=== PATIENT | male | born 1935 | race Caucasian/White ===

== ENCOUNTER 2020-03-02 18:49 | Outpatient (CLI) | payer MEDICARE, OTHER | END 2020-03-02 18:50 | disposition critical access hospital (66) | LOC: EMS 18:49 | PROVIDERS: ATTEND Surgery | DX: R11.2 Nausea with vomiting, unspecified (principal); R42 Dizziness and giddiness | CPT/HCPCS: A0425; A0427 ==

== ENCOUNTER 2020-03-02 19:08 | Emergency (ER) | payer MEDICARE, OTHER ==
[2020-03-02] MEDS ORDERED: ONDANSETRON 4 MG/2 ML VIAL IVP STA (19:36)
--- NOTE | 2020-03-02 19:39 | ED Physician Documentation ---
PD HPI FOCAL NEURO - Stated complaint Stated Complaint: DIZZY/N/V - Chief complaint Chief Complaint: Abd Pain - History obtained from History obtained from: Patient, Family (), EMS - History of Present Illness Timing - onset: Today (Acute onset vertigo, N/V, starting at 6pm. Vomited once. Slightly confused. Complains of headache but declines pain medication for it. I do not think he is on a blood thinner but he is not sure.) Review of Systems Ten Systems: 10 systems reviewed and negative Constitutional: denies: Fever, Chills Nose: denies: Rhinorrhea / runny nose, Congestion Cardiac: denies: Chest pain / pressure, Palpitations Respiratory: denies: Dyspnea, Cough PD PAST MEDICAL HISTORY - Allergies Allergies/Adverse Reactions: Allergies Allergy/AdvReac Type Severity Reaction Status Date / Time No Known Drug Allergies Allergy Verified 03/02/20 19:23 PD ED PE NORMAL - Vitals Vital signs reviewed: Yes (He appears uncomfortable and laying in bed and with his eyes closed. He is) - General General: Alert and oriented X 3, Other (He appears uncomfortable and laying in bed and with his eyes closed. He is covered in vomit.) - HEENT HEENT: PERRL, Other (He seems to have nystagmus in all directions) - Neck Neck: Supple, no meningeal sign, No bony TTP - Cardiac Cardiac: RRR, No murmur - Respiratory Respiratory: No respiratory distress, Clear bilaterally - Abdomen Abdomen: Normal bowel sounds, Soft, Non tender - Back Back: No CVA TTP, No spinal TTP - Derm Derm: Normal color - Extremities Extremities: No deformity, No tenderness to palpate, Normal ROM s pain, No edema, No calf tenderness / cord - Neuro Neuro: Alert and oriented X 3, No motor deficit, No sensory deficit, Other (He has ataxia on right upper extremity [id number] testing) Results - Vitals Vitals: Vital Signs - 24 hr 03/02/20 03/02/20 19:16 21:16 Temperature 36.8 C 36.6 C Heart Rate 82 88 Respiratory 14 16 Rate Blood Pressure 125/80 116/69 O2 Saturation 92 94 Oxygen O2 Source Room air - EKG (time done) 1922 Rate: Rate (enter#) (83) Rhythm: NSR [place]: Normal Intervals: Prolonged [place], RBBB QRS: Normal Compare to prior EKG: Old EKG unavailable Computer interpretation: Agree with computer - Labs Labs: Laboratory Tests 03/02/20 03/02/20 03/02/20 20:01 20:01 20:01 WBC 7.2 RBC 4.33 L Hgb 15.0 Hct 45.9 MCV 106.0 H MCH 34.6 H MCHC 32.7 RDW 13.7 Plt Count 136 MPV 10.9 Neut # (Auto) 5.1 Lymph # (Auto) 1.3 L [place] # (Auto) 0.7 Eos # (Auto) 0.1 Baso # (Auto) 0.0 Absolute Nucleated RBC 0.00 Nucleated RBC % 0.0 PT 11.2 INR 1.0 Sodium 142 Potassium 3.6 Chloride 106 Carbon Dioxide 25 Anion Gap 11.0 BUN 12 Creatinine 0.9 Estimated GFR (MDRD) 81 L Glucose 163 H Calcium 8.9 Total Bilirubin 0.6 AST 24 ALT 31 Alkaline Phosphatase 67 Total Protein 6.4 L Albumin 3.7 Globulin 2.7 Albumin/Globulin Ratio 1.4 Lipase 29 - Rads (name of study) CT Head Radiology: EMP read contemporaneously (normal) PD MEDICAL DECISION MAKING - ED course ED course: Further information was gathered after I saw the patient. Per the nurse, paramedics state that both he and his are quite intoxicated. This would explain his physical findings. Allowed to sober up in ED. After a while no sx, and ambulatory with stable gait. Departure - Departure Disposition: 01 Home, Self Care Clinical Impression: Vertigo Alcohol intoxication Qualifiers: Complication of substance-induced condition: uncomplicated Qualified Code(s): F10.920 - Alcohol use, unspecified with intoxication, uncomplicated Condition: Good Record reviewed to determine appropriate education?: Yes Instructions: ED Alcohol Intoxication, ED Vertigo Unspecified Comments: Try not to drink so heavily. Return for new or worsening symptoms. Follow-up with your doctor regardless, next available appointment. Discharge Date/Time: 03/02/20 21:16
[2020-03-02] MEDS ORDERED: MECLIZINE 12.5 MG TABLET PO STA (19:50)
[2020-03-02 20:11] LABS: BASOPHILS % (AUTO) 0.3 %; EOSINOPHILS # (AUTO) 0.1 10^3/uL (0.0-0.7); EOSINOPHILS % (AUTO) 1.5 %; LYMPHOCYTES # (AUTO) 1.3 10^3/uL (1.5-3.5); LYMPHOCYTES % (AUTO) 17.7 %; MEAN CORPUSCULAR HEMOGLOBIN 34.6 pg (27.0-31.0); MEAN CORPUSCULAR HGB CONC 32.7 g/dL (32.0-36.0); MEAN PLATELET VOLUME 10.9 fL (7.4-11.4); MONOCYTES # (AUTO) 0.7 10^3/uL (0.0-1.0); MONOCYTES % (AUTO) 9.1 %; NEUTROPHILS # (AUTO) 5.1 10^3/uL (1.5-6.6); NEUTROPHILS % (AUTO) 71.1 %; PLT - PLATELET COUNT 136 10^3/uL (130-450); RED BLOOD COUNT 4.33 10^6/uL (4.70-6.10); RED CELL DISTRIBUTION WIDTH 13.7 % (12.0-15.0); WHITE BLOOD COUNT 7.2 x10^3/uL (4.8-10.8)
[2020-03-02 20:18] LABS: PT - PROTHROMBIN TIME 11.2 secs (9.9-12.6)
[2020-03-02 20:23] LABS: ALBUMIN 3.7 g/dL (3.2-5.5); ALBUMIN/GLOBULIN RATIO 1.4 (1.0-2.2); BILIRUBIN,TOTAL 0.6 mg/dL (0.2-1.0); CALCIUM 8.9 mg/dL (8.5-10.3); CREATININE 0.9 mg/dL (0.6-1.2); TOTAL PROTEIN 6.4 g/dL (6.7-8.2)
--- NOTE | 2020-03-02 20:23 | CT Report ---
Reason: headache, vertigo Procedure Date: 03/02/2020 Accession Number: [id number] / [id number] Procedure: CT - HEAD WO CPT Code: Final Report FULL RESULT: EXAM: CT HEAD EXAM DATE: 03/02/2020 07:52 PM. CLINICAL HISTORY: Headache, vertigo. COMPARISON: None. TECHNIQUE: Multiaxial CT images were obtained from the foramen magnum to the vertex. Reformats: Sagittal and coronal. IV contrast: None. In accordance with CT protocol optimization, one or more of the following dose reduction techniques were utilized for this exam: automated exposure control, adjustment of mA and/or KV based on patient size, or use of iterative reconstructive technique. FINDINGS: Parenchyma: No intraparenchymal hemorrhage. No evidence of mass, midline shift, or CT findings of infarction. Zapien-white differentiation is distinct. Extraaxial Spaces: Normal for age. No subdural or epidural collections identified. Ventricles: Normal in size and position. Sinuses and Orbits: There is bilateral sphenoid sinus opacification. Mastoid sinuses appear clear. Bones: No fracture or focal bony destruction. Other: None. IMPRESSION: Negative for an acute or focal intracranial abnormality. RADIA
[2020-03-02 21:17] VITALS: BP 116/69
== END 2020-03-02 21:16 | disposition home or self-care (01) ==
LOC: EDUNIT# → ED 19:08
DX: R42 Dizziness and giddiness (principal); F10.920 Alcohol use, unspecified with intoxication, uncomplicated; R11.2 Nausea with vomiting, unspecified; R51 Headache; I45.10 Unspecified right bundle-branch block; I44.0 Atrioventricular block, first degree
CPT/HCPCS: 36415; 70450; 80053; 83690; 85025; 85610; 93005; 96374; 99283; 99284; A9270

== ENCOUNTER 2021-05-12 21:37 | Outpatient (CLI) | payer MEDICARE, OTHER | END 2021-05-12 21:38 | disposition critical access hospital (66) | LOC: EMS 21:37 | DX: R10.9 Unspecified abdominal pain (principal); R11.10 Vomiting, unspecified; R19.7 Diarrhea, unspecified | CPT/HCPCS: A0425; A0427 ==

== ENCOUNTER 2021-05-12 21:56 | Observation (INO) | payer MEDICARE, OTHER ==
[2021-05-12 23:16] LABS: ALBUMIN 3.8 g/dL (3.2-5.5); ALBUMIN/GLOBULIN RATIO 1.7 (1.0-2.2); BILIRUBIN,TOTAL 1.7 mg/dL (0.2-1.0); CALCIUM 8.8 mg/dL (8.5-10.3); CREATININE 1.1 mg/dL (0.6-1.2); POTASSIUM 3.4 mmol/L (3.5-5.0); TOTAL PROTEIN 6.1 g/dL (6.7-8.2)
[2021-05-12 23:17] LABS: BASOPHILS % (AUTO) 0.2 %; EOSINOPHILS # (AUTO) 0.2 10^3/uL (0.0-0.7); HCT - HEMATOCRIT 46.5 % (42.0-52.0); HGB - HEMOGLOBIN 15.2 g/dL (14.0-18.0); LYMPHOCYTES # (AUTO) 1.1 10^3/uL (1.5-3.5); LYMPHOCYTES % (AUTO) 7.1 %; MEAN CORPUSCULAR HEMOGLOBIN 33.3 pg (27.0-31.0); MEAN CORPUSCULAR HGB CONC 32.7 g/dL (32.0-36.0); MEAN PLATELET VOLUME 10.9 fL (7.4-11.4); MONOCYTES # (AUTO) 1.4 10^3/uL (0.0-1.0); MONOCYTES % (AUTO) 8.5 %; NEUTROPHILS # (AUTO) 13.2 10^3/uL (1.5-6.6); PLT - PLATELET COUNT 138 10^3/uL (130-450); RED BLOOD COUNT 4.56 10^6/uL (4.70-6.10); RED CELL DISTRIBUTION WIDTH 13.4 % (12.0-15.0); WHITE BLOOD COUNT 15.9 x10^3/uL (4.8-10.8)
[2021-05-13] MEDS ORDERED: KETAMINE 500 MG/10 ML VIAL IVP STA (00:20)
[2021-05-13] MEDS ORDERED: SODIUM CHLORIDE 0.9% 1,000 ML IV STA ×2 (00:21→01:40)
[2021-05-13] MEDS ORDERED: IOPAMIDOL-300 100 ML VIAL ONE (00:22)
--- NOTE | 2021-05-13 00:38 | ED Physician Documentation ---
History of Present Illness - Stated complaint Stated Complaint: N/V, ABD PAIN, DIZZY - Chief complaint Chief Complaint: Abd Pain - History obtained from History obtained from: Patient, Family () - Additonal information Additional information: 85yM with pmh "heart problems" on propranolol, atorvastatin, albuterol inhaler, lasix 20mg daily, difficult historian however He states that he had new onset nausea and vomiting and abdominal pain with diarrhea today and was not able to get off the toilet therefore he told his to call 911. denies fevers. chronic constipation, now with diarrhea. unsure if he has history of aflutter or afib. Review of Systems Cardiac: reports: Chest pain / pressure, Palpitations GI: reports: Abdominal Pain, Nausea Musculoskeletal: denies: Back pain Neurologic: reports: Headache PD PAST MEDICAL HISTORY - Past Medical History Past Medical History: Yes Cardiovascular: High cholesterol, Atrial fibrillation Respiratory: COPD - Allergies Allergies/Adverse Reactions: Allergies Allergy/AdvReac Type Severity Reaction Status Date / Time No Known Drug Allergies Allergy Verified 05/12/21 22:10 - Social History Does the pt smoke?: No Smoking Status: Never smoker Does the pt drink ETOH?: No Does the pt have substance abuse?: No - Immunizations Immunizations are current?: No - POLST Patient has POLST: No PD ED PE NORMAL - Vitals Vital signs reviewed: Yes - General General: Alert and oriented X 3 - HEENT HEENT: Atraumatic, PERRL, EOMI - Neck Neck: Supple, no meningeal sign - Cardiac Cardiac: Other (tachycardic rate, regular rhythm) - Respiratory Respiratory: No respiratory distress, Clear bilaterally - Abdomen Abdomen: Non tender, Non distended, Other (discomfort diffusely to palpation) - Back Back: No CVA TTP - Derm Derm: Normal color - Extremities Extremities: No deformity - Neuro Neuro: Alert and oriented X 3 - Psych Psych: Normal mood, Normal affect Results - Vitals Vitals: Vital Signs - 24 hr 05/12/21 05/12/21 05/12/21 22:05 22:10 23:30 Temperature 36.7 C Heart Rate 97 64 119 H Respiratory 14 14 16 Rate Blood Pressure 102/68 92/63 81/46 L O2 Saturation 96 96 93 05/13/21 05/13/21 05/13/21 00:00 00:10 00:33 Temperature Heart Rate 139 H 140 H 143 H Respiratory 16 18 Rate Blood Pressure 82/68 L 84/56 L 94/57 L O2 Saturation 93 94 93 05/13/21 05/13/21 05/13/21 01:07 01:21 02:15 Temperature Heart Rate 137 H 137 H 133 H Respiratory Rate Blood Pressure 74/63 L 107/89 H 109/91 H O2 Saturation 95 05/13/21 05/13/21 05/13/21 02:36 02:54 03:10 Temperature Heart Rate 134 H 132 H 84 Respiratory Rate Blood Pressure 68/55 L 85/61 L 99/64 O2 Saturation 93 92 98 05/13/21 05/13/21 05/13/21 04:55 05:02 05:54 Temperature Heart Rate 75 75 75 Respiratory Rate Blood Pressure 99/61 104/63 97/62 O2 Saturation 93 95 Oxygen O2 Source Room air - Labs Labs: Laboratory Tests 05/12/21 05/12/21 05/12/21 23:00 23:00 23:00 WBC 15.9 H RBC 4.56 L Hgb 15.2 Hct 46.5 MCV 102.0 H MCH 33.3 H MCHC 32.7 RDW 13.4 Plt Count 138 MPV 10.9 Neut # (Auto) 13.2 H Lymph # (Auto) 1.1 L [place] # (Auto) 1.4 H Eos # (Auto) 0.2 Baso # (Auto) 0.0 Absolute Nucleated RBC 0.00 Nucleated RBC % 0.0 Anti-Xa Level Sodium 138 Potassium 3.4 L Chloride 106 Carbon Dioxide 23 Anion Gap 9.0 BUN 27 H Creatinine 1.1 Estimated GFR (MDRD) 64 L Glucose 129 H Lactic Acid Calcium 8.8 Magnesium 2.0 Total Bilirubin 1.7 H AST 40 ALT 31 Alkaline Phosphatase 53 Troponin I High Sens Total Protein 6.1 L Albumin 3.8 Globulin 2.3 Albumin/Globulin Ratio 1.7 Lipase 24 Nasal Adenovirus (PCR) Nasal B. parapertussis DNA (PCR) Nasal Coronavir 229E PCR Nasal Coronavir HKU1 PCR Nasal Coronavir NL63 PCR Nasal Coronavir OC43 PCR Nasal Enterovir/Rhinovir PCR Nasal Influenza B PCR Nasal Influenza A PCR Nasal Parainfluen 1 PCR Nasal Parainfluen 2 PCR Nasal Parainfluen 3 PCR Nasal Parainfluen 4 PCR Nasal RSV (PCR) Nasal B.pertussis DNA PCR Nasal C.pneumoniae (PCR) Talha Human Metapneumo PCR Nasal M.pneumoniae (PCR) Nasal SARS-CoV-2 (PCR) 05/13/21 05/13/21 05/13/21 00:25 01:07 01:45 WBC RBC Hgb Hct MCV MCH MCHC RDW Plt Count MPV Neut # (Auto) Lymph # (Auto) [place] # (Auto) Eos # (Auto) Baso # (Auto) Absolute Nucleated RBC Nucleated RBC % Anti-Xa Level Sodium Potassium Chloride Carbon Dioxide Anion Gap BUN Creatinine Estimated GFR (MDRD) Glucose Lactic Acid 2.0 Calcium Magnesium Total Bilirubin AST ALT Alkaline Phosphatase Troponin I High Sens 31.1 H* Total Protein Albumin Globulin Albumin/Globulin Ratio Lipase Nasal Adenovirus (PCR) NOT DETECTED Nasal B. parapertussis DNA (PCR) NOT DETECTED Nasal Coronavir 229E PCR NOT DETECTED Nasal Coronavir HKU1 PCR NOT DETECTED Nasal Coronavir NL63 PCR NOT DETECTED Nasal Coronavir OC43 PCR NOT DETECTED Nasal Enterovir/Rhinovir PCR NOT DETECTED Nasal Influenza B PCR NOT DETECTED Nasal Influenza A PCR NOT DETECTED Nasal Parainfluen 1 PCR NOT DETECTED Nasal Parainfluen 2 PCR NOT DETECTED Nasal Parainfluen 3 PCR NOT DETECTED Nasal Parainfluen 4 PCR NOT DETECTED Nasal RSV (PCR) NOT DETECTED Nasal B.pertussis DNA PCR NOT DETECTED Nasal C.pneumoniae (PCR) NOT DETECTED Talha Human Metapneumo PCR NOT DETECTED Nasal M.pneumoniae (PCR) NOT DETECTED Nasal SARS-CoV-2 (PCR) NOT DETECTED 05/13/21 05/13/21 04:10 04:10 WBC 10.8 RBC 4.26 L Hgb 14.3 Hct 44.4 MCV 104.2 H MCH 33.6 H MCHC 32.2 RDW 13.6 Plt Count 123 L MPV 10.9 Neut # (Auto) Lymph # (Auto) [place] # (Auto) Eos # (Auto) Baso # (Auto) Absolute Nucleated RBC Nucleated RBC % Anti-Xa Level 0.0 Sodium Potassium Chloride Carbon Dioxide Anion Gap BUN Creatinine Estimated GFR (MDRD) Glucose Lactic Acid Calcium Magnesium Total Bilirubin AST ALT Alkaline Phosphatase Troponin I High Sens Total Protein Albumin Globulin Albumin/Globulin Ratio Lipase Nasal Adenovirus (PCR) Nasal B. parapertussis DNA (PCR) Nasal Coronavir 229E PCR Nasal Coronavir HKU1 PCR Nasal Coronavir NL63 PCR Nasal Coronavir OC43 PCR Nasal Enterovir/Rhinovir PCR Nasal Influenza B PCR Nasal Influenza A PCR Nasal Parainfluen 1 PCR Nasal Parainfluen 2 PCR Nasal Parainfluen 3 PCR Nasal Parainfluen 4 PCR Nasal RSV (PCR) Nasal B.pertussis DNA PCR Nasal C.pneumoniae (PCR) [place]ha Human Metapneumo PCR Nasal M.pneumoniae (PCR) Nasal SARS-CoV-2 (PCR) PD MEDICAL DECISION MAKING - ED course ED course: Blood pressure keeps dropping when he converts to aflutter, then he goes back into NSR. Patient reporting to me a feeling that his head is going to explode and that he is dying during these episodes, then symptoms shakila when his heart rate goes back down. d/w Dr. Henson, our hospitalist who strongly recommended against electrical cardioversion or procainamide given that he is not anticoagulated. recommending ivf for volume resuscitation. Patient with jejunal enteritis and possible midsmall bowel obstruction on CT. exam inconsistent with SBO and patient is passing gas and was having diarrhea earlier. d/w Dr. Coreas who states the patient is too complicated to manage here and must be transferred. Will give antibiotics. 2:15am - no beds available anywhere. our [facility] called all the hospitals in [place] and surrounding area. d/w transfer center Ally at need for emergent transfer and need to speak with a housetrailer servicer and she will have one call me. 3am - d/w Мария with [facility] who says there are no beds anywhere in [place] or surrounding area right now. 3:23 ekg NSR at rate 83. he appears to have converted from flutter to nsr. d/w housetrailer servicer Dr. Lloyd Novak - recommending start amio now the patient is in sinus as well as heparin. he reiterated no beds available. d/w Dr.Alex Montes, [facility]. patient endorsed to Dr. Power, daytime MD. Departure - Departure Clinical Impression: Atrial flutter, Enteritis
[2021-05-13] MEDS ORDERED: IOPAMIDOL-300 100 ML VIAL IVP ONE (00:56)
[2021-05-13] MEDS ORDERED: PIPERACILLIN/TAZOBACTAM 3.375 GM in SODIUM CHLORIDE 0.9% MINIBAG 100 ML IV STA (01:36)
[2021-05-13 03:20] LABS: B. PARAPERTUSSIS- RESP PCR PAN NOT DETECTED; B. PERTUSSIS- RESP PCR PANEL NOT DETECTED; C. PNEUMONIAE- RESP PCR PANEL NOT DETECTED; CORONAVIRUS 229E-RESP PCR NOT DETECTED; CORONAVIRUS HKU1-RESP PCR NOT DETECTED; CORONAVIRUS NL63-RESP PCR NOT DETECTED; CORONAVIRUS OC43-RESP PCR NOT DETECTED; HUMAN METAPNEUMOVIRUS NOT DETECTED; INFLUENZA A- RESP PCR PANEL NOT DETECTED; INFLUENZA B - RESP PCR PANEL NOT DETECTED; M. PNEUMONIAE- RESP PCR PANEL NOT DETECTED; PARAINFLUENZA VIRUS 1 NOT DETECTED; PARAINFLUENZA VIRUS 2 NOT DETECTED; PARAINFLUENZA VIRUS 3 NOT DETECTED; PARAINFLUENZA VIRUS 4 NOT DETECTED; RHINOVIRUS/ENTEROVIRUS NOT DETECTED; RSV- RESP PCR PANEL NOT DETECTED; SARS-CoV-2 -RESP PCR PANEL NOT DETECTED
[2021-05-13] MEDS ORDERED: LIDOCAINE JELLY 2% 6 ML JEL.PF.APP ONE (03:40)
[2021-05-13] MEDS ORDERED: AMIODARONE 150 MG/100 ML 100 ML IV ONE (04:01)
[2021-05-13 04:18] LABS: HCT - HEMATOCRIT 44.4 % (42.0-52.0); HGB - HEMOGLOBIN 14.3 g/dL (14.0-18.0); MEAN CORPUSCULAR HEMOGLOBIN 33.6 pg (27.0-31.0); MEAN CORPUSCULAR HGB CONC 32.2 g/dL (32.0-36.0); MEAN CORPUSCULAR VOLUME 104.2 fL (80.0-94.0); MEAN PLATELET VOLUME 10.9 fL (7.4-11.4); RED BLOOD COUNT 4.26 10^6/uL (4.70-6.10); RED CELL DISTRIBUTION WIDTH 13.6 % (12.0-15.0); WHITE BLOOD COUNT 10.8 x10^3/uL (4.8-10.8)
[2021-05-13] MEDS: HEPARIN 25000UNITS/500ML (D5W) 25,000 UNIT/500 ML BAG IV SCH (04:41)
[2021-05-13] MEDS ORDERED: AMIODARONE 360 MG/200 ML 200 ML IV ONE (05:18)
[2021-05-13] MEDS ORDERED: AMIODARONE 360 MG/200 ML 200 ML IV SCH (06:00)
--- NOTE | 2021-05-13 07:46 | CT Report ---
PROCEDURE: Abdomen/Pelvis W INDICATIONS: abd pain, n/v/d CONTRAST: IV CONTRAST: Isovue 300 ml: 100 PO CONTRAST: *NO PO CONTRAST TECHNIQUE: After the administration of intravenous contrast, 5 mm thick sections acquired from the diaphragms to the symphysis. 5 mm thick coronal and sagittal reformats were acquired. For radiation dose reducti on, the following was used: automated exposure control, adjustment of mA and/or kV according to bever[place] ent size. COMPARISON: None. FINDINGS: Image quality: Excellent. ABDOMEN: Lung bases: Lung bases are clear. Heart size is normal. Solid organs: Liver and spleen are normal in size and enhancement. Gallbladder is surgically absent Biliary system is non dilated. Pancreas enhances normally. No adrenal nodules. Kidneys demonstra te normal size and enhancement, without hydronephrosis. Peritoneum and bowel: The proximal jejunum is mildly dilated, measuring 3.4 cm in diameter. More dist ally, the jejunum has a normal caliber. Question mild proximal small bowel obstruction. No free fluid or air. Nodes and vessels: No retroperitoneal or mesenteric adenopathy by size criteria. Aorta and inferior vena cava are normal in size. Miscellaneous: Small umbilical hernia containing fat. PELVIS: Genitourinary: Bladder wall thickness is normal. Miscellaneous: No inguinal hernias or adenopathy. Bones: No suspicious bony lesions. Old compressions of T9, T10, T11, T12, L1, L2, L4, and L5. The T1 2 compression has been treated with cement. No acute compression fractures. Multilevel lumbar canal s tenosis. IMPRESSION: 1. Question mild proximal small bowel obstruction. 2. Severe osteoporosis with numerous old compressions. 3. Multilevel lumbar canal stenosis. A preliminary report with the above findings was provided at the time of the study by [facility] [employer]. Reviewed by: Geraldo Gautam MD on 05/13/2021 7:45 AM PDT Approved by: Geraldo Gautam MD on 05/13/2021 7:45 AM PDT Station ID: [id number]
--- NOTE | 2021-05-13 08:07 | XRAY Report ---
PROCEDURE: Chest 1 View X-Ray INDICATIONS: aflutter TECHNIQUE: One view of the chest was acquired. COMPARISON: None FINDINGS: Surgical changes and devices: None. Lungs and pleura: No pleural effusions or pneumothorax. Patchy bibasilar atelectasis. Mediastinum: Mediastinal contours appear normal. Heart size is normal. Bones and chest wall: No suspicious bony lesions. Overlying soft tissues appear unremarkable. IMPRESSION: Patchy bibasilar atelectasis. A preliminary report with the above findings was provided at the time of the study by [facility]. Reviewed by: Geraldo Gautam MD on 05/13/2021 8:05 AM PDT Approved by: Grealdo Gautam MD on 05/13/2021 8:05 AM PDT Station ID: [id number]
[2021-05-13 09:12] LABS: HGB - HEMOGLOBIN 13.7 g/dL (14.0-18.0); MEAN CORPUSCULAR HEMOGLOBIN 33.3 pg (27.0-31.0); RED CELL DISTRIBUTION WIDTH 13.7 % (12.0-15.0)
[2021-05-13 09:22] LABS: WHITE BLOOD COUNT 9.7 x10^3/uL (4.8-10.8)
[2021-05-13 09:23] LABS: HCT - HEMATOCRIT 42.7 % (42.0-52.0); MEAN CORPUSCULAR HGB CONC 32.1 g/dL (32.0-36.0); MEAN PLATELET VOLUME 10.8 fL (7.4-11.4); RED BLOOD COUNT 4.09 10^6/uL (4.70-6.10)
[2021-05-13 09:24] LABS: MEAN CORPUSCULAR VOLUME 104.4 fL (80.0-94.0)
[2021-05-13] MEDS: AMIODARONE 360 MG/200 ML 200 ML IV SCH ×2 (11:52→22:15)
[2021-05-13 12:27] LABS: BILIRUBIN,URINE NEGATIVE (NEGATIVE); GLUCOSE, URINE (UA) NEGATIVE (NEGATIVE); KETONES,URINE (UA) NEGATIVE (NEGATIVE); LEUKOCYTE ESTERASE, URINE NEGATIVE (NEGATIVE); NITRITE,URINE NEGATIVE (NEGATIVE); OCCULT BLOOD,URINE NEGATIVE (NEGATIVE); PROTEIN,URINE TRACE mg/dL (NEGATIVE); UROBILINOGEN,URINE 0.2 (NORMAL) E.U./dL (NORMAL)
[2021-05-13 12:28] LABS: CLARITY,URINE CLEAR (CLEAR)
[2021-05-13] MEDS ORDERED: ASPIRIN 325 MG TABLET PO STA (20:13)
[2021-05-14] MEDS: HEPARIN 25000UNITS/500ML (D5W) 25,000 UNIT/500 ML BAG IV SCH (02:17)
--- NOTE | 2021-05-14 04:50 | ED Physician Documentation ---
ED Addendum - Addendum Addendum: 05/14/21 04:46 Patient in no acute distress, troponin downtrending. Still waiting on a bed from . His blood cultures are not growing any bacteria and he is asymptomatic here in the emergency department without fevers, therefore we are holding antibiotics for now. No further episodes of a flutter.
[2021-05-14 07:47] LABS: ALBUMIN 3.8 g/dL (3.2-5.5); ALBUMIN/GLOBULIN RATIO 1.5 (1.0-2.2); BILIRUBIN,TOTAL 1.4 mg/dL (0.2-1.0); CALCIUM 8.8 mg/dL (8.5-10.3); POTASSIUM 3.7 mmol/L (3.5-5.0); TOTAL PROTEIN 6.3 g/dL (6.7-8.2)
[2021-05-14 07:58] LABS: BASOPHILS % (AUTO) 0.3 %; EOSINOPHILS # (AUTO) 0.2 10^3/uL (0.0-0.7); EOSINOPHILS % (AUTO) 2.4 %; HGB - HEMOGLOBIN 14.2 g/dL (14.0-18.0); LYMPHOCYTES # (AUTO) 0.9 10^3/uL (1.5-3.5); LYMPHOCYTES % (AUTO) 12.1 %; MEAN CORPUSCULAR HEMOGLOBIN 33.2 pg (27.0-31.0); MEAN CORPUSCULAR HGB CONC 32.3 g/dL (32.0-36.0); MEAN CORPUSCULAR VOLUME 102.8 fL (80.0-94.0); MEAN PLATELET VOLUME 11.1 fL (7.4-11.4); MONOCYTES # (AUTO) 0.8 10^3/uL (0.0-1.0); MONOCYTES % (AUTO) 9.8 %; NEUTROPHILS # (AUTO) 5.9 10^3/uL (1.5-6.6); NEUTROPHILS % (AUTO) 75.1 %; PLT - PLATELET COUNT 109 10^3/uL (130-450); RED BLOOD COUNT 4.28 10^6/uL (4.70-6.10); RED CELL DISTRIBUTION WIDTH 13.7 % (12.0-15.0); WHITE BLOOD COUNT 7.8 x10^3/uL (4.8-10.8)
--- NOTE | 2021-05-14 07:58 | ED Physician Documentation ---
History of Present Illness - Stated complaint Stated Complaint: N/V, ABD PAIN, DIZZY - Chief complaint Chief Complaint: Abd Pain - History obtained from History obtained from: Patient - History of Present Illness Timing: Today Pain level max: 0 Pain level now: 0 PD PAST MEDICAL HISTORY - Past Medical History Past Medical History: Yes Cardiovascular: High cholesterol, Atrial fibrillation Respiratory: COPD - Allergies Allergies/Adverse Reactions: Allergies Allergy/AdvReac Type Severity Reaction Status Date / Time No Known Drug Allergies Allergy Verified 05/12/21 22:10 - Social History Does the pt smoke?: No Smoking Status: Never smoker Does the pt drink ETOH?: No Does the pt have substance abuse?: No - Immunizations Immunizations are current?: No - POLST Patient has POLST: No Results - Vitals Vitals: Vital Signs - 24 hr 05/13/21 05/13/21 05/13/21 11:00 13:00 15:00 Temperature 36.7 C 36.5 C 36.5 C Heart Rate 56 L 55 L 56 L Respiratory 16 15 16 Rate Blood Pressure 101/58 L 109/62 116/69 O2 Saturation 94 95 96 05/13/21 05/13/21 05/13/21 17:00 19:00 21:00 Temperature 36.6 C 36.7 C 36.6 C Heart Rate 57 L 59 L 60 Respiratory 18 16 16 Rate Blood Pressure 125/68 105/67 127/83 H O2 Saturation 98 96 98 05/14/21 05/14/21 05/14/21 00:21 01:09 02:30 Temperature Heart Rate 67 66 79 Respiratory 14 16 16 Rate Blood Pressure 115/56 L 116/53 L 129/99 H O2 Saturation 94 95 95 05/14/21 05/14/21 05/14/21 04:00 06:00 07:34 Temperature 36.5 C 36.8 C Heart Rate 65 67 70 Respiratory 16 16 16 Rate Blood Pressure 125/75 106/74 127/73 O2 Saturation 95 94 96 Oxygen O2 Source Room air - Labs Labs: Microbiology 05/13/21 01:45 Blood Culture - Preliminary Blood NO GROWTH AFTER 1 DAY 05/13/21 01:40 Blood Culture - Preliminary Blood NO GROWTH AFTER 1 DAY Laboratory Tests 05/12/21 05/12/21 05/12/21 23:00 23:00 23:00 WBC 15.9 H RBC 4.56 L Hgb 15.2 Hct 46.5 MCV 102.0 H MCH 33.3 H MCHC 32.7 RDW 13.4 Plt Count 138 MPV 10.9 Neut # (Auto) 13.2 H Lymph # (Auto) 1.1 L Weakley # (Auto) 1.4 H Eos # (Auto) 0.2 Baso # (Auto) 0.0 Absolute Nucleated RBC 0.00 Nucleated RBC % 0.0 Anti-Xa Level Sodium 138 Potassium 3.4 L Chloride 106 Carbon Dioxide 23 Anion Gap 9.0 BUN 27 H Creatinine 1.1 Estimated GFR (MDRD) 64 L Glucose 129 H Lactic Acid Calcium 8.8 Magnesium 2.0 Total Bilirubin 1.7 H AST 40 ALT 31 Alkaline Phosphatase 53 Troponin I High Sens Total Protein 6.1 L Albumin 3.8 Globulin 2.3 Albumin/Globulin Ratio 1.7 Lipase 24 Urine Color Urine Clarity Urine pH Ur Specific Bentley Urine Protein Urine Glucose (UA) Urine Ketones Urine Occult Blood Urine Nitrite Urine Bilirubin Urine Urobilinogen Ur Leukocyte Esterase Ur Microscopic Review Urine Culture Comments Nasal Adenovirus (PCR) Nasal B. parapertussis DNA (PCR) Nasal Coronavir 229E PCR Nasal Coronavir HKU1 PCR Nasal Coronavir NL63 PCR Nasal Coronavir OC43 PCR Nasal Enterovir/Rhinovir PCR Nasal Influenza B PCR Nasal Influenza A PCR Nasal Parainfluen 1 PCR Nasal Parainfluen 2 PCR Nasal Parainfluen 3 PCR Nasal Parainfluen 4 PCR Nasal RSV (PCR) Nasal B.pertussis DNA PCR Nasal C.pneumoniae (PCR) Talha Human Metapneumo PCR Nasal M.pneumoniae (PCR) Nasal SARS-CoV-2 (PCR) 05/13/21 05/13/21 05/13/21 00:25 01:07 01:45 WBC RBC Hgb Hct MCV MCH MCHC RDW Plt Count MPV Neut # (Auto) Lymph # (Auto) Weakley # (Auto) Eos # (Auto) Baso # (Auto) Absolute Nucleated RBC Nucleated RBC % Anti-Xa Level Sodium Potassium Chloride Carbon Dioxide Anion Gap BUN Creatinine Estimated GFR (MDRD) Glucose Lactic Acid 2.0 Calcium Magnesium Total Bilirubin AST ALT Alkaline Phosphatase Troponin I High Sens 31.1 H* Total Protein Albumin Globulin Albumin/Globulin Ratio Lipase Urine Color Urine Clarity Urine pH Ur Specific Bentley Urine Protein Urine Glucose (UA) Urine Ketones Urine Occult Blood Urine Nitrite Urine Bilirubin Urine Urobilinogen Ur Leukocyte Esterase Ur Microscopic Review Urine Culture Comments Nasal Adenovirus (PCR) NOT DETECTED Nasal B. parapertussis DNA (PCR) NOT DETECTED Nasal Coronavir 229E PCR NOT DETECTED Nasal Coronavir HKU1 PCR NOT DETECTED Nasal Coronavir NL63 PCR NOT DETECTED Nasal Coronavir OC43 PCR NOT DETECTED Nasal Enterovir/Rhinovir PCR NOT DETECTED Nasal Influenza B PCR NOT DETECTED Nasal Influenza A PCR NOT DETECTED Nasal Parainfluen 1 PCR NOT DETECTED Nasal Parainfluen 2 PCR NOT DETECTED Nasal Parainfluen 3 PCR NOT DETECTED Nasal Parainfluen 4 PCR NOT DETECTED Nasal RSV (PCR) NOT DETECTED Nasal B.pertussis DNA PCR NOT DETECTED Nasal C.pneumoniae (PCR) NOT DETECTED Talha Human Metapneumo PCR NOT DETECTED Nasal M.pneumoniae (PCR) NOT DETECTED Nasal SARS-CoV-2 (PCR) NOT DETECTED 05/13/21 05/13/21 05/13/21 04:10 04:10 07:40 WBC 10.8 RBC 4.26 L Hgb 14.3 Hct 44.4 MCV 104.2 H MCH 33.6 H MCHC 32.2 RDW 13.6 Plt Count 123 L MPV 10.9 Neut # (Auto) Lymph # (Auto) Weakley # (Auto) Eos # (Auto) Baso # (Auto) Absolute Nucleated RBC Nucleated RBC % Anti-Xa Level 0.0 Sodium Potassium Chloride Carbon Dioxide Anion Gap BUN Creatinine Estimated GFR (MDRD) Glucose Lactic Acid Calcium Magnesium Total Bilirubin AST ALT Alkaline Phosphatase Troponin I High Sens 277.1 H* Total Protein Albumin Globulin Albumin/Globulin Ratio Lipase Urine Color Urine Clarity Urine pH Ur Specific Bentley Urine Protein Urine Glucose (UA) Urine Ketones Urine Occult Blood Urine Nitrite Urine Bilirubin Urine Urobilinogen Ur Leukocyte Esterase Ur Microscopic Review Urine Culture Comments Nasal Adenovirus (PCR) Nasal B. parapertussis DNA (PCR) Nasal Coronavir 229E PCR Nasal Coronavir HKU1 PCR Nasal Coronavir NL63 PCR Nasal Coronavir OC43 PCR Nasal Enterovir/Rhinovir PCR Nasal Influenza B PCR Nasal Influenza A PCR Nasal Parainfluen 1 PCR Nasal Parainfluen 2 PCR Nasal Parainfluen 3 PCR Nasal Parainfluen 4 PCR Nasal RSV (PCR) Nasal B.pertussis DNA PCR Nasal C.pneumoniae (PCR) Talha Human Metapneumo PCR Nasal M.pneumoniae (PCR) Nasal SARS-CoV-2 (PCR) 05/13/21 05/13/21 05/13/21 09:03 12:11 12:14 WBC 9.7 RBC 4.09 L Hgb 13.7 L Hct 42.7 MCV 104.4 H MCH 33.3 H MCHC 32.1 RDW 13.7 Plt Count 123 L MPV 10.8 Neut # (Auto) Lymph # (Auto) Weakley # (Auto) Eos # (Auto) Baso # (Auto) Absolute Nucleated RBC Nucleated RBC % Anti-Xa Level 0.4 Sodium Potassium Chloride Carbon Dioxide Anion Gap BUN Creatinine Estimated GFR (MDRD) Glucose Lactic Acid Calcium Magnesium Total Bilirubin AST ALT Alkaline Phosphatase Troponin I High Sens Total Protein Albumin Globulin Albumin/Globulin Ratio Lipase Urine Color DARK YELLOW Urine Clarity CLEAR Urine pH 5.0 Ur Specific Bentley 1.020 Urine Protein TRACE Urine Glucose (UA) NEGATIVE Urine Ketones NEGATIVE Urine Occult Blood NEGATIVE Urine Nitrite NEGATIVE Urine Bilirubin NEGATIVE Urine Urobilinogen 0.2 (NORMAL) Ur Leukocyte Esterase NEGATIVE Ur Microscopic Review NOT INDICATED Urine Culture Comments NOT INDICATED Nasal Adenovirus (PCR) Nasal B. parapertussis DNA (PCR) Nasal Coronavir 229E PCR Nasal Coronavir HKU1 PCR Nasal Coronavir NL63 PCR Nasal Coronavir OC43 PCR Nasal Enterovir/Rhinovir PCR Nasal Influenza B PCR Nasal Influenza A PCR Nasal Parainfluen 1 PCR Nasal Parainfluen 2 PCR Nasal Parainfluen 3 PCR Nasal Parainfluen 4 PCR Nasal RSV (PCR) Nasal B.pertussis DNA PCR Nasal C.pneumoniae (PCR) Talha Human Metapneumo PCR Nasal M.pneumoniae (PCR) Nasal SARS-CoV-2 (PCR) 05/13/21 05/13/21 05/14/21 18:22 20:19 07:28 WBC 7.8 RBC 4.28 L Hgb 14.2 Hct 44.0 MCV 102.8 H MCH 33.2 H MCHC 32.3 RDW 13.7 Plt Count 109 L MPV 11.1 Neut # (Auto) 5.9 Lymph # (Auto) 0.9 L Weakley # (Auto) 0.8 Eos # (Auto) 0.2 Baso # (Auto) 0.0 Absolute Nucleated RBC 0.00 Nucleated RBC % 0.0 Anti-Xa Level 0.4 Sodium Potassium Chloride Carbon Dioxide Anion Gap BUN Creatinine Estimated GFR (MDRD) Glucose Lactic Acid Calcium Magnesium Total Bilirubin AST ALT Alkaline Phosphatase Troponin I High Sens 226.3 H* Total Protein Albumin Globulin Albumin/Globulin Ratio Lipase Urine Color Urine Clarity Urine pH Ur Specific Bentley Urine Protein Urine Glucose (UA) Urine Ketones Urine Occult Blood Urine Nitrite Urine Bilirubin Urine Urobilinogen Ur Leukocyte Esterase Ur Microscopic Review Urine Culture Comments Nasal Adenovirus (PCR) Nasal B. parapertussis DNA (PCR) Nasal Coronavir 229E PCR Nasal Coronavir HKU1 PCR Nasal Coronavir NL63 PCR Nasal Coronavir OC43 PCR Nasal Enterovir/Rhinovir PCR Nasal Influenza B PCR Nasal Influenza A PCR Nasal Parainfluen 1 PCR Nasal Parainfluen 2 PCR Nasal Parainfluen 3 PCR Nasal Parainfluen 4 PCR Nasal RSV (PCR) Nasal B.pertussis DNA PCR Nasal C.pneumoniae (PCR) Talha Human Metapneumo PCR Nasal M.pneumoniae (PCR) Nasal SARS-CoV-2 (PCR) 05/14/21 07:28 WBC RBC Hgb Hct MCV MCH MCHC RDW Plt Count MPV Neut # (Auto) Lymph # (Auto) Weakley # (Auto) Eos # (Auto) Baso # (Auto) Absolute Nucleated RBC Nucleated RBC % Anti-Xa Level Sodium 140 Potassium 3.7 Chloride 107 Carbon Dioxide 24 Anion Gap 9.0 BUN 19 Creatinine 1.0 Estimated GFR (MDRD) 71 L Glucose 128 H Lactic Acid Calcium 8.8 Magnesium Total Bilirubin 1.4 H AST 28 ALT 28 Alkaline Phosphatase 57 Troponin I High Sens Total Protein 6.3 L Albumin 3.8 Globulin 2.5 Albumin/Globulin Ratio 1.5 Lipase 23 Urine Color Urine Clarity Urine pH Ur Specific Bentley Urine Protein Urine Glucose (UA) Urine Ketones Urine Occult Blood Urine Nitrite Urine Bilirubin Urine Urobilinogen Ur Leukocyte Esterase Ur Microscopic Review Urine Culture Comments Nasal Adenovirus (PCR) Nasal B. parapertussis DNA (PCR) Nasal Coronavir 229E PCR Nasal Coronavir HKU1 PCR Nasal Coronavir NL63 PCR Nasal Coronavir OC43 PCR Nasal Enterovir/Rhinovir PCR Nasal Influenza B PCR Nasal Influenza A PCR Nasal Parainfluen 1 PCR Nasal Parainfluen 2 PCR Nasal Parainfluen 3 PCR Nasal Parainfluen 4 PCR Nasal RSV (PCR) Nasal B.pertussis DNA PCR Nasal C.pneumoniae (PCR) Talha Human Metapneumo PCR Nasal M.pneumoniae (PCR) Nasal SARS-CoV-2 (PCR) PD MEDICAL DECISION MAKING - ED course Complexity details: considered differential, d/w patient ED course: reevaluated the patient this morning. He has been in sinus rhythm. His troponin has peaked and is now declining. He is asymptomatic currently. No abdominal pain, diarrhea, vomiting. Likely self-limited enteritis. Does not have any symptoms consistent with a bowel obstruction. Discussed the case with Dr. Colon, cardiology at the [facility]. He states that we can stop the amiodarone and that the patient can discuss staying on an antiarrhythmic with his outpatient hansard reporter. We will place the patient in observation here for a cardiac stress test. Likely that this was demand ischemia secondary to his acute illness. Patient is very well-appearing, nontoxic. Afebrile. Discussed the case with Dr. Lopes, hospitalist who accepts This document was made in part using voice recognition software. While efforts are made to proofread this document, sound alike and grammatical errors may occur. Departure - Departure Disposition: ED Place in Observation Clinical Impression: Enteritis, Dehydration, Troponin level elevated Atrial flutter Qualifiers: Atrial flutter type: unspecified Qualified Code(s): I48.92 - Unspecified atrial flutter Condition: Stable
[2021-05-14] MEDS ORDERED: PIPERACILLIN/TAZOBACTAM 3.375 GM in SODIUM CHLORIDE 0.9% MINIBAG 100 ML IV SCH (08:00)
[2021-05-14] MEDS ORDERED: SODIUM CHLORIDE FLUSH 0.9% 10 ML SYRINGE IVP PRN (08:09)
--- NOTE | 2021-05-14 08:15 | HISTORY & PHYSICAL EXAMINATION ---
Chief Complaint - Chief Complaint Chief Complaint: elevated troponin, atrial fibrillation History of Present Illness - Admitted From Admitted From:: [facility] ED - History Obtained From Records Reviewed: yes History obtained from: patient - History of Present Illness HPI Comment/Other: Patient is an 85-year-old male who presented to the ED initially on 05/12/21 with complaint of nausea, vomiting and abdominal pain. On the day of presentation to the ED he has had several episodes of diarrhea and was too weak to get off the toilet. His called 911 and EMS brought him to the ED.He was diagnosed with enteritis and started on Zosyn. He reported substernal chest pressure at the time with radiating up to his neck. He reported feeling hot and was diaphoretic. He denies a previous occurrence and denied a history of heart disease. His heart rate fluctuated between 120s to 130s and his blood pressure tended to drop significantly when he was in atrial fibrillation. He was adequately resuscitated in the ED. His case was discussed with a seismograph operator helper at [facility] by name Dr. Lloyd Novak Ended initiating amiodarone drip and heparin. The patient was eventually accepted to the MICU at [facility] pending bed availability. As a result the patient was in the emergency room from the night of 05/12 to the morning of 05/14. He converted to sinus rhythm this morning. However his troponin trend jose from 31.1 to a peak of 277.1. Cardiology at [facility] was contacted again and it was recommended that the patient undergo a stress test. As a result he was pres ented for admission. At bedside he is resting comfortably. He denies chest pain, dyspnea, abdominal pain, nausea, vomiting, fever or chills. He states that he is on a medication to control his heart rate. He states he has had an irregular heart rate for about 5 years. The patient is on propranolo l. It is unclear why he has not previously been on an anticoagulant except for a baby aspirin History - Past Medical History Cardiovascular: reports: High cholesterol, Atrial fibrillation Respiratory: reports: COPD - Past Surgical History General: reports: Cholecystectomy, Appendectomy - Family & Social History Family History Comment/Other: His father in 1951 from Hodgkin's lymphoma. His mother in 1984 from complications related to tuberculosis Living arrangement: At home Social History Notes: He lives at home in a condominium with his . He is independent of activities of daily living. He is supposed to use a cane and or a walker to get around however he mostly furniture serves or uses the goldstein as walking aids. 2 packs of cigarettes daily for 36 years. He quit 35 years ago. He drinks alcohol occasionally and does not use any recreational substances. - POLST Patient has POLST: No POLST Status: Full Code Meds/Allgy - Home Medications Home Medications: Ambulatory Orders Medication Instructions Recorded Confirmed Apixaban [Eliquis] 5 mg PO BID 30 Days #60 tablet 05/14/21 Atorvastatin [Lipitor] 10 mg PO QPM 05/14/21 05/14/21 Furosemide [Lasix] 20 mg PO DAILY 05/14/21 05/14/21 Mometasone/Formoterol [Dulera 200 2 puffs INH BID 05/14/21 05/14/21 Mcg-5 Mcg Inhaler] Propranolol ER [Inderal LA] 80 mg PO DAILY 05/14/21 05/14/21 - Allergies Allergies/Adverse Reactions: Allergies Allergy/AdvReac Type Severity Reaction Status Date / Time No Known Drug Allergies Allergy Verified 05/12/21 22:10 Review of Systems - Constitutional Constitutional: denies: Fatigue, Fever, Chills - Eyes Eyes: denies: Pain - Ears, Nose & Throat Ears, Nose & Throat: reports: Hearing aids. denies: Ear pain - Cardiovascular Cariovascular: reports: Irregular heart rate, Chest pain. denies: Edema, Lightheadedness, Syncope - Respiratory Respiratory: denies: Cough, Sputum production, Wheezing, SOB at rest - Gastrointestinal Gastrointestinal: denies: Abdominal pain, Abdominal distention, Constipation, Diarrhea, Nausea, Vomiting - Genitourinary Genitourinary: denies: Dysuria, Frequency, Urgency, Hematuria - Musculoskeletal Musculoskeletal: denies: Muscle pain, Back pain - Integumentary Integumentary: denies: Rash, Pruritis - Neurological Neurological: denies: General weakness, Headache, Dizziness - Psychiatric Psychiatric: denies: Depression, Anxiety - Endocrine Endocrine: denies: Polyuria, Polydypsia - Hematologic/Lymphatic Hematologic/Lymphatic: denies: Anemia, Bruising, Petechiae Prior Level of Functionality: Independent of activities of daily living Exam - Vital Signs Vital Signs: Vital Signs x48h Temp Pulse Resp BP Pulse Ox 05/14/21 07:34 70 16 127/73 96 05/14/21 06:00 36.8 C 67 16 106/74 94 05/14/21 04:00 36.5 C 65 16 125/75 95 05/14/21 02:30 79 16 129/99 H 95 05/14/21 01:09 66 16 116/53 L 95 05/14/21 00:21 67 14 115/56 L 94 - Physical Exam General Appearance: positive: No acute distress, Alert Eyes Bilateral: positive: PERRL, EOMI ENT: positive: No signs of dehydration Neck: positive: No JVD, Trachea midline Respiratory: positive: Chest non-tender, No respiratory distress, Breath sounds nml. negative: Wheezes, Rales, Rhonchi Cardiovascular: positive: No murmur, Irregularly irregular Abdomen: positive: Non-tender, Nml bowel sounds, No distention. negative: Guarding, Rebound Back: positive: Nml inspection Skin: positive: Color nml, No rash, Warm, Dry Extremities: positive: Non-tender, Full ROM, Nml appearance, No pedal edema Neurologic/Psychiatric: positive: Oriented x3, Mood/affect nml Conclusion/Plan - Problem List (1) Atrial flutter Conclusion/Plan: Patient was on an amiodarone drip which was discontinued when he converted to sinus rhythm. He is on propranolol 10 mg daily. Heparin drip was discontinued and patient was started on Eliquis 5 mg p.o. twice daily. We will continue. 2D echocardiogram pending. Qualifiers: Atrial flutter type: unspecified Qualified Code(s): I48.92 - Unspecified atrial flutter (2) Troponin level elevated Conclusion/Plan: Troponin trend was 31.1 > 277.1 > 226.3 Patient was on heparin drip. This was discontinued when Eliquis 5 mg p.o. twice daily was initiated. He takes a baby aspirin daily. Stress test ordered per cardiology's request. (3) Enteritis Conclusion/Plan: Blood cultures are no growth to date. Patient's white blood cell count upon presentation was 15.9. It is currently down to normal at 7.8. We will continue Zosyn 3.375 g IV every 6 hours. (4) Dehydration Conclusion/Plan: Gentle IV hydration with normal saline at 83 mL/h. - Lab Results Fish Bones: 05/14/21 07:28 05/14/21 07:28 Core Measures - Anticipated LOS I expect patient to be DC'd or transferred within 96 hours.: Yes - DVT/VTE - Prophylaxis VTE/DVT Device ordered at admit?: Yes VTE/DVT Prophylaxis med ordered at admit?: Yes
[2021-05-14] MEDS: APIXABAN 5 MG TABLET PO SCH ×2 (10:26→21:25)
[2021-05-14] MEDS: SODIUM CHLORIDE 0.9% 1,000 ML IV SCH ×2 (10:26→23:49)
[2021-05-14] MEDS: SODIUM CHLORIDE FLUSH 0.9% 10 ML SYRINGE IVP SCH ×3 (11:32→23:47)
[2021-05-14] MEDS ORDERED: REGADENOSON 0.4 MG/5 ML SYRINGE IVP ONE ×2 (14:20→17:55)
--- NOTE | 2021-05-14 15:14 | CARDIAC PROCEDURE NOTE ---
Stress Test Report Service Date: 05/14/21 Ordering Provider: Dr Lopes, Dr George (PCP) Indication for Test: Afib-flutter, abnormal EKG, elevated troponins Cardiac Risk Factors: Male gender, HTN Type of Stress Test: ETT with Myocardial Perfusion Imaging Pharmacologic Agent: Lexiscan Procedure: After signing informed consent, the patient underwent a Lexiscan pharmaceutical stress test with Nuclear myocardial perfusion imaging Resting HR: 74 Peak HR: 96 Resting BP: 124/78 Peak BP: 133/63 Lexiscan was infused per protocol. The patient developed flushing, SOB and ches t "tightness" that he rated 6/10 which worsened to 8/10. He stated he has never felt this "tightness" before. Aminophylline 25 mg iv x2 was given for reversal. The patient developed nausea and another dose of Aminophylline 25 mg iv was given. All symptoms resolved after 7 min. Resting EKG: NSR, left atrial enlargement, LAFB, Right IVCD, poor R wave progression, flat T waves in leads I and AVL. EKG at peak: no new ST segment or T wave changes developed, but increased PVCs, ventr. couplets and triplets developed. During couplets and triplets the patient c/o brief dizziness (but BP did not drop). Summary: 1) Abnormal resting EKG 2) Chest tightness developed with Lexiscan pharmacologis stress 3) No ischemic ST segment or T waves changes develop, but ventricular ectopy seen. 4) Nuclear images reported separately and showed: Apical thinning, but no perfusion defect to suggest myocardial ischemia or infarct. CONCLUSION: 1) Normal stress test. 2) This patient's cardiac risk: Low-Moderate
--- NOTE | 2021-05-14 17:52 | Nuclear Medicine Report ---
PROCEDURE: Rest and pharmacological stress myocardial perfusion SPECT with gated imaging and ejection fraction INDICATIONS: elevated troponin RADIOPHARMACEUTICAL: 15.1 mCi Tc-99m Myoview IV at rest and 45.8 mCi Tc-99m Myoview IV at peak exerc ise. [id number] was performed. TECHNIQUE: Radiopharmaceutical was injected at peak stress test, and also at rest. SPECT images wer e obtained. SPECT myocardial perfusion images were displayed in short axis, horizontal long axis, an d vertical long axis views. Gated images were reviewed using Auto[employer] software. COMPARISON: None available. FINDINGS: Raw data: There is good myocardial labeling by radiotracer. No significant motion artifacts. Lung- to-heart ratio is 0.32 (normal is less than 0.46 for tetrafosmin tracer). Left ventricle function: Gated images demonstrate normal left ventricle wall thickening. No segment al wall motion abnormality. No transient ischemic dilation; TID is 1.08 (normal less than 1.30). Th e left ventricle resting end-diastolic volume is normal. Left ventricle stress ejection fraction is 74%.; normal values are above 45%. Myocardial perfusion: There is normal distribution of activity in the left and right ventricular tj cardium. No fixed or reversible perfusion defects. Small, mild, fixed decreased activity in the left ventricular apex is consistent with apical thinning. IMPRESSION: 1. Normal myocardial perfusion images. No perfusion defect to suggest myocardial ischemia or infarct. 2. Normal left ventricular volume and systolic function. 3. Please correlate with stress EKG result. PQRS ATTESTATIONS: Measure 322 - Is this imaging test primarily performed on a low-risk surgery patient for preoperative evaluation within 30 days preceding their low-risk non-cardiac surgery? Low-risk surgery is defined as cardiac or myocardial infarction less than 1%, including (but not limited to) endoscopic pr ocedures, superficial procedures, cataract surgery, and excisional breast surgery: Answer: No Measure 323 - Is this imaging test performed primarily for the monitoring of an asymptomatic patient who had percutaneous coronary intervention on the visit date or within 2 years of the visit date? An swer: No Measure 324 - Is this imaging test performed primarily for the initial detection and risk assessment on an asymptomatic, low coronary heart disease patient? Low CHD risk definition = clinicians should consider the maximum number of available patient factors used to estimate risk based on [place] (A TP III criteria), typically age, gender, diabetes, smoking status, and use of blood pressure medicati on, and integrate age appropriate estimates for missing elements, such as LDL or standard blood press ure. Answer: No Reviewed by: Rose Mary Angel MD on 05/14/2021 4:51 PM AKDT Approved by: Rose Mary Angel MD on 05/14/2021 4:51 PM AKDT Station ID: [id number]
--- NOTE | 2021-05-14 18:10 | PHARMACY PROGRESS NOTE ---
- Best Possible Medication History Admit Date and Time: 05/14/21 0809 Processed by: Pharmacy Medication History completed: Yes Patient Interview: Completed Secondary Source(s): Physician records, Pharmacy records, Insurance records As the person ultimately responsible for medication therapy, providers are able to order a medication from an existing home medication list in [facility] via the "Reconcile Routine" prior to Confirmation of that medication by end user support specialist. Such practice is discouraged except when the physician, in their clinical judgment, deems that a medical need exists for a medication without regard to previous use.
[2021-05-14] MEDS ORDERED: AMINOPHYLLINE 500 MG/20 ML VIAL ONE (18:11)
[2021-05-15 04:57] LABS: BASOPHILS % (AUTO) 0.3 %; EOSINOPHILS # (AUTO) 0.2 10^3/uL (0.0-0.7); EOSINOPHILS % (AUTO) 2.4 %; HCT - HEMATOCRIT 39.1 % (42.0-52.0); LYMPHOCYTES # (AUTO) 1.1 10^3/uL (1.5-3.5); MEAN CORPUSCULAR HEMOGLOBIN 33.4 pg (27.0-31.0); MEAN CORPUSCULAR HGB CONC 33.2 g/dL (32.0-36.0); MEAN CORPUSCULAR VOLUME 100.5 fL (80.0-94.0); MEAN PLATELET VOLUME 11.4 fL (7.4-11.4); MONOCYTES # (AUTO) 1.1 10^3/uL (0.0-1.0); NEUTROPHILS # (AUTO) 3.9 10^3/uL (1.5-6.6); NEUTROPHILS % (AUTO) 62.1 %; PLT - PLATELET COUNT 107 10^3/uL (130-450); RED BLOOD COUNT 3.89 10^6/uL (4.70-6.10); RED CELL DISTRIBUTION WIDTH 13.4 % (12.0-15.0); WHITE BLOOD COUNT 6.2 x10^3/uL (4.8-10.8)
[2021-05-15 05:04] LABS: CALCIUM 8.5 mg/dL (8.5-10.3); CREATININE 0.8 mg/dL (0.6-1.2); POTASSIUM 3.4 mmol/L (3.5-5.0)
--- NOTE | 2021-05-15 07:03 | Discharge Plan ---
Discharge Plan Problem Reviewed?: Yes Disposition: Home, Self Care Condition: Stable Prescriptions: Apixaban [Eliquis] 5 mg PO BID 30 Days #60 tablet Metoprolol Succinate [Toprol Xl] 25 mg PO DAILY 30 Days #30 tablet Diet: Cardiac Activity Restrictions: Activity as Tolerated Assistance Devices: [facility] Concerns: You had presented to the ED with nausea, vomiting, abdominal pain for which work-up showed that you had enteritis. You were noted to be in atrial fibrillation with a rapid heart rhythm. This was likely because you were dehydrated from diarrhea. You were treated with antibiotics in the emergency department and given IV hydration. Further work-up included troponin which were heart enzymes. This came back high and after consulting with a shingle shearing machine operator at [facility] who recommended a stress test. The stress test was normal Because of the atrial fibrillation you were started on Eliquis 5 mg p.o. twice daily. This is a blood thinner. You will switch from propranolol to metoprolol succinate 25 mg p.o. daily. We would contact a shingle shearing machine operator office to schedule a follow-up visit. You may follow-up with your primary care physician within 7-10 business days. This was explained to you and your who was at bedside. You expressed understanding and are agreeable with the plan. No Smoking: If you smoke, Please STOP! Call for help. Follow-up with: Luis A Hsu MD [Primary Care Provider] -
--- NOTE | 2021-05-15 07:03 | DISCHARGE SUMMARY ---
Discharge Summary Admit Date: 05/14/21 Discharge Date: 05/15/21 Discharging Provider: Jadyn Lopes Primary Care Provider: Luis A Hsu Code Status: Attempt Resuscitation Condition at Discharge: Stable Discharge Disposition: 01 Home, Self Care - DIAGNOSES Admission Diagnoses: Atrial flutter Troponin level elevated Enteritis Dehydration Discharge Diagnoses with Status of Each Condition: Atrial flutter: Patient started on Eliquis and metoprolol succinate. Troponin level elevated: Nuclear stress test was negative for reversible ischemic disease Enteritis: Resolved Dehydration: Resolved - HPI History of Present Illness: Patient is an 85-year-old male who presented to the ED initially on 05/12/21 with complaint of nausea, vomiting and abdominal pain. On the day of presentation to the ED he has had several episodes of diarrhea and was too weak to get off the toilet. His called 911 and EMS brought him to the ED.He was diagnosed with enteritis and started on Zosyn. He reported substernal chest pressure at the time with radiating up to his neck. He reported feeling hot and was diaphoretic. He denies a previous occurrence and denied a history of heart disease. His heart rate fluctuated between 120s to 130s and his blood pressure tended to drop significantly when he was in atrial fibrillation. He was adequately resuscitated in the ED. His case was discussed with a production planner at [facility] by name Dr. Lloyd Novak Ended initiating amiodarone drip and heparin. The patient was eventually accepted to the MICU at [facility] pending bed availability. As a result the patient was in the emergency room from the night of 05/12 to the morning of 05/14. He converted to sinus rhythm this morning. However his troponin trend jose from 31.1 to a peak of 277.1. Cardiology at [facility] was contacted again and it was recommended that the patient undergo a stress test. As a result he was presented for admission. At bedside he is resting comfortably. He denies chest pain, dyspnea, abdominal pain, nausea, vomiting, fever or chills. He states that he is on a medication to control his heart rate. He states he has had an irregular heart rate for about 5 years. The patient is on propranolol. It is unclear why he has not previously been on an anticoagulant except for a baby aspirin - HOSPITAL COURSE Hospital Course: Patient's stay was unremarkable. While in the emergency room he was on heparin and amiodarone drip per cardiology's recommendation. This were discontinued upon admission. He converted to sinus rhythm He was immediately started on Eliquis 5 mg p.o. twice daily. His Propanolol was discontinued and metoprolol Succinate 25 mg p.o. daily was initiated. He underwent a nuclear stress test which was negative for any reversible ischemic disease. He was discharged home in stable condition. - ALLERGIES Allergies/Adverse Reactions: Allergies Allergy/AdvReac Type Severity Reaction Status Date / Time No Known Drug Allergies Allergy Verified 05/12/21 22:10 - MEDICATIONS Home Medications: Ambulatory Orders Medication Instructions Recorded Confirmed Apixaban [Eliquis] 5 mg PO BID 30 Days #60 tablet 05/14/21 Atorvastatin [Lipitor] 10 mg PO QPM 05/14/21 05/14/21 Furosemide [Lasix] 20 mg PO DAILY 05/14/21 05/14/21 Mometasone/Formoterol [Dulera 200 2 puffs INH BID 05/14/21 05/14/21 Mcg-5 Mcg Inhaler] Metoprolol Succinate [Toprol Xl] 25 mg PO DAILY 30 Days #30 tablet 05/15/21 - PHYSICAL EXAM AT DISCHARGE General Appearance: positive: No acute distress, Alert Eyes Bilateral: positive: PERRL, EOMI Neck: positive: No JVD, Trachea midline Respiratory: positive: Chest non-tender, No respiratory distress, Breath sounds nml. negative: Wheezes, Rales, Rhonchi Cardiovascular: positive: Regular rate & rhythm, No murmur Abdomen: positive: Non-tender, No organomegaly, Nml bowel sounds, No distention. negative: Guarding, Rebound Back: positive: Nml inspection Skin: positive: Color nml, No rash, Warm, Dry Extremities: positive: Non-tender, Full ROM, No pedal edema Neurologic/Psychiatric: positive: Oriented x3, Mood/affect nml - LABS Result Diagrams: 05/15/21 04:43 05/15/21 04:43 - TIME SPENT Time Spent in Discharge (Minutes): 25
[2021-05-15 08:14] VITALS: BP 128/78
[2021-05-15] MEDS: SODIUM CHLORIDE FLUSH 0.9% 10 ML SYRINGE IVP SCH (08:19)
[2021-05-15] MEDS: APIXABAN 5 MG TABLET PO SCH (08:19)
[2021-05-15] MEDS ORDERED: METOPROLOL SUCCINATE 25 MG TABLET PO SCH (09:00)
== END 2021-05-15 09:37 | disposition home or self-care (01) ==
LOC: EDBD → EDUNIT# → ED 21:56 → SUPCPDRO 21:56 → MS3 05-14 08:09
PROVIDERS: ADMIT Internal Medicine; ATTEND Internal Medicine
DX: I48.92 Unspecified atrial flutter (principal); R77.8 Other specified abnormalities of plasma proteins; K52.9 Noninfective gastroenteritis and colitis, unspecified; E86.0 Dehydration; E78.00 Pure hypercholesterolemia, unspecified; J44.9 Chronic obstructive pulmonary disease, unspecified; Z20.822 Contact with and (suspected) exposure to COVID-19; Z87.891 Personal history of nicotine dependence; Z79.899 Other long term (current) drug therapy
CPT/HCPCS: 36415; 71045; 74177; 78452; 80048; 80053; 81003; 83605; 83690; 83735; 84484; 85025; 85027; 85520; 87040; 87631; 93005; 93017; 93306; 96365; 96366; 96367; 96368; 96376; 99284; 99285; A9270; A9500; G0378; J0282; J2785; Q9967; 0202U; 81001; 87086

== ENCOUNTER 2022-03-02 02:07 | Outpatient (CLI) | payer MEDICARE, OTHER | END 2022-03-02 02:08 | disposition critical access hospital (66) | LOC: EMS 02:07 | DX: M54.50 Low back pain, unspecified (principal) | CPT/HCPCS: A0425; A0429 ==

== ENCOUNTER 2022-03-02 02:26 | Emergency (ER) | payer MEDICARE, OTHER ==
[2022-03-02] MEDS ORDERED: ACETAMINOPHEN 325 MG TABLET PO STA (03:05)
[2022-03-02] MEDS ORDERED: LIDOCAINE PATCH 5% TOP STA (03:05)
--- NOTE | 2022-03-02 03:45 | ED Physician Documentation ---
PD HPI BACK PAIN - Stated complaint Stated Complaint: HBD - Chief complaint Chief Complaint: Trauma Ch/Bk - History obtained from History obtained from: Patient, EMS - Additional information Additional information: Patient is an 86-year-old male with a history of atrial fibrillation and dementia presenting for evaluation after falling out of bed this evening. Patient admits to drinking 1 bradley tonight. He remembers going to sleep and the next thing he remembers is waking up on the floor rolling out of bed. He was not able to get up off the floor and his called EMS. Patient reports a long history of back pains and sciatica Stating that he has pains every day. The pain is primarily to the right side of his back. Does not radiate elsewhere. It is sharp and worse with movements. The pain is better at rest. He denies recent illness of fever, cough or congestion. No chest pain, trouble breathing abdominal pain, dysuria, vomiting. He is unsure if he hit his head. He is unsure if he takes a blood thinner.Per EMS, the house was clean, laundry presser and food was in the home. They did also transport his to the emergency department as she also has dementia and they were concerned about leaving her alone.Patient and have a son who lives in [place]. Review of Systems Constitutional: denies: Fever Nose: denies: Congestion Cardiac: denies: Chest pain / pressure Respiratory: denies: Dyspnea GI: denies: Abdominal Pain, Vomiting : denies: Dysuria Skin: denies: Laceration (s) Musculoskeletal: reports: Back pain Neurologic: denies: Headache PD PAST MEDICAL HISTORY - Past Medical History Past Medical History: Yes Cardiovascular: High cholesterol, Atrial fibrillation, Valve disorder Respiratory: COPD Neuro: None Endocrine/Autoimmune: None GI: GERD : None Psych: None Musculoskeletal: Osteoarthritis Derm: None - Past Surgical History Past Surgical History: Yes General: Cholecystectomy, Appendectomy - Present Medications Home Medications: Ambulatory Orders Medication Instructions Recorded Confirmed Apixaban [Eliquis] 5 mg PO BID 30 Days #60 tablet 05/14/21 Atorvastatin [Lipitor] 10 mg PO QPM 05/14/21 05/14/21 Furosemide [Lasix] 20 mg PO DAILY 05/14/21 05/14/21 Mometasone/Formoterol [Dulera 200 2 puffs INH BID 05/14/21 05/14/21 Mcg-5 Mcg Inhaler] Metoprolol Succinate [Toprol Xl] 25 mg PO DAILY 30 Days #30 tablet 05/15/21 - Allergies Allergies/Adverse Reactions: Allergies Allergy/AdvReac Type Severity Reaction Status Date / Time No Known Drug Allergies Allergy Verified 03/02/22 02:44 - Social History Does the pt smoke?: No Smoking Status: Never smoker Does the pt drink ETOH?: No Does the pt have substance abuse?: No - Immunizations Immunizations are current?: No - POLST Patient has POLST: No POLST Status: Full Code PD ED PE NORMAL - General General: No acute distress, Well developed/nourished, Other (Alert and oriented to person, place, situation, Believes the is July) - HEENT HEENT: Atraumatic, Moist mucous membranes, Pharynx benign - Neck Neck: Supple, no meningeal sign, No bony TTP - Cardiac Cardiac: RRR, No murmur, Strong equal pulses - Respiratory Respiratory: No respiratory distress, Clear bilaterally - Abdomen Abdomen: Normal bowel sounds, Soft, Non tender - Back Back: No: No spinal TTP (Mild low lumbar spinal tenderness to palpation with no step-offs, no deformities, no overlying erythema, no flank tenderness,) - Extremities Extremities: No deformity, No tenderness to palpate, Other (No pelvis instability, distal pulses intact, patient is able to raise bilateral legs Off the bed) - Neuro Neuro: No motor deficit, No sensory deficit, Normal speech. No: Alert and oriented X 3 (Believes the is July but Otherwise oriented) Results - Vitals Vitals: Vital Signs - 24 hr 03/02/22 03/02/22 03/02/22 08:17 10:11 13:32 Temperature 36.4 C L Heart Rate 64 64 55 L Respiratory 18 23 16 Rate Blood Pressure 110/58 L 139/102 H O2 Saturation 95 99 99 03/02/22 03/02/22 03/02/22 15:00 17:03 19:07 Temperature 36.4 C L Heart Rate 53 L 67 60 Respiratory 8 L 18 14 Rate Blood Pressure 105/55 L 136/80 H O2 Saturation 98 95 100 03/02/22 03/02/22 03/03/22 21:00 23:00 01:00 Temperature 36.5 C Heart Rate 88 83 89 Respiratory 17 18 18 Rate Blood Pressure 136/76 H 133/72 H 131/70 H O2 Saturation 99 95 94 03/03/22 03/03/22 03:00 05:00 Temperature 36.4 C L Heart Rate 81 88 Respiratory 19 15 Rate Blood Pressure 140/78 H 143/72 H O2 Saturation 95 93 Oxygen O2 Source Room air - Labs Labs: Laboratory Tests 03/02/22 03/02/22 07:28 07:28 WBC 8.7 RBC 4.34 L Hgb 14.7 Hct 44.6 MCV 102.8 H MCH 33.9 H MCHC 33.0 RDW 13.6 Plt Count 113 L MPV 11.2 Neut # (Auto) 6.5 Lymph # (Auto) 1.0 L [place] # (Auto) 1.1 H Eos # (Auto) 0.1 Baso # (Auto) 0.0 Absolute Nucleated RBC 0.00 Nucleated RBC % 0.0 Sodium 140 Potassium 3.7 Chloride 104 Carbon Dioxide 27 Anion Gap 9.0 BUN 17 Creatinine 1.0 Estimated GFR (MDRD) 71 L Glucose 113 H Calcium 9.1 Total Bilirubin 1.6 H AST 26 ALT 22 Alkaline Phosphatase 51 Total Protein 6.6 L Albumin 4.0 Globulin 2.6 Albumin/Globulin Ratio 1.5 Ethyl Alcohol < 5.0 PD MEDICAL DECISION MAKING - ED course Complexity details: reviewed results, re-evaluated patient ED course: Pt BIBA after fall from bed. Unclear if on eliquis. C/O back pain - acute on chronic. H/O reported dementia but able to provide clear history. No focal deficits. VSS. CTs obtained and negative for acute injury. Slept through the mis manager and now reported feeling weak. Labs ordered, will be signed out to oncoming provider. Will likely need SW involvement if no abnormalities requiring admission to determine if pt and his (also brought to ED) are safe to return home. 0645 - Pt has been sleeping. Still waiting for CT L Spine report - long delays with rad reads despite calling [facility]. 0715 - CT scan is negative for fracture. Patient's pain has improved but on attempts at road test, patient states he feels unwell And too weak to walk. Will obtain screening labs. Pt signed out to oncoming provider.
[2022-03-02 07:37] LABS: BASOPHILS % (AUTO) 0.3 %; EOSINOPHILS # (AUTO) 0.1 10^3/uL (0.0-0.7); EOSINOPHILS % (AUTO) 0.8 %; HCT - HEMATOCRIT 44.6 % (42.0-52.0); HGB - HEMOGLOBIN 14.7 g/dL (14.0-18.0); MEAN CORPUSCULAR HEMOGLOBIN 33.9 pg (27.0-31.0); MEAN CORPUSCULAR VOLUME 102.8 fL (80.0-94.0); MEAN PLATELET VOLUME 11.2 fL (7.4-11.4); MONOCYTES # (AUTO) 1.1 10^3/uL (0.0-1.0); MONOCYTES % (AUTO) 12.4 %; NEUTROPHILS # (AUTO) 6.5 10^3/uL (1.5-6.6); NEUTROPHILS % (AUTO) 74.3 %; PLT - PLATELET COUNT 113 10^3/uL (130-450); RED BLOOD COUNT 4.34 10^6/uL (4.70-6.10); RED CELL DISTRIBUTION WIDTH 13.6 % (12.0-15.0); WHITE BLOOD COUNT 8.7 x10^3/uL (4.8-10.8)
[2022-03-02 07:47] LABS: ALBUMIN/GLOBULIN RATIO 1.5 (1.0-2.2); ALKALINE PHOSPHATASE 51 IU/L (42-121); ALT ALANINE AMINOTRANSFERASE 22 IU/L (10-60); AST ASPARTATE AMINOTRANSFERASE 26 IU/L (10-42); BILIRUBIN,TOTAL 1.6 mg/dL (0.2-1.0); BUN - BLOOD UREA NITROGEN 17 mg/dL (6-20); CALCIUM 9.1 mg/dL (8.5-10.3); CARBON DIOXIDE - CO2 27 mmol/L (21-32); CHLORIDE 104 mmol/L (101-111); ETOH - ETHANOL < 5.0 mg/dL; GFR - MDRD 71 (>89); GLUCOSE 113 mg/dL (70-100); POTASSIUM 3.7 mmol/L (3.5-5.0); SODIUM 140 mmol/L (135-145); TOTAL PROTEIN 6.6 g/dL (6.7-8.2)
--- NOTE | 2022-03-02 10:36 | CT Report ---
PROCEDURE: LUMBAR SPINE WO INDICATIONS: pain after falling TECHNIQUE: Noncontrast 3 mm thick sections acquired from the T12 level to the sacrum. Sagittal and coronal refo rmats were constructed. For radiation dose reduction, the following was used: automated exposure co ntrol, adjustment of mA and/or kV according to patient size. COMPARISON: None. FINDINGS: Image quality: Excellent. Bones: There is stable compression deformities at L2 and L4. No new fractures. Kyphoplasty changes are noted at T12. Multilevel degenerative changes. Soft tissues: No retroperitoneal masses or hematomas. Visualized aorta is normal in caliber. Simpl e right renal cyst. Left renal peripelvic cysts. IMPRESSION: Stable compression deformities. No new fractures. Reviewed by: Sara Crawley MD on 03/02/2022 10:34 AM PDT Approved by: Sara Crawley MD on 03/02/2022 10:34 AM PDT Station ID: [id number]
--- NOTE | 2022-03-02 10:45 | CT Report ---
PROCEDURE: HEAD WO INDICATIONS: head injury TECHNIQUE: Noncontrast 4.5 mm thick angled axial sections acquired from the foramen magnum to the vertex. For r adiation dose reduction, the following was used: automated exposure control, adjustment of mA and/or kV according to patient size. COMPARISON: CT Brain 03/02/20 FINDINGS: Image quality: Excellent. CSF spaces: Basal cisterns are patent. No extra-axial fluid collections. Ventricles are normal in size and shape. Brain: No midline shift. No intracranial masses or hemorrhage. Zapien-white matter interface is norm al. Skull and face: Calvarium and visualized facial bones are intact, without suspicious lesions. Sinuses: Visualized sinuses demonstrate sphenoid and ethmoid mucosal thickening. IMPRESSION: No acute intracranial process. The above findings are concordant with preliminary report. Reviewed by: Sara Crawley MD on 03/02/2022 10:43 AM PDT Approved by: Sara Crawley MD on 03/02/2022 10:43 AM PDT Station ID: [id number]
--- NOTE | 2022-03-02 16:45 | ED Physician Documentation ---
ED Addendum - Addendum Addendum: 03/02/22 16:43 The patient did sleep the morning. He is well hard of hearing so he does take a bit of tactile stimulation to get his attention as just talking to him does not necessarily. He does rouse easily and interacts well. He states he was not hungry so did not have his breakfast provided. He denies any headache chest pain or belly pain. Social work had talked with he and his as well as their children who live out of state. There had been concern for their wellbeing with regard to meals provided and self-care at home. EMS had reported the pay place looked clean and there was food in the fridge and the patient and his were well groomed and the house was tidy. However social work was concerned about the safety of disposition. It does sound like there been issues developing and social work wanted to ensure there was some follow-up better in place. Apparently one of the children from [place] is on their way up but obviously will not be till tomorrow. She is looking towards friends in the area as well to check in on them for wellbeing. At this point disposition is still pending social work issues. No apparent acute medical process at this time.
--- NOTE | 2022-03-03 13:07 | ED Physician Documentation ---
ED Addendum - Addendum Addendum: 03/03/22 13:05 The patient is much more briskly alert conversant and ambulatory today. He has been somnolent and more difficult to maintain awake yesterday. Unclear whether he may have had a mild concussive episode in retrospect. However he does seem quite alert, conversational and capable today. He would like to be discharged from the department with his . They will take a taxi home. I do not see a reason for him to not be able to go today as he seems to be safe for himself and his . transfer and line up worker talked with his son who is coming here from [place]. Apparently will be arriving later tonight and likely be able to interact with the patient and his arriving at their house tomorrow morning. The patient and his seem well-groomed and fed and report from the medics had been a tidy house so I think they will be safe at this point. Disposition: The patient is discharged home in stable condition. Diagnosis: 1. Altered mental status with somnolence 2. Fall 3. Possible mild concussion
[2022-03-03 13:21] VITALS: BP 124/54
== END 2022-03-03 14:25 | disposition home or self-care (01) ==
LOC: EDUNIT# → SUPCPDRO 02:26 → ED 02:26
DX: Z04.3 Encounter for examination and observation following other accident (principal); R41.82 Altered mental status, unspecified
CPT/HCPCS: 36415; 70450; 72131; 80053; 85025; 93005; 99284; A9270; G0480; 80320

== ENCOUNTER 2022-04-06 14:48 | Emergency (ER) | payer MEDICARE, OTHER ==
--- NOTE | 2022-04-06 15:08 | ED Physician Documentation ---
PD HPI Fall - Stated complaint Stated Complaint: GLF - History obtained from History obtained from: Patient, EMS - History of Present Illness Mechanism of injury: Tripped (he was at store and tripped on box on the floor, falling forward against shelving. Eyebrow lac, skin avulsions both forearms, and right chest/knee pains. No LOC. Brought by EMS. Conversant enroute.) Fall distance: Standing position Where injury occurred: Other ([employer] Timing - onset: How many minutes ago (30), Today Injury(ies) location: Face (right eyebrow), Chest (right lateral), Right Upper Extremity (skin avulsion), Left Uppper Extremity (skin avulsion), Right Lower Extremity (anterior knee). No: Neck, Abdomen Quality of pain: Aching Associated symptoms: No: LOC, AMS, Neck pain, Weakness, Paresthesias Worsens with: Palpation (injured areas are tender to touch, but has good ROM of knee and arms.). No: Movement Contributing factors: Anticoagulated Similar symptoms before: Has not had sx before Review of Systems Cardiac: denies: Palpitations Respiratory: denies: Dyspnea GI: denies: Abdominal Pain, Nausea, Vomiting Musculoskeletal: denies: Neck pain, Back pain Neurologic: reports: Head injury. denies: Focal weakness, Numbness, Confused, Altered mental status, Headache, LOC PD PAST MEDICAL HISTORY - Past Medical History Cardiovascular: High cholesterol, Atrial fibrillation, Valve disorder Respiratory: COPD Neuro: None Endocrine/Autoimmune: None GI: GERD : None Psych: None Musculoskeletal: Osteoarthritis Derm: None - Past Surgical History Past Surgical History: Yes General: Cholecystectomy, Appendectomy - Present Medications Home Medications: Ambulatory Orders Medication Instructions Recorded Confirmed Apixaban [Eliquis] 5 mg PO BID 30 Days #60 tablet 05/14/21 Atorvastatin [Lipitor] 10 mg PO QPM 05/14/21 05/14/21 Furosemide [Lasix] 20 mg PO DAILY 05/14/21 05/14/21 Mometasone/Formoterol [Dulera 200 2 puffs INH BID 05/14/21 05/14/21 Mcg-5 Mcg Inhaler] Metoprolol Succinate [Toprol Xl] 25 mg PO DAILY 30 Days #30 tablet 05/15/21 - Allergies Allergies/Adverse Reactions: Allergies Allergy/AdvReac Type Severity Reaction Status Date / Time No Known Drug Allergies Allergy Verified 04/06/22 15:13 - Social History Does the pt smoke?: No Smoking Status: Never smoker Does the pt drink ETOH?: No Does the pt have substance abuse?: No - Immunizations Immunizations are current?: No - POLST Patient has POLST: No POLST Status: Full Code PD ED PE NORMAL - Vitals Vital signs reviewed: Yes - General General: Alert and oriented X 3, No acute distress, Well developed/nourished - HEENT HEENT: PERRL, EOMI (no diplopia), Other (scalp not tender. Right lateral eyebrow with small 1 cm stellate lac and mild bleeding, no FB, and local bruising/swelling. ) - Neck Neck: Supple, no meningeal sign, No bony TTP, No adenopathy - Cardiac Cardiac: RRR - Respiratory Respiratory: Clear bilaterally, Other (right midaxillary line chest tenderness around rib level 9-10 with some local bruising. No deformity. Abd not tender. ) - Abdomen Abdomen: Soft, Non tender - Back Back: No CVA TTP, No spinal TTP - Derm Derm: Normal color, Warm and dry - Extremities Extremities: Other (both forearms with dorsal thin layer skin avulsions, just rice-paper thin, about 3-4 cm on both sides. No bony deformity. right wrist with some tenderness. right knee with tenderness anteriorly at kneecap, with full ROM without pain. No effusion. ) - Neuro Neuro: Alert and oriented X 3, driver education instructor 2-12 intact, No motor deficit, No sensory deficit, Normal speech Eye Opening: Spontaneous Motor: Obeys Commands Verbal: Oriented GCS Score: 15 - Psych Psych: Normal mood Results - Vitals Vitals: Vital Signs - 24 hr 04/06/22 04/06/22 04/06/22 15:02 15:07 16:37 Temperature 36.8 C Heart Rate 63 60 95 Respiratory 18 14 16 Rate Blood Pressure 129/77 142/65 H 125/86 H O2 Saturation 98 97 96 04/06/22 17:20 Temperature Heart Rate 96 Respiratory 20 Rate Blood Pressure 117/80 O2 Saturation 96 Oxygen O2 Source Room air - Labs Labs: Laboratory Tests 04/06/22 04/06/22 04/06/22 15:08 15:08 15:08 WBC 7.8 RBC 3.85 L Hgb 13.1 L Hct 40.3 L MCV 104.7 H MCH 34.0 H MCHC 32.5 RDW 14.0 Plt Count 120 L MPV 10.9 Neut # (Auto) 5.6 Lymph # (Auto) 1.1 L Taney # (Auto) 1.0 Eos # (Auto) 0.1 Baso # (Auto) 0.0 Absolute Nucleated RBC 0.02 Nucleated RBC % 0.3 PT 14.1 H INR 1.3 H Sodium 140 Potassium 4.2 Chloride 103 Carbon Dioxide 29 Anion Gap 8.0 BUN 20 Creatinine 1.2 Estimated GFR (MDRD) 58 L Glucose 101 H Calcium 9.3 Total Bilirubin 1.0 AST 17 ALT 16 Alkaline Phosphatase 58 Total Protein 6.4 L Albumin 3.8 Globulin 2.6 Albumin/Globulin Ratio 1.5 Lipase 27 - Rads (name of study) head CT Radiology: Prelim report reviewed (no ICH nor acute findings.), See rad report cervical spine Radiology: Prelim report reviewed (no fractures), See rad report chest CT Radiology: Prelim report reviewed (no noted rib fractures nor lung injury.), See rad report right wrist Radiology: Prelim report reviewed (no fractures; no acute findings. Prior T12 compression fx with kyphoplastic changes noted. ), See rad report Procedures - Laceration (location) right eyebrow Length in cm: 1 Wound type: Stellate, Into subcut fat, Clean Neurovascular status: Motor intact Wound preparation: Other (cleansed with tap water) Skin layer closure: Dermabond, Steri strips Other: Patient tolerated well, No complications, Neurovascular intact, Tetanus UTD PD MEDICAL DECISION MAKING - ED course Complexity details: reviewed results, re-evaluated patient, considered differential (thin skin peel avulsions on forearms. Small lac/abrasion on eyebrow. Right lower lateral chest tender. Imaging without acute injuries. ), d/w patient Departure - Departure Disposition: 01 Home, Self Care Clinical Impression: Fall from slip, trip, or stumble, Laceration of eyebrow, Skin avulsion, Knee contusion, Rib contusion, Anticoagulant long-term use Condition: Stable Record reviewed to determine appropriate education?: Yes Instructions: ED Abrasion Comments: Your CT scans did not show any bleeding or fractures of the head neck ribs. The wrist x-ray does not show any fracture. You will certainly be sore and have bruising and some of the areas injured. The areas where the skin is peeled will need to be treated with cleaning gently and ointment and bandaging once or twice daily and slowly heal in. The eyebrow laceration;: Keep the area clean and dry and allow the Steri-Strips to fall off on their own after several days to week. Continue usual medications. Tylenol every 4-6 hours if needed for pains. Discharge Date/Time: 04/06/22 17:26
[2022-04-06 15:16] LABS: BASOPHILS % (AUTO) 0.3 %; EOSINOPHILS # (AUTO) 0.1 10^3/uL (0.0-0.7); EOSINOPHILS % (AUTO) 1.3 %; HCT - HEMATOCRIT 40.3 % (42.0-52.0); HGB - HEMOGLOBIN 13.1 g/dL (14.0-18.0); LYMPHOCYTES # (AUTO) 1.1 10^3/uL (1.5-3.5); LYMPHOCYTES % (AUTO) 13.8 %; MEAN CORPUSCULAR HGB CONC 32.5 g/dL (32.0-36.0); MEAN CORPUSCULAR VOLUME 104.7 fL (80.0-94.0); MEAN PLATELET VOLUME 10.9 fL (7.4-11.4); MONOCYTES % (AUTO) 13.1 %; NEUTROPHILS # (AUTO) 5.6 10^3/uL (1.5-6.6); NEUTROPHILS % (AUTO) 71.4 %; NRBC ABSOLUTE COUNT (AUTO) 0.02 x10^3/uL; NUCLEATED RED BLOOD CELLS AUTO 0.3 /100WBC; PLT - PLATELET COUNT 120 10^3/uL (130-450); RED BLOOD COUNT 3.85 10^6/uL (4.70-6.10); WHITE BLOOD COUNT 7.8 x10^3/uL (4.8-10.8)
[2022-04-06 15:22] LABS: INR 1.3 (0.8-1.2); PT - PROTHROMBIN TIME 14.1 secs (9.9-12.6)
[2022-04-06 15:27] LABS: ALBUMIN 3.8 g/dL (3.2-5.5); ALBUMIN/GLOBULIN RATIO 1.5 (1.0-2.2); CALCIUM 9.3 mg/dL (8.5-10.3); CREATININE 1.2 mg/dL (0.6-1.2); POTASSIUM 4.2 mmol/L (3.5-5.0); TOTAL PROTEIN 6.4 g/dL (6.7-8.2)
--- NOTE | 2022-04-06 15:50 | XRAY Report ---
PROCEDURE: Wrist 3 View RT INDICATIONS: fall with wrist injury TECHNIQUE: 3 views of the wrist were acquired. COMPARISON: None FINDINGS: Bones: No fractures or dislocations. Osteoarthritic changes are noted along throughout right wrist more prominent involving first CMC joint and scaphotrapezial joint. No suspicious bony lesions. Scaphoid view: Scaphoid is grossly intact. Soft tissues: No suspicious soft tissue calcifications. IMPRESSION: No gross acute right wrist fracture or dislocation. Right wrist joint osteoarthritis as above. Reviewed by: Viktor Euceda MD on 04/06/2022 3:49 PM PDT Approved by: Viktor Euceda MD on 04/06/2022 3:49 PM PDT Station ID: [id number]
--- NOTE | 2022-04-06 16:19 | CT Report ---
PROCEDURE: HEAD WO INDICATIONS: FALL, STRUCK HEAD TECHNIQUE: Noncontrast 4.5 mm thick angled axial sections acquired from the foramen magnum to the vertex. For r adiation dose reduction, the following was used: automated exposure control, adjustment of mA and/or kV according to patient size. COMPARISON: 03/02/2022 FINDINGS: Image quality: Excellent. CSF spaces: Basal cisterns are patent. No extra-axial fluid collections. The ventricles are symmet jerel in size and shape. Brain: No intracranial bleeds or masses. There is cerebral volume loss for age, with resultant vent ricular and sulcal prominence. There are periventricular and deep white matter chronic small vessel ischemic changes. There is intracranial internal carotid artery atherosclerosis. Skull and face: Calvarium and visualized facial bones appear intact, without suspicious lesions. Sinuses: Visualized sinuses and mastoids are clear. IMPRESSION: No CT evidence of acute intracranial abnormalities. No acute skull fracture. Reviewed by: Viktor Euceda MD on 04/06/2022 4:17 PM PDT Approved by: Viktor Euceda MD on 04/06/2022 4:17 PM PDT Station ID: [id number]
--- NOTE | 2022-04-06 16:20 | CT Report ---
PROCEDURE: CERVICAL SPINE WO INDICATIONS: FALL, STRUCK HEAD TECHNIQUE: Noncontrast 3 mm thick sections acquired from the skull base to the T4 level. Sagittal and coronal r eformats were then constructed. For radiation dose reduction, the following was used: automated exp osure control, adjustment of mA and/or kV according to patient size. COMPARISON: None. FINDINGS: Image quality: Excellent. Bones: No fractures or dislocations. Degenerative endplate changes, loss of disc height and bilater al facet hypertrophic changes are noted throughout cervical spine more prominent at C5-6 and C6-7 lev els. Mild central canal stenosis and bilateral neural foraminal narrowing at C5-6 and C6-7 levels are seen. Visualized superior ribs are intact. Soft tissues: Prevertebral soft tissues are normal in thickness. No paravertebral hematomas. No ap ical pneumothoraces. IMPRESSION: 1. No acute cervical spine fracture or dislocation. 2. Degenerative disc disease throughout cervical spine as above. Reviewed by: Viktor Euceda MD on 04/06/2022 4:19 PM PDT Approved by: Viktor Euceda MD on 04/06/2022 4:19 PM PDT Station ID: [id number]
--- NOTE | 2022-04-06 16:37 | CT Report ---
PROCEDURE: CHEST WO INDICATIONS: fall with right ribs pain TECHNIQUE: Noncontrast 1mm axial images were acquired from the pulmonary apices to the posterior costophrenic an gles. Axial 5 mm soft tissue kernel reconstructions were performed as well as 8 mm axial MIP and cor onal and sagittal 5 mm reformations. For radiation dose reduction, the following was used: automate d exposure control, adjustment of mA and/or kV according to patient size. COMPARISON: Chest radiograph dated 05/13/2021 FINDINGS: Image quality: Excellent. Lungs and pleura: Scattered atelectasis in posterior lateral periphery of bilateral mid to lower lung madrigal are seen. Hazy groundglass opacity is also seen scattered in bilateral lung madrigal suggestive of pulmonary edema. No pleural effusions or pneumothorax. Central and peripheral airways are patent and normal in caliber. Mediastinum: Heart size is enlarged. No pericardial effusion. No mediastinal adenopathy by size cr iteria. Thoracic aorta and central pulmonary arteries are normal in size. Esophagus is normal in ca liber. No hiatal hernia. Bones and chest wall: No suspicious bony lesions. No acute vertebral body compression fractures. De generative disc disease throughout thoracic spine is seen. Chronic compression deformity at T12 level is seen with prior vertebroplasty. Benign-appearing sclerotic focus involving superior endplate of T 6 vertebral body likely represent benign bone island. No axillary or supraclavicular adenopathy by si ze criteria. The thyroid is normal in size and there are no incidental findings. Abdomen: Visualized upper abdominal solid organs and bowel loops appear normal in the absence of con trast. IMPRESSION: 1. No acute rib fracture is seen. No acute vertebral body compression fracture. Compression fracture in T12 vertebral body with prior kyphoplasty. Degenerative disc disease throughout lower thoracic spi ne. 2. No mediastinal hematoma. Cardiomegaly, no pericardial effusion. No mediastinal or hilar lymphadeno rolando. 3. Scattered atelectasis improved free of bilateral mid to lower lung madrigal. Suggestion of mild pulm onary edema. No pleural effusion or pneumothorax. Airway is patent. CLINICAL RECOMMENDATION STATEMENTS: In patients <35 years with an ITN detected on CT, MRI, or extrathyroidal ultrasound, the Committee re commends further evaluation with dedicated thyroid ultrasound if the nodule is "e1 cm and has no susp icious imaging features, and if the patient has normal life expectancy. In patients "e35 years with an ITN detected on CT, MRI, or extrathyroidal ultrasound, the Committee r ecommends further evaluation with dedicated thyroid ultrasound if the nodule is "e1.5 cm and has no s uspicious imaging features, and if the patient has normal life expectancy. (ACR, 2014) Reviewed by: Viktor Euceda MD on 04/06/2022 4:36 PM PDT Approved by: Viktor Euceda MD on 04/06/2022 4:36 PM PDT Station ID: [id number]
[2022-04-06] MEDS ORDERED: ACETAMINOPHEN 325 MG TABLET PO STA (16:50)
[2022-04-06] MEDS ORDERED: BACITRACIN ZINC OINT 1 PACKET TOP STA (16:51)
[2022-04-06 17:20] VITALS: BP 117/80
== END 2022-04-06 17:26 | disposition home or self-care (01) ==
LOC: ED 14:48
DX: S01.119A Laceration without foreign body of unspecified eyelid and periocular area, initial encounter (principal); S20.211A Contusion of right front wall of thorax, initial encounter; S80.01XA Contusion of right knee, initial encounter; W01.198A Fall on same level from slipping, tripping and stumbling with subsequent striking against other object, initial encounter; I48.91 Unspecified atrial fibrillation; Z79.01 Long term (current) use of anticoagulants
CPT/HCPCS: 12011; 36415; 70450; 71250; 72125; 73110; 80053; 83690; 85025; 85610; 99282; 99284; A9270

== ENCOUNTER 2022-05-30 16:08 | Inpatient (IN) | payer MEDICARE, OTHER ==
[2022-05-30] MEDS ORDERED: LIDOCAINE PATCH 5% TOP STA (16:30)
--- NOTE | 2022-05-30 16:31 | ED Physician Documentation ---
PD HPI BACK PAIN - Stated complaint Stated Complaint: AMS - History obtained from History obtained from: Patient, EMS - Additional information Additional information: This is an 86-year-old gentleman who I saw a few days ago and he had an acute lumbar compression fracture. Reportedly family called 911 today because he had slow slurred speech and was altered. It was thought that he probably had taken too much of his pain medication. On exam at this time he is comfortable and very slightly somnolent but easily arousable but still complaining of back pain. He admits he may have overtaking his medications. Review of Systems Constitutional: reports: Reviewed and negative Cardiac: reports: Reviewed and negative Respiratory: reports: Reviewed and negative PD PAST MEDICAL HISTORY - Past Medical History Cardiovascular: High cholesterol, Atrial fibrillation, Valve disorder Respiratory: COPD Neuro: None Endocrine/Autoimmune: None GI: GERD : None Psych: None Musculoskeletal: Osteoarthritis Derm: None - Past Surgical History Past Surgical History: Yes General: Cholecystectomy, Appendectomy - Present Medications Home Medications: Ambulatory Orders Medication Instructions Recorded Confirmed Apixaban [Eliquis] 5 mg PO BID 30 Days #60 tablet 05/14/21 05/30/22 Atorvastatin [Lipitor] 10 mg PO QPM 05/14/21 05/30/22 Furosemide [Lasix] 20 mg PO DAILY 05/14/21 05/30/22 Mometasone/Formoterol [Dulera 200 2 puffs INH BID 05/14/21 05/30/22 Mcg-5 Mcg Inhaler] Metoprolol Succinate [Toprol Xl] 25 mg PO DAILY 30 Days #30 tablet 05/15/21 Calcitonin [Fortical] 1 sprays TIFFANIE DAILY #1 ahfu 05/27/22 05/30/22 Lidocaine Patch 5% [Lidoderm Patch] 1 patch TOP DAILY PRN #10 patch 05/27/22 05/30/22 Oxycodone HCl/Acetaminophen 1 - 2 each PO Q6H PRN #30 tablet 05/27/22 05/30/22 [Percocet 5-325 mg Tablet] - Allergies Allergies/Adverse Reactions: Allergies Allergy/AdvReac Type Severity Reaction Status Date / Time No Known Drug Allergies Allergy Verified 05/30/22 16:31 - Social History Does the pt smoke?: No Smoking Status: Never smoker Does the pt drink ETOH?: No Does the pt have substance abuse?: No - Immunizations Immunizations are current?: No - POLST Patient has POLST: No POLST Status: Full Code PD ED PE NORMAL - Vitals Vital signs reviewed: Yes - General General: Alert and oriented X 3 (He is alert and oriented to person and place and time, on initial evaluation he is somnolent but very easily arousable to voice.), No acute distress, Well developed/nourished - HEENT HEENT: Other (Small pupils) - Neck Neck: Supple, no meningeal sign, No bony TTP - Cardiac Cardiac: RRR, No murmur - Respiratory Respiratory: No respiratory distress, Clear bilaterally - Abdomen Abdomen: Non tender - Derm Derm: Normal color, Warm and dry - Extremities Extremities: No edema - Neuro Neuro: differential tester 2-12 intact, Normal speech Eye Opening: To Voice Motor: Obeys Commands Verbal: Oriented GCS Score: 14 Results - Vitals Vitals: Vital Signs - 24 hr 05/30/22 05/30/22 05/30/22 16:25 18:31 20:00 Temperature 36.9 C 36.6 C Heart Rate 96 94 92 Respiratory 24 22 19 Rate Blood Pressure 123/70 115/65 114/63 O2 Saturation 99 94 95 05/30/22 22:15 Temperature Heart Rate 109 H Respiratory 30 H Rate Blood Pressure 112/63 O2 Saturation 95 Oxygen O2 Source Room air - Labs Labs: Laboratory Tests 05/30/22 05/30/22 05/30/22 16:39 16:39 17:48 WBC 10.7 RBC 3.82 L Hgb 12.6 L Hct 38.7 L MCV 101.3 H MCH 33.0 H MCHC 32.6 RDW 13.8 Plt Count 134 MPV 11.5 H Neut # (Auto) Not Reportable Lymph # (Auto) Not Reportable [place] # (Auto) Not Reportable Eos # (Auto) Not Reportable Baso # (Auto) Not Reportable Absolute Nucleated RBC Not Reportable Total Counted 100 Band Neuts % (Manual) 0 Abnorm Lymph % (Manual) 0 Nucleated RBC % Not Reportable Neutrophils # (Manual) 8.5 H Lymphocytes # (Manual) 0.7 L Monocytes # (Manual) 1.3 H Eosinophils # (Manual) 0.1 Basophils # (Manual) 0.1 Differential Comment MANUAL DIFFERENTIAL WBC Morphology NORMAL APPEARANCE Platelet Estimate NORMAL (130-450,000) Platelet Morphology NORMAL APPEARANCE RBC Morph Micro Appear 1+ MACROCYTOSIS Sodium 136 Potassium 3.9 Chloride 103 Carbon Dioxide 26 Anion Gap 7.0 BUN 24 H Creatinine 1.0 Estimated GFR (MDRD) 71 L Glucose 112 H Calcium 8.9 Total Bilirubin 1.1 H AST 17 ALT 16 Alkaline Phosphatase 79 Total Protein 6.8 Albumin 3.7 Globulin 3.1 Albumin/Globulin Ratio 1.2 Ethyl Alcohol < 5.0 SARS-CoV-2 (PCR) NOT DETECTED PD MEDICAL DECISION MAKING - ED course ED course: Spoke with son, took 3 oxycodone on Monday; 5 on Monday; Midnight last night was screaming - son went into room, he thought he was in [place], son left at 1am with 28 pills in the bottle. Per EMT there were 21 left and so he took 7 since 1am. He would like him to go to SNF. D/W patient-also amenable. D/W son, SNF would likely be out of pocket. SW to see in am. Departure - Departure Clinical Impression: Anticoagulant long-term use Compression fracture of L3 vertebra Qualifiers: Encounter type: initial encounter Qualified Code(s): S32.030A - Wedge compression fracture of third lumbar vertebra, initial encounter for closed fracture Altered mental status Qualifiers: Altered mental status type: delirium Qualified Code(s): R41.0 - Disorientation, unspecified Condition: Stable
[2022-05-30 16:53] LABS: BASOPHILS % (AUTO) 0.2 %; EOSINOPHILS % (AUTO) 1.1 %; HCT - HEMATOCRIT 38.7 % (42.0-52.0); HGB - HEMOGLOBIN 12.6 g/dL (14.0-18.0); LYMPHOCYTES % (AUTO) 8.2 %; MEAN CORPUSCULAR HGB CONC 32.6 g/dL (32.0-36.0); MEAN CORPUSCULAR VOLUME 101.3 fL (80.0-94.0); MEAN PLATELET VOLUME 11.5 fL (7.4-11.4); MONOCYTES % (AUTO) 15.3 %; PLT - PLATELET COUNT 134 10^3/uL (130-450); RED BLOOD COUNT 3.82 10^6/uL (4.70-6.10); RED CELL DISTRIBUTION WIDTH 13.8 % (12.0-15.0); WHITE BLOOD COUNT 10.7 x10^3/uL (4.8-10.8)
[2022-05-30 16:54] LABS: ABNORMAL LYMPHS % (MANUAL) 0 %; BAND NEUTROPHILS % (MANUAL) 0 %
[2022-05-30 16:56] LABS: ALBUMIN 3.7 g/dL (3.2-5.5); ALBUMIN/GLOBULIN RATIO 1.2 (1.0-2.2); ALKALINE PHOSPHATASE 79 IU/L (42-121); ALT ALANINE AMINOTRANSFERASE 16 IU/L (10-60); AST ASPARTATE AMINOTRANSFERASE 17 IU/L (10-42); BILIRUBIN,TOTAL 1.1 mg/dL (0.2-1.0); BUN - BLOOD UREA NITROGEN 24 mg/dL (6-20); CALCIUM 8.9 mg/dL (8.5-10.3); CARBON DIOXIDE - CO2 26 mmol/L (21-32); CHLORIDE 103 mmol/L (101-111); ETOH - ETHANOL < 5.0 mg/dL; GFR - MDRD 71 (>89); GLUCOSE 112 mg/dL (70-100); POTASSIUM 3.9 mmol/L (3.5-5.0); SODIUM 136 mmol/L (135-145); TOTAL PROTEIN 6.8 g/dL (6.7-8.2)
[2022-05-30 17:23] LABS: BASOPHILS # (MANUAL) 0.1 10^3/uL (0-0.1); BASOPHILS % (MANUAL) 1 %; DIFFERENTIAL COMMENT MANUAL DIFFERENTIAL; EOSINOPHILS # (MANUAL) 0.1 10^3/uL (0-0.7); LYMPHOCYTES # (MANUAL) 0.7 10^3/uL (1.5-3.5); LYMPHOCYTES % (MANUAL) 7 %; MONOCYTES # (MANUAL) 1.3 10^3/uL (0.0-1.0); NEUTROPHILS # (MANUAL) 8.5 10^3/uL (1.5-6.6); PLATELET ESTIMATE, MANUAL NORMAL (130-450,000) (NORMAL); PLATELET MORPHOLOGY NORMAL APPEARANCE (NORMAL); RBC MORPHOLOGY (MULTIPLE) 1+ MACROCYTOSIS (NORMAL); WBC MORPHOLOGY (MULTIPLE) NORMAL APPEARANCE (NORMAL)
[2022-05-30] MEDS: ACETAMINOPHEN 500 MG TABLET PO SCH ×2 (17:45→23:43)
[2022-05-30] MEDS: APIXABAN 5 MG TABLET PO SCH (20:30)
[2022-05-30] MEDS: oxyCODONE 5 MG TABLET PO PRN (23:44)
[2022-05-31 00:50] LABS: MUDS CUTOFF CONCENTRATIONS CUTOFF CONC BELOW:
[2022-05-31 01:02] LABS: GLUCOSE, URINE (UA) NEGATIVE (NEGATIVE); KETONES,URINE (UA) TRACE mg/dL (NEGATIVE); LEUKOCYTE ESTERASE, URINE NEGATIVE (NEGATIVE); NITRITE,URINE NEGATIVE (NEGATIVE); OCCULT BLOOD,URINE NEGATIVE (NEGATIVE); PH,URINE 5.5 PH (5.0-7.5); PROTEIN,URINE NEGATIVE (NEGATIVE); UROBILINOGEN,URINE 0.2 (NORMAL) E.U./dL (NORMAL)
[2022-05-31 01:06] LABS: BILIRUBIN,URINE NEGATIVE (NEGATIVE); CLARITY,URINE CLEAR (CLEAR); ICTOTEST,URINE NEGATIVE
[2022-05-31 01:12] LABS: AMPHETAMINE SCREEN,URINE NEGATIVE (NEGATIVE); BARBITURATE SCREEN,UR NEGATIVE (NEGATIVE); BENZODIAZEPINES SCREEN, URINE NEGATIVE (NEGATIVE); COCAINE SCREEN URINE NEGATIVE (NEGATIVE); METHADONE SCREEN, URINE NEGATIVE (NEGATIVE); METHAMPHETAMINES SCREEN, URINE NEGATIVE (NEGATIVE); OPIATE SCREEN, URINE NEGATIVE (NEGATIVE); OXYCODONE SCREEN, URINE POSITIVE (NEGATIVE); PROPOXYPHENE SCREEN, URINE NEGATIVE (NEGATIVE); THC CANNABINOID SCREEN, URINE NEGATIVE (NEGATIVE); TRICYCLIC ANTIDEPRESSANT,URINE NEGATIVE (NEGATIVE)
[2022-05-31] MEDS: oxyCODONE 5 MG TABLET PO PRN ×3 (05:57→21:26)
[2022-05-31] MEDS: ACETAMINOPHEN 500 MG TABLET PO SCH ×3 (05:57→18:19)
[2022-05-31] MEDS: METOPROLOL SUCCINATE 25 MG TABLET PO SCH (09:36)
[2022-05-31] MEDS: FUROSEMIDE 20 MG TABLET PO SCH (09:36)
[2022-05-31] MEDS: APIXABAN 5 MG TABLET PO SCH ×2 (09:36→21:26)
[2022-06-01] MEDS: ACETAMINOPHEN 500 MG TABLET PO SCH ×4 (00:20→17:45)
[2022-06-01] MEDS: oxyCODONE 5 MG TABLET PO PRN (03:26)
[2022-06-01] MEDS ORDERED: ONDANSETRON ODT 4 MG TABLET TL STA (05:36)
[2022-06-01] MEDS: APIXABAN 5 MG TABLET PO SCH (08:58)
[2022-06-01] MEDS: FUROSEMIDE 20 MG TABLET PO SCH (08:58)
[2022-06-01] MEDS: METOPROLOL SUCCINATE 25 MG TABLET PO SCH (08:58)
--- NOTE | 2022-06-01 09:45 | ED Physician Documentation ---
ED Addendum - Addendum Addendum: 06/01/22 09:45 Patient seen and examined on morning rounds. He is sleeping comfortably in the ED bed. Hemodynamically stable, no change in patient's status, still pending placement.
--- NOTE | 2022-06-01 10:54 | ED Physician Documentation ---
ED Addendum - Addendum Addendum: 06/01/22 10:53 I was notified by nursing staff that the patient began to complain of abdominal pain. He vomited a large amount of green bile. Patient was complaining of generalized abdominal pain. We will repeat laboratory work and will obtain imaging. 06/01/22 13:03 Care of patient handed to Dr. Berger at 1200. Will follow results of CT
[2022-06-01 11:37] LABS: BASOPHILS % (AUTO) 0.1 %; EOSINOPHILS # (AUTO) 0.1 10^3/uL (0.0-0.7); EOSINOPHILS % (AUTO) 0.6 %; HCT - HEMATOCRIT 42.2 % (42.0-52.0); LYMPHOCYTES # (AUTO) 0.8 10^3/uL (1.5-3.5); LYMPHOCYTES % (AUTO) 6.2 %; MEAN CORPUSCULAR HEMOGLOBIN 33.1 pg (27.0-31.0); MEAN CORPUSCULAR HGB CONC 33.2 g/dL (32.0-36.0); MEAN CORPUSCULAR VOLUME 99.8 fL (80.0-94.0); MEAN PLATELET VOLUME 11.4 fL (7.4-11.4); MONOCYTES # (AUTO) 1.8 10^3/uL (0.0-1.0); MONOCYTES % (AUTO) 13.4 %; NEUTROPHILS # (AUTO) 10.7 10^3/uL (1.5-6.6); NEUTROPHILS % (AUTO) 79.4 %; PLT - PLATELET COUNT 146 10^3/uL (130-450); RED BLOOD COUNT 4.23 10^6/uL (4.70-6.10); RED CELL DISTRIBUTION WIDTH 13.4 % (12.0-15.0); WHITE BLOOD COUNT 13.5 x10^3/uL (4.8-10.8)
[2022-06-01 11:41] LABS: SLIDE REVIEW? Indicated
[2022-06-01 11:50] LABS: ALBUMIN 3.5 g/dL (3.2-5.5); ALBUMIN/GLOBULIN RATIO 1.1 (1.0-2.2); BILIRUBIN,TOTAL 1.1 mg/dL (0.2-1.0); CALCIUM 9.3 mg/dL (8.5-10.3); CREATININE 1.1 mg/dL (0.6-1.2); POTASSIUM 4.2 mmol/L (3.5-5.0); TOTAL PROTEIN 6.7 g/dL (6.7-8.2)
[2022-06-01 11:59] LABS: PLATELET MORPHOLOGY RARE GIANT PLATELETS (NORMAL)
--- NOTE | 2022-06-01 12:18 | CT Report ---
PROCEDURE: Abdomen/Pelvis W INDICATIONS: N/V/ABDOMINAL PAIN, BILIOUS EMESIS CONTRAST: IV CONTRAST: Optiray 320 ml: 100 PO CONTRAST: *NO PO CONTRAST TECHNIQUE: After the administration of IV contrast, 5 mm thick sections acquired from the diaphragms to the symp hysis. 5 mm thick coronal and sagittal reformats were acquired. For radiation dose reduction, the f ollowing was used: automated exposure control, adjustment of mA and/or kV according to patient size. COMPARISON: 05/12/[address] of chest dated 04/06/2022. FINDINGS: Image quality: Excellent. ABDOMEN: Lung bases: Extensive airspace opacities are seen in posterior aspect of bilateral lower lobes concer rosa for bibasilar dependent atelectasis/infiltrates new since previous study. Heart size is enlarged , no significant pericardial effusion. Solid organs: Liver and spleen are normal in size and enhancement. Gallbladder is surgically absent . Biliary system is non dilated. Pancreas enhances normally. No adrenal nodules. Kidneys demonstr ate normal size and enhancement, without hydronephrosis. Peritoneum and bowel: Fluid distended stomach lumen is seen with air-fluid level. Fluid and air diste ntion of proximal to mid small bowel loops are also noted with multiple air-fluid levels. Small bowel loops measures up to 4.3 cm in diameter series 3 image 37. Selective transition is noted in right lo wer quadrant abdomen series 3 image 51 and series 7 image 49. More distal small bowel loops are decom pressed. Mild to moderate fecal stasis in the colon is seen. No abnormal bowel wall thickening is see n. No abscess collection. No free fluid or free air. Nodes and vessels: No retroperitoneal or mesenteric adenopathy by size criteria. Aorta and inferior vena cava are normal in size. Miscellaneous: Small umbilical hernia is seen containing fat only. PELVIS: Genitourinary: Ramsay catheter is seen in a decompressed urinary bladder. No gross bladder wall abnorm ality is noted. Miscellaneous: No inguinal hernias or adenopathy. Bones: No suspicious bony lesion. Chronic-appearing compression deformities are again seen at T9, T10 , T11, T12, L1, L2 and L4 levels unchanged from prior study. Prior kyphoplasty at T12 level is again seen and unchanged. Degenerative disc disease throughout lower thoracic and lumbar spine is again see n. IMPRESSION: 1. Finding is consistent with high-grade mid to distal small bowel obstruction with transition point seen in right lower quadrant abdomen as above. 2. No abnormal bowel wall thickening. No abscess collection. No free fluid or free air. 3. Extensive airspace opacities scattered in bilateral lung bases concerning for bilateral lower lobe infiltrates possibly from aspiration. Reviewed by: Viktor Euceda MD on 06/01/2022 12:16 PM PDT Approved by: Viktor Euceda MD on 06/01/2022 12:16 PM PDT Station ID: [id number]
[2022-06-01] MEDS ORDERED: LIDOCAINE 2% URO-JET 5 ML SYRINGE UR STA (12:31)
--- NOTE | 2022-06-01 12:45 | ED Physician Documentation ---
ED Addendum - Addendum Addendum: 06/01/22 12:43 On arrival to my shift I was notified by Dr. Mejia that the gentleman had developed belly pain and bilious vomiting and a CT had been done consistent with the followin. Finding is consistent with high-grade mid to distal small bowel obstruction w ith transition point seen in right lower quadrant abdomen as above. 2. No abnormal bowel wall thickening. No abscess collection. No free fluid or free air. 3. Extensive airspace opacities scattered in bilateral lung bases concerning for bilateral lower lobe infiltrates possibly from aspiration. I discussed the case with Dr. Eli, the on-call surgeon and she will consult. Agrees with NG tube placement. She asked me to call with anesthesia and make sure that if he did progress to needing surgery that he would be appropriate for this small facility and I spoke with Marsha Cadena, AURELIO who felt that he could be safely operated upon here. And subsequently I spoke with Dr. Aquino for admission. I lVM for son to call me back. Disposition: Admission Condition: Serious Diagnosis: 1. Small bowel obstruction 2. Lumbar compression fracture 06/01/22 12:44
[2022-06-01] MEDS ORDERED: PROCHLORPERAZINE 10 MG/2 ML VIAL IVP PRN (13:02)
[2022-06-01] MEDS ORDERED: MORPHINE 2 MG/ML CARPUJECT IVP PRN (13:02)
[2022-06-01] MEDS ORDERED: SODIUM CHLORIDE FLUSH 0.9% 10 ML SYRINGE IVP PRN (13:02)
[2022-06-01] MEDS ORDERED: ONDANSETRON ODT 4 MG TABLET TL PRN (13:02)
--- NOTE | 2022-06-01 13:47 | XRAY Report ---
PROCEDURE: Abdomen 1 View X-Ray INDICATIONS: post ng tube TECHNIQUE: One view of the abdomen acquired. COMPARISON: CT of abdomen and pelvis from the same day. FINDINGS: Surgical changes and devices: NG tube tip is in mid stomach lumen below the left hemidiaphragm. Prior kyphoplasty at T12 level is seen. Bowel: Air distended bowel loops are noted throughout the abdomen consistent with CT finding of mid t o distal small bowel obstruction. No gross peritoneal free air. Soft tissues: No suspicious abdominal calcifications. Visualized solid organ contours appear normal in size. Bones: No suspicious bony lesions. IMPRESSION: NG tube tip is in the stomach lumen below the left hemidiaphragm. Bowel gas pattern is consistent wit h CT finding of mid to distal small bowel obstruction. No gross free air. Reviewed by: Viktor Euceda MD on 06/01/2022 1:45 PM PDT Approved by: Viktor Euceda MD on 06/01/2022 1:45 PM PDT Station ID: [id number]
[2022-06-01] MEDS: SODIUM CHLORIDE 0.9% 1,000 ML IV SCH (13:49)
[2022-06-01] MEDS: ONDANSETRON 4 MG/2 ML VIAL IVP PRN ×2 (13:52→20:52)
[2022-06-01] MEDS: PANTOPRAZOLE 40 MG TABLET PO SCH (14:23)
[2022-06-01] MEDS ORDERED: DIATR MEGLU/DIATRIZOATE SODIUM 120 ML BOTTLE PO ONE (14:34)
[2022-06-01] MEDS: SODIUM CHLORIDE FLUSH 0.9% 10 ML SYRINGE IVP SCH (17:11)
--- NOTE | 2022-06-01 17:21 | HISTORY & PHYSICAL EXAMINATION ---
Chief Complaint - Chief Complaint Chief Complaint: Generalized abdominal pain with vomiting History of Present Illness - Admitted From Admitted From:: ER - History Obtained From Records Reviewed: [facility] History obtained from: Patient, Dr. Eli, Dr. Berger Exam Limitations: Patient is easily confused, some element of cognitive deficit - History of Present Illness HPI Comment/Other: The patient was brought in by ambulance May 27. He had fallen at home on the while trying to get out of bed and walk to the bathroom. He tripped on a throw rug and landed on his chest. There is no blow to the head. He did not lose consciousness. He denied any blurred vision, headache. He is on Eliquis. He crawled back to bed after the fall and was in bed for about 18 hours when his son came around 3:30 May 27 to check up on him. In the emergency room temperature was 37.3. Heart rate 89. Blood pressure 125/60. Respirations 15 and he was 90% on room air. His chest wall hurt from right fallen and rated the pain at an 8 out of a 10. In the emergency room he was identified as having a vertebral compression fracture and was sent home with calcitonin, a lidocaine patch, and Percocet. On May 30 the patient returned because he was now having slurred speech and was altered. It was thought that he had taken too much of his pain medication. He confirmed that.. He was comfortable, somnolent, arousable but still complaining of his back pain. It was felt that the patient needed to go to a Assisted living facility since the family could not take care of him. He was evaluated and they declined for now. They recommended he go to memory care. Son lives in [place] and has been here visiting and was getting ready to go back to [place]. The patient and son were amenable to that plan and social work evaluated the patient on the morning of the . He was in the emergency room evaluating transfer to a [facility] facility until today. In the morning he was sleeping comfortably. And then around 10:53 this morning started complaining of generalized abdominal pain. He vomited a large amount of green bile. A repeat CMP was done. He is already had 16 May 2012, May 30 and today. BUN is 21, creatinine is 1.1. Random glucose 135. Lactic acid 1.1. Total bilirubin is elevated at 1.1 but has been consistently elevated this entire year. AST and ALT are normal. CBC shows an elevated white cell count at 13.5. Hemoglobin 14. Hematocrit 42. Abdomen pelvis CT was done and he has high-grade mid to distal small bowel obstruction with a transition point seen in the right lower quadrant as above. No abnormal bowel thickening. No abscess collection. Extensive airspace opacities scattered in bilateral lung bases concerning for bilateral lower lobe infiltrates from aspiration. His past medical history for surgery was significant for an appendix being removed in the past. General surgery was asked to see the patient. They feel the patient needs to be brought into the hospital. They are asking that our service admit the patient and they will consult. History - Past Medical History Cardiovascular: reports: High cholesterol, Atrial fibrillation (April 2021 echo and stress test done and were essentially normal.), Valve disorder Respiratory: reports: COPD Neuro: reports: None Endocrine/Autoimmune: reports: None GI: reports: GERD : reports: None Psych: reports: Depression (with suicide attempt 2 months ago. Depressed about living along and 's [facility]. Used the xanax rx'd by Dr. Hsu) Musculoskeletal: reports: Osteoarthritis Derm: reports: None - Past Surgical History General: reports: Cholecystectomy, Appendectomy - Family & Social History Family History Comment/Other: His father in 1951 from Hodgkin's lym phoma. His mother in 1984 from complications related to tuberculosis Living arrangement: At home Living Situation: Alone Social History Notes: [facility] with his second in [place] but she went to a memory care unit in the last few months. He use to be independent of activities of daily living. He is supposed to use a cane and or a walker to get around however he mostly furniture serves or uses the goldstein as walking aids. Retired [employer]. 2 packs of cigarettes daily for 36 years. He quit 35 years ago. He drinks alcohol occasionally and does not use any recreational substances. - Substance History Use: Uses substance without health or social issues: Alcohol - POLST Patient has POLST: No POLST Status: DNR Meds/Allgy - Home Medications Home Medications: Ambulatory Orders Medication Instructions Recorded Confirmed Apixaban [Eliquis] 5 mg PO BID 30 Days #60 tablet 05/14/21 05/30/22 Atorvastatin [Lipitor] 10 mg PO QPM 05/14/21 05/30/22 Furosemide [Lasix] 20 mg PO DAILY 05/14/21 05/30/22 Mometasone/Formoterol [Dulera 200 2 puffs INH BID 05/14/21 05/30/22 Mcg-5 Mcg Inhaler] Metoprolol Succinate [Toprol Xl] 25 mg PO DAILY 30 Days #30 tablet 05/15/21 Calcitonin [Fortical] 1 sprays TIFFANIE DAILY #1 ahfu 05/27/22 05/30/22 Lidocaine Patch 5% [Lidoderm Patch] 1 patch TOP DAILY PRN #10 patch 05/27/22 05/30/22 Oxycodone HCl/Acetaminophen 1 - 2 each PO Q6H PRN #30 tablet 05/27/22 05/30/22 [Percocet 5-325 mg Tablet] - Allergies Allergies/Adverse Reactions: Allergies Allergy/AdvReac Type Severity Reaction Status Date / Time No Known Drug Allergies Allergy Verified 05/30/22 16:31 Review of Systems - Constitutional Constitutional: denies: Fatigue, Fever, Chills, Malaise - Eyes Eyes: reports: Blurred vision, Corrective lenses - Ears, Nose & Throat Ears, Nose & Throat: reports: Hearing loss. denies: Ear pain, Hearing aids, Nasal pain, Nasal discharge, Sore throat, Hoarseness - Cardiovascular Cariovascular: denies: Chest pain - Respiratory Respiratory: reports: Cough, Sputum production (He says he coughs all the time and has occasional phlegm production that is not new, not any worse). denies: Orthopnea, SOB at rest - Gastrointestinal Gastrointestinal: reports: Abdominal pain, Abdominal distention. denies: Diarrhea - Genitourinary Genitourinary: reports: Frequency, Incontinence, Nocturia. denies: Dysuria, Ur gency, Hematuria - Musculoskeletal Musculoskeletal: reports: Back pain, Muscle aches, Stiffness, Joint pain. denies: Muscle pain, Limited range of motion, Muscle weakness - Integumentary Integumentary: denies: Rash, Pruritis, Lesions, Dryness - Neurological Neurological: reports: General weakness, Memory problems, Incoordination. denies: Focal weakness, Headache, Dizziness - Psychiatric Psychiatric: reports: Depression, Anxiety, Suicidal - Endocrine Endocrine: denies: Polyuria, Polydypsia, Polyphagia - Hematologic/Lymphatic Hematologic/Lymphatic: denies: Anemia, Bruising, Petechiae Prior Level of Functionality: He tells me that he is completely independent with activities of daily living. That he drives himself, cooks, cleans, pays bills. But the impression I get from Dr. Berger's notes is that the patient is slowly declining with his cognitive abilities. Son says he is repetitive. Forgetting what to do. Acts strange and has conversations wiht himself. Plan is for Assisted Living but if his memory is too far gone, they may not take him. Exam - Vital Signs Reviewed Vital Signs: Yes Vital Signs: Vital Signs x48h Temp Pulse Pulse Resp BP BP BP 06/01/22 16:00 36.3 C L 100 20 104/65 06/01/22 14:49 97 155/110 H 06/01/22 13:54 37 C 102 H 22 105/63 06/01/22 13:00 99 16 116/102 H 06/01/22 10:00 36.6 C 96 16 114/100 H Pulse Ox 06/01/22 16:00 92 06/01/22 14:49 92 06/01/22 13:54 92 06/01/22 13:00 94 06/01/22 10:00 94 - Physical Exam General Appearance: positive: No acute distress, Other (He is sleepy. Awakens to my voice. Tall, angular elderly man with reddened face from sun exposure) Eyes Bilateral: positive: PERRL, EOMI ENT: positive: No signs of dehydration Neck: positive: No JVD. negative: Stiff neck Respiratory: positive: No respiratory distress. negative: Wheezes, Rales, Rhonchi Cardiovascular: positive: Irregularly irregular, Systolic murmur. negative: Gallop/S4, Friction rub Peripheral Pulses: positive: 1+ Abdomen: positive: No organomegaly, Other (Slight distention, 1 tinkling bowel sounds heard) Skin: positive: Warm, Dry Extremities: positive: Full ROM, No pedal edema Neurologic/Psychiatric: positive: CN's nml (2-12), Motor nml (Easily confused.), Disoriented to time Conclusion/Plan - Problem List (1) Partial small bowel obstruction Conclusion/Plan: He has had previous abdominal surgery. From a differential diagnosis perspective adhesions would be the most likely culprit. He does have an elevated white cell count but no fever. Plan: Gastrografin challenge Follow through with what general surgery would recommend N.p.o. except for ice chips NG tube (2) Confusion and disorientation Conclusion/Plan: This elderly gentleman is aware that he is in the hospital. He does know the date, does not know the time. I seen him 3 times to evaluate and reevaluate. Each time he does not remember who I am. He also seems to forget that the reason he is here is for a bowel obstruction. Will discuss with social work and with family about plans for his future (3) Chronic atrial fibrillation Conclusion/Plan: He was seen for chest pain in April 2021. Also assisted with a bout of enteritis. At that point he had a run of atrial fibrillation. He had an echocardiogram which showed normal valves. Normal ejection fraction. He had a stress test that was without perfusion defects. His current medication list includes Eliquis and metoprolol. He does not know why he is taking Lasix and does not remember having a diagnosis of congestive heart failure. Plan: Continue rate control with his metoprolol and use IV Change Eliquis to Lovenox (4) COPD without exacerbation Conclusion/Plan: He takes Dulera at home. I will substitute budesonide and Perforomist, and short acting as needed albuterol (5) Compression fracture of L3 vertebra Conclusion/Plan: control pain with low dose opiates, calcitonin. Qualifiers: Encounter type: initial encounter Qualified Code(s): S32.030A - Wedge compression fracture of third lumbar vertebra, initial encounter for closed fracture (6) Cognitive decline Conclusion/Plan: started a few months ago and worse over the last few weeks. Accelerated with his fall and the use of his opiates. Can't be trusted to take his meds with example of xanax or his opiates. Said the opiates were as "good as a 40 jem". he also describes driving to [place] and stopping the car and jumping. Son who is DPOA thinks he should be DNR. - Lab Results Lab results reviewed: Yes Fish Bones: 06/01/22 11:31 06/01/22 11:31 - Diagnostic Imaging Results Diagnostic Imaging Results: positive: Final report reviewed Core Measures - Anticipated LOS I expect patient to be DC'd or transferred within 96 hours.: Yes - DVT/VTE - Prophylaxis VTE/DVT Prophylaxis med ordered at admit?: Yes
[2022-06-01] MEDS ORDERED: ALBUTEROL NEB 2.5 MG/3 ML INH PRN (17:49)
[2022-06-01] MEDS ORDERED: METOPROLOL 5 MG/5 ML VIAL IVP PRN (17:50)
--- NOTE | 2022-06-01 17:58 | CONSULTATION NOTE ---
Referring Provider Name of Referring Provider:: Dr. Aquino (medicine) Consult Date: 06/01/22 Chief Complaint - Chief Complaint Chief Complaint: abdominal pain History of Present Illness - Admitted From Admitted From:: ED - History Obtained From Records Reviewed: ED records from last several days History obtained from: patient and records Exam Limitations: poor historian - History of Present Illness HPI Comment/Other: 6 days ago, the patient fell while getting out of bed and landed on his chest. He did not hit his head. He presented to the emergency department the following day and was found to have a compression fracture. He was sent home with pain medication and a lidocaine patch. 3 days later, the patient returned to the emergency department with altered mental status which was determined to be caused by his pain medication. He remained in the emergency department while awaiting placement as the patient does not have any family that lives close by. This morning, the patient began complaining of generalized abdominal pain and had a large amount of bilious emesis. Repeat studies at that time revealed a slight leukocytosis without any other significant changes. Imaging reveals a partial, distal small bowel obstruction with a transition point in the right lower quadrant. The patient was admitted to medicine. For the bowel obstruction, I am consulted. At the time of my exam, the patient denies any nausea or abdominal pain. He r ecalls having pain earlier in the day today but states he was not having any pain yesterday in his stomach, only in his back. He states his back pain is so bad that it is very distracting to him. Notably, the patient is a poor historian. In my discussion with the primary team and nursing staff, the patient has pulled both his NG tube and his IV in the last couple of hours. He is refusing to have his NG tube replaced per nursing. History - Past Medical History Cardiovascular: reports: High cholesterol, Atrial fibrillation (April 2021 echo and stress test done and were essentially normal.), Valve disorder Respiratory: reports: COPD Neuro: reports: None Endocrine/Autoimmune: reports: None GI: reports: GERD : reports: None HEENT: reports: Chronic hearing loss Psych: reports: None Musculoskeletal: reports: Osteoarthritis, Other (Acute back pain from compression fracture) Derm: reports: None - Past Surgical History General: reports: Cholecystectomy, Appendectomy - Family & Social History Family History Comment/Other: His father in 1951 from Hodgkin's lymphoma. His mother in 1984 from complications related to tuberculosis Living arrangement: At home Living Situation: With spouse/s.o. Social History Notes: He lives at home in a condominium with his . He is independent of activities of daily living. He is supposed to use a cane and or a walker to get around however he mostly furniture serves or uses the goldstein as walking aids. 2 packs of cigarettes daily for 36 years. He quit 35 years ago. He drinks alcohol occasionally and does not use any recreational substances. - Substance History Use: Uses substance without health or social issues: Alcohol - POLST Patient has POLST: No POLST Status: Full Code Meds/Allgy - Home Medications Home Medications: Ambulatory Orders Medication Instructions Recorded Confirmed Apixaban [Eliquis] 5 mg PO BID 30 Days #60 tablet 05/14/21 05/30/22 Atorvastatin [Lipitor] 10 mg PO QPM 05/14/21 05/30/22 Furosemide [Lasix] 20 mg PO DAILY 05/14/21 05/30/22 Mometasone/Formoterol [Dulera 200 2 puffs INH BID 05/14/21 05/30/22 Mcg-5 Mcg Inhaler] Metoprolol Succinate [Toprol Xl] 25 mg PO DAILY 30 Days #30 tablet 05/15/21 Calcitonin [Fortical] 1 sprays TIFFANIE DAILY #1 ahfu 05/27/22 05/30/22 Lidocaine Patch 5% [Lidoderm Patch] 1 patch TOP DAILY PRN #10 patch 05/27/22 05/30/22 Oxycodone HCl/Acetaminophen 1 - 2 each PO Q6H PRN #30 tablet 05/27/22 05/30/22 [Percocet 5-325 mg Tablet] - Allergies Allergies/Adverse Reactions: Allergies Allergy/AdvReac Type Severity Reaction Status Date / Time No Known Drug Allergies Allergy Verified 05/30/22 16:31 Review of Systems - All Other Systems All Other Systems: reports: Reviewed and negative (Negative except for HPI and past medical history, patient is unable to give a full review of systems.) Exam - Vital Signs Reviewed Vital Signs: Yes Vital Signs: Vital Signs x48h Temp Pulse Pulse Resp BP BP BP 06/01/22 16:00 36.3 C L 100 20 104/65 06/01/22 14:49 97 155/110 H 06/01/22 13:54 37 C 102 H 22 105/63 06/01/22 13:00 99 16 116/102 H 06/01/22 10:00 36.6 C 96 16 114/100 H Pulse Ox 06/01/22 16:00 92 06/01/22 14:49 92 06/01/22 13:54 92 06/01/22 13:00 94 06/01/22 10:00 94 - Physical Exam General Appearance: positive: No acute distress, Alert Eyes Bilateral: positive: Normal inspection ENT: positive: Dry mucous membranes, Other (Very hard of hearing) Neck: positive: Nml inspection Respiratory: positive: Chest non-tender, No respiratory distress, Rhonchi (Bilateral bases) Cardiovascular: positive: No murmur, Irregularly irregular, Tachycardia (Borderline) Peripheral Pulses: positive: 1+ Abdomen: positive: Non-tender, Nml bowel sounds, No distention. negative: Tenderness, Guarding, Rebound, Mass Skin: positive: Color nml Extremities: positive: Non-tender Conclusion and Plan - Lab Results Laboratory Results 06/01/22 12:38: Lactic Acid 1.1 06/01/22 11:31: Sodium 138, Potassium 4.2, Chloride 101, Carbon Dioxide 26, Anion Gap 11.0, BUN 21 H, Creatinine 1.1, Estimated GFR (MDRD) 63 L, Glucose 135 H, Calcium 9.3, Total Bilirubin 1.1 H, AST 24, ALT 24, Alkaline Phosphatase 112, Total Protein 6.7, Albumin 3.5, Globulin 3.2, Albumin/Globulin Ratio 1.1, Lipase 25 06/01/22 11:31: WBC 13.5 H, RBC 4.23 L, Hgb 14.0, Hct 42.2, MCV 99.8 H, MCH 33.1 H, MCHC 33.2, RDW 13.4, Plt Count 146, MPV 11.4, Neut # (Auto) 10.7 H, Lymph # (Auto) 0.8 L, Mcculloch # (Auto) 1.8 H, Eos # (Auto) 0.1, Baso # (Auto) 0.0, Absolute Nucleated RBC 0.00, Nucleated RBC % 0.0, Manual Slide Review Indicated, Platelet Morphology RARE GIANT PLATELETS 05/31/22 00:40: Urine Color YELLOW, Urine Clarity CLEAR, Urine pH 5.5, Ur Specific Soldier 1.025, Urine Protein NEGATIVE, Urine Glucose (UA) NEGATIVE, Urine Ketones TRACE, Urine Occult Blood NEGATIVE, Urine Nitrite NEGATIVE, Urine Bilirubin NEGATIVE, Urine Urobilinogen 0.2 (NORMAL), Ur Leukocyte Esterase NEGATIVE, Ur Microscopic Review NOT INDICATED, Urine Culture Comments NOT INDICATED, Urine Opiates Screen NEGATIVE, Ur Oxycodone Screen POSITIVE H, Urine Methadone Screen NEGATIVE, Ur Propoxyphene Screen NEGATIVE, Ur Barbiturates Screen NEGATIVE, Ur Tricyclics Screen NEGATIVE, Ur Phencyclidine Scrn NEGATIVE, Ur Amphetamine Screen NEGATIVE, U Methamphetamines Scrn NEGATIVE, U Benzodiazepines Scrn NEGATIVE, Urine Cocaine Screen NEGATIVE, U Cannabinoids Screen NEGATIVE 05/30/22 17:48: SARS-CoV-2 (PCR) NOT DETECTED - Diagnostic Imaging Results Diagnostic Imaging Results: positive: Final report reviewed, Discussed with radiologist, Read independently Diagnostic Imaging Results Comments: I reviewed the imaging and report from the patient's CT scan today. He does appear to have at least a partial small bowel obstruction with transition point in the right lower quadrant. There is no free fluid, there is no free air. - Diagnosis Diagnosis: Small bowel obstruction. Compression fracture of the spine - Plan Plan: This is an 87-year-old gentleman with: 1. Small bowel obstruction - The patient's abdominal exam is quite benign without any significant distension at the time of my exam. The patient's imaging deomnstrates he has at least a partial small bowel obstruction. Gastrografin study ordered earlier today demonstrates minimal movement from the stomach at 1-1/2 hours. At the time of my exam, the patient is nondistended, nontender, and not nauseous. -I recommend allowing the Gastrografin study to continue. If the patient becomes nauseous again, I recommend replacement of the NG tube. He may require a sitter to be in place to keep this tube in place. I discussed the benefit of the NG tube as it may decrease the likelihood that the patient may require surge ry with the patient. He voiced understanding and is agreeable to have the tube replaced if needed. -If the patient begins having bowel movements and his abdomen remains benign, we may be able to advance his diet. At this time, I would like the patient to remain NPO. He will require IV fluid to remain hydrated. He may require a sitter to keep his IV in place. 2. Pneumonitis versus aspiration pneumonia The patient has opacities and coarse breath sounds in bilateral bases. This could be due to aspiration or atelectasis. I recommend incentive spirometry. With his minimal white count, I do not think antibiotics are required at this time, but defer to the primary team for final decision. 3. Compression fracture of the spine -The patient's pain has been difficult to control and he has had significant confusion and delirium with narcotic pain medication. I agree with continuing lidocaine patches and pain control as needed as per the primary team. 4. Confusion, delirium Significant contribution from opiate pain medication. The patient has been hospitalized for a couple of days and this could be contributing as well as he has been taken out of his home environment and appears to have some degree of cognitive decline/dementia. 5. Chronic atrial fibrillation, COPD. As per the primary team 6.Deconditioning, gait instability Disposition planning has been started in the emergency department prior to the onset of the patient's obstructive symptoms. Most recent plan is for the patient to go to a SNF on discharge. Thank you for consulting me in the care of this patient. I will continue to follow along closely.
[2022-06-01] MEDS ORDERED: PHENOL THROAT SPRAY 177 ML MM PRN (18:32)
[2022-06-01] MEDS: FORMOTEROL FUMARATE NEB 20 MCG/2 ML INH SCH (20:00)
[2022-06-01] MEDS: BUDESONIDE 0.5 MG/2 ML NEB INH SCH (20:00)
[2022-06-02] MEDS: ACETAMINOPHEN 500 MG TABLET PO SCH ×4 (00:22→18:18)
[2022-06-02] MEDS: SODIUM CHLORIDE FLUSH 0.9% 10 ML SYRINGE IVP SCH ×3 (00:22→16:27)
[2022-06-02] MEDS: SODIUM CHLORIDE 0.9% 1,000 ML IV SCH ×3 (00:49→20:27)
[2022-06-02] MEDS: BUDESONIDE 0.5 MG/2 ML NEB INH SCH ×2 (07:14→19:30)
[2022-06-02] MEDS: FORMOTEROL FUMARATE NEB 20 MCG/2 ML INH SCH ×2 (07:15→19:30)
--- NOTE | 2022-06-02 08:27 | XRAY Report ---
PROCEDURE: SBFT Challenge Panel INDICATIONS: PARTIAL SBO, NEEDS GASTROGRAFIN CHALLENGE COMPARISON: None CONTRAST: Gastrografin FINDINGS: KUB: Preprocedural line runner film demonstrates a normal bowel gas pattern. No suspicious abdominal calc ifications. Visualized solid organ contours appear normal. No suspicious bony abnormalities. Small bowel: Gastrografin was administered via NG tube. Small bowel loops are dilated with air and ne vince opacify well, however the 16 hour image the large bowel is opacified with contrast to the rectum. No strictures, intraluminal masses, or extrinsic mass effects are noted. The terminal ileum is iden tified, and is normal in morphology. IMPRESSION: Gastrografin challenge demonstrates transit of Gastrografin into the rectum in 16 hours. Reviewed by: Gabriel Soares on 06/02/2022 8:25 AM PDT Approved by: Gabriel Soares on 06/02/2022 8:25 AM PDT Station ID: [id number]
--- NOTE | 2022-06-02 09:51 | PROVIDER PROGRESS NOTE ---
Subjective - General Admit Date: 06/01/22 - Review of Systems General: negative: Fever, Chills HEENT: positive: Other (Pt complains of dry mouth) Pulmonary: positive: Cough Cardiovascular: negative: Chest pain Gastrointestinal: positive: Other (Pt denies abdominal pain. Endorses BM this AM.). negative: Nausea, Vomiting, Abdominal pain All Other Systems: positive: Reviewed and negative (Negative except for HPI and past medical history, patient is unable to give a full review of systems.) Objective - Patient Data Vital Signs: Vital Signs x48h Temp Pulse Pulse Resp BP Pulse Ox 06/02/22 07:46 37.2 C 83 18 106/62 94 06/02/22 07:18 89 19 Weight: Weight 05/31/22 06/01/22 06/02/22 23:59 23:59 23:59 Weight (kg) 88 kg Intake & Output: Intake and Output Totals x24h 05/31/22 06/01/22 06/02/22 23:59 23:59 23:59 Intake Total 1150 785 715 Output Total 950 1275 150 Balance 200 -490 565 - Lab Results Lab Results: 06/01/22 11:31 06/01/22 11:31 Other Lab Results: Lab Results x24hrs 06/01/22 06/01/22 06/01/22 Range/Units 12:38 11:31 11:31 WBC 13.5 H (4.8-10.8) x10^3/uL RBC 4.23 L (4.70-6.10) 10^6/uL Hgb 14.0 (14.0-18.0) g/dL Hct 42.2 (42.0-52.0) % MCV 99.8 H (80.0-94.0) fL MCH 33.1 H (27.0-31.0) pg MCHC 33.2 (32.0-36.0) g/dL RDW 13.4 (12.0-15.0) % Plt Count 146 (130-450) 10^3/uL MPV 11.4 (7.4-11.4) fL Neut # (Auto) 10.7 H (1.5-6.6) 10^3/uL Lymph # (Auto) 0.8 L (1.5-3.5) 10^3/uL [place] # (Auto) 1.8 H (0.0-1.0) 10^3/uL Eos # (Auto) 0.1 (0.0-0.7) 10^3/uL Baso # (Auto) 0.0 (0.0-0.1) 10^3/uL Absolute Nucleated RBC 0.00 x10^3/uL Nucleated RBC % 0.0 /100WBC Manual Slide Review Indicated Platelet Morphology RARE GIANT PLATELETS (NORMAL) Sodium 138 (135-145) mmol/L Potassium 4.2 (3.5-5.0) mmol/L Chloride 101 (101-111) mmol/L Carbon Dioxide 26 (21-32) mmol/L Anion Gap 11.0 (6-13) BUN 21 H (6-20) mg/dL Creatinine 1.1 (0.6-1.2) mg/dL Estimated GFR (MDRD) 63 L (>89) Glucose 135 H (70-100) mg/dL Lactic Acid 1.1 (0.5-2.2) mmol/L Calcium 9.3 (8.5-10.3) mg/dL Total Bilirubin 1.1 H (0.2-1.0) mg/dL AST 24 (10-42) IU/L ALT 24 (10-60) IU/L Alkaline Phosphatase 112 (42-121) IU/L Total Protein 6.7 (6.7-8.2) g/dL Albumin 3.5 (3.2-5.5) g/dL Globulin 3.2 (2.1-4.2) g/dL Albumin/Globulin Ratio 1.1 (1.0-2.2) Lipase 25 (22-51) U/L - Imaging Results Radiology Imaging: positive: Final report received Imaging Results Comments: No new labs this AM. I personally reviewed the report, though the images are currently unavailable for the small bowel follow through study which demonstrates contrast in the rectum at 16 hours. - Current Medications Current Medications: Current Medications Generic Name Dose Route Start Last Admin Trade Name Freq PRN Reason Stop Dose Admin Acetaminophen 1,000 mg 05/30/22 18:00 06/02/22 05:24 Acetaminophen 500 Mg Tablet PO 1,000 mg Q6H [facility]ON Administration Budesonide 0.5 mg 06/01/22 19:00 06/02/22 07:14 Budesonide 0.5 Mg/2 Ml Neb INH 0.5 mg RTBID BRANNON Administration Formoterol Fumarate 20 mcg 06/01/22 19:00 06/02/22 07:15 Formoterol Fumarate Neb 20 Mcg/2 Ml INH 20 mcg RTBID [facility] Administration Furosemide 20 mg 05/31/22 09:00 06/01/22 08:58 Furosemide 20 Mg Tablet PO 20 mg DAILY [facility]ON Administration Sodium Chloride 1,000 mls @ 100 mls/hr 06/01/22 14:00 06/02/22 00:49 Normal Saline 0.9% IV 100 mls/hr .Q10H [facility]ANNON Administration Metoprolol Succinate 25 mg 05/31/22 09:00 06/01/22 08:58 Metoprolol Succinate 25 Mg Tablet PO 25 mg DAILY [facility] Administration Morphine Sulfate 2 mg 06/01/22 13:02 06/01/22 14:03 Morphine 2 Mg/Ml Carpuject IVP 2 mg Q2HR PRN Administration Pain 8 to 10 Ondansetron HCl 4 mg 06/01/22 13:02 06/01/22 20:52 Ondansetron 4 Mg/2 Ml Vial IVP 4 mg Q6HR PRN Administration Nausea / Vomiting Oxycodone HCl 5 mg 05/30/22 17:37 06/01/22 03:26 Oxycodone 5 Mg Tablet PO 5 mg Q6H PRN Administration PAIN Pantoprazole Sodium 40 mg 06/01/22 12:00 06/01/22 14:23 Pantoprazole 40 Mg Tablet PO 40 mg DAILY [facility] Administration Prochlorperazine Edisylate 10 mg 06/01/22 13:02 06/01/22 17:44 Prochlorperazine 10 Mg/2 Ml Vial IVP 10 mg Q6HR PRN Administration Nausea / Vomiting Sodium Chloride 10 ml 06/01/22 17:00 06/02/22 00:22 Sodium Chloride Flush 0.9% 10 Ml Syringe IVP Not Given 0100,0900,1700 [facility] - Physical Exam General Appearance: positive: No acute distress, Alert Eyes Bilateral: positive: Normal inspection ENT: positive: Dry mucous membranes Respiratory: positive: Chest non-tender, No respiratory distress Cardiovascular: positive: Irregularly irregular. negative: Tachycardia Abdomen: positive: Non-tender, Nml bowel sounds, No distention. negative: Guarding, Rebound, Mass Extremities: positive: Non-tender Impression/Plan - Problem List Problem List: This is an 87-year-old gentleman with: 1. Small bowel obstruction, resolving - The patient's abdominal exam remains benign - +BM. I anticipate patient will have several more, increasingly loose BM's this AM 2/2 gastrograffin. - SBFT demonstrates contrast in the colon at 16 hours - Ok to adat to clears. If patient tolerates this, ok to adat to soft diet. - If he is able to tolerate diet without increasing pain, ok to discharge from surgery standpoint. f/u with surgery prn. 2. Pneumonitis versus aspiration pneumonia, improving patient not requiring oxygen 3. Compression fracture of the spine -The patient's pain has been difficult to control and he has had significant confusion and delirium with narcotic pain medication. I agree with continuing lidocaine patches and pain control as needed as per the primary team. Recommend patient be on stool softeners so long as he is on narcotic pain medication. 4. Confusion, delirium, a fib, COPD, deconditioning, gait instability - as per primary team - disposition planning pending Thank you for consulting me in the care of this patient. Surgery will follow peripherally. Please call with any questions/concerns.
--- NOTE | 2022-06-02 10:45 | PHARMACY PROGRESS NOTE ---
- Best Possible Medication History Admit Date and Time: 06/01/22 1302 Processed by: Nursing Medication History completed: Yes Patient Interview: Completed As the person ultimately responsible for medication therapy, providers are able to order a medication from an existing home medication list in [facility] via the "Reconcile Routine" prior to Confirmation of that medication by applications support engineer. Such practice is discouraged except when the physician, in their clinical judg ment, deems that a medical need exists for a medication without regard to previous use.
[2022-06-02] MEDS: ENOXAPARIN 40 MG/0.4 ML SYRINGE SUBQ SCH (11:00)
--- NOTE | 2022-06-02 11:02 | PROVIDER PROGRESS NOTE ---
Subjective - Prog Note Date Prog Note Date: 06/02/22 Prog Note Time: 11:00 - Subjective Subjective: Asleep and tired when I walk in the room. But he does respond to my voice. Laying comfortably in bed. Keeps on saying he wants to go home. When I ask ab out bowel movements or flatus, he says he does not remember. Nurse lets me know that she got him up this morning because he had an urge to go and eat a small amount of stool in the bedside commode, and he is having flatus. Current Medications - Current Medications Current Medications: Active Medications Acetaminophen (Acetaminophen 500 Mg Tablet) 1,000 mg PO Q6H [facility] Last Admin: 06/02/22 05:24 Dose: 1,000 mg Albuterol (Albuterol Neb 2.5 Mg/3 Ml) 2.5 mg INH RTQ4H PRN PRN Reason: Wheezing Budesonide (Budesonide 0.5 Mg/2 Ml Neb) 0.5 mg INH RTBID [facility] Last Admin: 06/02/22 07:14 Dose: 0.5 mg Enoxaparin Sodium (Enoxaparin 40 Mg/0.4 Ml Syringe) 40 mg SUBQ DAILY [facility] Formoterol Fumarate (Formoterol Fumarate Neb 20 Mcg/2 Ml) 20 mcg INH RTBID [facility] Last Admin: 06/02/22 07:15 Dose: 20 mcg Furosemide (Furosemide 20 Mg Tablet) 20 mg PO DAILY [facility] Last Admin: 06/01/22 08:58 Dose: 20 mg Sodium Chloride (Normal Saline 0.9%) 1,000 mls @ 100 mls/hr IV .Q10H [facility] Last Admin: 06/02/22 00:49 Dose: 100 mls/hr Metoprolol Succinate (Metoprolol Succinate 25 Mg Tablet) 25 mg PO DAILY [facility] Last Admin: 06/01/22 08:58 Dose: 25 mg Metoprolol Tartrate (Metoprolol 5 Mg/5 Ml Vial) 5 mg IVP Q6H PRN PRN Reason: Tachycardia Morphine Sulfate (Morphine 2 Mg/Ml Carpuject) 2 mg IVP Q2HR PRN PRN Reason: Pain 8 to 10 Last Admin: 06/01/22 14:03 Dose: 2 mg Ondansetron HCl (Ondansetron Odt 4 Mg Tablet) 4 mg TL Q6HR PRN PRN Reason: Nausea / Vomiting Ondansetron HCl (Ondansetron 4 Mg/2 Ml Vial) 4 mg IVP Q6HR PRN PRN Reason: Nausea / Vomiting Last Admin: 06/01/22 20:52 Dose: 4 mg Oxycodone HCl (Oxycodone 5 Mg Tablet) 5 mg PO Q6H PRN PRN Reason: PAIN Last Admin: 06/01/22 03:26 Dose: 5 mg Pantoprazole Sodium (Pantoprazole 40 Mg Tablet) 40 mg PO DAILY [facility] Last Admin: 06/01/22 14:23 Dose: 40 mg Phenol/Menthol (Phenol Throat [place] 177 Ml) 2 sprays MM Q1HR PRN PRN Reason: Mouth Sore Pain Prochlorperazine Edisylate (Prochlorperazine 10 Mg/2 Ml Vial) 10 mg IVP Q6HR PRN PRN Reason: Nausea / Vomiting Last Admin: 06/01/22 17:44 Dose: 10 mg Sodium Chloride (Sodium Chloride Flush 0.9% 10 Ml Syringe) 10 ml IVP PRN PRN PRN Reason: NEEDED PER PROVIDER ORDERS Sodium Chloride (Sodium Chloride Flush 0.9% 10 Ml Syringe) 10 ml IVP 0100,0900,1700 [facility] Last Admin: 06/02/22 00:22 Dose: Not Given Atorvastatin [Lipitor] 10 mg PO QPM 05/14/21 Furosemide [Lasix] 20 mg PO DAILY 05/14/21 Mometasone/Formoterol [Dulera 200 Mcg-5 Mcg Inhaler] 2 puffs INH BID 05/14/21 Objective - Vital Signs/Intake & Output Reviewed Vital Signs: Yes Vital Signs: Vital Signs x48h Temp Pulse Pulse Resp BP Pulse Ox 06/02/22 07:46 37.2 C 83 18 106/62 94 06/02/22 07:18 89 19 Intake & Output: Intake & Output 05/30/22 05/31/22 06/01/22 06/02/22 23:59 23:59 23:59 23:59 Intake Total 1150 785 715 Output Total 950 1275 150 Balance 200 -490 565 - Objective General Appearance: positive: No acute distress, Other (Sleepy but alert lanky elderly gentleman without distress) Eyes Bilateral: positive: PERRL, EOMI ENT: positive: No signs of dehydration Neck: positive: No JVD. negative: Stiff neck Respiratory: positive: No respiratory distress. negative: Wheezes, Rales, Rhonchi Cardiovascular: positive: Regular rate & rhythm, Bradycardia, Systolic murmur. negative: Gallop/S4 Abdomen: positive: Non-tender, No organomegaly, Nml bowel sounds, Other (Slightly distended.) Skin: positive: Warm, Dry Extremities: positive: Non-tender, No pedal edema Neurologic/Psychiatric: positive: CN's nml (2-12), Motor nml (Except for impulsiveness, unsteady on his feet.), Disoriented to place, Disoriented to time - Lab Results Fish Bones: 06/01/22 11:31 06/01/22 11:31 Other Labs: Lab Results x24hrs 06/01/22 06/01/22 06/01/22 Range/Units 12:38 11:31 11:31 WBC 13.5 H (4.8-10.8) x10^3/uL RBC 4.23 L (4.70-6.10) 10^6/uL Hgb 14.0 (14.0-18.0) g/dL Hct 42.2 (42.0-52.0) % MCV 99.8 H (80.0-94.0) fL MCH 33.1 H (27.0-31.0) pg MCHC 33.2 (32.0-36.0) g/dL RDW 13.4 (12.0-15.0) % Plt Count 146 (130-450) 10^3/uL MPV 11.4 (7.4-11.4) fL Neut # (Auto) 10.7 H (1.5-6.6) 10^3/uL Lymph # (Auto) 0.8 L (1.5-3.5) 10^3/uL [place] # (Auto) 1.8 H (0.0-1.0) 10^3/uL Eos # (Auto) 0.1 (0.0-0.7) 10^3/uL Baso # (Auto) 0.0 (0.0-0.1) 10^3/uL Absolute Nucleated RBC 0.00 x10^3/uL Nucleated RBC % 0.0 /100WBC Manual Slide Review Indicated Platelet Morphology RARE GIANT PLATELETS (NORMAL) Sodium 138 (135-145) mmol/L Potassium 4.2 (3.5-5.0) mmol/L Chloride 101 (101-111) mmol/L Carbon Dioxide 26 (21-32) mmol/L Anion Gap 11.0 (6-13) BUN 21 H (6-20) mg/dL Creatinine 1.1 (0.6-1.2) mg/dL Estimated GFR (MDRD) 63 L (>89) Glucose 135 H (70-100) mg/dL Lactic Acid 1.1 (0.5-2.2) mmol/L Calcium 9.3 (8.5-10.3) mg/dL Total Bilirubin 1.1 H (0.2-1.0) mg/dL AST 24 (10-42) IU/L ALT 24 (10-60) IU/L Alkaline Phosphatase 112 (42-121) IU/L Total Protein 6.7 (6.7-8.2) g/dL Albumin 3.5 (3.2-5.5) g/dL Globulin 3.2 (2.1-4.2) g/dL Albumin/Globulin Ratio 1.1 (1.0-2.2) Lipase 25 (22-51) U/L ABX Reporting Has patient been on IV antibiotics over the past 48 hours?: No Assessment/Plan - Problem List (1) Partial small bowel obstruction Impression: Pain attributed to adhesions from previous appendectomy. He pulled out his NG yesterday and is refused to let us put it back in again. He underwent a Gastrografin challenge yesterday. We were able to get the Gastrografin down before he pulled out the NG. Contrast is in the large bowel but not at the rectum. He had flatus this morning and 1 tiny small bowel movement. General surgery has been in to see the patient. Plan: Clear liquid diet Now. General surgery would like me to at least have 2-3 meals down before we advance further. Antiemetics and pain medicines to control symptoms. (2) Confusion and disorientation Conclusion/Plan: This elderly gentleman is aware that he is in the hospital. He does know the date, does not know the time. I Saw him 3 times on the day of admission and each time he did not remember who I was. Social work was into discussed the case with me this morning and states she has had several encounters with him while he was in the emergency room. Cognitive eval shows him to have a 17 out of 30 score. Son is DPMACKENZIE. He has had a head CT done in March of this year when he had a fall. There was no evidence of tumor, stroke. TSH was 1.62 in November 2015. Plan: Complete preliminary evaluation for dementia. And probably add a tentative diagnosis of Alzheimer's dementia in this unfortunate gentleman. Son is DPMACKENZIE. (3) Chronic atrial fibrillation Conclusion/Plan: He was seen for chest pain in April 2021. Also assisted with a bout of enteritis. At that point he had a run of atrial fibrillation. He had an echocardiogram which showed normal valves. Normal ejection fraction. He had a stress test that was without perfusion defects. His current medication list includes Eliquis and metoprolol. He does not know why he is taking Lasix and does not remember having a diagnosis of congestive heart failure. Plan: Until he is tolerating a regular diet, I will keep him on IV metoprolol and subcu Lovenox. By tomorrow morning, if tolerating diet well, will resume his usual p.o. meds from home. (4) COPD without exacerbation Conclusion/Plan: He takes Dulera at home. I will substitute budesonide and Perforomist, and sh ort acting as needed albuterol (5) Compression fracture of L3 vertebra Conclusion/Plan: control pain with low dose opiates, calcitonin. He is unsteady on his feet. He has been weakened by this experience over the last week. He is to be placed in either assisted living facility or [facility] facility. Assisted living facility evaluated him and felt that he was too high of a need. Plan: PT and OT eval. Reassess to see if he can go assisted living facility. Qualifiers: Encounter type: initial encounter Qualified Code(s): S32.030A - Wedge compression fracture of third lumbar vertebra, initial encounter for closed fracture (6) Cognitive decline with suicidal ideation Conclusion/Plan: started a few months ago and worse over the last few weeks. Accelerated with his fall and the use of his opiates. Can't be trusted to take his meds with example of xanax or his opiates. Said the opiates were as "good as a 40 jem". he also describes driving to [place] and stopping the car and jumping. Son who is DPOA thinks he should be DNR. Social work aware of suicidal ideation and will work with the son and the patient in evaluation. (5) Compression fracture of L3 vertebra Qualifiers: Qualified Code(s): S32.030A - Wedge compression fracture of third lumbar vertebra, initial encounter for closed fracture
[2022-06-02] MEDS: FUROSEMIDE 20 MG TABLET PO SCH (11:06)
[2022-06-02] MEDS: PANTOPRAZOLE 40 MG TABLET PO SCH (11:06)
[2022-06-02] MEDS: METOPROLOL SUCCINATE 25 MG TABLET PO SCH (11:06)
[2022-06-02] MEDS: ONDANSETRON 4 MG/2 ML VIAL IVP PRN (22:37)
--- NOTE | 2022-06-03 00:56 | XRAY Report ---
PROCEDURE: Abdomen 1 View X-Ray INDICATIONS: Vomiting. NG tube placement. TECHNIQUE: One view of the abdomen acquired. COMPARISON: 06/01/2022 FINDINGS: Surgical changes and devices: There is a nasogastric tube redemonstrated with the tip in the left upp er quadrant likely within the stomach. Bowel: Bowel gas pattern is nonspecific with persistent distended loops of small bowel redemonstrate d in the visualized abdomen. The lower abdomen is incompletely included. There is pulmonary vascular prominence within the visualized lungs compatible with pulmonary edema, decreased from the prior stud y. Soft tissues: No suspicious abdominal calcifications. Bones: No suspicious bony lesions. IMPRESSION: 1. Nasogastric tube tip demonstrated in the region of the stomach in the left upper quadrant. 2. Persistent mildly distended loops of small bowel. Findings may represent an ileus or obstruction. Reviewed by: Hai Cao MD on 06/03/2022 12:55 AM PDT Approved by: Hai Cao MD on 06/03/2022 12:55 AM PDT Station ID: [id number]
[2022-06-03] MEDS: ACETAMINOPHEN 500 MG TABLET PO SCH (01:07)
[2022-06-03] MEDS: SODIUM CHLORIDE 0.9% 1,000 ML IV SCH ×2 (05:51→17:41)
[2022-06-03] MEDS: ACETAMINOPHEN 1,000 MG/100 ML 1,000 MG/100 ML BAG IV PRN ×2 (06:58→20:40)
[2022-06-03 07:34] LABS: BASOPHILS % (AUTO) 0.2 %; EOSINOPHILS # (AUTO) 0.2 10^3/uL (0.0-0.7); EOSINOPHILS % (AUTO) 0.9 %; HCT - HEMATOCRIT 35.4 % (42.0-52.0); HGB - HEMOGLOBIN 11.7 g/dL (14.0-18.0); LYMPHOCYTES # (AUTO) 0.9 10^3/uL (1.5-3.5); LYMPHOCYTES % (AUTO) 4.7 %; MEAN CORPUSCULAR HEMOGLOBIN 33.1 pg (27.0-31.0); MEAN CORPUSCULAR HGB CONC 33.1 g/dL (32.0-36.0); MEAN CORPUSCULAR VOLUME 100.3 fL (80.0-94.0); MEAN PLATELET VOLUME 10.6 fL (7.4-11.4); MONOCYTES % (AUTO) 10.9 %; NEUTROPHILS # (AUTO) 15.3 10^3/uL (1.5-6.6); NEUTROPHILS % (AUTO) 82.9 %; PLT - PLATELET COUNT 152 10^3/uL (130-450); RED BLOOD COUNT 3.53 10^6/uL (4.70-6.10); RED CELL DISTRIBUTION WIDTH 13.7 % (12.0-15.0); WHITE BLOOD COUNT 18.4 x10^3/uL (4.8-10.8)
[2022-06-03 07:37] LABS: SLIDE REVIEW? Indicated
[2022-06-03 07:43] LABS: CALCIUM 8.4 mg/dL (8.5-10.3); CREATININE 1.1 mg/dL (0.6-1.2); POTASSIUM 4.1 mmol/L (3.5-5.0)
[2022-06-03] MEDS: BUDESONIDE 0.5 MG/2 ML NEB INH SCH ×2 (07:43→20:50)
[2022-06-03] MEDS: FORMOTEROL FUMARATE NEB 20 MCG/2 ML INH SCH ×2 (07:43→20:50)
[2022-06-03 08:38] LABS: RBC MORPHOLOGY (MULTIPLE) 1+ ANISOCYTOSIS (NORMAL)
[2022-06-03] MEDS: FUROSEMIDE 20 MG TABLET PO SCH (09:39)
[2022-06-03] MEDS: PANTOPRAZOLE 40 MG TABLET PO SCH (09:39)
[2022-06-03] MEDS: ENOXAPARIN 40 MG/0.4 ML SYRINGE SUBQ SCH (09:39)
[2022-06-03] MEDS: METOPROLOL SUCCINATE 25 MG TABLET PO SCH (09:39)
--- NOTE | 2022-06-03 16:57 | PROVIDER PROGRESS NOTE ---
Subjective - Prog Note Date Prog Note Date: 06/03/22 Prog Note Time: 16:57 - Subjective Pt reports feeling: Improved Subjective: After starting him on clear liquids yesterday, he had a large emesis. NG tube placed last night. This morning he pulled it out again. So far today has had another bowel movement and is having flatus. He likes the ice chips. Keeps in eating those all day long today. He does not have any abdominal pain. He says that his main discomfort is his lower back from the vertebral compression fracture. Also wants to know where his wallet is. Current Medications - Current Medications Current Medications: Active Medications Albuterol (Albuterol Neb 2.5 Mg/3 Ml) 2.5 mg INH RTQ4H PRN PRN Reason: Wheezing Last Admin: 06/02/22 19:30 Dose: 2.5 mg Budesonide (Budesonide 0.5 Mg/2 Ml Neb) 0.5 mg INH RTBID [facility] Last Admin: 06/03/22 07:43 Dose: 0.5 mg Enoxaparin Sodium (Enoxaparin 40 Mg/0.4 Ml Syringe) 40 mg SUBQ DAILY [facility] Last Admin: 06/03/22 09:39 Dose: 40 mg Formoterol Fumarate (Formoterol Fumarate Neb 20 Mcg/2 Ml) 20 mcg INH RTBID [facility] Last Admin: 06/03/22 07:43 Dose: 20 mcg Furosemide (Furosemide 20 Mg Tablet) 20 mg PO DAILY [facility] Last Admin: 06/03/22 09:39 Dose: 20 mg Sodium Chloride (Normal Saline 0.9%) 1,000 mls @ 100 mls/hr IV .Q10H [facility] Last Infusion: 06/03/22 16:30 Dose: Infused Acetaminophen (Acetaminophen) 1,000 mg in 100 mls @ 400 mls/hr IV Q6HR PRN PRN Reason: Pain or Fever > 38C (100.4F) Last Infusion: 06/03/22 07:55 Dose: Infused Metoprolol Succinate (Metoprolol Succinate 25 Mg Tablet) 25 mg PO DAILY [facility] Last Admin: 06/03/22 09:39 Dose: 25 mg Metoprolol Tartrate (Metoprolol 5 Mg/5 Ml Vial) 5 mg IVP Q6H PRN PRN Reason: Tachycardia Morphine Sulfate (Morphine 2 Mg/Ml Carpuject) 2 mg IVP Q2HR PRN PRN Reason: Pain 8 to 10 Last Admin: 06/01/22 14:03 Dose: 2 mg Ondansetron HCl (Ondansetron Odt 4 Mg Tablet) 4 mg TL Q6HR PRN PRN Reason: Nausea / Vomiting Ondansetron HCl (Ondansetron 4 Mg/2 Ml Vial) 4 mg IVP Q6HR PRN PRN Reason: Nausea / Vomiting Last Admin: 06/02/22 22:37 Dose: 4 mg Oxycodone HCl (Oxycodone 5 Mg Tablet) 5 mg PO Q6H PRN PRN Reason: PAIN Last Admin: 06/01/22 03:26 Dose: 5 mg Pantoprazole Sodium (Pantoprazole 40 Mg Tablet) 40 mg PO DAILY [facility] Last Admin: 06/03/22 09:39 Dose: 40 mg Phenol/Menthol (Phenol Throat [place] 177 Ml) 2 sprays MM Q1HR PRN PRN Reason: Mouth Sore Pain Prochlorperazine Edisylate (Prochlorperazine 10 Mg/2 Ml Vial) 10 mg IVP Q6HR PRN PRN Reason: Nausea / Vomiting Last Admin: 06/01/22 17:44 Dose: 10 mg Sodium Chloride (Sodium Chloride Flush 0.9% 10 Ml Syringe) 10 ml IVP PRN PRN PRN Reason: NEEDED PER PROVIDER ORDERS Sodium Chloride (Sodium Chloride Flush 0.9% 10 Ml Syringe) 10 ml IVP 0100,0900,1700 [facility] Last Admin: 06/03/22 00:00 Dose: Not Given Atorvastatin [Lipitor] 10 mg PO QPM 05/14/21 Furosemide [Lasix] 20 mg PO DAILY 05/14/21 Mometasone/Formoterol [Dulera 200 Mcg-5 Mcg Inhaler] 2 puffs INH BID 05/14/21 Objective - Vital Signs/Intake & Output Reviewed Vital Signs: Yes Vital Signs: Vital Signs x48h Temp Pulse Resp BP Pulse Ox 06/03/22 16:00 36.4 C L 77 18 104/49 L 92 Intake & Output: Intake & Output 05/31/22 06/01/22 06/02/22 06/03/22 23:59 23:59 23:59 23:59 Intake Total 8690 326 0403.333 2038.333 Output Total 950 0374 235 3267 Balance 200 -490 8.333 388.333 - Objective General Appearance: positive: No acute distress, Alert, Other (Sitting up in his chair, wants me to go get him some ice. Not really clear about where he is or why he is here. But he knows his name, can name his son, and that he lives in [place].) Eyes Bilateral: positive: PERRL, EOMI ENT: positive: Pharynx nml, No signs of dehydration Neck: positive: No JVD. negative: Stiff neck Respiratory: positive: No respiratory distress. negative: Wheezes, Rales, Rhonc hi Cardiovascular: positive: Regular rate & rhythm. negative: Gallop/S4, Friction rub Abdomen: positive: Non-tender, No organomegaly, Nml bowel sounds, No distention Skin: positive: Warm, Dry Extremities: positive: No pedal edema Neurologic/Psychiatric: positive: CN's nml (2-12), Motor nml (better today), Disoriented to place, Disoriented to time - Lab Results Fish Bones: 06/03/22 07:17 06/03/22 07:17 Other Labs: Lab Results x24hrs 06/03/22 06/03/22 Range/Units 07:17 07:17 WBC 18.4 H (4.8-10.8) x10^3/uL RBC 3.53 L (4.70-6.10) 10^6/uL Hgb 11.7 L (14.0-18.0) g/dL Hct 35.4 L (42.0-52.0) % MCV 100.3 H (80.0-94.0) fL MCH 33.1 H (27.0-31.0) pg MCHC 33.1 (32.0-36.0) g/dL RDW 13.7 (12.0-15.0) % Plt Count 152 (130-450) 10^3/uL MPV 10.6 (7.4-11.4) fL Neut # (Auto) 15.3 H (1.5-6.6) 10^3/uL Lymph # (Auto) 0.9 L (1.5-3.5) 10^3/uL [place] # (Auto) 2.0 H (0.0-1.0) 10^3/uL Eos # (Auto) 0.2 (0.0-0.7) 10^3/uL Baso # (Auto) 0.0 (0.0-0.1) 10^3/uL Absolute Nucleated RBC 0.00 x10^3/uL Nucleated RBC % 0.0 /100WBC Manual Slide Review Indicated RBC Morph Micro Appear 1+ ANISOCYTOSIS (NORMAL) Sodium 140 (135-145) mmol/L Potassium 4.1 (3.5-5.0) mmol/L Chloride 106 (101-111) mmol/L Carbon Dioxide 23 (21-32) mmol/L Anion Gap 11.0 (6-13) BUN 24 H (6-20) mg/dL Creatinine 1.1 (0.6-1.2) mg/dL Estimated GFR (MDRD) 63 L (>89) Glucose 123 H (70-100) mg/dL Calcium 8.4 L (8.5-10.3) mg/dL Assessment/Plan - Problem List (1) Partial small bowel obstruction Impression: SBO attributed to adhesions from previous appendectomy. He pulled out his NG after admission,we put in again 8 pm and removed again early this am. He underwent a Gastrografin challenge 06/01 and had flatus and BM 06/02 and today. We were able to get the Gastrografin down before he pulled out the NG. He had transit of the Gastrografin into the rectum at 16 hours. This morning's x-ray has persistently mildly distended loops of small bowel. His white cell count was 10 when he was first seen in his first visit in the ED, then it was 13 yesterday and 18 today. No fever. General surgery has not seen him today. Plan: On ice chips Antiemetics and pain medicines to control symptoms. clear liquids in am (2) Confusion and disorientation Conclusion/Plan: This elderly gentleman is aware that he is in the hospital. He does know the date, does not know the time. I Saw him 3 times on the day of admission and each time he did not remember who I was. Social work discussed the case with me 06/02 and states she has had several encounters with him while he was in the emergency room. Cognitive eval shows him to have a 17 out of 30 score. Son is DPOA. He has had a head CT done in March of this year when he had a fall. There was no evidence of tumor, stroke. TSH was 1.62 in November 2015. Plan: Complete preliminary evaluation for dementia w B12, RPR. And probably add a tentative diagnosis of Alzheimer's dementia in this unfortunate gentleman. Son is DPOA. (3) Chronic atrial fibrillation Conclusion/Plan: He was seen for chest pain in April 2021. Also assisted with a bout of enteritis. At that point he had a run of atrial fibrillation. He had an echocardiogram which showed normal valves. Normal ejection fraction. He had a stress test that was without perfusion defects. His current medication list includes Eliquis and metoprolol. He does not know why he is taking Lasix and does not remember having a diagnosis of congestive heart failure. Plan: Until he is tolerating a regular diet, I will keep him on IV metoprolol and subcu Lovenox. Again, by tomorrow morning, if tolerating diet well, will resume his usual p.o. meds from home. (4) COPD without exacerbation Conclusion/Plan: He takes Dulera at home. I will substitute budesonide and Perforomist, and short acting as needed albuterol (5) Compression fracture of L3 vertebra Conclusion/Plan: control pain with low dose opiates, calcitonin. He is unsteady on his feet. He has been weakened by this experience over the last week. He is to be placed in either assisted living facility or retirement facility. Assisted living facility evaluated him and felt that he was too high of a need. Reevaluated today and may be able to go in the next few days. Plan: PT and OT are seeing him. Qualifiers: Encounter type: initial encounter Qualified Code(s): S32.030A - Wedge compression fracture of third lumbar vertebra, initial encounter for closed fracture (6) Cognitive decline with suicidal ideation Conclusion/Plan: started a few months ago and worse over the last few weeks. Accelerated with his fall and the use of his opiates. Can't be trusted to take his meds with example of xanax or his opiates. Said the opiates were as "good as a 40 jem". he also describes driving to [place] and stopping the car and jumping. Son who is DPOA thinks he should be DNR. Social work aware of suicidal ideation and will work with the son and the patient in evaluation. (5) Compression fracture of L3 vertebra Qualifiers: Qualified Code(s): S32.030A - Wedge compression fracture of third lumbar vertebra, initial encounter for closed fracture
[2022-06-03] MEDS: SODIUM CHLORIDE FLUSH 0.9% 10 ML SYRINGE IVP SCH ×3 (17:40→17:41)
--- NOTE | 2022-06-03 18:12 | PROVIDER PROGRESS NOTE ---
Subjective - Subjective Pt reports feeling: No change (denies abdominal pain complaint of back pain with movement) Objective - Vital Signs/Intake & Output Reviewed Vital Signs: Yes Vital Signs: Vital Signs x48h Temp Pulse Resp BP Pulse Ox 06/03/22 16:00 36.4 C L 77 18 104/49 L 92 Intake & Output: Intake & Output 05/31/22 06/01/22 06/02/22 06/03/22 23:59 23:59 23:59 23:59 Intake Total 7327 695 0268.333 2038.333 Output Total 950 9143 810 8564 Balance 200 -490 2658.333 388.333 - Objective General Appearance: positive: No acute distress, Alert Eyes Bilateral: positive: PERRL, EOMI, No scleral icterus Respiratory: positive: Other (cough, non productive present) Abdomen: positive: Non-tender, No distention, Other (soft benign abdomen. incarcerated umbilical hernia present open shad and open appy scar present) Neurologic/Psychiatric: positive: Other (alert and cooperative. answers questions appropriately) - Lab Results Fish Bones: 06/03/22 07:17 06/03/22 07:17 Other Labs: Lab Results x24hrs 06/03/22 06/03/22 Range/Units 07:17 07:17 WBC 18.4 H (4.8-10.8) x10^3/uL RBC 3.53 L (4.70-6.10) 10^6/uL Hgb 11.7 L (14.0-18.0) g/dL Hct 35.4 L (42.0-52.0) % MCV 100.3 H (80.0-94.0) fL MCH 33.1 H (27.0-31.0) pg MCHC 33.1 (32.0-36.0) g/dL RDW 13.7 (12.0-15.0) % Plt Count 152 (130-450) 10^3/uL MPV 10.6 (7.4-11.4) fL Neut # (Auto) 15.3 H (1.5-6.6) 10^3/uL Lymph # (Auto) 0.9 L (1.5-3.5) 10^3/uL [place] # (Auto) 2.0 H (0.0-1.0) 10^3/uL Eos # (Auto) 0.2 (0.0-0.7) 10^3/uL Baso # (Auto) 0.0 (0.0-0.1) 10^3/uL Absolute Nucleated RBC 0.00 x10^3/uL Nucleated RBC % 0.0 /100WBC Manual Slide Review Indicated RBC Morph Micro Appear 1+ ANISOCYTOSIS (NORMAL) Sodium 140 (135-145) mmol/L Potassium 4.1 (3.5-5.0) mmol/L Chloride 106 (101-111) mmol/L Carbon Dioxide 23 (21-32) mmol/L Anion Gap 11.0 (6-13) BUN 24 H (6-20) mg/dL Creatinine 1.1 (0.6-1.2) mg/dL Estimated GFR (MDRD) 63 L (>89) Glucose 123 H (70-100) mg/dL Calcium 8.4 L (8.5-10.3) mg/dL Assessment/Plan - Problem List (1) Compression fracture of L3 vertebra Impression: clinically and by small bowel study he does not have a bowel obstruction. 2 bms today benign abdomen imaging reviewed. incarcerated umbilical hernia is with fat and without change for over a year no richters hernia or bowel involvement elevated wbc. suspect this may be pulmonary related. diet as tolerated Qualifiers: Qualified Code(s): S32.030A - Wedge compression fracture of third lumbar vertebra, initial encounter for closed fracture
[2022-06-04] MEDS: SODIUM CHLORIDE 0.9% 1,000 ML IV SCH ×3 (02:44→21:44)
[2022-06-04] MEDS: SODIUM CHLORIDE FLUSH 0.9% 10 ML SYRINGE IVP SCH ×3 (02:45→20:30)
[2022-06-04 05:16] LABS: BASOPHILS % (AUTO) 0.2 %; EOSINOPHILS # (AUTO) 0.1 10^3/uL (0.0-0.7); EOSINOPHILS % (AUTO) 0.9 %; HCT - HEMATOCRIT 35.3 % (42.0-52.0); HGB - HEMOGLOBIN 11.2 g/dL (14.0-18.0); LYMPHOCYTES # (AUTO) 0.9 10^3/uL (1.5-3.5); LYMPHOCYTES % (AUTO) 7.1 %; MEAN CORPUSCULAR HEMOGLOBIN 32.6 pg (27.0-31.0); MEAN CORPUSCULAR HGB CONC 31.7 g/dL (32.0-36.0); MEAN CORPUSCULAR VOLUME 102.6 fL (80.0-94.0); MEAN PLATELET VOLUME 10.6 fL (7.4-11.4); MONOCYTES # (AUTO) 1.6 10^3/uL (0.0-1.0); MONOCYTES % (AUTO) 12.3 %; NEUTROPHILS # (AUTO) 10.3 10^3/uL (1.5-6.6); NEUTROPHILS % (AUTO) 78.9 %; PLT - PLATELET COUNT 158 10^3/uL (130-450); RED BLOOD COUNT 3.44 10^6/uL (4.70-6.10); RED CELL DISTRIBUTION WIDTH 13.8 % (12.0-15.0)
[2022-06-04 05:23] LABS: CALCIUM 8.3 mg/dL (8.5-10.3); CREATININE 1.1 mg/dL (0.6-1.2)
[2022-06-04 05:43] LABS: THYROID STIMULATING HORMONE 1.75 uIU/mL (0.34-5.60)
[2022-06-04 05:51] LABS: DIFFERENTIAL COMMENT MANUAL=AUTO DIFF; PLATELET ESTIMATE, MANUAL NORMAL (130-450,000) (NORMAL); RBC MORPHOLOGY (MULTIPLE) NORMAL APPEARANCE (NORMAL)
[2022-06-04] MEDS: BUDESONIDE 0.5 MG/2 ML NEB INH SCH ×2 (07:15→22:26)
[2022-06-04] MEDS: FORMOTEROL FUMARATE NEB 20 MCG/2 ML INH SCH ×2 (07:15→22:26)
[2022-06-04] MEDS: ENOXAPARIN 40 MG/0.4 ML SYRINGE SUBQ SCH (10:39)
[2022-06-04] MEDS: FUROSEMIDE 20 MG TABLET PO SCH (10:39)
[2022-06-04] MEDS: PANTOPRAZOLE 40 MG TABLET PO SCH (10:40)
[2022-06-04] MEDS: METOPROLOL SUCCINATE 25 MG TABLET PO SCH (10:44)
--- NOTE | 2022-06-04 16:37 | PROVIDER PROGRESS NOTE ---
Subjective - Prog Note Date Prog Note Date: 06/04/22 Prog Note Time: 16:35 - Subjective Pt reports feeling: Improved Subjective: He sitting up in a chair. Tolerated his clear liquid diet with no further episodes of emesis. Had a large bowel movement this morning. When I asked about pain he says his only pain is in his back. Current Medications - Current Medications Current Medications: Active Medications Albuterol (Albuterol Neb 2.5 Mg/3 Ml) 2.5 mg INH RTQ4H PRN PRN Reason: Wheezing Last Admin: 06/02/22 19:30 Dose: 2.5 mg Budesonide (Budesonide 0.5 Mg/2 Ml Neb) 0.5 mg INH RTBID [facility] Last Admin: 06/04/22 07:15 Dose: 0.5 mg Enoxaparin Sodium (Enoxaparin 40 Mg/0.4 Ml Syringe) 40 mg SUBQ DAILY [facility] Last Admin: 06/04/22 10:39 Dose: 40 mg Formoterol Fumarate (Formoterol Fumarate Neb 20 Mcg/2 Ml) 20 mcg INH RTBID [facility] Last Admin: 06/04/22 07:15 Dose: 20 mcg Furosemide (Furosemide 20 Mg Tablet) 20 mg PO DAILY [facility] Last Admin: 06/04/22 10:39 Dose: 20 mg Sodium Chloride (Normal Saline 0.9%) 1,000 mls @ 100 mls/hr IV .Q10H [facility] Last Admin: 06/04/22 12:11 Dose: 100 mls/hr Acetaminophen (Acetaminophen) 1,000 mg in 100 mls @ 400 mls/hr IV Q6HR PRN PRN Reason: Pain or Fever > 38C (100.4F) Last Infusion: 06/03/22 21:20 Dose: Infused Metoprolol Succinate (Metoprolol Succinate 25 Mg Tablet) 25 mg PO DAILY [facility] Last Admin: 06/04/22 10:44 Dose: 25 mg Metoprolol Tartrate (Metoprolol 5 Mg/5 Ml Vial) 5 mg IVP Q6H PRN PRN Reason: Tachycardia Morphine Sulfate (Morphine 2 Mg/Ml Carpuject) 2 mg IVP Q2HR PRN PRN Reason: Pain 8 to 10 Last Admin: 06/01/22 14:03 Dose: 2 mg Ondansetron HCl (Ondansetron Odt 4 Mg Tablet) 4 mg TL Q6HR PRN PRN Reason: Nausea / Vomiting Ondansetron HCl (Ondansetron 4 Mg/2 Ml Vial) 4 mg IVP Q6HR PRN PRN Reason: Nausea / Vomiting Last Admin: 06/02/22 22:37 Dose: 4 mg Oxycodone HCl (Oxycodone 5 Mg Tablet) 5 mg PO Q6H PRN PRN Reason: PAIN Last Admin: 06/01/22 03:26 Dose: 5 mg Pantoprazole Sodium (Pantoprazole 40 Mg Tablet) 40 mg PO DAILY [facility] Last Admin: 06/04/22 10:40 Dose: 40 mg Phenol/Menthol (Phenol Throat [place] 177 Ml) 2 sprays MM Q1HR PRN PRN Reason: Mouth Sore Pain Prochlorperazine Edisylate (Prochlorperazine 10 Mg/2 Ml Vial) 10 mg IVP Q6HR PRN PRN Reason: Nausea / Vomiting Last Admin: 06/01/22 17:44 Dose: 10 mg Sodium Chloride (Sodium Chloride Flush 0.9% 10 Ml Syringe) 10 ml IVP PRN PRN PRN Reason: NEEDED PER PROVIDER ORDERS Sodium Chloride (Sodium Chloride Flush 0.9% 10 Ml Syringe) 10 ml IVP 0100,0900,1700 [facility] Last Admin: 06/04/22 10:44 Dose: Not Given Atorvastatin [Lipitor] 10 mg PO QPM 05/14/21 Furosemide [Lasix] 20 mg PO DAILY 05/14/21 Mometasone/Formoterol [Dulera 200 Mcg-5 Mcg Inhaler] 2 puffs INH BID 05/14/21 Objective - Vital Signs/Intake & Output Reviewed Vital Signs: Yes Vital Signs: Vital Signs x48h Temp Pulse Resp BP Pulse Ox 06/04/22 15:55 36.5 C 76 18 114/62 94 Intake & Output: Intake & Output 06/01/22 06/02/22 06/03/22 06/04/22 23:59 23:59 23:59 23:59 Intake Total 785 3483.333 2538.333 2330 Output Total 8446 527 1954 825 Balance -490 2658.333 623.032 3694 - Objective General Appearance: positive: Alert, Other (Sitting up in chair, TV on, trying to use the remote. Asked me to go get him a cup of ice.) Eyes Bilateral: positive: PERRL, EOMI ENT: positive: No signs of dehydration Neck: positive: No JVD. negative: Stiff neck Respiratory: positive: No respiratory distress. negative: Wheezes, Rales, Rhonchi Cardiovascular: positive: Regular rate & rhythm. negative: Gallop/S4, Friction rub Abdomen: positive: Non-tender, No organomegaly, Nml bowel sounds, No distention Skin: positive: Warm, Dry Extremities: positive: Full ROM, No pedal edema Neurologic/Psychiatric: positive: CN's nml (2-12), Motor nml (Except he is impulsive, poor balance.), Disoriented to time (Today he knows where he is. Yesterday he was a little sketchy about that. Wants to go home) - Lab Results Fish Bones: 06/04/22 04:48 06/04/22 04:48 Other Labs: Lab Results x24hrs 06/04/22 06/04/22 06/04/22 Range/Units 04:48 04:48 04:48 WBC 13.0 H (4.8-10.8) x10^3/uL RBC 3.44 L (4.70-6.10) 10^6/uL Hgb 11.2 L (14.0-18.0) g/dL Hct 35.3 L (42.0-52.0) % MCV 102.6 H (80.0-94.0) fL MCH 32.6 H (27.0-31.0) pg MCHC 31.7 L (32.0-36.0) g/dL RDW 13.8 (12.0-15.0) % Plt Count 158 (130-450) 10^3/uL MPV 10.6 (7.4-11.4) fL Neut # (Auto) 10.3 H (1.5-6.6) 10^3/uL Lymph # (Auto) 0.9 L (1.5-3.5) 10^3/uL [place] # (Auto) 1.6 H (0.0-1.0) 10^3/uL Eos # (Auto) 0.1 (0.0-0.7) 10^3/uL Baso # (Auto) 0.0 (0.0-0.1) 10^3/uL Absolute Nucleated RBC 0.00 x10^3/uL Band Neuts % (Manual) Not Reportable Abnorm Lymph % (Manual) Not Reportable Nucleated RBC % 0.0 /100WBC Neutrophils # (Manual) Not Reportable Lymphocytes # (Manual) Not Reportable Monocytes # (Manual) Not Reportable Eosinophils # (Manual) Not Reportable Basophils # (Manual) Not Reportable Differential Comment MANUAL=AUTO DIFF Platelet Estimate NORMAL (130-450,000) (NORMAL) RBC Morph Micro Appear NORMAL APPEARANCE (NORMAL) Sodium 140 (135-145) mmol/L Potassium 4.0 (3.5-5.0) mmol/L Chloride 107 (101-111) mmol/L Carbon Dioxide 27 (21-32) mmol/L Anion Gap 6.0 (6-13) BUN 23 H (6-20) mg/dL Creatinine 1.1 (0.6-1.2) mg/dL Estimated GFR (MDRD) 63 L (>89) Glucose 103 H (70-100) mg/dL Calcium 8.3 L (8.5-10.3) mg/dL Vitamin B12 1050 H (180-914) pg/mL TSH 1.75 (0.34-5.60) uIU/mL ABX Reporting Has patient been on IV antibiotics over the past 48 hours?: No Assessment/Plan - Problem List (1) Partial small bowel obstruction Impression: SBO attributed to adhesions from previous appendectomy. He pulled out his NG after admission,we put in again 8 pm and he pulled it again early am 06/03. He underwent a Gastrografin challenge 06/01 and had flatus and BM 06/02, 06/03 and today. We were able to get the Gastrografin down before he pulled out the NG. He had transit of the Gastrografin into the rectum at 16 hours. x-ray has persistently mildly distended loops of small bowel. His white cell count was 10 when he was first seen in his first visit in the ED, then it was 13>>18>>13 today. No fever. General surgery was able to see him 06/03 evening and advanced his diet. Plan: On regular diet since this morning and tolerating well. Medically stable for discharge but no bed available until June 06 Antiemetics and pain medicines to control symptoms. (2) Confusion and disorientation Conclusion/Plan: This elderly gentleman is aware that he is in the hospital. Knows names. Mentation clearer today than last 2 days. I saw him 3 times on the day of admission and each time he did not remember who I was. Social work discussed the case with me 06/02 and states she has had several encounters with him while he was in the emergency room. Cognitive eval shows him to have a 17 out of 30 score. Son is DPOA. He has had a head CT done in March of this year when he had a fall. There was no evidence of tumor, stroke. TSH was 1.62 in November 2015. B12 is 1050. TSH is 1.75. RPR is pending. Plan: add a tentative diagnosis of Alzheimer's dementia in this unfortunate gentleman. Son is DPOA. Son is requesting patient be placed in [facility] in [place]. He can then reassess his dad after a few weeks to stay there and decide if he is going to stay there or go somewhere else. [facility] states that they have a bed availability on August 06. (3) Chronic atrial fibrillation Conclusion/Plan: He was seen for chest pain in April 2021. Also assisted with a bout of enter itis. At that point he had a run of atrial fibrillation. He had an echocardiogram which showed normal valves. Normal ejection fraction. He had a stress test that was without perfusion defects. His current medication list includes Eliquis and metoprolol. He does not know why he is taking Lasix and does not remember having a diagnosis of congestive heart failure. Plan: Change to po metopolol. (4) COPD without exacerbation Conclusion/Plan: He takes Dulera at home. I will substitute budesonide and Perforomist, and short acting as needed albuterol (5) Compression fracture of L3 vertebra Conclusion/Plan: control pain with low dose opiates, calcitonin. He is unsteady on his feet. He has been weakened by this experience over the last week. He is to be placed in either assisted living facility or fdc facility. Assisted living facility evaluated him and felt that he was too high of a need. Reevaluated today and may be able to go in the next few days. Plan: PT and OT are seeing him. Qualifiers: Encounter type: initial encounter Qualified Code(s): S32.030A - Wedge compression fracture of third lumbar vertebra, initial encounter for closed fracture (6) Cognitive decline with suicidal ideation Conclusion/Plan: started a few months ago and worse over the last few weeks. Accelerated with his fall and the use of his opiates. Can't be trusted to take his meds with example of xanax or his opiates. Said the opiates were as "good as a 40 jem". he also describes driving to [place] and stopping the car and jumping. Son who is DPOA thinks he should be DNR. Social work aware of suicidal ideation and will work with the son and the patient in
[2022-06-04] MEDS: ACETAMINOPHEN 1,000 MG/100 ML 1,000 MG/100 ML BAG IV PRN (20:29)
[2022-06-05] MEDS: SODIUM CHLORIDE FLUSH 0.9% 10 ML SYRINGE IVP SCH ×3 (00:52→17:45)
[2022-06-05] MEDS: SODIUM CHLORIDE 0.9% 1,000 ML IV SCH ×2 (06:38→17:07)
[2022-06-05] MEDS: BUDESONIDE 0.5 MG/2 ML NEB INH SCH ×2 (07:23→23:53)
[2022-06-05] MEDS: FORMOTEROL FUMARATE NEB 20 MCG/2 ML INH SCH ×2 (07:24→23:54)
[2022-06-05] MEDS: APIXABAN 5 MG TABLET PO SCH ×2 (08:44→19:56)
[2022-06-05] MEDS: METOPROLOL SUCCINATE 25 MG TABLET PO SCH (08:45)
[2022-06-05] MEDS: PANTOPRAZOLE 40 MG TABLET PO SCH (08:45)
[2022-06-05 12:14] LABS: B. PARAPERTUSSIS- RESP PCR PAN NOT DETECTED; B. PERTUSSIS- RESP PCR PANEL NOT DETECTED; C. PNEUMONIAE- RESP PCR PANEL NOT DETECTED; CORONAVIRUS 229E-RESP PCR NOT DETECTED; CORONAVIRUS HKU1-RESP PCR NOT DETECTED; CORONAVIRUS NL63-RESP PCR NOT DETECTED; CORONAVIRUS OC43-RESP PCR NOT DETECTED; HUMAN METAPNEUMOVIRUS NOT DETECTED; INFLUENZA A- RESP PCR PANEL NOT DETECTED; INFLUENZA B - RESP PCR PANEL NOT DETECTED; M. PNEUMONIAE- RESP PCR PANEL NOT DETECTED; PARAINFLUENZA VIRUS 1 NOT DETECTED; PARAINFLUENZA VIRUS 2 NOT DETECTED; PARAINFLUENZA VIRUS 3 NOT DETECTED; PARAINFLUENZA VIRUS 4 NOT DETECTED; RHINOVIRUS/ENTEROVIRUS DETECTED; RSV- RESP PCR PANEL NOT DETECTED; SARS-CoV-2 -RESP PCR PANEL NOT DETECTED
--- NOTE | 2022-06-05 12:47 | PROVIDER PROGRESS NOTE ---
Subjective - Prog Note Date Prog Note Date: 06/05/22 Prog Note Time: 12:22 - Subjective Subjective: alert, up in chair. c/o of back pain but no abd pain. having flatus, and BM. Current Medications - Current Medications Current Medications: Active Medications Albuterol (Albuterol Neb 2.5 Mg/3 Ml) 2.5 mg INH RTQ4H PRN PRN Reason: Wheezing Last Admin: 06/02/22 19:30 Dose: 2.5 mg Apixaban (Apixaban 5 Mg Tablet) 5 mg PO BID [facility] Last Admin: 06/05/22 08:44 Dose: 5 mg Budesonide (Budesonide 0.5 Mg/2 Ml Neb) 0.5 mg INH RTBID [facility] Last Admin: 06/05/22 07:23 Dose: 0.5 mg Calcitonin [place] (Calcitonin Nasal [place]) 1 sprays TIFFANIE DAILY [facility] Formoterol Fumarate (Formoterol Fumarate Neb 20 Mcg/2 Ml) 20 mcg INH RTBID BRANNON Last Admin: 06/05/22 07:24 Dose: 20 mcg Sodium Chloride (Normal Saline 0.9%) 1,000 mls @ 100 mls/hr IV .Q10H [facility] Last Admin: 06/05/22 06:38 Dose: 100 mls/hr Acetaminophen (Acetaminophen) 1,000 mg in 100 mls @ 400 mls/hr IV Q6HR PRN PRN Reason: Pain or Fever > 38C (100.4F) Last Infusion: 06/04/22 20:45 Dose: Infused Lidocaine (Lidocaine Patch 5%) 1 patch TOP DAILY PRN PRN Reason: pain Metoprolol Succinate (Metoprolol Succinate 25 Mg Tablet) 25 mg PO DAILY [facility] Last Admin: 06/05/22 08:45 Dose: 25 mg Morphine Sulfate (Morphine 2 Mg/Ml Carpuject) 2 mg IVP Q2HR PRN PRN Reason: Pain 8 to 10 Last Admin: 06/01/22 14:03 Dose: 2 mg Non-Formulary Medication (Atorvastatin [Lipitor]) 10 mg PO QPM [facility] Ondansetron HCl (Ondansetron Odt 4 Mg Tablet) 4 mg TL Q6HR PRN PRN Reason: Nausea / Vomiting Ondansetron HCl (Ondansetron 4 Mg/2 Ml Vial) 4 mg IVP Q6HR PRN PRN Reason: Nausea / Vomiting Last Admin: 06/02/22 22:37 Dose: 4 mg Oxycodone HCl (Oxycodone 5 Mg Tablet) 5 mg PO Q6H PRN PRN Reason: PAIN Last Admin: 06/01/22 03:26 Dose: 5 mg Pantoprazole Sodium (Pantoprazole 40 Mg Tablet) 40 mg PO DAILY [facility] Last Admin: 06/05/22 08:45 Dose: 40 mg Phenol/Menthol (Phenol Throat [place] 177 Ml) 2 sprays MM Q1HR PRN PRN Reason: Mouth Sore Pain Prochlorperazine Edisylate (Prochlorperazine 10 Mg/2 Ml Vial) 10 mg IVP Q6HR PRN PRN Reason: Nausea / Vomiting Last Admin: 06/01/22 17:44 Dose: 10 mg Sodium Chloride (Sodium Chloride Flush 0.9% 10 Ml Syringe) 10 ml IVP PRN PRN PRN Reason: NEEDED PER PROVIDER ORDERS Sodium Chloride (Sodium Chloride Flush 0.9% 10 Ml Syringe) 10 ml IVP 0100,0 900,1700 [facility] Last Admin: 06/05/22 08:47 Dose: Not Given Atorvastatin [Lipitor] 10 mg PO QPM 05/14/21 Furosemide [Lasix] 20 mg PO DAILY 05/14/21 Mometasone/Formoterol [Dulera 200 Mcg-5 Mcg Inhaler] 2 puffs INH BID 05/14/21 Objective - Vital Signs/Intake & Output Reviewed Vital Signs: Yes Vital Signs: Vital Signs x48h Temp Pulse Pulse Resp BP Pulse Ox 06/05/22 08:00 37.3 C 72 22 115/62 92 06/05/22 07:25 78 18 Intake & Output: Intake & Output 06/02/22 06/03/22 06/04/22 06/05/22 23:59 23:59 23:59 23:59 Intake Total 3483.333 2538.333 3905 1060 Output Total 825 1950 1275 325 Balance 2658.333 876.524 3241 735 - Objective General Appearance: positive: No acute distress, Alert, Other (tall, lanky elderly male, vague affect) Eyes Bilateral: positive: PERRL, EOMI ENT: positive: Pharynx nml, No signs of dehydration Neck: positive: No JVD. negative: Stiff neck Respiratory: positive: No respiratory distress. negative: Wheezes, Rales, Rhonchi Cardiovascular: positive: Regular rate & rhythm. negative: Gallop/S4, Friction rub Abdomen: positive: Non-tender, No organomegaly, Nml bowel sounds, No distention Skin: positive: Warm, Dry Extremities: positive: Full ROM, No pedal edema Neurologic/Psychiatric: positive: CN's nml (2-12), Disoriented to time. negativ e: Motor nml (seen by PT 06/04: Pt appears more confused today but is able to follow cues for safe mobility during PT session. Pt is able to safely use FWW and safely transfer from bed to b/s chair qith minimal cues for correct mechanics. When medically clear PT continues to rec pt dc to memory care facility.) - Lab Results Fish Bones: 06/04/22 04:48 06/04/22 04:48 Other Labs: Lab Results x24hrs 06/05/22 Range/Units 11:00 Nasal Adenovirus (PCR) NOT DETECTED Nasal B. parapertussis DNA (PCR) NOT DETECTED Nasal Coronavir 229E PCR NOT DETECTED Nasal Coronavir HKU1 PCR NOT DETECTED Nasal Coronavir NL63 PCR NOT DETECTED Nasal Coronavir OC43 PCR NOT DETECTED Nasal Enterovir/Rhinovir PCR DETECTED A Nasal Influenza B PCR NOT DETECTED Nasal Influenza A PCR NOT DETECTED Nasal Parainfluen 1 PCR NOT DETECTED Nasal Parainfluen 2 PCR NOT DETECTED Nasal Parainfluen 3 PCR NOT DETECTED Nasal Parainfluen 4 PCR NOT DETECTED Nasal RSV (PCR) NOT DETECTED Nasal B.pertussis DNA PCR NOT DETECTED Nasal C.pneumoniae (PCR) NOT DETECTED Tiffanie Human Metapneumo PCR NOT DETECTED Nasal M.pneumoniae (PCR) NOT DETECTED Nasal SARS-CoV-2 (PCR) NOT DETECTED Assessment/Plan - Problem List (1) Cognitive decline Impression: with suicidal ideation Conclusion/Plan: started a few months ago and worse over the last few weeks. His son states that dad has been used to living with him and his entire life. He left home at a young age and went straight into the and in the with his family. With his being a few months ago, dad seems "lost". Cognitive decline accelerated with his fall and the use of his opiates. Can't be trusted to take his meds with example of xanax or his opiates. The patient stated to him that the opiates were as "good as a .40 jem". he also describes driving to [place] and stopping the car and jumping. His recent fall and vertebral fx have resulted in deterioration of an already unstable home life. Son who is DPOA thinks he should be DNR. Social work aware of suicidal ideation and has worked with the son to find placement at [facility]. I will order PT/OT for him there. (2) Partial small bowel obstruction resolved Impression: SBO attributed to adhesions from previous appendectomy. He pulled out his NG after admission,we put in again 06/02 pm and he pulled it again early am 06/03. He underwent a Gastrografin challenge 06/01 and had flatus and BM 06/02, 06/03 and today. We were able to get the Gastrografin down before he pulled out the NG. He had transit of the Gastrografin into the rectum at 16 hours. x-ray has persistently mildly distended loops of small bowel. His white cell count was 10 when he was first seen in his first visit in the ED, then it was 13>>18>>13. No fever. General surgery was able to see him 06/03 evening and advanced his diet. He has done well and was ready for dc 06/04 and has been accepted for [facility] 06/06. 06/05 and today are avoidable days. Plan: continue regular diet. (3) Confusion and disorientation Conclusion/Plan: This elderly gentleman is aware that he is in the hospital. Knows names. Mentation clearer and clear than last 3 days. I saw him 3 times on the day of admission and each time he did not remember who I was. Social work discussed the case with me 06/02 and states she has had several encounters with him while [facility] was in the emergency room. Cognitive eval shows him to have a 17 out of 30 score. Son is DPOA. He has had a head CT done in March of this year when he had a fall. There was no evidence of tumor, stroke. TSH was 1.62 in November 2015. Today he still doesn't remember me but knows he's in hospital, that something happened but can't remember what, and feels fine excepf or his back. B12 is 1050. TSH is 1.75. RPR is pending. Plan: add a tentative diagnosis of Alzheimer's dementia in this unfortunate gentleman. Son is DPOA. Son is requesting patient [facility] in at [facility]. He can then reassess his dad after a few weeks to stay there and decide if he is going to stay there or go somewhere else. [facility] states that they have a bed availability on August 06. (4) Chronic atrial fibrillation Conclusion/Plan: He was seen for chest pain in April 2021. Also assisted with a bout of enteritis. At that point he had a run of atrial fibrillation. He had an echocardiogram which showed normal valves. Normal ejection fraction. He had a stress test that was without perfusion defects. His current medication list includes Eliquis and metoprolol. He does not know why he is taking Lasix and does not remember having a diagnosis of congestive heart failure. on home meds now. (5) COPD without exacerbation Conclusion/Plan: He takes Dulera at home. I will substitute budesonide and Perforomist, and short acting as needed albuterol (6) Compression fracture of L3 vertebra Conclusion/Plan: control pain with low dose opiates, calcitonin. He is unsteady on his feet. He has been weakened by this experience over the last week. He is to be placed in either assisted living facility or assisted facility. Assisted living facility evaluated him and felt that he was too high of a need. Reevaluated and SNF can't take him so to go to [facility] tomorrow. Plan: PT and OT are seeing him. I will order home health PT/OT for [facility]. Qualifiers: Encounter type: initial encounter Qualified Code(s): S32.030A - Wedge compression fracture of third lumbar vertebra, initial encounter for closed fractur
[2022-06-05] MEDS ORDERED: LIDOCAINE PATCH 5% TOP PRN (12:54)
[2022-06-05] MEDS: CALCITONIN NASAL SPRAY NAS SCH (14:02)
--- NOTE | 2022-06-05 17:02 | Discharge Plan ---
"Discharge Plan for SNF / [facility] - Discharge Plan And Transition Orders Problem Reviewed?: Yes Disposition: 06 Home Health Service Condition: Stable Allergies and Adverse Reactions: Allergies Allergy/AdvReac Type Severity Reaction Status Date / Time No Known Drug Allergies Allergy Verified 05/30/22 16:31 Health Concerns: Patient is an elderly gentleman who has lost his in the recent months. He has not done well with grief reaction and has been noncompliant with medications, and has been going downhill. He fell, suffered a vertebral compression fracture and was seen in the ED. Given opioids and that he use those inappropriately. Return to the emergency room with lethargy, back pain. Altered mental status on May 30. Plan was for him to go to an assisted living facility but assisted living facility could not take him yet. As such she stayed in the emergency room. On the morning of June 01 developed nausea, vomiting, abdominal pain was identified as having a partial small bowel obstr uction. He has had 2 NG tube but is pulled them out. A Gastrografin challenge resulted in good bowel movements and flatus. Resolution of the partial small bowel obstruction with contrast going all the way to the rectum. He is now weakened, deconditioned and needs to continue to have pain control, management of his diet and medications, and strengthening exercises. Plan of Treatment: 1. Transfer to [facility] with home health PT and OT. 2. Pain management with low-dose opioids, Tylenol and topical lidocaine 3. Please see primary care provider in follow-up, Dr. Luis A Hsu, in the next 2 weeks. 4. Please have conversations with son, RADHA, who lives in [place]. Son has plans for transitions. Care Goals: For the patient to be permanently placed in a safe situation where he is not at risk for self-harm due to noncompliance of medications, driving when he is not supposed to, and depression Assessment: Patient is alert, oriented and cannot remember why he came here. But he says that he feels fine now. - SNF / [facility] Transition Orders Admit to (Facility): [facility] Under the care of (Name): Luis A العلي MD Discharge Diagnosis: 1. Partial small bowel obstruction 2. Confusion and disorientation 3. Probable Alzheimer's dementia 4. Chronic atrial fibrillation 5. COPD without exacerbation 6. Compression fracture of L3 vertebra 7. Acute back pain 8. Cognitive decline Medicare Certification Statement: I certify that [facility] care is medically necessary on a continuing basis for any of the conditions for which she/he is receiving care during hospitalization. Notify PCP of admission and forward orders to primary provider for signature. Weight on admission and: Weekly Other Notification Orders: Call PCP immediately if patient develops dyspnea, chest pain/tightness or edema. Additional Bowel Program Orders: If no BM after 2 days, nurse may give M.O.M. 30ml PO PRN and/or ducolax Supp 1 AL and/or JIM 250mg P.O., and/or senna 1-2 tabs PO. On day 3 nurse may give repeat above order until residents constipation is resolved. Annual Influenza Vaccine (between Jun 16 and January 13): Yes Two-step PPD per [facility] [phone] or approved exception documents: Yes Medication Orders: PLEASE REFER TO THE DISCHARGE MEDICATION LIST. Insulin Orders?: No - Medications New Prescriptions: oxyCODONE [Roxicodone] 5 mg PO Q6H PRN #30 tablet PRN Reason: Pain - Diet Type: Geriatric Texture: Regular Liquids: Thin May have monthly special meal: Yes - Therapies | Activity Therapy: Evaluation | Treat if indicated: PT, OT Rehabilitation Potential: Maximize functional status Activity: Activity as Tolerated Weight Bearing: Full Weight Assistance Devices: Walker"
[2022-06-05] MEDS: ACETAMINOPHEN 1,000 MG/100 ML 1,000 MG/100 ML BAG IV PRN (17:45)
[2022-06-05] MEDS: TAMSULOSIN 0.4 MG CAPSULE PO SCH (19:56)
[2022-06-05] MEDS ORDERED: ATORVASTATIN 10 MG TABLET PO SCH (21:00)
[2022-06-06] MEDS: SODIUM CHLORIDE FLUSH 0.9% 10 ML SYRINGE IVP SCH ×2 (01:06→10:03)
[2022-06-06] MEDS: SODIUM CHLORIDE 0.9% 1,000 ML IV SCH ×2 (02:20→14:15)
[2022-06-06] MEDS: FORMOTEROL FUMARATE NEB 20 MCG/2 ML INH SCH (07:50)
[2022-06-06] MEDS: BUDESONIDE 0.5 MG/2 ML NEB INH SCH (07:51)
[2022-06-06] MEDS: APIXABAN 5 MG TABLET PO SCH (10:03)
[2022-06-06] MEDS: PANTOPRAZOLE 40 MG TABLET PO SCH (10:03)
[2022-06-06] MEDS: TAMSULOSIN 0.4 MG CAPSULE PO SCH (10:03)
[2022-06-06] MEDS: METOPROLOL SUCCINATE 25 MG TABLET PO SCH (10:04)
[2022-06-06] MEDS: CALCITONIN NASAL SPRAY NAS SCH (10:06)
[2022-06-06 14:07] VITALS: BP 134/72
--- NOTE | 2022-06-06 16:19 | DISCHARGE SUMMARY ---
Discharge Summary Admit Date: 06/01/22 Discharge Date: 06/06/22 Discharging Provider: Sruthi Aquino MD Primary Care Provider: Luis A Hsu Code Status: Do Not Attempt Resuscitation Condition at Discharge: Stable Discharge Disposition: Home Health Service - DIAGNOSES Discharge Diagnoses with Status of Each Condition: 1. Partial small bowel obstruction 2. Confusion and disorientation 3. Probable Alzheimer's dementia 4. Chronic atrial fibrillation 5. COPD without exacerbation 6. Compression fracture of L3 vertebra 7. Acute back pain 8. Cognitive decline - HPI History of Present Illness: The patient was brought in by ambulance May 27. He had fallen at home on the while trying to get out of bed and walk to the bathroom. He tripped on a throw rug and landed on his chest. There is no blow to the head. He did not lose consciousness. He denied any blurred vision, headache. He is on Eliquis. He crawled back to bed after the fall and was in bed for about 18 hours when his son came around 3:30 May 27 to check up on him. In the emergency room temperature was 37.3. Heart rate 89. Blood pressure 125/60. Respirations 15 and he was 90% on room air. His chest wall hurt from right fallen and rated the pain at an 8 out of a 10. In the emergency room he was identified as having a vertebral compression fracture and was sent home with calcitonin, a lidocaine patch, and Percocet. On May 30 the patient returned because he was now having slurred speech and was altered. It was thought that he had taken too much of his pain medication. He confirmed that.. He was comfortable, somnolent, arousable but still complaining of his back pain. It was felt that the patient needed to go to a Assisted living facility since the family could not take care of him. He was evaluated and they declined for now. They recommended he go to memory care. Son lives in [place] and has been here visiting and was getting ready to go back to [place]. The patient and son were amenable to that plan and social work evaluated the patient on the morning of the . He was in the emergency room evaluating transfer to a intermediate facility until today. In the morning he was sleeping comfortably. And then around 10:53 this morning started complaining of generalized abdominal pain. He vomited a large amount of green bile. A repeat CMP was done. He is already had 16 May 2012, May 30 and today. BUN is 21, creatinine is 1.1. Random glucose 135. Lactic acid 1.1. Total bi lirubin is elevated at 1.1 but has been consistently elevated this entire year. AST and ALT are normal. CBC shows an elevated white cell count at 13.5. Hemoglobin 14. Hematocrit 42. Abdomen pelvis CT was done and he has high-grade mid to distal small bowel obstruction with a transition point seen in the right lower quadrant as above. No abnormal bowel thickening. No abscess collection. Extensive airspace opacities scattered in bilateral lung bases concerning for bilateral lower lobe infiltrates from aspiration. His past medical history for surgery was significant for an appendix being removed in the past. General surgery was asked to see the patient. They feel the patient needs to be brought into the hospital. They are asking that our service admit the patient and they will consult. - Past Medical History Cardiovascular: reports: High cholesterol, Atrial fibrillation (April 2021 echo and stress test done and were essentially normal.), Valve disorder Respiratory: reports: COPD Neuro: reports: None Endocrine/Autoimmune: reports: None GI: reports: GERD : reports: None Psych: reports: Depression (with suicide attempt 2 months ago. Depressed about living along and 's NURSING HOME. Used the xanax rx'd by Dr. Hsu) Musculoskeletal: reports: Osteoarthritis Derm: reports: None - Past Surgical History General: reports: Cholecystectomy, Appendectomy - CONSULTS | PROCEDURES Consultations: General surgery. Seen by Dr. Eli and Dr. Coreas Procedures: Abdomen pelvis CT showed a urinary Ramsay. He had findings consistent with high-grade mid to distal small bowel obstruction with a transition point seen in the right lower quadrant. No abnormal wall thickening. No free air or free fluid. Extensive airspace opacities in bilateral lung bases concerning for bilateral lower lobe infiltrates possibly from aspiration. Small bowel follow-through with Gastrografin challenge demonstrated transit of Gastrografin into the rectum at 16 hours. - HOSPITAL COURSE Hospital Course: SBO attributed to adhesions from previous appendectomy. He pulled out his NG after admission,we put in again 06/02 pm and he pulled it again early am 06/03. He underwent a Gastrografin challenge 06/01 and had flatus and BM 06/02, 06/03 and today. We were able to get the Gastrografin down before he pulled out the NG. He had transit of the Gastrografin into the rectum at 16 hours. x-ray has persistently mildly distended loops of small bowel. His white cell count was 10 when he was first seen in his first visit in the ED, then it was 13>>18>>13. No fever. General surgery was able to see him 06/03 evening and advanced his diet. He has done well and was ready for dc 06/04 and has been accepted for [facility] 06[facility]. Noticeable cognitive decline started a few months ago and worse over the last few weeks. His son states that dad has been used to living with people his entire life. He left home at a young age and went straight into the and the was his family. Then he and he and his did everything together. With his being a few months ago, dad seems "lost". Cognitive decline accelerated with his fall and the use of his opiates. Can't be trusted to take his meds with example of xanax or his opiates. He may have deliberately tried to hurt himself with the pills. The patient stated to him that the opiates were as "good as a .40 jem". he also describes that he could also hurt himself by driving to [place] and stopping the car and jumping. His recent fall and vertebral fx have resulted in deterioration of an already unstable home life. Social work feels that he is under supervision. The patient states that he is not suicidal right now. He has no intention of hurting self. Asked that social work does not feel he is at imminent harm to himself. Son who is DPOA thinks he should be DNR. Social work aware of suicidal ideation and has worked with the son to find placement at [facility]. I will order PT/OT for him there. While here his acute confusion and disorientation improved tremendously. He knows where he is, why he is here. He does not really remember the events that brought him in but his sensorium has definitely cleared by discharge. His atrial fibrillation is rate controlled. He is on anticoagulation. Discharge exam has a temperature of 36.6. Heart rate 79. Blood pressure 134/72. Respirations 22. 92% on room air. 6 foot 5 inches tall, 88 kg On general exam this is a very tall, lean, lanky gentleman leaning toward the cachectic side. He is alert to person place and date today. He does get easily confused as the conversation goes on and will lose the thread of the conversation and then be prompted to return and he does well. Neck is supple with shotty adenopathy Coarse upper airway sounds on lung exams but otherwise clear Abdomen is soft, nontender. Normal bowel sounds. His last bowel movement was June 04. He is eating 25 to 75% of his food. At x100% of his food. Ramsay catheter was discontinued yesterday. No complaints of urinary retention. Extremities are without edema. He is ambulating with a walker in his room. He follows cues for safety mobility. Able to use his front wheel walker and transfer from bed to bedside chair with minimal cues. Physical therapy feels that he will benefit from OT and PT at a memory care unit. If he clears even further may be able to go to an assisted living facility which is what his son wants. Major limitations to ambulating more fluidly is the back pain from his vertebral compression fractures. Greater than 30 minutes was spent coordinating discharge. - ALLERGIES Allergies/Adverse Reactions: Allergies Allergy/AdvReac Type Severity Reaction Status Date / Time No Known Drug Allergies Allergy Verified 05/30/22 16:31 - MEDICATIONS Home Medications: Ambulatory Orders Medication Instructions Recorded Confirmed Apixaban [Eliquis] 5 mg PO BID 30 Days #60 tablet 05/14/21 05/30/22 Furosemide [Lasix] 20 mg PO DAILY 05/14/21 05/30/22 Mometasone/Formoterol [Dulera 200 2 puffs INH BID 05/14/21 05/30/22 Mcg-5 Mcg Inhaler] Lidocaine Patch 5% [Lidoderm Patch] 1 patch TOP DAILY PRN #10 patch 05/27/22 05/30/22 Albuterol 2.5 mg INH RTQ4H PRN 06/05/22 Atorvastatin [Lipitor] 10 mg PO QPM #0 06/05/22 05/30/22 Calcitonin [Fortical] 1 sprays TIFFANIE DAILY #1 ahfu 06/05/22 05/30/22 Metoprolol Succinate [Toprol Xl] 25 mg PO DAILY 30 Days #30 tablet 06/05/22 06/02/22 Tamsulosin [Flomax] 0.4 mg PO DAILY 06/05/22 oxyCODONE [Roxicodone] 5 mg PO Q6H PRN #30 tablet 06/05/22 - LABS Result Diagrams: 06/04/22 04:48 06/04/22 04:48
[2022-06-07 02:08] LABS: RPR Non Reactive (Non Reactive)
== END 2022-06-06 14:50 | disposition home health service (06) | DRG 388 ==
LOC: EDUNIT# → ED 16:08 → MS2 06-01 13:02
PROVIDERS: ADMIT Specialist; ATTEND Specialist
PROC: 0D9670Z Drainage of Stomach with Drainage Device, Via Natural or Artificial Opening (ICD-10-PCS; principal; 2022-06-02)
DX: K56.609 Unspecified intestinal obstruction, unspecified as to partial versus complete obstruction (principal); K91.31 Postprocedural partial intestinal obstruction; J69.0 Pneumonitis due to inhalation of food and vomit; X58.XXXD Exposure to other specified factors, subsequent encounter; I48.20 Chronic atrial fibrillation, unspecified; R45.851 Suicidal ideations; G30.9 Alzheimer's disease, unspecified; F02.80 Dementia in other diseases classified elsewhere, unspecified severity, without behavioral disturbance, psychotic disturbance, mood disturbance, and anxiety; J44.9 Chronic obstructive pulmonary disease, unspecified; S32.030D Wedge compression fracture of third lumbar vertebra, subsequent encounter for fracture with routine healing; E78.00 Pure hypercholesterolemia, unspecified; F32.A Depression, unspecified; K21.9 Gastro-esophageal reflux disease without esophagitis; M19.90 Unspecified osteoarthritis, unspecified site; W01.0XXD Fall on same level from slipping, tripping and stumbling without subsequent striking against object, subsequent encounter; R32 Unspecified urinary incontinence; R35.0 Frequency of micturition; R35.1 Nocturia; R41.0 Disorientation, unspecified; Z20.822 Contact with and (suspected) exposure to COVID-19; Z63.4 Disappearance and death of family member; Z66 Do not resuscitate; Z79.01 Long term (current) use of anticoagulants; Z79.899 Other long term (current) drug therapy; Z80.7 Family history of other malignant neoplasms of lymphoid, hematopoietic and related tissues; Z87.891 Personal history of nicotine dependence; Z90.49 Acquired absence of other specified parts of digestive tract; Z91.51 Personal history of suicidal behavior
CPT/HCPCS: 36415; 51702; 51798; 74177; 74250; 80048; 80053; 80306; 81003; 82607; 83605; 83690; 84443; 85025; 86592; 87633; 87635; 94640; 97162; 97165; 97530; 99284; 99285; A9270; G0480; J0131; J1650; J7626; Q0162; Q9963; Q9967; 80320; 81001; 87086

== ENCOUNTER 2022-08-29 13:38 | Outpatient (CLI) | payer MEDICARE, OTHER | END 2022-08-29 23:59 | disposition critical access hospital (66) | LOC: EMS 13:38 | DX: R50.9 Fever, unspecified (principal); R41.82 Altered mental status, unspecified | CPT/HCPCS: A0425; A0427 ==

== ENCOUNTER 2022-08-29 14:09 | Inpatient (IN) | payer MEDICARE, OTHER ==
[2022-08-29 14:59] LABS: BASOPHILS % (AUTO) 0.1 %; EOSINOPHILS % (AUTO) 0.1 %; HCT - HEMATOCRIT 40.8 % (42.0-52.0); HGB - HEMOGLOBIN 12.8 g/dL (14.0-18.0); LYMPHOCYTES # (AUTO) 0.6 10^3/uL (1.5-3.5); LYMPHOCYTES % (AUTO) 4.6 %; MEAN CORPUSCULAR HEMOGLOBIN 31.3 pg (27.0-31.0); MEAN CORPUSCULAR HGB CONC 31.4 g/dL (32.0-36.0); MEAN CORPUSCULAR VOLUME 99.8 fL (80.0-94.0); MEAN PLATELET VOLUME 11.6 fL (7.4-11.4); MONOCYTES # (AUTO) 1.3 10^3/uL (0.0-1.0); MONOCYTES % (AUTO) 10.4 %; NEUTROPHILS # (AUTO) 10.3 10^3/uL (1.5-6.6); NEUTROPHILS % (AUTO) 84.6 %; PLT - PLATELET COUNT 98 10^3/uL (130-450); RED BLOOD COUNT 4.09 10^6/uL (4.70-6.10); RED CELL DISTRIBUTION WIDTH 15.6 % (12.0-15.0); WHITE BLOOD COUNT 12.2 x10^3/uL (4.8-10.8)
[2022-08-29] MEDS ORDERED: SODIUM CHLORIDE 0.9% 1,973.13 ML IV STA (15:03)
--- NOTE | 2022-08-29 15:05 | XRAY Report ---
PROCEDURE: Chest 1 View X-Ray INDICATIONS: chest pain TECHNIQUE: One view of the chest was acquired. COMPARISON: None. FINDINGS: Surgical changes and devices: None. Lungs and pleura: No pleural effusions or pneumothorax. There is mild patchy bilateral perihilar and basilar opacity. Mediastinum: Mediastinal contours appear normal. Heart size is normal. Bones and chest wall: No suspicious bony lesions. Overlying soft tissues appear unremarkable. IMPRESSION: Mild bilateral pneumonia. Follow-up PA and lateral chest x-rays or chest CT is recommended to ensure resolution, and to exclude underlying neoplasm. Reviewed by: Aj Edgar MD on 08/29/2022 3:03 PM [facility] Approved by: Aj Edgar MD on 08/29/2022 3:03 PM [facility] Station ID: [id number]
--- NOTE | 2022-08-29 15:07 | ED Physician Documentation ---
History of Present Illness - Stated complaint Stated Complaint: FEVER - Chief complaint Chief Complaint: Neuro - Additonal information Additional information: 87-year-old male presents emergency department from [facility] where he resides in the memory care unit. Per the staff at [facility] this patient is typically one of their more conversant patients. However this morning they noted that he was altered and less conversant than normal. He was also noted to be febrile. He does have a history of dementia, atrial fibrillation anticoagulated on Eliquis, COPD as well as known lumbar compression fractures. He was admitted to this hospital in May with a small bowel obstruction. History is limited from the patient's secondary to dementia. On presentation to the emergency department the patient will open his eyes to sp eech only, he will say please Dr. Manning not when given noxious stimuli, he does appear to localize. Review of Systems Unable to obtain: Dementia PD PAST MEDICAL HISTORY - Past Medical History Cardiovascular: High cholesterol, Atrial fibrillation, Valve disorder Respiratory: COPD Neuro: None Endocrine/Autoimmune: None GI: GERD : None HEENT: Chronic hearing loss Psych: None Musculoskeletal: Osteoarthritis, Other Derm: None - Past Surgical History Past Surgical History: Yes General: Cholecystectomy, Appendectomy - Present Medications Home Medications: Ambulatory Orders Medication Instructions Recorded Confirmed Apixaban [Eliquis] 5 mg PO BID 30 Days #60 tablet 05/14/21 05/30/22 Furosemide [Lasix] 20 mg PO DAILY 05/14/21 05/30/22 Mometasone/Formoterol [Dulera 200 2 puffs INH BID 05/14/21 05/30/22 Mcg-5 Mcg Inhaler] Lidocaine Patch 5% [Lidoderm Patch] 1 patch TOP DAILY PRN #10 patch 05/27/22 05/30/22 Albuterol 2.5 mg INH RTQ4H PRN 06/05/22 Atorvastatin [Lipitor] 10 mg PO QPM #0 06/05/22 05/30/22 Calcitonin [Fortical] 1 sprays TIFFANIE DAILY #1 ahfu 06/05/22 05/30/22 Metoprolol Succinate [Toprol Xl] 25 mg PO DAILY 30 Days #30 tablet 06/05/22 06/02/22 Tamsulosin [Flomax] 0.4 mg PO DAILY 06/05/22 oxyCODONE [Roxicodone] 5 mg PO Q6H PRN #30 tablet 06/05/22 - Allergies Allergies/Adverse Reactions: Allergies Allergy/AdvReac Type Severity Reaction Status Date / Time No Known Drug Allergies Allergy Verified 05/30/22 16:31 - Social History Does the pt smoke?: No Smoking Status: Former smoker Does the pt drink ETOH?: No Does the pt have substance abuse?: No - Immunizations Immunizations are current?: No - POLST Patient has POLST: No POLST Status: Full Code PD ED PE EXPANDED - General General: Disheveled, poorly kept, Lethargic - Cardiac Cardiac: Tachy, Irregularly irregular, Murmur Present, Radial strong equal, Pedal strong equal, Cap refill < 2 sec - Respiratory Respiratory: Other (Coarse breath sounds throughout the lung madrigal) - Abdomen Abdomen: Tender to palpation (Generally tender to palpation though nonfocal.) - Back Back: Vertebral tenderness, Other (Tenderness to palpation of the thoracic and lumbar vertebrae. No obvious ecchymosis step-off crepitus or deformity) - Derm Derm: Bruising (Bruising bilateral lower anterior shins) - Extremities Extremities: No: Deformity, Tenderness - Neuro Neuro: Disoriented, CNII-XII intact (No obvious cranial nerve deficit) - GCS Eye Opening: To Voice Motor: Localizes to Pain Verbal: Inappropriate Total: 11 Results - Vitals Vitals: Vital Signs - 24 hr 08/29/22 08/29/22 08/29/22 14:18 15:09 16:50 Temperature 37.9 C Heart Rate 110 H 112 H 124 H Respiratory 22 19 Rate Blood Pressure 98/52 L 117/57 L 112/50 L O2 Saturation 94 98 97 If not protocol : Oxygen Flow, liters/minute 08/29/22 08/29/22 08/29/22 17:19 17:22 17:30 Temperature Heart Rate 100 110 H Respiratory 23 Rate Blood Pressure 128/56 L 129/80 O2 Saturation 90 L 96 97 If not protocol 2 : Oxygen Flow, liters/minute 08/29/22 08/29/22 19:00 20:00 Temperature Heart Rate 116 H 118 H Respiratory 30 H 30 H Rate Blood Pressure 110/73 139/60 H O2 Saturation 95 96 If not protocol 2 : Oxygen Flow, liters/minute Oxygen O2 Source Room air - EKG (time done) 1724 Rate: Rate (enter#) (110) Rhythm: Atrial fibrillation [place]: Other Intervals: No: Prolonged QT Ischemia: Q waves, Non specific changes Compare to prior EKG: Unchanged from prior EKG Computer interpretation: Agree with computer - Labs Labs: Laboratory Tests 08/29/22 08/29/22 08/29/22 14:40 14:40 14:40 WBC 12.2 H RBC 4.09 L Hgb 12.8 L Hct 40.8 L MCV 99.8 H MCH 31.3 H MCHC 31.4 L RDW 15.6 H Plt Count 98 L MPV 11.6 H Neut # (Auto) 10.3 H Lymph # (Auto) 0.6 L [place] # (Auto) 1.3 H Eos # (Auto) 0.0 Baso # (Auto) 0.0 Absolute Nucleated RBC 0.00 Nucleated RBC % 0.0 Bld Gas Analysis Time Sample Site ABG pH ABG pCO2 ABG pO2 ABG HCO3 ABG Total CO2 ABG O2 Saturation ABG Base Excess Yeison Test Room Air Sodium 138 Potassium 4.0 Chloride 104 Carbon Dioxide 26 Anion Gap 8.0 BUN 15 Creatinine 0.9 Estimated GFR (MDRD) 80 L Glucose 108 H Lactic Acid Calcium 9.0 Total Bilirubin 1.5 H AST 21 ALT 14 Alkaline Phosphatase 109 Total Protein 6.3 L Albumin 3.6 Globulin 2.7 Albumin/Globulin Ratio 1.3 Urine Color Urine Clarity Urine pH Ur Specific [place] Urine Protein Urine Glucose (UA) Urine Ketones Urine Occult Blood Urine Nitrite Urine Bilirubin Urine Urobilinogen Ur Leukocyte Esterase Urine RBC Urine WBC Ur Squamous Epith Cells Urine Bacteria Urine Culture Comments Nasal Adenovirus (PCR) Nasal B. parapertussis DNA (PCR) Nasal Coronavir 229E PCR Nasal Coronavir HKU1 PCR Nasal Coronavir NL63 PCR Nasal Coronavir OC43 PCR Nasal Enterovir/Rhinovir PCR Nasal Influenza B PCR Nasal Influenza A PCR Nasal Parainfluen 1 PCR Nasal Parainfluen 2 PCR Nasal Parainfluen 3 PCR Nasal Parainfluen 4 PCR Nasal RSV (PCR) Nasal B.pertussis DNA PCR Nasal C.pneumoniae (PCR) Tiffanie Human Metapneumo PCR Nasal M.pneumoniae (PCR) Nasal SARS-CoV-2 (PCR) Blood Type Blood Type Recheck O POSITIVE Antibody Screen 08/29/22 08/29/22 08/29/22 14:46 15:00 15:04 WBC RBC Hgb Hct MCV MCH MCHC RDW Plt Count MPV Neut # (Auto) Lymph # (Auto) [place] # (Auto) Eos # (Auto) Baso # (Auto) Absolute Nucleated RBC Nucleated RBC % Bld Gas Analysis Time Sample Site ABG pH ABG pCO2 ABG pO2 ABG HCO3 ABG Total CO2 ABG O2 Saturation ABG Base Excess Yeison Test Room Air Sodium Potassium Chloride Carbon Dioxide Anion Gap BUN Creatinine Estimated GFR (MDRD) Glucose Lactic Acid 1.5 Calcium Total Bilirubin AST ALT Alkaline Phosphatase Total Protein Albumin Globulin Albumin/Globulin Ratio Urine Color YELLOW Urine Clarity CLEAR Urine pH 5.5 Ur Specific [place] 1.025 Urine Protein NEGATIVE Urine Glucose (UA) NEGATIVE Urine Ketones 15 H Urine Occult Blood SMALL H Urine Nitrite NEGATIVE Urine Bilirubin NEGATIVE Urine Urobilinogen 0.2 (NORMAL) Ur Leukocyte Esterase NEGATIVE Urine RBC 6-10 H Urine WBC 0-3 Ur Squamous Epith Cells RARE Squamous Urine Bacteria None Seen Urine Culture Comments NOT INDICATED Nasal Adenovirus (PCR) NOT DETECTED Nasal B. parapertussis DNA (PCR) NOT DETECTED Nasal Coronavir 229E PCR NOT DETECTED Nasal Coronavir HKU1 PCR NOT DETECTED Nasal Coronavir NL63 PCR NOT DETECTED Nasal Coronavir OC43 PCR NOT DETECTED Nasal Enterovir/Rhinovir PCR NOT DETECTED Nasal Influenza B PCR NOT DETECTED Nasal Influenza A PCR NOT DETECTED Nasal Parainfluen 1 PCR NOT DETECTED Nasal Parainfluen 2 PCR NOT DETECTED Nasal Parainfluen 3 PCR NOT DETECTED Nasal Parainfluen 4 PCR NOT DETECTED Nasal RSV (PCR) DETECTED A Nasal B.pertussis DNA PCR NOT DETECTED Nasal C.pneumoniae (PCR) NOT DETECTED Tiffanie Human Metapneumo PCR NOT DETECTED Nasal M.pneumoniae (PCR) NOT DETECTED Nasal SARS-CoV-2 (PCR) NOT DETECTED Blood Type Blood Type Recheck Antibody Screen 08/29/22 08/29/22 16:05 17:12 WBC RBC Hgb Hct MCV MCH MCHC RDW Plt Count MPV Neut # (Auto) Lymph # (Auto) [place] # (Auto) Eos # (Auto) Baso # (Auto) Absolute Nucleated RBC Nucleated RBC % Bld Gas Analysis Time 1609 Sample Site RIGHT RADIAL ABG pH 7.45 ABG pCO2 35 ABG pO2 53 L* ABG HCO3 23.6 ABG Total CO2 24.7 ABG O2 Saturation 90 L ABG Base Excess -0.1 Yeison Test POSITIVE Room Air YES Sodium Potassium Chloride Carbon Dioxide Anion Gap BUN Creatinine Estimated GFR (MDRD) Glucose Lactic Acid Calcium Total Bilirubin AST ALT Alkaline Phosphatase Total Protein Albumin Globulin Albumin/Globulin Ratio Urine Color Urine Clarity Urine pH Ur Specific [place] Urine Protein Urine Glucose (UA) Urine Ketones Urine Occult Blood Urine Nitrite Urine Bilirubin Urine Urobilinogen Ur Leukocyte Esterase Urine RBC Urine WBC Ur Squamous Epith Cells Urine Bacteria Urine Culture Comments Nasal Adenovirus (PCR) Nasal B. parapertussis DNA (PCR) Nasal Coronavir 229E PCR Nasal Coronavir HKU1 PCR Nasal Coronavir NL63 PCR Nasal Coronavir OC43 PCR Nasal Enterovir/Rhinovir PCR Nasal Influenza B PCR Nasal Influenza A PCR Nasal Parainfluen 1 PCR Nasal Parainfluen 2 PCR Nasal Parainfluen 3 PCR Nasal Parainfluen 4 PCR Nasal RSV (PCR) Nasal B.pertussis DNA PCR Nasal C.pneumoniae (PCR) Tiffanie Human Metapneumo PCR Nasal M.pneumoniae (PCR) Nasal SARS-CoV-2 (PCR) Blood Type O POSITIVE Blood Type Recheck Antibody Screen NEGATIVE - Rads (name of study) cxr Radiology: Final report received (Mild bilateral pneumonia.) CT chest Radiology: Final report received (Bilateral lower lobe atelectasis versus pneumonia. Small right-sided pleural effusion. Coronary artery disease. Cardiomegaly. Small pericardial effusion) CT abd Radiology: Final report received (Cardiomegaly. Coronary artery disease. Small pericardial effusion. Bilateral lower lobe atelectasis versus pneumonia. Small right pleural effusion. Subacute versus acute moderate wedging of L3) CT head Radiology: Final report received (No acute intracranial finding. Advanced moderate global cerebral volume loss and chronic vascular ischemic changes) CT cervical Radiology: Final report received (No CT evidence of acute traumatic cervical spine injury) abd US Radiology: Final report received (No biliary ductal dilation is seen. Gallbladder is absent.) PD MEDICAL DECISION MAKING - ED course Complexity details: reviewed results, re-evaluated patient, d/w patient ED course: 87-year-old male presents emergency department for evaluation of altered mental status. He was at the memory care center at [facility] when the staff noted that he was more nonverbal than usual and had a fever. There is a question of a remote fall about a week ago. Patient is anticoagulated on Eliquis secondary to history of A. fib. This gentleman was also admitted to this hospital in late May for altered mentation found to have a small bowel obstruction. Following that admission he was transition to inpatient memory care. On presentation the patient is not hypoxic though he does have altered mentation with a Glascow of 11. Subsequent laboratory imaging has shown no leukocytosis and normal liver and renal function. Respiratory panel was positive for RSV. However chest x-ray suggestive of bilateral pneumonia. Given that the patient was unable to participate in the history we did ibrahim scan him including head to pelvis with no acute traumatic findings seen. There is however development of a small pleural effusion as well as bilateral pneumonia. CT the abdomen does show left hepatic lobe pneumobilia. Abdominal ultrasound did not show any biliary ductal dilation. His T bili today is 1.5. There was really no pain within this region and pneumobilia is not likely causative of the acutely altered mental status or sepsis This patient does meet the criteria for sepsis as he presented with a marginally low blood pressure but a normal lactate. His blood pressure has normalized with 20 mils per kilo of crystalloid. Patient does have a very elevated PS1 score of 146 indicating appropriate inpatient admission for further treatment of the pneumonia This patient is being treated for HCAP with cefepime. There is a paucity of beds today at [facility] though he certainly meets admission criteria. He will need to board in the emergency department until a bed becomes available. I have briefly discussed this case with Dr. Aquino and she is graciously verbalized some admission recommendations. I will continue him on his Eliquis, Flomax as well as his metoprolol for A. fib rate control despite the soft blood pressures. I have also verbally discussed this case with the patient's son on the phone in [place]. He is in agreement for hospitalization of his dad that he is quite clear the patient will remain a DNR with limited interventions. Departure - Departure Disposition: [facility] DC/Xfer Clinical Impression: Sepsis Qualifiers: Sepsis type: sepsis due to unspecified organism Sepsis acute organ dysfunction status: without acute organ dysfunction Qualified Code(s): A41.9 - Sepsis, unspecified organism Pneumonia Qualifiers: Pneumonia type: due to unspecified organism Laterality: bilateral Lung location: unspecified part of lung Qualified Code(s): J18.9 - Pneumonia, unspecified organism Dementia Qualifiers: Dementia type: unspecified type Dementia severity: severe Dementia behavioral or psychological symptom: with agitation Qualified Code(s): F03.C11 - Un specified dementia, severe, with agitation
[2022-08-29 15:09] LABS: ALBUMIN 3.6 g/dL (3.2-5.5); ALBUMIN/GLOBULIN RATIO 1.3 (1.0-2.2); BILIRUBIN,TOTAL 1.5 mg/dL (0.2-1.0); CREATININE 0.9 mg/dL (0.6-1.2); TOTAL PROTEIN 6.3 g/dL (6.7-8.2)
[2022-08-29 15:09] LABS: BILIRUBIN,URINE NEGATIVE (NEGATIVE); GLUCOSE, URINE (UA) NEGATIVE (NEGATIVE); KETONES,URINE (UA) 15 mg/dL (NEGATIVE); LEUKOCYTE ESTERASE, URINE NEGATIVE (NEGATIVE); NITRITE,URINE NEGATIVE (NEGATIVE); OCCULT BLOOD,URINE SMALL (NEGATIVE); PH,URINE 5.5 PH (5.0-7.5); PROTEIN,URINE NEGATIVE (NEGATIVE); UROBILINOGEN,URINE 0.2 (NORMAL) E.U./dL (NORMAL)
[2022-08-29] MEDS ORDERED: iohexoL-300 100 ML VIAL ONE (15:12)
[2022-08-29 15:18] LABS: BACTERIA,URINE None Seen /HPF (None Seen); CLARITY,URINE CLEAR (CLEAR); SQUAMOUS EPITHELIAL CELL,UR RARE Squamous (<= Few); WBC,URINE 0-3 /HPF (0-3)
[2022-08-29] MEDS ORDERED: CEFEPIME 2 GM in SODIUM CHLORIDE 0.9% MINIBAG 100 ML IV STA (15:35)
[2022-08-29] MEDS ORDERED: VANCOMYCIN INJ 1.25 GM in SODIUM CHLORIDE 0.9% 500 ML IV STA (15:35)
[2022-08-29] MEDS ORDERED: VANCOMYCIN INJ 1.25 GM in SODIUM CHLORIDE 0.9% 250 ML IV STA (15:41)
--- NOTE | 2022-08-29 16:04 | CT Report ---
PROCEDURE: CHEST W INDICATIONS: ams; sepsis CONTRAST:100mL Omni 300 TECHNIQUE: After the administration of intravenous contrast, 1 mm axial images were acquired from the pulmonary apices through the posterior costophrenic angles. Axial 5 mm soft tissue kernel reconstructions were performed as well as 8 mm axial MIP and coronal and sagittal 5 mm reformations. For radiation dose reduction, the following was used: automated exposure control, adjustment of mA and/or kV according to patient size. COMPARISON: CT dated 04/06/2022 there is moderate calcification of the coronary vasculature. FINDINGS: Image quality: Excellent. Lungs and pleura: Moderate dependent bilateral lower lobe atelectasis versus pneumonia. Small right p leural effusion. No pneumothorax. Central and peripheral airways are patent and normal in caliber. Mediastinum: Heart size is enlarged. Small pericardial effusion. Mild calcification of the coronary vasculature. No mediastinal or hilar adenopathy by size criteria. Thoracic aorta and central pulmon jadon arteries are normal in size. Esophagus is normal in caliber. No hiatal hernia. Bones and chest wall: No suspicious bony lesions. Moderate wedging of T12. Bony cement injection at T12 has been performed. No vertebral body compression fractures. No axillary or supraclavicular jnoa nopathy by size criteria. The thyroid is normal in size and there are no incidental findings.. Abdomen: Visualized portions of the upper abdomen demonstrate pneumobilia and are otherwise within n ormal limits. IMPRESSION: 1. Bilateral lower lobe atelectasis versus pneumonia. Small right-sided pleural effusion. 2. Coronary artery disease. 3. Cardiomegaly. 4. Small pericardial effusion. Reviewed by: Aj Edgar MD on 08/29/2022 4:03 PM PST Approved by: Aj Edgar MD on 08/29/2022 4:03 PM PST Station ID: [id number]
--- NOTE | 2022-08-29 16:06 | CT Report ---
PROCEDURE: ABDOMEN/PELVIS W INDICATIONS: ams CONTRAST: 100mL Omni 300 TECHNIQUE: After the administration of IV contrast, 5 mm thick sections acquired from the diaphragms to the symp hysis. 5 mm thick coronal and sagittal reformats were acquired. For radiation dose reduction, the f ollowing was used: automated exposure control, adjustment of mA and/or kV according to patient size. COMPARISON: 06/01/2022 CT examination FINDINGS: Image quality: Excellent. ABDOMEN: Lung bases: There is moderate dependent bibasilar airspace opacity. Heart size is enlarged. Small per icardial effusion. Small right pleural effusion. Solid organs: Liver and spleen are normal in size and enhancement. Pneumobilia within the left hepa tic lobe. Gallbladder is surgically absent Biliary system is non dilated. Pancreas enhances normall y. No adrenal nodules. Kidneys demonstrate normal size and enhancement, without hydronephrosis. Peritoneum and bowel: Bowel loops demonstrate normal wall thickness and caliber. No free fluid or a ir. Nodes and vessels: No retroperitoneal or mesenteric adenopathy by size criteria. Aorta and inferior vena cava are normal in size. Miscellaneous: No ventral hernias. PELVIS: Genitourinary: Bladder wall thickness is normal. Miscellaneous: No inguinal hernias or adenopathy. Bones: No suspicious bony lesions. Multilevel chronic compression fractures. There is new acute vince jo subacute, moderate wedging of L3. IMPRESSION: 1. Cardiomegaly. Coronary artery disease. Small pericardial effusion. 2. Bilateral lower lobe atelectasis versus pneumonia. Small right pleural effusion. 3. Subacute versus acute moderate wedging of L3. Reviewed by: Aj Edgar MD on 08/29/2022 4:05 PM PST Approved by: Aj Edgar MD on 08/29/2022 4:05 PM PST Station ID: [id number]
--- NOTE | 2022-08-29 16:08 | CT Report ---
PROCEDURE: HEAD WO INDICATIONS: Altered mental status; fall last week; eliquis TECHNIQUE: Noncontrast 4.5 mm thick angled axial sections acquired from the foramen magnum to the vertex. For r adiation dose reduction, the following was used: automated exposure control, adjustment of mA and/or kV according to patient size. COMPARISON: None. FINDINGS: Image quality: Excellent. CSF spaces: Basal cisterns are patent. No extra-axial fluid collections. Ventricles are normal in size and shape. Brain: No midline shift. No intracranial masses or hemorrhage. Zapien-white matter interface is norm al. Skull and face: Calvarium and visualized facial bones are intact, without suspicious lesions. IMPRESSION: No acute intracranial finding. Advanced moderate global cerebral volume loss and chronic vascular ischemic changes. Reviewed by: Dorian Contreras MD on 08/29/2022 4:07 PM PST Approved by: Dorian Contreras MD on 08/29/2022 4:07 PM PST Station ID: [id number]
--- NOTE | 2022-08-29 16:11 | CT Report ---
PROCEDURE: CERVICAL SPINE WO INDICATIONS: fall last week TECHNIQUE: Noncontrast 3 mm thick sections acquired from the skull base to the T4 level. Sagittal and coronal r eformats were then constructed. For radiation dose reduction, the following was used: automated exp osure control, adjustment of mA and/or kV according to patient size. COMPARISON: 04/06/2022 FINDINGS: Image quality: Excellent. Bones: No fractures or dislocations. Visualized superior ribs are intact. Soft tissues: Prevertebral soft tissues are normal in thickness. No paravertebral hematomas. No ap ical pneumothoraces. IMPRESSION: No CT evidence of acute traumatic cervical spine injury. Reviewed by: Dorian Contreras MD on 08/29/2022 4:10 PM PST Approved by: Dorian Contreras MD on 08/29/2022 4:10 PM PST Station ID: [id number]
[2022-08-29 16:13] LABS: ABG PCO2 35 mmHg (34-45); ABG PH 7.45 (7.35-7.45)
[2022-08-29 16:13] LABS: B. PARAPERTUSSIS- RESP PCR PAN NOT DETECTED; B. PERTUSSIS- RESP PCR PANEL NOT DETECTED; C. PNEUMONIAE- RESP PCR PANEL NOT DETECTED; CORONAVIRUS 229E-RESP PCR NOT DETECTED; CORONAVIRUS HKU1-RESP PCR NOT DETECTED; CORONAVIRUS NL63-RESP PCR NOT DETECTED; CORONAVIRUS OC43-RESP PCR NOT DETECTED; HUMAN METAPNEUMOVIRUS NOT DETECTED; INFLUENZA A- RESP PCR PANEL NOT DETECTED; INFLUENZA B - RESP PCR PANEL NOT DETECTED; M. PNEUMONIAE- RESP PCR PANEL NOT DETECTED; PARAINFLUENZA VIRUS 1 NOT DETECTED; PARAINFLUENZA VIRUS 2 NOT DETECTED; PARAINFLUENZA VIRUS 3 NOT DETECTED; PARAINFLUENZA VIRUS 4 NOT DETECTED; RHINOVIRUS/ENTEROVIRUS NOT DETECTED; RSV- RESP PCR PANEL DETECTED; SARS-CoV-2 -RESP PCR PANEL NOT DETECTED
[2022-08-29 16:14] LABS: ABG BASE EXCESS -0.1 mmol/L (-2.0-3.0); ABG HCO3 23.6 mmol/L (22.0-26.0); ABG OXYGEN SATURATION 90 % (94-98); ABG TCO2 24.7 MMOL/L (21.0-29.0); ALLEN TEST POSITIVE
[2022-08-29 16:19] LABS: ABG PO2 53 mmHg (80-100)
[2022-08-29] MEDS ORDERED: TAMSULOSIN 0.4 MG CAPSULE PO STA (17:00)
[2022-08-29] MEDS ORDERED: fentaNYL 100 MCG/2 ML VIAL IVP STA (17:44)
[2022-08-29] MEDS ORDERED: iohexoL-300 100 ML VIAL IVP ONE (17:51)
--- NOTE | 2022-08-29 18:13 | PHARMACY PROGRESS NOTE ---
- Therapy Status Vancomycin regimen day #: 1 Therapy status: Awaiting steady state Basis for treatment: Empirical Treatment indication: [facility] Trough goal: 15-20 Concurrent antibiotics: CEFEPIME - NICOLE Risk Risk level for Acute Kidney Injury: High Acute Kidney Injury risk factors: Baseline CrCl <50, IV contrast within 72 hrs, Goal trough >15, Chronic baseline hypertension, Sepsis - Monitoring and Recommendation Clinical response to treatment: I&O Previous 24 hours 08/27/22 08/28/22 08/29/22 23:59 23:59 23:59 Intake Total Balance Lab Results 08/29/22 14:40 BUN 15 Creatinine 0.9 Estimated GFR (MDRD) 80 L Monitoring plan: Daily serum creatinine, Suggest ongoing fluid replacement Areas for additional monitoring: IV to PO when appropriate, Therapy de-escalatio n based on culture results, Acute Kidney Injury, C. difficile infection risk reduction Pharmacy recommendation: Discontinue therapy (Patient with no history of MRSA; Spoke to provider to discontinue Vancomycin. Will restart if patient does not respond to Cefepime in next 48 hours.)
--- NOTE | 2022-08-29 19:19 | Ultrasound Report ---
PROCEDURE: Abdomen Limited INDICATIONS: Pneumobilia TECHNIQUE: Real-time focused scanning was performed of the abdomen, with image documentation. COMPARISON: CT abdomen and pelvis earlier today. FINDINGS: Liver: Liver is normal in size and homogeneous in echotexture. Gallbladder: Absent. Biliary ducts: Intrahepatic bile ducts are non-dilated. Extrahepatic bile duct caliber measures 6 m m. Normal is 6-7 mm or less in diameter, or 10 mm or less post-cholecystectomy. (Pneumobilia seen o n CT). Pancreas: Not visualized. Kidneys: Right kidney measures 11.1 cm. Cortex 1.4 cm. Anechoic cyst at the right kidney superior po le measuring at 2.8 cm. No hydronephrosis. IMPRESSION: No biliary ductal dilatation is seen. Gallbladder is absent. Reviewed by: Giacomo Peña MD on 08/29/2022 7:18 PM PST Approved by: Giacomo Peña MD on 08/29/2022 7:18 PM PST Station ID: [id number]
[2022-08-29] MEDS ORDERED: HALOPERIDOL 5 MG/ML VIAL IVP STA (19:32)
--- NOTE | 2022-08-29 19:41 | HISTORY & PHYSICAL EXAMINATION ---
Chief Complaint - Chief Complaint Chief Complaint: Lethargic, abrupt in onset History of Present Illness - Admitted From Admitted From:: [facility] memory care - History Obtained From Records Reviewed: [facility] History obtained from: HUBERT Ramirez Exam Limitations: Patient is demented, unable to provide a history - History of Present Illness HPI Comment/Other: I met this gabriela gentleman in May of this year when he was admitted with a small bowel obstruction. It is gotten to the point, however, that he could no longer live at home alone. From discharge he was transferred to a intermediate facility for rehab. And from there he was placed in [facility] where he resides in the memory care unit. Starting this morning, the staff at [facility] have noted that this patient is much quieter, less active than he usually is. It got to the point where he was finally nonconversant even though his eyes were open and he was looking at them. They said he had a fever and a low blood pressure. But there is no other report of other review of systems such as cough, congestion, headache, abdominal pain, or diarrhea. EMS was called and he was brought to the emergency room. He was described as having a fall last week. Again not much of a history other than from the ER doctor and he is on Eliquis. In the emergency room he was opening his eyes to speech and he asked the pr ovider to please stop when noxious stimuli were checked. Temperature was 37.9. Heart rate 110. He is hypotensive at 98/52. Respirations were 22 and he was 94% on room air. On examination he was tachycardic with an irregularly irregular heartbeat. He was disheveled, unkempt, lethargic. Coarse breath sounds throughout all lung madrigal. Abdomen had generalized tenderness with palpation and there was tenderness to the thoracic and lumbar vertebral body. He had bruising of his lower anterior shins bilaterally. Chest x-rays showed mild bilateral pneumonia. CT of the chest had bilateral low er lobe atelectasis versus pneumonia and a small right pleural effusion. Cardiomegaly. CT of the abdomen had no acute abdominal processes. CT of the head had advanced moderate global cerebral volume loss and chronic vascular ischemic changes but no acute changes. Cervical spine CT was without C-spine injury that was acute. His white cell count was normal. And he had normal liver and renal function. Renal panel was positive for RSV. Lactic acid was normal. He was initially treated as a healthcare associated pneumonia with cefepime and vancomycin. Also received a liter of fluid. With that his blood pressure has come up but he is still tachycardic. Emergency room provider is asking us to do an admission on the basis of viral versus bacterial pneumonia. History - Past Medical History Cardiovascular: reports: High cholesterol, Atrial fibrillation (April 2021 echo and stress test essentially normal), Valve disorder Respiratory: reports: COPD Neuro: reports: Dementia Endocrine/Autoimmune: reports: None GI: reports: GERD : reports: None HEENT: reports: Chronic hearing loss Psych: reports: Depression (With suicide attempt March 2022. Depressed about living alone and 's living in [facility]. He use the Xanax prescribed by Dr. Hsu) Musculoskeletal: reports: Osteoarthritis, Other Derm: reports: None - Past Surgical History General: reports: Cholecystectomy, Appendectomy - Family & Social History Family History Comment/Other: His father in 1951 from Hodgkin's lymphoma. His mother in 1984 from complications related to tuberculosis Living arrangement: Assisted living (Memory care unit.) Living Situation: With caregiver(s) Social History Notes: [facility]. She went to [facility] and he had to go 06/2022. He is usually independent of activities of daily living. He is supposed to use a cane and or a walker to get around. 2 packs of cigarettes daily for 36 years. He quit 35 years ago. He drinks alcohol occasionally and does not use any recreational substances. - Substance History Use: Uses substance without health or social issues: Alcohol - POLST Patient has POLST: Yes POLST Status: DNR (selective treatment) Meds/Allgy - Home Medications Home Medications: Ambulatory Orders Medication Instructions Recorded Confirmed Apixaban [Eliquis] 5 mg PO BID 30 Days #60 tablet 05/14/21 05/30/22 Furosemide [Lasix] 20 mg PO DAILY 05/14/21 05/30/22 Mometasone/Formoterol [Dulera 200 2 puffs INH BID 05/14/21 05/30/22 Mcg-5 Mcg Inhaler] Lidocaine Patch 5% [Lidoderm Patch] 1 patch TOP DAILY PRN #10 patch 05/27/22 05/30/22 Albuterol 2.5 mg INH RTQ4H PRN 06/05/22 Atorvastatin [Lipitor] 10 mg PO QPM #0 06/05/22 05/30/22 Calcitonin [Fortical] 1 sprays TIFFANIE DAILY #1 ahfu 06/05/22 05/30/22 Metoprolol Succinate [Toprol Xl] 25 mg PO DAILY 30 Days #30 tablet 06/05/22 06/02/22 Tamsulosin [Flomax] 0.4 mg PO DAILY 06/05/22 oxyCODONE [Roxicodone] 5 mg PO Q6H PRN #30 tablet 06/05/22 - Allergies Allergies/Adverse Reactions: Allergies Allergy/AdvReac Type Severity Reaction Status Date / Time No Known Drug Allergies Allergy Verified 05/30/22 16:31 Review of Systems - Other Findings Other Findings: Unable to do a review of systems on this elderly gentleman who is described as almost nonverbal. This is in comparison to his description as someone who still holds conversation, and is ambulating in the memory care unit. Prior Level of Functionality: Ambulates with a walker, completely dependent with regards to being prompted to feed, dress, and take his medicines Exam - Vital Signs Reviewed Vital Signs: Yes Vital Signs: Vital Signs x48h Temp Pulse Resp BP Pulse Ox O2 Flow Rate 08/29/22 19:00 116 H 30 H 110/73 95 2 08/29/22 17:30 110 H 129/80 97 08/29/22 17:22 96 2 08/29/22 17:19 100 23 128/56 L 90 L 08/29/22 16:50 124 H 112/50 L 97 08/29/22 15:09 112 H 19 117/57 L 98 08/29/22 14:18 37.9 C 110 H 22 98/52 L 94 - Physical Exam General Appearance: positive: No acute distress, Alert (Lanky, prominent rib cage and joint structure with lean body mass), Other (We have no beds so he is in ER gurney #3, with restraints, saying "take me to my house, over and over again) Eyes Bilateral: positive: PERRL, EOMI ENT: positive: No signs of dehydration Neck: positive: No JVD. negative: Stiff neck Respiratory: positive: No respiratory distress. negative: Wheezes, Rales, Rhonchi Cardiovascular: positive: Regular rate & rhythm, Systolic murmur Abdomen: positive: Non-tender Skin: positive: Warm, Dry Extremities: positive: Full ROM, No pedal edema Neurologic/Psychiatric: positive: CN's nml (2-12), Motor nml (With wrist restraints, he does grasp my hands when I check his hand strength. He pulls against restraints symmetrically. Able to lift his legs off the bed.), Disoriented to person, Disoriented to place, Disoriented to time Conclusion/Plan - Problem List (1) Pneumonia Conclusion/Plan: We are treating him as a community-acquired pneumonia in a patient who lives in a healthcare facility. Cefepime is being used as single agent and I will not continue the vancomycin since he has no history of MRSA in the facility is not being reported as having an MRSA problem. Nevertheless in the back of our mind I also have to think about him having a viral pneumonia with RSV. Blood cultures have been done. I have ordered sputum cultures. Plan: Continue cefepime Qualifiers: Pneumonia type: due to unspecified organism Laterality: bilateral Lung location: unspecified part of lung Qualified Code(s): J18.9 - Pneumonia, unspecified organism (2) Chronic atrial fibrillation Conclusion/Plan: He is on Eliquis and metoprolol on the med list. It has not been verified by pharmacy. But I will resume both. Currently his rate is slightly uncontrolled in over 100 but below 120. (3) Acute metabolic encephalopathy Conclusion/Plan: He is described as an alert but disoriented elderly gentleman. Cheerful, walking in the hallways of his facility. What we are seeing is a very muted affect, withdrawn, lethargic. I am assuming this is due to infection. Mild hypoxemia. CT of the head is negative and no subdural bleed. I am hoping that he would improve as his oxygen requirement goes down, and the treatment for his pneumonia improves his lungs (4) COPD without exacerbation Conclusion/Plan: He is on mometasone and formoterol on his list. Will continue with budesonide and Perforomist. (5) Dementia with behavioral disturbance Conclusion/Plan: Unfortunately we have no beds in the hospital tonight. We are admitting the patient with the expectation that we may have some beds tomorrow. He will have to board in the ER. This is probably not the best scenario and his behavior is agitated, confused. ER doctors are ordering some Haldol, and restraints. - Lab Results Lab results reviewed: Yes Fish Bones: 08/29/22 14:40 08/29/22 14:40 Core Measures - Anticipated LOS I expect patient to be DC'd or transferred within 96 hours.: Yes - DVT/VTE - Prophylaxis VTE/DVT Prophylaxis med ordered at admit?: Yes
[2022-08-29] MEDS ORDERED: FORMOTEROL FUMARATE NEB 20 MCG/2 ML INH STA (19:45)
[2022-08-29] MEDS: ALBUTEROL NEB 2.5 MG/3 ML INH SCH (20:32)
[2022-08-29] MEDS: CEFEPIME 2 GM in SODIUM CHLORIDE 0.9% MINIBAG 100 ML IV SCH (20:42)
[2022-08-29] MEDS: SODIUM CHLORIDE 0.9% 1,000 ML IV SCH (20:48)
[2022-08-29] MEDS: METOPROLOL TARTRATE 50 MG TABLET PO SCH (20:48)
[2022-08-29] MEDS: APIXABAN 5 MG TABLET PO SCH (20:48)
[2022-08-29] MEDS ORDERED: CEFEPIME 2 GM in SODIUM CHLORIDE 0.9% MINIBAG 100 ML IV SCH (22:00)
[2022-08-30] MEDS: SODIUM CHLORIDE 0.9% 1,000 ML IV SCH (04:20)
[2022-08-30 07:13] LABS: BASOPHILS % (AUTO) 0.3 %; EOSINOPHILS % (AUTO) 0.1 %; HCT - HEMATOCRIT 37.6 % (42.0-52.0); HGB - HEMOGLOBIN 11.7 g/dL (14.0-18.0); LYMPHOCYTES # (AUTO) 1.3 10^3/uL (1.5-3.5); LYMPHOCYTES % (AUTO) 9.5 %; MEAN CORPUSCULAR HEMOGLOBIN 32.2 pg (27.0-31.0); MEAN CORPUSCULAR HGB CONC 31.1 g/dL (32.0-36.0); MEAN CORPUSCULAR VOLUME 103.6 fL (80.0-94.0); MEAN PLATELET VOLUME 12.8 fL (7.4-11.4); MONOCYTES # (AUTO) 1.4 10^3/uL (0.0-1.0); MONOCYTES % (AUTO) 10.5 %; NEUTROPHILS # (AUTO) 10.5 10^3/uL (1.5-6.6); NEUTROPHILS % (AUTO) 79.4 %; PLT - PLATELET COUNT 65 10^3/uL (130-450); RED BLOOD COUNT 3.63 10^6/uL (4.70-6.10); RED CELL DISTRIBUTION WIDTH 15.9 % (12.0-15.0); WHITE BLOOD COUNT 13.2 x10^3/uL (4.8-10.8)
[2022-08-30 07:26] LABS: ALBUMIN 2.7 g/dL (3.2-5.5); BILIRUBIN,TOTAL 1.9 mg/dL (0.2-1.0); CALCIUM 8.1 mg/dL (8.5-10.3); CREATININE 0.8 mg/dL (0.6-1.2); POTASSIUM 4.5 mmol/L (3.5-5.0); TOTAL PROTEIN 5.5 g/dL (6.7-8.2)
[2022-08-30] MEDS: BUDESONIDE 0.5 MG/2 ML NEB INH SCH ×2 (07:32→19:21)
[2022-08-30] MEDS: ALBUTEROL NEB 2.5 MG/3 ML INH SCH ×2 (07:32→19:20)
[2022-08-30] MEDS ORDERED: DROPERIDOL 5 MG/2 ML VIAL IVP STA (09:39)
[2022-08-30] MEDS: HALOPERIDOL 5 MG/ML VIAL IVP SCH ×3 (09:53→21:29)
[2022-08-30] MEDS ORDERED: LIDOCAINE 2% URO-JET 5 ML SYRINGE UR STA (10:11)
[2022-08-30] MEDS: CEFEPIME 2 GM in SODIUM CHLORIDE 0.9% MINIBAG 100 ML IV SCH ×2 (12:24→21:23)
[2022-08-30] MEDS: APIXABAN 5 MG TABLET PO SCH ×2 (12:38→21:21)
[2022-08-30] MEDS: TAMSULOSIN 0.4 MG CAPSULE PO SCH (12:38)
[2022-08-30] MEDS: METOPROLOL TARTRATE 50 MG TABLET PO SCH ×2 (12:39→21:20)
--- NOTE | 2022-08-30 13:10 | ED Physician Documentation ---
ED Addendum - Addendum Addendum: 08/30/22 13:06 S: Patient is alert though confused. Has not been combative. He is to board in the emergency department pending bed availability to the inpatient wing though at this time I am told it will likely be a number of days. He continues to be treated for community-acquired pneumonia, metabolic encephalopathy as well as his chronic medical conditions that include atrial fibrillation, prostate hypertrophy and COPD. His initial presentation yesterday was that of sepsis with soft blood pressures but following volume resuscitation and antibiotics his blood pressures have normalized and his mentation continues to improve Objective: GEN: alert, confysed CV: rate controlled a-fib; +murmur: 2+ carotid pulses RESP: Generalized rhonchi. Oxygen saturations 92 to 94% on room air. Mild tachypnea in the high 20s. ABD: Generally soft and nontender : Unremarkable male exam for age. Dark socrates urine seen in bedside urinal Neuro: No obvious focal deficits. Glascow of 14 secondary to dementia and confusion Labs: Labs were reviewed today. His white count is mildly elevated at 13 but essentially stable from yesterday. Electrolytes without acute worrisome findings. Renal function remains normal. Vitals: Reviewed. Atrial fibrillation rate controlled. No hypotension or fevers 1. Community-acquired pneumonia. He remains on cefepime. He continues to receive albuterol nebulizers. He was on 2 L nasal cannula overnight. I have asked nursing staff to trial him on room air to reassess hypoxia. Blood cultures obtained yesterday show no growth to date. Sputum cx was ordered. Will repeat CXR in am. 2. Chronic atrial fibrillation. He remains on metoprolol for rate control he remains anticoagulated on Eliquis twice daily 3. Acute metabolic encephalopathy in the setting of dementia. This was likely due to sepsis and pneumonia. His mentation has improved. He is not as agitated or confused as he was yesterday. 4. COPD history. remains on mometasone and formoterol. No wheeze on exam. Does not present with acute exacerbation Plan: Patient will continue to board in the emergency department until an inpatient bed remains available. He will continue to receive antibiotics. I will ask for a PT/OT consult in order to facilitate hopefully discharge within the next 24 to 36 hours if no bed is available. If he continues to do well over the next 24 hours, there is no further hypoxia we may be able to consider transitioning to oral antibiotics and discharge back to his fdc facility/memory care. 08/30/22 13:11
[2022-08-30] MEDS ORDERED: QUEtiapine 25 MG TABLET PO STA (14:22)
[2022-08-30] MEDS ORDERED: ONDANSETRON 4 MG/2 ML VIAL IVP PRN (18:42)
[2022-08-30] MEDS ORDERED: ONDANSETRON ODT 4 MG TABLET TL PRN (18:42)
--- NOTE | 2022-08-30 19:32 | PROVIDER PROGRESS NOTE ---
Assessment/Plan - Problem List (1) CAP (community acquired pneumonia) Assessment/Plan: He had a fever, worsened altered mental status and chest x-ray showed bilateral pneumonia. Continue with empiric IV cefepime. Await for culture results to tailor antibiotics. (2) Chronic atrial fibrillation Conclusion/Plan: Currently his heart rate isrunning 100 -120, possibly from agitation or skipping jis meds. He is on Eliquis and metoprolol on the med list. We will resume both. (3) Acute metabolic encephalopathy Conclusion/Plan: He is described as uaually being an alert but disoriented elderly gentleman. Cheerful, walking in the hallways of his facility. What we are seeing is a very muted affect, withdrawn, lethargic, and at times agitated, probably due to infection. Mild hypoxemia. CT of the head is negative and no subdural bleed was seen. I am hoping that he will improve/return to baseline, as his oxygen stabilizes, and the treatment for his pneumonia improves his lungs (4) COPD without exacerbation Conclusion/Plan: He is on mometasone and formoterol on his list. Will continue with budesonide and Perforomist. (5) Dementia with behavioral disturbance Conclusion/Plan: Unfortunately we have no beds in the hospital still tonight. We are admitting the patient with the expectation that we may have some beds tomorrow. He will h ave to continue boarding in the ER. This is probably not the best scenario and his behavior is agitated, confused. ER doctors are ordering some Haldol, and restraints. - Current Meds Current Meds: Current Medications Generic Name Dose Route Start Last Admin Trade Name Matthew PRN Reason Stop Dose Admin Albuterol 2.5 mg 08/29/22 21:00 08/30/22 19:20 Albuterol Neb 2.5 Mg/3 Ml INH 2.5 mg BID BRANNON Administration Apixaban 5 mg 08/29/22 21:00 08/30/22 12:38 Apixaban 5 Mg Tablet PO 5 mg BID BRANNON Administration Budesonide 0.5 mg 08/30/22 07:00 08/30/22 19:21 Budesonide 0.5 Mg/2 Ml Neb INH 0.5 mg RTBID BRANNON Administration Haloperidol 1 mg 08/30/22 08:01 11/15/22 10:05 Haloperidol 5 Mg/Ml Vial IVP 1 mg BID BRANNON Administration Cefepime HCl 2 gm/ Sodium 100 mls @ 200 mls/hr 08/29/22 21:00 08/30/22 13:36 Chloride IV Infused BID BRANNON Infusion Metoprolol Tartrate 25 mg 08/29/22 21:00 08/30/22 12:39 Metoprolol Tartrate 50 Mg Tablet PO 25 mg BID BRANNON Administration Tamsulosin HCl 0.4 mg 08/30/22 09:00 08/30/22 12:38 Tamsulosin 0.4 Mg Capsule PO 0.4 mg DAILY BRANNON Administration - Lab Result Fish Bone Diagrams: 08/31/22 06:53 08/31/22 06:53 Subjective - Subjective Nursing Reports: Sedated (And in restraints, boarding in the ER until a hosp bed is available) Objective Vital Signs: Vital Signs - 24 hr 08/29/22 08/29/22 08/29/22 20:00 21:58 22:00 Temperature Heart Rate 118 H 90 82 Respiratory 30 H 23 17 Rate Blood Pressure 139/60 H 154/96 H 109/77 O2 Saturation 96 96 97 If not protocol 2 2 : Oxygen Flow, liters/minute 08/29/22 08/30/22 08/30/22 23:00 00:00 00:30 Temperature Heart Rate 95 82 84 Respiratory 12 15 15 Rate Blood Pressure 95/58 L 101/61 112/80 O2 Saturation 96 97 96 If not protocol 2 : Oxygen Flow, liters/minute 08/30/22 08/30/22 08/30/22 01:00 01:30 04:02 Temperature Heart Rate 73 89 79 Respiratory 16 22 19 Rate Blood Pressure 122/109 H 111/60 124/85 H O2 Saturation 95 97 95 If not protocol : Oxygen Flow, liters/minute 08/30/22 08/30/22 08/30/22 06:00 06:03 07:41 Temperature 37.6 C Heart Rate 108 H 78 Respiratory 14 14 21 Rate Blood Pressure 105/59 L 105/59 L O2 Saturation 93 93 If not protocol 2 2 : Oxygen Flow, liters/minute 08/30/22 08/30/22 08/30/22 08:00 10:00 12:00 Temperature 36.5 C Heart Rate 92 87 88 Respiratory 16 24 20 Rate Blood Pressure 105/48 L 108/55 L 115/64 O2 Saturation 93 99 94 If not protocol 2 : Oxygen Flow, liters/minute 08/30/22 08/30/22 08/30/22 14:00 16:00 18:00 Temperature 36.5 C Heart Rate 85 90 90 Respiratory 16 20 22 Rate Blood Pressure 150/90 H 150/90 H 150/90 H O2 Saturation 94 98 96 If not protocol : Oxygen Flow, liters/minute 08/30/22 08/30/22 19:21 19:23 Temperature Heart Rate 100 Respiratory 16 Rate Blood Pressure O2 Saturation If not protocol 3 3 : Oxygen Flow, liters/minute Oxygen O2 Source Nasal cannula I&O (Last 24 Hrs): Intake and Output Totals x24h 08/28/22 08/29/22 08/30/22 23:59 23:59 23:59 Intake Total 2422. Balance 2422. General: Other (sleep) HEENT: Mucous membr. moist/pink Neck: No JVD Neuro: Other (asleep (sedated)) Cardiovascular: No murmurs Respiratory: No respiratory distress Abdomen: Soft Extremities: No clubbing, No edema - Results Results: Laboratory Results WBC 13.2 x10^3/uL (4.8-10.8) H 08/30/22 07:05 RBC 3.63 10^6/uL (4.70-6.10) L 08/30/22 07:05 Hgb 11.7 g/dL (14.0-18.0) L 08/30/22 07:05 Hct 37.6 % (42.0-52.0) L 08/30/22 07:05 MCV 103.6 fL (80.0-94.0) H 08/30/22 07:05 MCH 32.2 pg (27.0-31.0) H 08/30/22 07:05 MCHC 31.1 g/dL (32.0-36.0) L 08/30/22 07:05 RDW 15.9 % (12.0-15.0) H 08/30/22 07:05 Plt Count 65 10^3/uL (130-450) L 08/30/22 07:05 MPV 12.8 fL (7.4-11.4) H 08/30/22 07:05 Neut # (Auto) 10.5 10^3/uL (1.5-6.6) H 08/30/22 07:05 Lymph # (Auto) 1.3 10^3/uL (1.5-3.5) L 08/30/22 07:05 [place] # (Auto) 1.4 10^3/uL (0.0-1.0) H 08/30/22 07:05 Eos # (Auto) 0.0 10^3/uL (0.0-0.7) 08/30/22 07:05 Baso # (Auto) 0.0 10^3/uL (0.0-0.1) 08/30/22 07:05 Absolute Nucleated RBC 0.00 x10^3/uL 08/30/22 07:05 Nucleated RBC % 0.0 /100WBC 08/30/22 07:05 Bld Gas Analysis Time 1609 08/29/22 16:05 Sample Site RIGHT RADIAL 08/29/22 16:05 ABG pH 7.45 (7.35-7.45) 08/29/22 16:05 ABG pCO2 35 mmHg (34-45) 08/29/22 16:05 ABG pO2 53 mmHg (80-100) L* 08/29/22 16:05 ABG HCO3 23.6 mmol/L (22.0-26.0) 08/29/22 16:05 ABG Total CO2 24.7 MMOL/L (21.0-29.0) 08/29/22 16:05 ABG O2 Saturation 90 % (94-98) L 08/29/22 16:05 ABG Base Excess -0.1 mmol/L (-2.0-3.0) 08/29/22 16:05 Yeison Test POSITIVE 08/29/22 16:05 Room Air YES 08/29/22 16:05 Sodium 135 mmol/L (135-145) 08/30/22 07:05 Potassium 4.5 mmol/L (3.5-5.0) 08/30/22 07:05 Chloride 106 mmol/L (101-111) 08/30/22 07:05 Carbon Dioxide 22 mmol/L (21-32) 08/30/22 07:05 Anion Gap 7.0 (6-13) 08/30/22 07:05 BUN 16 mg/dL (6-20) 08/30/22 07:05 Creatinine 0.8 mg/dL (0.6-1.2) 08/30/22 07:05 Estimated GFR (MDRD) 92 (>89) 08/30/22 07:05 Glucose 104 mg/dL (70-100) H 08/30/22 07:05 Lactic Acid 1.5 mmol/L (0.5-2.2) 08/29/22 14:46 Calcium 8.1 mg/dL (8.5-10.3) L 08/30/22 07:05 Total Bilirubin 1.9 mg/dL (0.2-1.0) H 08/30/22 07:05 AST 22 IU/L (10-42) 08/30/22 07:05 ALT 13 IU/L (10-60) 08/30/22 07:05 Alkaline Phosphatase 99 IU/L (42-121) 08/30/22 07:05 Total Protein 5.5 g/dL (6.7-8.2) L 08/30/22 07:05 Albumin 2.7 g/dL (3.2-5.5) L 08/30/22 07:05 Globulin 2.8 g/dL (2.1-4.2) 08/30/22 07:05 Albumin/Globulin Ratio 1.0 (1.0-2.2) 08/30/22 07:05 Lipase 18 U/L (22-51) L 08/30/22 07:05 Urine Color YELLOW 08/29/22 15:00 Urine Clarity CLEAR (CLEAR) 08/29/22 15:00 Urine pH 5.5 PH (5.0-7.5) 08/29/22 15:00 Ur Specific [place] 1.025 (1.002-1.030) 08/29/22 15:00 Urine Protein NEGATIVE mg/dL (NEGATIVE) 08/29/22 15:00 Urine Glucose (UA) NEGATIVE mg/dL (NEGATIVE) 08/29/22 15:00 Urine Ketones 15 mg/dL (NEGATIVE) H 08/29/22 15:00 Urine Occult Blood SMALL (NEGATIVE) H 08/29/22 15:00 Urine Nitrite NEGATIVE (NEGATIVE) 08/29/22 15:00 Urine Bilirubin NEGATIVE (NEGATIVE) 08/29/22 15:00 Urine Urobilinogen 0.2 (NORMAL) E.U./dL (NORMAL) 08/29/22 15:00 Ur Leukocyte Esterase NEGATIVE (NEGATIVE) 08/29/22 15:00 Urine RBC 6-10 /HPF (0-5) H 08/29/22 15:00 Urine WBC 0-3 /HPF (0-3) 08/29/22 15:00 Ur Squamous Epith Cells RARE Squamous (<= Few) 08/29/22 15:00 Urine Bacteria None Seen /HPF (None Seen) 08/29/22 15:00 Urine Culture Comments NOT INDICATED 08/29/22 15:00 Nasal Adenovirus (PCR) NOT DETECTED 08/29/22 15:04 Nasal B. parapertussis DNA (PCR) NOT DETECTED 08/29/22 15:04 Nasal Coronavir 229E PCR NOT DETECTED 08/29/22 15:04 Nasal Coronavir HKU1 PCR NOT DETECTED 08/29/22 15:04 Nasal Coronavir NL63 PCR NOT DETECTED 08/29/22 15:04 Nasal Coronavir OC43 PCR NOT DETECTED 08/29/22 15:04 Nasal Enterovir/Rhinovir PCR NOT DETECTED 08/29/22 15:04 Nasal Influenza B PCR NOT DETECTED 08/29/22 15:04 Nasal Influenza A PCR NOT DETECTED 08/29/22 15:04 Nasal Parainfluen 1 PCR NOT DETECTED 08/29/22 15:04 Nasal Parainfluen 2 PCR NOT DETECTED 08/29/22 15:04 Nasal Parainfluen 3 PCR NOT DETECTED 08/29/22 15:04 Nasal Parainfluen 4 PCR NOT DETECTED 08/29/22 15:04 Nasal RSV (PCR) DETECTED A 08/29/22 15:04 Nasal B.pertussis DNA PCR NOT DETECTED 08/29/22 15:04 Nasal C.pneumoniae (PCR) NOT DETECTED 08/29/22 15:04 Talha Human Metapneumo PCR NOT DETECTED 08/29/22 15:04 Nasal M.pneumoniae (PCR) NOT DETECTED 08/29/22 15:04 Nasal SARS-CoV-2 (PCR) NOT DETECTED 08/29/22 15:04 Blood Type O POSITIVE 08/29/22 17:12 Blood Type Recheck O POSITIVE 08/29/22 14:40 Antibody Screen NEGATIVE 08/29/22 17:12 - Procedures Procedures: Procedures DRAINAGE OF STOMACH WITH DRAINAGE DEVICE, VIA OPENING (06/01/22)
[2022-08-30] MEDS ORDERED: QUEtiapine 25 MG TABLET PO SCH (21:00)
[2022-08-31] MEDS: SODIUM CHLORIDE FLUSH 0.9% 10 ML SYRINGE IVP SCH ×3 (01:24→17:22)
[2022-08-31] MEDS: oxyCODONE 5 MG TABLET PO PRN ×2 (04:41→09:04)
[2022-08-31 07:06] LABS: BASOPHILS % (AUTO) 0.3 %; HCT - HEMATOCRIT 36.8 % (42.0-52.0); HGB - HEMOGLOBIN 12.1 g/dL (14.0-18.0); LYMPHOCYTES # (AUTO) 0.8 10^3/uL (1.5-3.5); LYMPHOCYTES % (AUTO) 10.6 %; MEAN CORPUSCULAR HEMOGLOBIN 32.2 pg (27.0-31.0); MEAN CORPUSCULAR HGB CONC 32.9 g/dL (32.0-36.0); MEAN CORPUSCULAR VOLUME 97.9 fL (80.0-94.0); MEAN PLATELET VOLUME 11.3 fL (7.4-11.4); MONOCYTES # (AUTO) 0.8 10^3/uL (0.0-1.0); MONOCYTES % (AUTO) 10.2 %; NEUTROPHILS # (AUTO) 6.3 10^3/uL (1.5-6.6); NEUTROPHILS % (AUTO) 78.8 %; PLT - PLATELET COUNT 89 10^3/uL (130-450); RED BLOOD COUNT 3.76 10^6/uL (4.70-6.10); RED CELL DISTRIBUTION WIDTH 15.6 % (12.0-15.0); WHITE BLOOD COUNT 7.9 x10^3/uL (4.8-10.8)
[2022-08-31 07:20] LABS: BILIRUBIN,TOTAL 1.5 mg/dL (0.2-1.0); CALCIUM 8.5 mg/dL (8.5-10.3); CREATININE 0.8 mg/dL (0.6-1.2); POTASSIUM 3.4 mmol/L (3.5-5.0); TOTAL PROTEIN 6.1 g/dL (6.7-8.2)
[2022-08-31] MEDS: BUDESONIDE 0.5 MG/2 ML NEB INH SCH (08:21)
[2022-08-31] MEDS: ALBUTEROL NEB 2.5 MG/3 ML INH SCH (08:21)
[2022-08-31] MEDS: HALOPERIDOL 5 MG/ML VIAL IVP SCH (08:44)
[2022-08-31] MEDS: TAMSULOSIN 0.4 MG CAPSULE PO SCH (08:44)
[2022-08-31] MEDS: METOPROLOL TARTRATE 50 MG TABLET PO SCH ×2 (08:44→20:49)
[2022-08-31] MEDS: APIXABAN 5 MG TABLET PO SCH ×3 (08:44→20:49)
--- NOTE | 2022-08-31 09:09 | XRAY Report ---
PROCEDURE: Chest 1 View X-Ray INDICATIONS: chest pain TECHNIQUE: One view of the chest was acquired. COMPARISON: None. FINDINGS: Surgical changes and devices: None. Lungs and pleura: Mildly prominent interstitium. More focal consolidation seen in the left base. Sma ll left pleural effusion. Mediastinum: Mildly prominent heart. Bones and chest wall: No suspicious bony lesions. Overlying soft tissues appear unremarkable. IMPRESSION: Mild diffuse pulmonary opacities, particularly in the left lower lung with a small pleural effusion. This is suspicious for infection. Consider future imaging surveillance to assess for resolution. Cecy moreno with preliminary report. Reviewed by: Justus Gonzales MD on 08/31/2022 9:07 AM [facility] Approved by: Justus Gonzales MD on 08/31/2022 9:07 AM PST Station ID: [id number]
[2022-08-31] MEDS: CEFEPIME 2 GM in SODIUM CHLORIDE 0.9% MINIBAG 100 ML IV SCH ×2 (09:43→20:49)
--- NOTE | 2022-08-31 17:38 | PHARMACY PROGRESS NOTE ---
- Best Possible Medication History Admit Date and Time: 08/31/22 1400 Processed by: Pharmacy Medication History completed: Yes Patient Interview: Completed Secondary Source(s): Facility MAR as ONLY source (goes to [facility] [phone]) As the person ultimately responsible for medication therapy, providers are able to order a medication from an existing home medication list in [facility] via the "Reconcile Routine" prior to Confirmation of that medication by clinical support associate. Such practice is discouraged except when the physician, in their clinical judgment, deems that a medical need exists for a medication without regard to previous use.
--- NOTE | 2022-08-31 18:08 | PROVIDER PROGRESS NOTE ---
Assessment/Plan - Problem List (1) CAP (community acquired pneumonia) Assessment/Plan: He had a fever, worsened altered mental status and chest x-ray showed bilateral pneumonia. Continue with empiric IV cefepime. Await for culture results to tailor antibiotics. (2) Chronic atrial fibrillation Conclusion/Plan: His heart rate is still running 100 -120, possibly from agitation or skipping his usual meds while in the ER. He is on Eliquis and metoprolol on the med list. We will resume both. (3) Acute metabolic encephalopathy Conclusion/Plan: He is described as uaually being an alert but disoriented elderly gentleman. Cheerful, walking in the hallways of his facility. What we are seeing is a very muted affect, withdrawn, lethargic, and at times agitated, probably due to infection. Mild hypoxemia. CT of the head is negative and no subdural bleed was seen. We are hoping that he will improve/return to baseline, as his oxygen stabilizes, and the treatment for his pneumonia improves his lungs, and as his seddatives we ar off (see #5). (4) COPD without exacerbation Conclusion/Plan: He is on mometasone and formoterol on his list. Will continue with budesonide and Perforomist. (5) Dementia with behavioral disturbance Conclusion/Plan: Unfortunately we have no beds in the hospital still tonight. We are admitting the patient with the expectation that we may have some beds tomorrow. He will have to continue boarding in the ER. This is probably not the best scenario and his behavior is agitated, confused. ER doctors are ordering some Haldol, and restraints. Will make the Seroquel and Haldol only as needed agitation - Current Meds Current Meds: Current Medications Generic Name Dose Route Start Last Admin Trade Name Freq PRN Reason Stop Dose Admin Albuterol 2.5 mg 08/29/22 21:00 08/31/22 08:21 Albuterol Neb 2.5 Mg/3 Ml INH 2.5 mg BID BRANNON Administration Apixaban 5 mg 08/29/22 21:00 08/31/22 08:44 Apixaban 5 Mg Tablet PO 5 mg BID BRANNON Administration Budesonide 0.5 mg 08/30/22 07:00 08/31/22 08:21 Budesonide 0.5 Mg/2 Ml Neb INH 0.5 mg RTBID BRANNON Administration Haloperidol 1 mg 08/30/22 08:01 08/31/22 08:44 Haloperidol 5 Mg/Ml Vial IVP 1 mg BID BRANNON Administration Cefepime HCl 2 gm/ Sodium 100 mls @ 200 mls/hr 08/29/22 21:00 08/31/22 10:19 Chloride IV Infused BID BRANNON Infusion Metoprolol Tartrate 25 mg 08/29/22 21:00 08/31/22 08:44 Metoprolol Tartrate 50 Mg Tablet PO 25 mg BID BRANNON Administration Oxycodone HCl 5 mg 08/30/22 18:42 08/31/22 09:04 Oxycodone 5 Mg Tablet PO 5 mg Q4HR PRN Administration Pain 5 to 7 Quetiapine Fumarate 25 mg 08/30/22 21:00 08/30/22 21:20 Quetiapine 25 Mg Tablet PO 25 mg HS BRANNON Administration Sodium Chloride 10 ml 08/31/22 01:00 08/31/22 17:22 Sodium Chloride Flush 0.9% 10 Ml Syringe IVP 10 ml 0100,0900,1700 BRANNON Administration Tamsulosin HCl 0.4 mg 08/30/22 09:00 08/31/22 08:44 Tamsulosin 0.4 Mg Capsule PO 0.4 mg DAILY BRANNON Administration - Lab Result Fish Bone Diagrams: 08/31/22 06:53 08/31/22 06:53 Subjective - Subjective Patient Reports: Other (Asleep, appears comfortable) Objective Vital Signs: Vital Signs - 24 hr 08/30/22 08/30/22 08/30/22 19:21 19:23 20:00 Temperature 36.5 C Heart Rate 100 97 Heart Rate [ Brachial] Heart Rate [ Supine] Respiratory 16 17 Rate Blood Pressure 130/91 H Blood Pressure [Right Brachial artery] Blood Pressure [Supine] O2 Saturation 96 If not protocol 3 3 : Oxygen Flow, liters/minute 08/30/22 08/31/22 08/31/22 22:00 00:00 02:00 Temperature 36.5 C 37.7 C Heart Rate 100 100 89 Heart Rate [ Brachial] Heart Rate [ Supine] Respiratory 22 18 18 Rate Blood Pressure 132/62 H 121/66 125/58 L Blood Pressure [Right Brachial artery] Blood Pressure [Supine] O2 Saturation 96 96 95 If not protocol : Oxygen Flow, liters/minute 08/31/22 08/31/22 08/31/22 04:00 06:00 08:14 Temperature 37.6 C 37.9 C Heart Rate 88 85 78 Heart Rate [ Brachial] Heart Rate [ Supine] Respiratory 18 18 20 Rate Blood Pressure 122/60 148/69 H 109/54 L Blood Pressure [Right Brachial artery] Blood Pressure [Supine] O2 Saturation 94 95 94 If not protocol : Oxygen Flow, liters/minute 08/31/22 08/31/22 08/31/22 08:18 08:46 12:10 Temperature 37.9 C Heart Rate 90 90 Heart Rate [ Brachial] Heart Rate [ 65 Supine] Respiratory 22 22 Rate Blood Pressure 109/54 L Blood Pressure [Right Brachial artery] Blood Pressure 84/54 L [Supine] O2 Saturation 94 If not protocol : Oxygen Flow, liters/minute 08/31/22 08/31/22 08/31/22 14:41 16:00 16:14 Temperature 36.4 C L 37.2 C 37.2 C Heart Rate 110 H Heart Rate [ 107 H Brachial] Heart Rate [ Supine] Respiratory 22 24 24 Rate Blood Pressure 106/58 L Blood Pressure 106/92 H [Right Brachial artery] Blood Pressure [Supine] O2 Saturation 92 92 92 If not protocol : Oxygen Flow, liters/minute Oxygen O2 Source Room air I&O (Last 24 Hrs): Intake and Output Totals x24h 08/29/22 08/30/22 08/31/22 23:59 23:59 23:59 Intake Total 2423.13 2141.667 100 Output Total 775 Balance 2423.13 2141.667 -675 General: Other (Sedated. Tall lanky, elderly male) HEENT: Mucous membr. moist/pink Neck: No JVD Neuro: Other (sedated) Cardiovascular: No murmurs Respiratory: No respiratory distress, Breath sounds nml Abdomen: Soft, No tenderness Extremities: No clubbing, No edema - Results Results: Laboratory Results WBC 7.9 x10^3/uL (4.8-10.8) 08/31/22 06:53 RBC 3.76 10^6/uL (4.70-6.10) L 08/31/22 06:53 Hgb 12.1 g/dL (14.0-18.0) L 08/31/22 06:53 Hct 36.8 % (42.0-52.0) L 08/31/22 06:53 MCV 97.9 fL (80.0-94.0) H 08/31/22 06:53 MCH 32.2 pg (27.0-31.0) H 08/31/22 06:53 MCHC 32.9 g/dL (32.0-36.0) 08/31/22 06:53 RDW 15.6 % (12.0-15.0) H 08/31/22 06:53 Plt Count 89 10^3/uL (130-450) L 08/31/22 06:53 MPV 11.3 fL (7.4-11.4) 08/31/22 06:53 Neut # (Auto) 6.3 10^3/uL (1.5-6.6) 08/31/22 06:53 Lymph # (Auto) 0.8 10^3/uL (1.5-3.5) L 08/31/22 06:53 [place] # (Auto) 0.8 10^3/uL (0.0-1.0) 08/31/22 06:53 Eos # (Auto) 0.0 10^3/uL (0.0-0.7) 08/31/22 06:53 Baso # (Auto) 0.0 10^3/uL (0.0-0.1) 08/31/22 06:53 Absolute Nucleated RBC 0.00 x10^3/uL 08/31/22 06:53 Nucleated RBC % 0.0 /100WBC 08/31/22 06:53 Bld Gas Analysis Time 1609 08/29/22 16:05 Sample Site RIGHT RADIAL 08/29/22 16:05 ABG pH 7.45 (7.35-7.45) 08/29/22 16:05 ABG pCO2 35 mmHg (34-45) 08/29/22 16:05 ABG pO2 53 mmHg (80-100) L* 08/29/22 16:05 ABG HCO3 23.6 mmol/L (22.0-26.0) 08/29/22 16:05 ABG Total CO2 24.7 MMOL/L (21.0-29.0) 08/29/22 16:05 ABG O2 Saturation 90 % (94-98) L 08/29/22 16:05 ABG Base Excess -0.1 mmol/L (-2.0-3.0) 08/29/22 16:05 Yeison Test POSITIVE 08/29/22 16:05 Room Air YES 08/29/22 16:05 Sodium 138 mmol/L (135-145) 08/31/22 06:53 Potassium 3.4 mmol/L (3.5-5.0) L 08/31/22 06:53 Chloride 106 mmol/L (101-111) 08/31/22 06:53 Carbon Dioxide 22 mmol/L (21-32) 08/31/22 06:53 Anion Gap 10.0 (6-13) 08/31/22 06:53 BUN 18 mg/dL (6-20) 08/31/22 06:53 Creatinine 0.8 mg/dL (0.6-1.2) 08/31/22 06:53 Estimated GFR (MDRD) 92 (>89) 08/31/22 06:53 Glucose 104 mg/dL (70-100) H 08/31/22 06:53 Lactic Acid 1.5 mmol/L (0.5-2.2) 08/29/22 14:46 Calcium 8.5 mg/dL (8.5-10.3) 08/31/22 06:53 Total Bilirubin 1.5 mg/dL (0.2-1.0) H 08/31/22 06:53 AST 20 IU/L (10-42) 08/31/22 06:53 ALT 16 IU/L (10-60) 08/31/22 06:53 Alkaline Phosphatase 95 IU/L (42-121) 08/31/22 06:53 Total Protein 6.1 g/dL (6.7-8.2) L 08/31/22 06:53 Albumin 3.0 g/dL (3.2-5.5) L 08/31/22 06:53 Globulin 3.1 g/dL (2.1-4.2) 08/31/22 06:53 Albumin/Globulin Ratio 1.0 (1.0-2.2) 08/31/22 06:53 Lipase 20 U/L (22-51) L 08/31/22 06:53 Urine Color YELLOW 08/29/22 15:00 Urine Clarity CLEAR (CLEAR) 08/29/22 15:00 Urine pH 5.5 PH (5.0-7.5) 08/29/22 15:00 Ur Specific [place] 1.025 (1.002-1.030) 08/29/22 15:00 Urine Protein NEGATIVE mg/dL (NEGATIVE) 08/29/22 15:00 Urine Glucose (UA) NEGATIVE mg/dL (NEGATIVE) 08/29/22 15:00 Urine Ketones 15 mg/dL (NEGATIVE) H 08/29/22 15:00 Urine Occult Blood SMALL (NEGATIVE) H 08/29/22 15:00 Urine Nitrite NEGATIVE (NEGATIVE) 08/29/22 15:00 Urine Bilirubin NEGATIVE (NEGATIVE) 08/29/22 15:00 Urine Urobilinogen 0.2 (NORMAL) E.U./dL (NORMAL) 08/29/22 15:00 Ur Leukocyte Esterase NEGATIVE (NEGATIVE) 08/29/22 15:00 Urine RBC 6-10 /HPF (0-5) H 08/29/22 15:00 Urine WBC 0-3 /HPF (0-3) 08/29/22 15:00 Ur Squamous Epith Cells RARE Squamous (<= Few) 08/29/22 15:00 Urine Bacteria None Seen /HPF (None Seen) 08/29/22 15:00 Urine Culture Comments NOT INDICATED 08/29/22 15:00 Nasal Adenovirus (PCR) NOT DETECTED 08/29/22 15:04 Nasal B. parapertussis DNA (PCR) NOT DETECTED 08/29/22 15:04 Nasal Coronavir 229E PCR NOT DETECTED 08/29/22 15:04 Nasal Coronavir HKU1 PCR NOT DETECTED 08/29/22 15:04 Nasal Coronavir NL63 PCR NOT DETECTED 08/29/22 15:04 Nasal Coronavir OC43 PCR NOT DETECTED 08/29/22 15:04 Nasal Enterovir/Rhinovir PCR NOT DETECTED 08/29/22 15:04 Nasal Influenza B PCR NOT DETECTED 08/29/22 15:04 Nasal Influenza A PCR NOT DETECTED 08/29/22 15:04 Nasal Parainfluen 1 PCR NOT DETECTED 08/29/22 15:04 Nasal Parainfluen 2 PCR NOT DETECTED 08/29/22 15:04 Nasal Parainfluen 3 PCR NOT DETECTED 08/29/22 15:04 Nasal Parainfluen 4 PCR NOT DETECTED 08/29/22 15:04 Nasal RSV (PCR) DETECTED A 08/29/22 15:04 Nasal B.pertussis DNA PCR NOT DETECTED 08/29/22 15:04 Nasal C.pneumoniae (PCR) NOT DETECTED 08/29/22 15:04 [place] Human Metapneumo PCR NOT DETECTED 08/29/22 15:04 Nasal M.pneumoniae (PCR) NOT DETECTED 08/29/22 15:04 Nasal SARS-CoV-2 (PCR) NOT DETECTED 08/29/22 15:04 Blood Type O POSITIVE 08/29/22 17:12 Blood Type Recheck O POSITIVE 08/29/22 14:40 Antibody Screen NEGATIVE 08/29/22 17:12 - Procedures Procedures: Procedures DRAINAGE OF STOMACH WITH DRAINAGE DEVICE, VIA OPENING (06/01/22)
[2022-08-31] MEDS ORDERED: SENNA 8.6 MG TABLET PO PRN (18:50)
[2022-08-31] MEDS ORDERED: ALBUTEROL NEB 2.5 MG/3 ML INH PRN (18:50)
[2022-08-31] MEDS ORDERED: DOCUSATE SODIUM 250 MG CAPSULE PO PRN (18:50)
[2022-08-31] MEDS ORDERED: LIDOCAINE PATCH 5% TOP PRN (18:50)
[2022-08-31] MEDS ORDERED: QUEtiapine 25 MG TABLET PO PRN (18:52)
[2022-08-31] MEDS ORDERED: HALOPERIDOL 5 MG/ML VIAL IVP PRN (18:52)
[2022-08-31] MEDS ORDERED: MOMETASONE INH SCH (21:00)
[2022-08-31] MEDS ORDERED: [UNRECOGNIZED DRUG - OTHER] INH SCH (21:00)
[2022-08-31] MEDS ORDERED: FORMOTEROL INH SCH (21:00)
[2022-09-01] MEDS: SODIUM CHLORIDE FLUSH 0.9% 10 ML SYRINGE IVP SCH ×4 (01:00→23:49)
[2022-09-01] MEDS: FORMOTEROL FUMARATE NEB 20 MCG/2 ML INH SCH ×4 (06:18→19:30)
[2022-09-01] MEDS: BUDESONIDE 0.5 MG/2 ML NEB INH SCH ×3 (06:18→19:30)
[2022-09-01] MEDS: ALBUTEROL NEB 2.5 MG/3 ML INH SCH ×3 (06:20→19:30)
[2022-09-01] MEDS: TAMSULOSIN 0.4 MG CAPSULE PO SCH ×3 (08:17→09:08)
[2022-09-01] MEDS: METOPROLOL TARTRATE 50 MG TABLET PO SCH ×2 (08:17→20:42)
[2022-09-01] MEDS: APIXABAN 5 MG TABLET PO SCH ×2 (08:18→20:39)
[2022-09-01] MEDS: CEFEPIME 2 GM in SODIUM CHLORIDE 0.9% MINIBAG 100 ML IV SCH ×2 (08:19→20:39)
[2022-09-01] MEDS: oxyCODONE 5 MG TABLET PO PRN ×2 (09:16→23:49)
[2022-09-01] MEDS ORDERED: MAGNESIUM HYDROXIDE 2,400 MG/30 ML UDC PO PRN (11:03)
[2022-09-01] MEDS ORDERED: oxyCODONE 5 MG TABLET PO PRN (11:03)
[2022-09-01] MEDS ORDERED: fentaNYL 25 MCG PATCH TOP SCH (12:00)
[2022-09-01] MEDS ORDERED: fentaNYL 12 MCG PATCH TOP SCH (12:00)
--- NOTE | 2022-09-01 15:36 | PROVIDER PROGRESS NOTE ---
Assessment/Plan - Problem List (1) CAP (community acquired pneumonia) Assessment/Plan: He had a fever at the [place], worsened altered mental status and chest x-ray showed bilateral pneumonia. Continue with empiric IV cefepime and expectorants. Await for culture results to tailor antibiotics. (2) Chronic atrial fibrillation Conclusion/Plan: His heart rate is improving, lower than 100 -120, which was possibly from agitation or skipping his usual meds while in the ER. He is on Eliquis and metoprolol on the med list. We have resumeed both. (3) Acute metabolic encephalopathy Conclusion/Plan: He is described as usually being an alert but disoriented elderly gentleman. Cheerful, walking in the hallways of his facility, chatting alot. What we are seeing is a very muted affect, withdrawn, lethargic, and at times agitated, pro bably due to infection. Mild hypoxemia was present. CT of the head is negative and no subdural bleed was seen. We are hoping that he will improve/return to baseline, as his oxygen stabilizes, and the treatment for his pneumonia improves his lungs, and as his sedatives wear off (see #5). (4) COPD without exacerbation Conclusion/Plan: He is on mometasone and formoterol on his list. Will continue with budesonide and Perforomist. (5) Dementia with behavioral disturbance Conclusion/Plan: Unfortunately we had no beds in the hospital when he came to ER, so he had to boardi in the ER. This was probably not the best location for him, since his behavior was agitated, confused. ER doctors were ordering Haldol, Seroquel and restraints. We made the Seroquel and Haldol only as needed agitation, since he is still ra ther sleepy. - Current Meds Current Meds: Current Medications Generic Name Dose Route Start Last Admin Trade Name Freq PRN Reason Stop Dose Admin Albuterol 2.5 mg 08/29/22 21:00 09/01/22 07:18 Albuterol Neb 2.5 Mg/3 Ml INH 2.5 mg BID BRANNON Administration Apixaban 5 mg 08/31/22 21:00 09/01/22 08:18 Apixaban 5 Mg Tablet PO 5 mg BID BRANNON Administration Budesonide 0.5 mg 08/31/22 19:00 09/01/22 07:18 Budesonide 0.5 Mg/2 Ml Neb INH 0.5 mg RTBID BRANNON Administration Fentanyl 1 patch 09/01/22 12:00 09/01/22 13:39 Fentanyl 25 Mcg Patch TOP 1 patch Q3D BRANNON Administration Fentanyl 1 patch 09/01/22 12:00 09/01/22 13:39 Fentanyl 12 Mcg Patch TOP 1 patch Q3D BRANNON Administration Formoterol Fumarate 20 mcg 08/31/22 19:00 09/01/22 07:17 Formoterol Fumarate Neb 20 Mcg/2 Ml INH 20 mcg RTBID BRANNON Administration Cefepime HCl 2 gm/ Sodium 100 mls @ 200 mls/hr 08/29/22 21:00 09/01/22 09:08 Chloride IV Infused BID BRANNON Infusion Lidocaine 1 patch 08/31/22 18:50 09/01/22 09:24 Lidocaine Patch 5% TOP 1 patch DAILY PRN Administration pain Metoprolol Tartrate 25 mg 08/29/22 21:00 09/01/22 08:17 Metoprolol Tartrate 50 Mg Tablet PO 25 mg BID BRANNON Administration Oxycodone HCl 5 mg 08/30/22 18:42 09/01/22 09:16 Oxycodone 5 Mg Tablet PO 5 mg Q4HR PRN Administration Pain 5 to 7 Sodium Chloride 10 ml 08/31/22 01:00 09/01/22 08:22 Sodium Chloride Flush 0.9% 10 Ml Syringe IVP 10 ml 0100,0900,1700 BRANNON Administration Tamsulosin HCl 0.4 mg 09/01/22 09:00 09/01/22 09:08 Tamsulosin 0.4 Mg Capsule PO Not Given DAILY BRANNON - Lab Result Fish Bone Diagrams: 08/31/22 06:53 08/31/22 06:53 - Additional Planning My Orders: My Active Orders 08/31/22 18:50 Albuterol 2.5 mg INH Q4H PRN Docusate Sodium 250Mg Capsule [Colace 250Mg Capsule] 250 mg PO DAILY PRN Lidocaine Patch 5% [Lidoderm Patch] 1 patch TOP DAILY PRN Senna [Senokot] 8.6 mg PO DAILY PRN 08/31/22 18:51 Resp Teach Nebulizer/MDI [RC] .ONCE 08/31/22 18:52 Haloperidol Inj [Haldol Inj] 1 mg IVP BID PRN QUEtiapine [SEROquel] 25 mg PO HS PRN 08/31/22 19:00 Budesonide [Pulmicort] 0.5 mg INH RTBID Formoterol Fumarate [Perforomist] 20 mcg INH RTBID 08/31/22 21:00 Apixaban [Eliquis] 5 mg PO BID 09/01/22 09:00 Tamsulosin [Flomax] 0.4 mg PO DAILY 09/01/22 11:03 Magnesium Hydroxide [Milk of Magnesia] 400 mg PO PRN PRN oxyCODONE [Roxicodone] 5 mg PO Q8H PRN 09/01/22 12:00 fentaNYL 12 MCG PATCH [Duragesic] 1 patch TOP Q3D fentaNYL 25 MCG PATCH [Duragesic] 1 patch TOP Q3D 09/02/22 09:00 Calcitonin [Fortical] 1 sprays TIFFANIE DAILY Subjective - Subjective Patient Reports: Resting Comfortably Objective Vital Signs: Vital Signs - 24 hr 08/31/22 08/31/22 08/31/22 16:00 16:14 16:19 Temperature 37.2 C 37.2 C Heart Rate Heart Rate [ 107 H Brachial] Respiratory 24 24 Rate Blood Pressure Blood Pressure 106/92 H [Right Brachial artery] O2 Saturation 92 92 If not protocol 3 : Oxygen Flow, liters/minute 08/31/22 09/01/22 09/01/22 18:00 01:20 07:23 Temperature 36.4 C L Heart Rate 84 Heart Rate [ 84 Brachial] Respiratory 18 20 Rate Blood Pressure Blood Pressure 105/64 [Right Brachial artery] O2 Saturation 92 If not protocol 2 2.5 2 : Oxygen Flow, liters/minute 09/01/22 09/01/22 08:10 08:17 Temperature 36.3 C L Heart Rate Heart Rate [ 109 H Brachial] Respiratory 18 Rate Blood Pressure 108/76 Blood Pressure 108/76 [Right Brachial artery] O2 Saturation 93 If not protocol 2.5 : Oxygen Flow, liters/minute Oxygen O2 Source Nasal cannula I&O (Last 24 Hrs): Intake and Output Totals x24h 08/30/22 08/31/22 09/01/22 23:59 23:59 23:59 Intake Total 2141.667 200 540 Output Total 1050 550 Balance 2141.667 -850 -10 General: Other (Asleep. Tall lanky WM.) HEENT: Mucous membr. moist/pink Neck: No JVD Neuro: Other (Sedated) Cardiovascular: No murmurs Respiratory: No respiratory distress Abdomen: Soft, No tenderness Extremities: No clubbing, No edema - Results Results: Laboratory Results WBC 7.9 x10^3/uL (4.8-10.8) 08/31/22 06:53 RBC 3.76 10^6/uL (4.70-6.10) L 08/31/22 06:53 Hgb 12.1 g/dL (14.0-18.0) L 08/31/22 06:53 Hct 36.8 % (42.0-52.0) L 08/31/22 06:53 MCV 97.9 fL (80.0-94.0) H 08/31/22 06:53 MCH 32.2 pg (27.0-31.0) H 08/31/22 06:53 MCHC 32.9 g/dL (32.0-36.0) 08/31/22 06:53 RDW 15.6 % (12.0-15.0) H 08/31/22 06:53 Plt Count 89 10^3/uL (130-450) L 08/31/22 06:53 MPV 11.3 fL (7.4-11.4) 08/31/22 06:53 Neut # (Auto) 6.3 10^3/uL (1.5-6.6) 08/31/22 06:53 Lymph # (Auto) 0.8 10^3/uL (1.5-3.5) L 08/31/22 06:53 [place] # (Auto) 0.8 10^3/uL (0.0-1.0) 08/31/22 06:53 Eos # (Auto) 0.0 10^3/uL (0.0-0.7) 08/31/22 06:53 Baso # (Auto) 0.0 10^3/uL (0.0-0.1) 08/31/22 06:53 Absolute Nucleated RBC 0.00 x10^3/uL 08/31/22 06:53 Nucleated RBC % 0.0 /100WBC 08/31/22 06:53 Bld Gas Analysis Time 1609 08/29/22 16:05 Sample Site RIGHT RADIAL 08/29/22 16:05 ABG pH 7.45 (7.35-7.45) 08/29/22 16:05 ABG pCO2 35 mmHg (34-45) 08/29/22 16:05 ABG pO2 53 mmHg (80-100) L* 08/29/22 16:05 ABG HCO3 23.6 mmol/L (22.0-26.0) 08/29/22 16:05 ABG Total CO2 24.7 MMOL/L (21.0-29.0) 08/29/22 16:05 ABG O2 Saturation 90 % (94-98) L 08/29/22 16:05 ABG Base Excess -0.1 mmol/L (-2.0-3.0) 08/29/22 16:05 Yeison Test POSITIVE 08/29/22 16:05 Room Air YES 08/29/22 16:05 Sodium 138 mmol/L (135-145) 08/31/22 06:53 Potassium 3.4 mmol/L (3.5-5.0) L 08/31/22 06:53 Chloride 106 mmol/L (101-111) 08/31/22 06:53 Carbon Dioxide 22 mmol/L (21-32) 08/31/22 06:53 Anion Gap 10.0 (6-13) 08/31/22 06:53 BUN 18 mg/dL (6-20) 08/31/22 06:53 Creatinine 0.8 mg/dL (0.6-1.2) 08/31/22 06:53 Estimated GFR (MDRD) 92 (>89) 08/31/22 06:53 Glucose 104 mg/dL (70-100) H 08/31/22 06:53 Lactic Acid 1.5 mmol/L (0.5-2.2) 08/29/22 14:46 Calcium 8.5 mg/dL (8.5-10.3) 08/31/22 06:53 Total Bilirubin 1.5 mg/dL (0.2-1.0) H 08/31/22 06:53 AST 20 IU/L (10-42) 08/31/22 06:53 ALT 16 IU/L (10-60) 08/31/22 06:53 Alkaline Phosphatase 95 IU/L (42-121) 08/31/22 06:53 Total Protein 6.1 g/dL (6.7-8.2) L 08/31/22 06:53 Albumin 3.0 g/dL (3.2-5.5) L 08/31/22 06:53 Globulin 3.1 g/dL (2.1-4.2) 08/31/22 06:53 Albumin/Globulin Ratio 1.0 (1.0-2.2) 08/31/22 06:53 Lipase 20 U/L (22-51) L 08/31/22 06:53 Urine Color YELLOW 08/29/22 15:00 Urine Clarity CLEAR (CLEAR) 08/29/22 15:00 Urine pH 5.5 PH (5.0-7.5) 08/29/22 15:00 Ur Specific [place] 1.025 (1.002-1.030) 08/29/22 15:00 Urine Protein NEGATIVE mg/dL (NEGATIVE) 08/29/22 15:00 Urine Glucose (UA) NEGATIVE mg/dL (NEGATIVE) 08/29/22 15:00 Urine Ketones 15 mg/dL (NEGATIVE) H 08/29/22 15:00 Urine Occult Blood SMALL (NEGATIVE) H 08/29/22 15:00 Urine Nitrite NEGATIVE (NEGATIVE) 08/29/22 15:00 Urine Bilirubin NEGATIVE (NEGATIVE) 08/29/22 15:00 Urine Urobilinogen 0.2 (NORMAL) E.U./dL (NORMAL) 08/29/22 15:00 Ur Leukocyte Esterase NEGATIVE (NEGATIVE) 08/29/22 15:00 Urine RBC 6-10 /HPF (0-5) H 08/29/22 15:00 Urine WBC 0-3 /HPF (0-3) 08/29/22 15:00 Ur Squamous Epith Cells RARE Squamous (<= Few) 08/29/22 15:00 Urine Bacteria None Seen /HPF (None Seen) 08/29/22 15:00 Urine Culture Comments NOT INDICATED 08/29/22 15:00 Nasal Adenovirus (PCR) NOT DETECTED 08/29/22 15:04 Nasal B. parapertussis DNA (PCR) NOT DETECTED 08/29/22 15:04 Nasal Coronavir 229E PCR NOT DETECTED 08/29/22 15:04 Nasal Coronavir HKU1 PCR NOT DETECTED 08/29/22 15:04 Nasal Coronavir NL63 PCR NOT DETECTED 08/29/22 15:04 Nasal Coronavir OC43 PCR NOT DETECTED 08/29/22 15:04 Nasal Enterovir/Rhinovir PCR NOT DETECTED 08/29/22 15:04 Nasal Influenza B PCR NOT DETECTED 08/29/22 15:04 Nasal Influenza A PCR NOT DETECTED 08/29/22 15:04 Nasal Parainfluen 1 PCR NOT DETECTED 08/29/22 15:04 Nasal Parainfluen 2 PCR NOT DETECTED 08/29/22 15:04 Nasal Parainfluen 3 PCR NOT DETECTED 08/29/22 15:04 Nasal Parainfluen 4 PCR NOT DETECTED 08/29/22 15:04 Nasal RSV (PCR) DETECTED A 08/29/22 15:04 Nasal B.pertussis DNA PCR NOT DETECTED 08/29/22 15:04 Nasal C.pneumoniae (PCR) NOT DETECTED 08/29/22 15:04 [place] Human Metapneumo PCR NOT DETECTED 08/29/22 15:04 Nasal M.pneumoniae (PCR) NOT DETECTED 08/29/22 15:04 Nasal SARS-CoV-2 (PCR) NOT DETECTED 08/29/22 15:04 Blood Type O POSITIVE 08/29/22 17:12 Blood Type Recheck O POSITIVE 08/29/22 14:40 Antibody Screen NEGATIVE 08/29/22 17:12 - Procedures Procedures: Procedures DRAINAGE OF STOMACH WITH DRAINAGE DEVICE, VIA OPENING (06/01/22)
[2022-09-02] MEDS: ALBUTEROL NEB 2.5 MG/3 ML INH SCH ×2 (07:20→20:15)
[2022-09-02] MEDS: BUDESONIDE 0.5 MG/2 ML NEB INH SCH ×2 (07:20→20:15)
[2022-09-02] MEDS: FORMOTEROL FUMARATE NEB 20 MCG/2 ML INH SCH ×2 (07:20→20:15)
[2022-09-02] MEDS: TAMSULOSIN 0.4 MG CAPSULE PO SCH (08:30)
[2022-09-02] MEDS: SODIUM CHLORIDE FLUSH 0.9% 10 ML SYRINGE IVP SCH ×2 (08:30→16:57)
[2022-09-02] MEDS: APIXABAN 5 MG TABLET PO SCH ×2 (08:30→20:41)
[2022-09-02] MEDS: CEFEPIME 2 GM in SODIUM CHLORIDE 0.9% MINIBAG 100 ML IV SCH ×2 (08:30→20:44)
[2022-09-02] MEDS: MULTIVITAMIN W/MINERALS TABLET PO SCH (08:30)
[2022-09-02] MEDS: METOPROLOL TARTRATE 50 MG TABLET PO SCH ×2 (08:31→20:44)
[2022-09-02] MEDS: CALCITONIN NASAL SPRAY NAS SCH (08:45)
[2022-09-02] MEDS: ACETAMINOPHEN 325 MG TABLET PO PRN ×2 (08:46→16:57)
[2022-09-02] MEDS: oxyCODONE 5 MG TABLET PO PRN ×2 (08:46→16:57)
--- NOTE | 2022-09-02 16:22 | PROVIDER PROGRESS NOTE ---
Assessment/Plan - Problem List (1) CAP (community acquired pneumonia) Assessment/Plan: He had a fever at the SD, worsened altered mental status and chest x-ray showed bilateral pneumonia. Continue with empiric IV cefepime and expectorants. Await for culture results to tailor antibiotics. (2) Chronic atrial fibrillation Conclusion/Plan: His heart rate is improving, lower than 100 -120, which was possibly from agitation or skipping his usual meds while in the ER. He is on Eliquis and metoprolol on the med list. We have resumed both. (3) Acute metabolic encephalopathy Conclusion/Plan: He is described as usually being an alert but disoriented elderly gentleman. Cheerful, NOT walking in the hallways, but using a wheelchair to get around his facility, chatting alot. What we are seeing is a very muted affect, lethargic, and was agitated when in ED, probably due to infection and noise in ED. Mild hypoxemia was present. CT of the head is negative and no subdural bleed was seen. We are hoping that he will improve/return to baseline, as his oxygen stabilizes, and the treatment for his pneumonia improves his lungs, and as his sedatives wear off (see #5). (4) COPD without exacerbation Conclusion/Plan: He is on mometasone and formoterol on his list. We continued with budesonide and Perforomist. (5) Dementia with behavioral disturbance Conclusion/Plan: Unfortunately we had no beds in the hospital when he came to ER, so he had to boardi in the ER. This was probably not the best location for him, since his behavior was agitated, confused. ER doctors were ordering Haldol, Seroquel and restraints. We made the Seroquel and Haldol only as needed for agitation, since he is still rather sleepy. (6) Physical deconditioning He will need PT and OT, as per evaluations. - Current Meds Current Meds: Current Medications Generic Name Dose Route Start Last Admin Trade Name Freq PRN Reason Stop Dose Admin Acetaminophen 650 mg 08/30/22 18:42 09/02/22 08:46 Acetaminophen 325 Mg Tablet PO 650 mg Q4HR PRN Administration Pain 1 to 4, or Fever Albuterol 2.5 mg 08/29/22 21:00 09/02/22 07:20 Albuterol Neb 2.5 Mg/3 Ml INH 2.5 mg BID BRANNON Administration Apixaban 5 mg 08/31/22 21:00 09/02/22 08:30 Apixaban 5 Mg Tablet PO 5 mg BID BRANNON Administration Budesonide 0.5 mg 08/31/22 19:00 09/02/22 07:20 Budesonide 0.5 Mg/2 Ml Neb INH 0.5 mg RTBID BRANNON Administration Calcitonin [place] 1 sprays 09/02/22 09:00 09/02/22 08:45 Calcitonin Nasal [place] TIFFANIE 1 spr DAILY BRANNON Administration Fentanyl 1 patch 09/01/22 12:00 09/01/22 13:39 Fentanyl 25 Mcg Patch TOP 1 patch Q3D BRANNON Administration Fentanyl 1 patch 09/01/22 12:00 09/01/22 13:39 Fentanyl 12 Mcg Patch TOP 1 patch Q3D BRANNON Administration Formoterol Fumarate 20 mcg 08/31/22 19:00 09/02/22 07:20 Formoterol Fumarate Neb 20 Mcg/2 Ml INH 20 mcg RTBID BRANNON Administration Cefepime HCl 2 gm/ Sodium 100 mls @ 200 mls/hr 08/29/22 21:00 09/02/22 09:25 Chloride IV Infused BID BRANNON Infusion Lidocaine 1 patch 08/31/22 18:50 09/01/22 09:24 Lidocaine Patch 5% TOP 1 patch DAILY PRN Administration pain Metoprolol Tartrate 25 mg 08/29/22 21:00 09/02/22 08:31 Metoprolol Tartrate 50 Mg Tablet PO 25 mg BID BRANNON Administration Multivitamins/Minerals 1 tab 09/02/22 08:00 09/02/22 08:30 Multivitamin W/Minerals Tablet PO 1 tab DAILYWM BRANNON Administration Oxycodone HCl 5 mg 08/30/22 18:42 09/02/22 08:46 Oxycodone 5 Mg Tablet PO 5 mg Q4HR PRN Administration Pain 5 to 7 Sodium Chloride 10 ml 08/31/22 01:00 09/02/22 08:30 Sodium Chloride Flush 0.9% 10 Ml Syringe IVP 10 ml 0100,0900,1700 BRANNON Administration Tamsulosin HCl 0.4 mg 09/01/22 09:00 09/02/22 08:30 Tamsulosin 0.4 Mg Capsule PO 0.4 mg DAILY BRANNON Administration - Lab Result Fish Bone Diagrams: 08/31/22 06:53 08/31/22 06:53 - Additional Planning My Orders: My Active Orders 09/02/22 08:00 Multivitamin W/Minerals [Theragran M] 1 tab PO DAILYWM 09/02/22 09:00 Calcitonin [Fortical] 1 sprays TIFFANIE DAILY 09/02/22 14:48 Miscellaenous Nursing Order [RC] QSHIFT 09/03/22 Breakfast Regular Diet [DIET] 09/03/22 05:00 BMP - BASIC METABOLIC PANEL [CHEM] DAILYLAB CBC - COMP BLD CT W/AUTO DIFF [HEME] DAILYLAB Subjective - Subjective Patient Reports: Resting Comfortably Objective Vital Signs: Vital Signs - 24 hr 09/01/22 09/01/22 09/01/22 19:30 20:42 23:39 Temperature 36.5 C Heart Rate 84 Heart Rate [ 71 Brachial] Respiratory 20 24 Rate Blood Pressure 116/47 L Blood Pressure 121/86 H [Right Brachial artery] O2 Saturation 93 If not protocol 2 2 : Oxygen Flow, liters/minute 09/02/22 09/02/22 09/02/22 07:23 08:00 08:31 Temperature 36.3 C L Heart Rate 78 Heart Rate [ 90 Brachial] Respiratory 18 22 Rate Blood Pressure 110/67 Blood Pressure 110/67 [Right Brachial artery] O2 Saturation 91 L If not protocol : Oxygen Flow, liters/minute 09/02/22 09/02/22 09/02/22 08:32 10:40 15:37 Temperature 36.6 C Heart Rate Heart Rate [ 87 Brachial] Respiratory 20 Rate Blood Pressure Blood Pressure [Right Brachial artery] O2 Saturation 93 91 L 93 If not protocol : Oxygen Flow, liters/minute 09/02/22 15:44 Temperature Heart Rate Heart Rate [ Brachial] Respiratory Rate Blood Pressure Blood Pressure 106/69 [Right Brachial artery] O2 Saturation If not protocol : Oxygen Flow, liters/minute Oxygen O2 Source Room air I&O (Last 24 Hrs): Intake and Output Totals x24h 08/31/22 09/01/22 09/02/22 23:59 23:59 23:59 Intake Total 200 1020 480 Output Total 1050 775 500 Balance -850 245 -20 General: Other (Asleep. Tall, lanky, elderly WM.) HEENT: Mucous membr. moist/pink Neck: Supple, No JVD Neuro: Alert (awoke to eat breakfast), Disoriented Cardiovascular: No murmurs Respiratory: No respiratory distress Abdomen: Soft Extremities: No clubbing, No edema - Results Results: Laboratory Results WBC 7.9 x10^3/uL (4.8-10.8) 08/31/22 06:53 RBC 3.76 10^6/uL (4.70-6.10) L 08/31/22 06:53 Hgb 12.1 g/dL (14.0-18.0) L 08/31/22 06:53 Hct 36.8 % (42.0-52.0) L 08/31/22 06:53 MCV 97.9 fL (80.0-94.0) H 08/31/22 06:53 MCH 32.2 pg (27.0-31.0) H 08/31/22 06:53 MCHC 32.9 g/dL (32.0-36.0) 08/31/22 06:53 RDW 15.6 % (12.0-15.0) H 08/31/22 06:53 Plt Count 89 10^3/uL (130-450) L 08/31/22 06:53 MPV 11.3 fL (7.4-11.4) 08/31/22 06:53 Neut # (Auto) 6.3 10^3/uL (1.5-6.6) 08/31/22 06:53 Lymph # (Auto) 0.8 10^3/uL (1.5-3.5) L 08/31/22 06:53 [place] # (Auto) 0.8 10^3/uL (0.0-1.0) 08/31/22 06:53 Eos # (Auto) 0.0 10^3/uL (0.0-0.7) 08/31/22 06:53 Baso # (Auto) 0.0 10^3/uL (0.0-0.1) 08/31/22 06:53 Absolute Nucleated RBC 0.00 x10^3/uL 08/31/22 06:53 Nucleated RBC % 0.0 /100WBC 08/31/22 06:53 Bld Gas Analysis Time 1609 08/29/22 16:05 Sample Site RIGHT RADIAL 08/29/22 16:05 ABG pH 7.45 (7.35-7.45) 08/29/22 16:05 ABG pCO2 35 mmHg (34-45) 08/29/22 16:05 ABG pO2 53 mmHg (80-100) L* 08/29/22 16:05 ABG HCO3 23.6 mmol/L (22.0-26.0) 08/29/22 16:05 ABG Total CO2 24.7 MMOL/L (21.0-29.0) 08/29/22 16:05 ABG O2 Saturation 90 % (94-98) L 08/29/22 16:05 ABG Base Excess -0.1 mmol/L (-2.0-3.0) 08/29/22 16:05 Yeison Test POSITIVE 08/29/22 16:05 Room Air YES 08/29/22 16:05 Sodium 138 mmol/L (135-145) 08/31/22 06:53 Potassium 3.4 mmol/L (3.5-5.0) L 08/31/22 06:53 Chloride 106 mmol/L (101-111) 08/31/22 06:53 Carbon Dioxide 22 mmol/L (21-32) 08/31/22 06:53 Anion Gap 10.0 (6-13) 08/31/22 06:53 BUN 18 mg/dL (6-20) 08/31/22 06:53 Creatinine 0.8 mg/dL (0.6-1.2) 08/31/22 06:53 Estimated GFR (MDRD) 92 (>89) 08/31/22 06:53 Glucose 104 mg/dL (70-100) H 08/31/22 06:53 Lactic Acid 1.5 mmol/L (0.5-2.2) 08/29/22 14:46 Calcium 8.5 mg/dL (8.5-10.3) 08/31/22 06:53 Total Bilirubin 1.5 mg/dL (0.2-1.0) H 08/31/22 06:53 AST 20 IU/L (10-42) 08/31/22 06:53 ALT 16 IU/L (10-60) 08/31/22 06:53 Alkaline Phosphatase 95 IU/L (42-121) 08/31/22 06:53 Total Protein 6.1 g/dL (6.7-8.2) L 08/31/22 06:53 Albumin 3.0 g/dL (3.2-5.5) L 08/31/22 06:53 Globulin 3.1 g/dL (2.1-4.2) 08/31/22 06:53 Albumin/Globulin Ratio 1.0 (1.0-2.2) 08/31/22 06:53 Lipase 20 U/L (22-51) L 08/31/22 06:53 Urine Color YELLOW 08/29/22 15:00 Urine Clarity CLEAR (CLEAR) 08/29/22 15:00 Urine pH 5.5 PH (5.0-7.5) 08/29/22 15:00 Ur Specific [place] 1.025 (1.002-1.030) 08/29/22 15:00 Urine Protein NEGATIVE mg/dL (NEGATIVE) 08/29/22 15:00 Urine Glucose (UA) NEGATIVE mg/dL (NEGATIVE) 08/29/22 15:00 Urine Ketones 15 mg/dL (NEGATIVE) H 08/29/22 15:00 Urine Occult Blood SMALL (NEGATIVE) H 08/29/22 15:00 Urine Nitrite NEGATIVE (NEGATIVE) 08/29/22 15:00 Urine Bilirubin NEGATIVE (NEGATIVE) 08/29/22 15:00 Urine Urobilinogen 0.2 (NORMAL) E.U./dL (NORMAL) 08/29/22 15:00 Ur Leukocyte Esterase NEGATIVE (NEGATIVE) 08/29/22 15:00 Urine RBC 6-10 /HPF (0-5) H 08/29/22 15:00 Urine WBC 0-3 /HPF (0-3) 08/29/22 15:00 Ur Squamous Epith Cells RARE Squamous (<= Few) 08/29/22 15:00 Urine Bacteria None Seen /HPF (None Seen) 08/29/22 15:00 Urine Culture Comments NOT INDICATED 08/29/22 15:00 Nasal Adenovirus (PCR) NOT DETECTED 08/29/22 15:04 Nasal B. parapertussis DNA (PCR) NOT DETECTED 08/29/22 15:04 Nasal Coronavir 229E PCR NOT DETECTED 08/29/22 15:04 Nasal Coronavir HKU1 PCR NOT DETECTED 08/29/22 15:04 Nasal Coronavir NL63 PCR NOT DETECTED 08/29/22 15:04 Nasal Coronavir OC43 PCR NOT DETECTED 08/29/22 15:04 Nasal Enterovir/Rhinovir PCR NOT DETECTED 08/29/22 15:04 Nasal Influenza B PCR NOT DETECTED 08/29/22 15:04 Nasal Influenza A PCR NOT DETECTED 08/29/22 15:04 Nasal Parainfluen 1 PCR NOT DETECTED 08/29/22 15:04 Nasal Parainfluen 2 PCR NOT DETECTED 08/29/22 15:04 Nasal Parainfluen 3 PCR NOT DETECTED 08/29/22 15:04 Nasal Parainfluen 4 PCR NOT DETECTED 08/29/22 15:04 Nasal RSV (PCR) DETECTED A 08/29/22 15:04 Nasal B.pertussis DNA PCR NOT DETECTED 08/29/22 15:04 Nasal C.pneumoniae (PCR) NOT DETECTED 08/29/22 15:04 [place] Human Metapneumo PCR NOT DETECTED 08/29/22 15:04 Nasal M.pneumoniae (PCR) NOT DETECTED 08/29/22 15:04 Nasal SARS-CoV-2 (PCR) NOT DETECTED 08/29/22 15:04 Blood Type O POSITIVE 08/29/22 17:12 Blood Type Recheck O POSITIVE 08/29/22 14:40 Antibody Screen NEGATIVE 08/29/22 17:12 - Procedures Procedures: Procedures DRAINAGE OF STOMACH WITH DRAINAGE DEVICE, VIA OPENING (06/01/22)
[2022-09-02] MEDS: SODIUM CHLORIDE FLUSH 0.9% 10 ML SYRINGE IVP PRN ×2 (20:44→20:48)
[2022-09-03] MEDS: SODIUM CHLORIDE FLUSH 0.9% 10 ML SYRINGE IVP SCH ×2 (00:35→08:41)
[2022-09-03 05:37] LABS: BASOPHILS % (AUTO) 0.5 %; EOSINOPHILS # (AUTO) 0.2 10^3/uL (0.0-0.7); EOSINOPHILS % (AUTO) 2.8 %; HCT - HEMATOCRIT 34.7 % (42.0-52.0); HGB - HEMOGLOBIN 11.3 g/dL (14.0-18.0); LYMPHOCYTES # (AUTO) 1.2 10^3/uL (1.5-3.5); LYMPHOCYTES % (AUTO) 20.7 %; MEAN CORPUSCULAR HEMOGLOBIN 32.2 pg (27.0-31.0); MEAN CORPUSCULAR HGB CONC 32.6 g/dL (32.0-36.0); MEAN CORPUSCULAR VOLUME 98.9 fL (80.0-94.0); MEAN PLATELET VOLUME 12.1 fL (7.4-11.4); MONOCYTES # (AUTO) 0.7 10^3/uL (0.0-1.0); MONOCYTES % (AUTO) 12.7 %; NEUTROPHILS # (AUTO) 3.6 10^3/uL (1.5-6.6); NEUTROPHILS % (AUTO) 63.1 %; PLT - PLATELET COUNT 85 10^3/uL (130-450); RED BLOOD COUNT 3.51 10^6/uL (4.70-6.10); RED CELL DISTRIBUTION WIDTH 15.3 % (12.0-15.0); WHITE BLOOD COUNT 5.8 x10^3/uL (4.8-10.8)
[2022-09-03 05:42] LABS: CALCIUM 8.6 mg/dL (8.5-10.3); CREATININE 0.7 mg/dL (0.6-1.2); POTASSIUM 3.7 mmol/L (3.5-5.0)
[2022-09-03] MEDS: BUDESONIDE 0.5 MG/2 ML NEB INH SCH (07:06)
[2022-09-03] MEDS: FORMOTEROL FUMARATE NEB 20 MCG/2 ML INH SCH (07:06)
[2022-09-03 07:52] VITALS: BP 101/64
[2022-09-03] MEDS: METOPROLOL TARTRATE 50 MG TABLET PO SCH (08:39)
[2022-09-03] MEDS: MULTIVITAMIN W/MINERALS TABLET PO SCH (08:39)
[2022-09-03] MEDS: APIXABAN 5 MG TABLET PO SCH (08:39)
[2022-09-03] MEDS: TAMSULOSIN 0.4 MG CAPSULE PO SCH (08:40)
[2022-09-03] MEDS: CEFEPIME 2 GM in SODIUM CHLORIDE 0.9% MINIBAG 100 ML IV SCH (08:40)
[2022-09-03] MEDS: CALCITONIN NASAL SPRAY NAS SCH (08:43)
[2022-09-03] MEDS: ACETAMINOPHEN 325 MG TABLET PO PRN (08:49)
[2022-09-03] MEDS: ALBUTEROL NEB 2.5 MG/3 ML INH SCH (09:44)
--- NOTE | 2022-09-03 11:59 | Discharge Plan ---
"Discharge Plan for SNF / [facility] - Discharge Plan And Transition Orders Problem Reviewed?: Yes Disposition: 06 Home Health Service Condition: Fair Allergies and Adverse Reactions: Allergies Allergy/AdvReac Type Severity Reaction Status Date / Time No Known Drug Allergies Allergy Verified 05/30/22 16:31 Health Concerns: Patient is a long-term resident of the facility. He is usually an alert, chatty person who has limited mobility. Staff found him to be less responsive and febrile. He was brought to the emergency room where he identified as having viral pneumonia with RSV. He was mildly hypoxic and required 2 L of nasal cannula oxygen. Chest x-ray confirmed pneumonia. He was treated empirically for possible secondary bacterial pneumonia. White cell count was 12.2 on admission and peaked at 13.2. He is 5.8 on the day of discharge. He is received a total of 5 days of IV antibiotics and supportive care for the viral pneumonia. Plan of Treatment: He is completed IV antibiotic therapy and no longer needs to take medication for this. He should be seen by his primary care provider in the next week to follow-up on lung exam. He does have decreased nutritional intake he should be encouraged to make sure he eats. Would also recommend Ensure at least twice a day. He does not like the taste of Ensure so a clear protein supplement may be indicated instead of Ensure. He does have decreased truncal stability with sitting. He needs verbal cues to make sure he sits upright. He would need increased caregiver support and continued PT and OT. We recommend home health follow-up. Care Goals: Care goals will be to remain in his current memory care unit until end-of-life. Assessment: Patient has dementia, is pleasant, cooperative. - SNF / [facility] Transition Orders Admit to (Facility): [facility] Under the care of (Name): Luis A Beyersantiago Discharge Diagnosis: 1. Acute metabolic encephalopathy secondary to viral illness 2. COPD without exacerbation 3. Viral pneumonia 4. Chronic atrial fibrillation, rate controlled 5. Dementia without behavioral disturbance 6. Physical deconditioning Weight on admission and: Monthly Other Notification Orders: Call PCP immediately if patient develops dyspnea, chest pain/tightness or edema. House Bowel Program: Yes Additional Bowel Program Orders: If no BM after 2 days, nurse may give M.O.M. 30ml PO PRN and/or ducolax Supp 1 GA and/or JIM 250mg P.O., and/or senna 1-2 tabs PO. On day 3 nurse may give repeat above order until residents constipation is resolved. Annual Influenza Vaccine (between Jun 16 and January 13): Yes Two-step PPD per [facility] [id number] or approved exception documents: Yes Medication Orders: PLEASE REFER TO THE DISCHARGE MEDICATION LIST. Insulin Orders?: No - Medications New Prescriptions: Amox/Clav 875/125 [Augmentin 875/125 Tab] 1 tab PO BID #4 tab - Diet Type: Geriatric Texture: Regular Liquids: Thin - Therapies | Activity Rehabilitation Potential: Maximize functional status Activity: Activity as Tolerated Assistance Devices: Wheelchair, Walker Follow Up: Luis A Hsu MD"
[2022-09-03] MEDS ORDERED: AMOX/CLAV 875 MG/125 MG TABLET PO SCH (12:00)
--- NOTE | 2022-09-03 16:51 | DISCHARGE SUMMARY ---
"Discharge Summary Admit Date: 08/29/22 Discharge Date: 09/03/22 Discharging Provider: Sruthi Aquino MD Primary Care Provider: Luis A Hsu MD Code Status: Attempt Resuscitation Condition at Discharge: Fair Discharge Disposition: Home Health Service - DIAGNOSES Discharge Diagnoses with Status of Each Condition: 1. Acute metabolic encephalopathy secondary to viral illness 2. COPD without exacerbation 3. Viral pneumonia 4. Chronic atrial fibrillation, rate controlled 5. Dementia without behavioral disturbance 6. Physical deconditioning - HPI History of Present Illness: I met this gabriela gentleman in May of this year when he was admitted with a small bowel obstruction. It is gotten to the point, however, that he could no longer live at home alone. From discharge he was transferred to a long-term facility for rehab. And from there he was placed in [facility] where he resides in the memory care unit. Starting this morning, the staff at [facility] have noted that this patient is much quieter, less active than he usually is. It got to the point where he was finally nonconversant even though his eyes were open and he was looking at them. They said he had a fever and a low blood pressure. But there is no other report of other review of systems such as cough, congestion, headache, abdominal pain, or diarrhea. EMS was called and he was brought to the emergency room. He was described as having a fall last week. Again not much of a history other than from the ER doctor and he is on Eliquis. In the emergency room he was opening his eyes to speech and he asked the provider to please stop when noxious stimuli were checked. Temperature was 37.9. Heart rate 110. He is hypotensive at 98/52. Respirations were 22 and he was 94% on room air. On examination he was tachycardic with an irregularly irregular heartbeat. He was disheveled, unkempt, lethargic. Coarse breath sounds throughout all lung madrigal. Abdomen had generalized tenderness with palpation and there was tenderness to the thoracic and lumbar vertebral body. He had bruising of his lower anterior shins bilaterally. Chest x-rays showed mild bilateral pneumonia. CT of the chest had bilateral lower lobe atelectasis versus pneumonia and a small right pleural effusion. Cardiomegaly. CT of the abdomen had no acute abdominal processes. CT of the head had advanced moderate global cerebral volume loss and chronic vascular ischemic changes but no acute changes. Cervical spine CT was without C-spine injury that was acute. His white cell count was normal. And he had normal liver and renal function. Renal panel was positive for RSV. Lactic acid was normal. He was initially treated as a healthcare associated pneumonia with cefepime and vancomycin. Also received a liter of fluid. With that his blood pressure has come up but he is still tachycardic. Emergency room provider is asking us to do an admission on the basis of viral versus bacterial pneumonia. - Past Medical History Cardiovascular: reports: High cholesterol, Atrial fibrillation (April 2021 echo and stress test essentially normal), Valve disorder Respiratory: reports: COPD Neuro: reports: Dementia Endocrine/Autoimmune: reports: None GI: reports: GERD : reports: None HEENT: reports: Chronic hearing loss Psych: reports: Depression (With suicide attempt March 2022. Depressed about living alone and 's living in [facility]. He use the Xanax prescribed by Dr. Hsu) Musculoskeletal: reports: Osteoarthritis, Other Derm: reports: None - Past Surgical History General: reports: Cholecystectomy, Appendectomy - CONSULTS | PROCEDURES Procedures: 3 chest x-rays done during his admission. He had mild diffuse pulmonary opacities particular in the left lower lung with small pleural effusion. Consider future imaging surveillance in the next month to assess for resolution. Abdomen pelvis CT with cardiomegaly, coronary artery disease, small pericardial effusion. Bilateral lower lobe atelectasis versus pneumonia. Small right pleural effusion. Subacute versus acute moderate wedging L3 fracture. No acute abdominal processes. Chest CT with bilateral lower lobe atelectasis versus pneumonia. Small right pleural effusion. Coronary artery disease. Cardiomegaly. Small pericardial effusion. Head CT no acute intracranial findings with advanced moderate global cerebral volume loss and chronic vascular ischemic changes. Cervical spine CT no CT evidence of acute traumatic cervical spine injury Abdominal ultrasound done for pneumobilia seen on CT of the abdomen. No biliary ductal dilatation seen. Gallbladder is absent. Blood cultures negative after 5 days - HOSPITAL COURSE Hospital Course: He was treated as a viral pneumonia which we know is mainly supportive. However, because he lives in an assisted living facility, we worried about a secondary pneumonia and asked that she was also treated as a bacterial community-acquired pneumonia. He was treated with cefepime after vancomycin was de-escalated. On presentation he had an acute metabolic encephalopathy with confusion, weakness, and he required Haldol. However, we had no beds and this poor gentleman had stay in the ER which I am sure contributed to delirium in this gabriela demented man. Once he was on MedSurg, he had no behavioral issues whatsoever. He has a history of COPD but it was without exacerbation during his stay. He was continued on long-acting inhaled bronchodilator as well as long- acting inhaled steroid. Weakness developed due to being in bed and he was seen by physical therapy. He was also seen by Occupational Therapy. They felt that he could return to his prior living situation but needed increased caregiver pro vided support. He was able to transfer out of bed and stand with a walker and minimum assist x2. He required maximum cueing for safe sequencing due to his dementia with impulsivity. They recommended home health PT and OT. He completed antibiotic therapy, and heart rate was controlled with his usual metoprolol. At discharge temperature was 36.7. Heart rate 68. Blood pressure 101/64. Respirations 17. He is 93% on room air. He is 6 foot 4 inches tall, weighs 72 kg. When I call his name, he greets me with a smile. Very deaf so I need to raise the level of my voice for him to hear me. He tells me the only thing that is bothering him is back pain. During his stay he was on fentanyl to control his back pain but we are not allowed to discharge patient is on long-acting opiates unless they are on hospice service. He still has a congested cough, but is able to clear his secretions. Coarse rhonchi heard. But again disappear with coughing and then returned. Regular rate and rhythm. Has lost quite a bit of weight over time and he has rib cage visible, joints are prominent. Abdomen is soft, nontender. Normal bowel sounds. His last bowel movement was August 31. He is pleasant, cooperative, but completely confused. He is not able to tell me where he is, why he is here but he does tell me his name. There are no focal deficits. He has completed antibiotic therapy with IV. He can go home on Augmentin for 2 more days. I have stopped the fentanyl because he cannot go home on it. Nursing, at discharge, reports that the fentanyl patch was rolled up on his back. He probably was not receiving any. [facility] and that will be continued. He should be continued on calcitriol for the wedge compression fracture and consider vitamin D and calcium addition. He should also be continued on the Lidoderm patch. Greater than 30 minutes was spent coordinating discharge - ALLERGIES Allergies/Adverse Reactions: Allergies Allergy/AdvReac Type Severity Reaction Status Date / Time No Known Drug Allergies Allergy Verified 05/30/22 16:31 - MEDICATIONS Home Medications: Ambulatory Orders Medication Instructions Recorded Confirmed Apixaban [Eliquis] 5 mg PO BID 30 Days #60 tablet 05/14/21 08/31/22 Furosemide [Lasix] 20 mg PO DAILY 05/14/21 08/31/22 Mometasone/Formoterol [Dulera 200 2 puffs INH BID 05/14/21 08/31/22 Mcg-5 Mcg Inhaler] Lidocaine Patch 5% [Lidoderm Patch] 1 patch TOP DAILY PRN #10 patch 05/27/22 08/31/22 Atorvastatin [Lipitor] 10 mg PO QPM #0 06/05/22 08/31/22 Calcitonin [Fortical] 1 sprays TIFFANIE DAILY #1 ahfu 06/05/22 08/31/22 Metoprolol Succinate [Toprol Xl] 25 mg PO DAILY 30 Days #30 tablet 06/05/22 08/31/22 Tamsulosin [Flomax] 0.4 mg PO DAILY 06/05/22 08/31/22 Acetaminophen [Tylenol] 1 tab PO Q6H PRN 08/31/22 08/31/22 Albuterol 1 vial PO Q4H PRN 08/31/22 08/31/22 Docusate Sodium 250Mg Capsule 1 cap PO DAILY PRN 08/31/22 08/31/22 [Colace 250Mg Capsule] Magnesium Hydroxide [Milk of 400 mg PO PRN PRN 08/31/22 08/31/22 Magnesia] Senna [Senokot] 1 tab PO DAILY PRN 08/31/22 08/31/22 oxyCODONE [Roxicodone] 5 mg PO Q8H PRN 08/31/22 08/31/22 Amox/Clav 875/125 [Augmentin 1 tab PO BID #4 tab 09/03/22 875/125 Tab] - LABS Result Diagrams: 09/03/22 05:22 09/03/22 05:22"
== END 2022-09-03 13:30 | disposition home health service (06) | DRG 193 ==
LOC: EDUNIT# → ED 14:09 → MS2 08-31 14:00
PROVIDERS: ADMIT Specialist; ATTEND Specialist
DX: A41.9 Sepsis, unspecified organism (principal); J18.9 Pneumonia, unspecified organism; J12.1 Respiratory syncytial virus pneumonia; F03.C11 Unspecified dementia, severe, with agitation; G93.41 Metabolic encephalopathy; Z20.822 Contact with and (suspected) exposure to COVID-19; I48.20 Chronic atrial fibrillation, unspecified; F03.911 Unspecified dementia, unspecified severity, with agitation; J44.0 Chronic obstructive pulmonary disease with (acute) lower respiratory infection; J90 Pleural effusion, not elsewhere classified; B97.4 Respiratory syncytial virus as the cause of diseases classified elsewhere; J15.9 Unspecified bacterial pneumonia; N40.0 Benign prostatic hyperplasia without lower urinary tract symptoms; S80.12XA Contusion of left lower leg, initial encounter; S80.11XA Contusion of right lower leg, initial encounter; X58.XXXA Exposure to other specified factors, initial encounter; I25.10 Atherosclerotic heart disease of native coronary artery without angina pectoris; R53.1 Weakness; H91.90 Unspecified hearing loss, unspecified ear; F32.A Depression, unspecified; Z66 Do not resuscitate; R09.02 Hypoxemia; M54.6 Pain in thoracic spine; M54.50 Low back pain, unspecified; Z91.81 History of falling; Z78.1 Physical restraint status; Z79.01 Long term (current) use of anticoagulants; Z87.891 Personal history of nicotine dependence
CPT/HCPCS: 36415; 36600; 70450; 71045; 71260; 72125; 74177; 76705; 80048; 80053; 81001; 82803; 83605; 83690; 85025; 86850; 86900; 86901; 87040; 87633; 93005; 94640; 94664; 96365; 96366; 96367; 96375; 96376; 97163; 97167; 97530; 97535; 99281; 99285; A9270; J3370; J7626; Q9967; 87086

== ENCOUNTER 2022-09-03 13:29 | Outpatient (CLI) | payer MEDICARE, OTHER | END 2022-09-03 13:30 | disposition home or self-care (01) | LOC: EMS 13:29 | PROVIDERS: ATTEND Specialist | DX: J12.1 Respiratory syncytial virus pneumonia (principal); R41.0 Disorientation, unspecified | CPT/HCPCS: A0425; A0428 ==

== ENCOUNTER 2022-10-11 15:36 | Outpatient (CLI) | payer MEDICARE, OTHER | END 2022-10-11 15:37 | disposition critical access hospital (66) | LOC: EMS 15:36 | DX: K40.90 Unilateral inguinal hernia, without obstruction or gangrene, not specified as recurrent (principal); R10.31 Right lower quadrant pain; R10.32 Left lower quadrant pain | CPT/HCPCS: A0425; A0427 ==

== ENCOUNTER 2022-10-11 15:53 | Emergency (ER) | payer MEDICARE, OTHER ==
--- NOTE | 2022-10-11 16:00 | ED Physician Documentation ---
PD HPI ABD PAIN - Stated complaint Stated Complaint: ABD PX - History obtained from History obtained from: Patient, EMS - Additional information Additional information: 87-year-old [facility]. Reportedly started just prior to arrival. History is limited due to dementia. There was a report that he had a left inguinal hernia that they reduced without improvement. It is not clear when his last bowel movement was. He received 50 mcg of fentanyl on the way here and still looks to be in pain. He complains of suprapubic pain and "my asshole hurts." Review of Systems Unable to obtain: Dementia PD PAST MEDICAL HISTORY - Past Medical History Cardiovascular: High cholesterol, Atrial fibrillation, Valve disorder Respiratory: COPD Neuro: Dementia Endocrine/Autoimmune: None GI: GERD : None HEENT: Chronic hearing loss Psych: None Musculoskeletal: Osteoarthritis, Other Derm: None - Past Surgical History Past Surgical History: Yes General: Cholecystectomy, Appendectomy - Present Medications Home Medications: Ambulatory Orders Medication Instructions Recorded Confirmed Apixaban [Eliquis] 5 mg PO BID 30 Days #60 tablet 05/14/21 08/31/22 Furosemide [Lasix] 20 mg PO DAILY 05/14/21 08/31/22 Mometasone/Formoterol [Dulera 200 2 puffs INH BID 05/14/21 08/31/22 Mcg-5 Mcg Inhaler] Lidocaine Patch 5% [Lidoderm Patch] 1 patch TOP DAILY PRN #10 patch 05/27/22 08/31/22 Atorvastatin [Lipitor] 10 mg PO QPM #0 06/05/22 08/31/22 Calcitonin [Fortical] 1 sprays TIFFANIE DAILY #1 ahfu 06/05/22 08/31/22 Metoprolol Succinate [Toprol Xl] 25 mg PO DAILY 30 Days #30 tablet 06/05/22 08/31/22 Tamsulosin [Flomax] 0.4 mg PO DAILY 06/05/22 08/31/22 Acetaminophen [Tylenol] 1 tab PO Q6H PRN 08/31/22 08/31/22 Albuterol 1 vial PO Q4H PRN 08/31/22 08/31/22 Docusate Sodium 250Mg Capsule 1 cap PO DAILY PRN 08/31/22 08/31/22 [Colace 250Mg Capsule] Magnesium Hydroxide [Milk of 400 mg PO PRN PRN 08/31/22 08/31/22 Magnesia] Senna [Senokot] 1 tab PO DAILY PRN 08/31/22 08/31/22 oxyCODONE [Roxicodone] 5 mg PO Q8H PRN 08/31/22 08/31/22 Amox/Clav 875/125 [Augmentin 1 tab PO BID #4 tab 09/03/22 875/125 Tab] - Allergies Allergies/Adverse Reactions: Allergies Allergy/AdvReac Type Severity Reaction Status Date / Time No Known Drug Allergies Allergy Verified 10/11/22 15:59 - Social History Does the pt smoke?: No Smoking Status: Never smoker Does the pt drink ETOH?: No Does the pt have substance abuse?: No - Immunizations Immunizations are current?: No - POLST Patient has POLST: No POLST Status: Full Code PD ED PE NORMAL - Vitals Vital signs reviewed: Yes - General General: Other (He looks very uncomfortable, he is alert and oriented to person only.) - Abdomen Abdomen: Normal bowel sounds, Soft, Other (Tender in the left lower quadrant with a left inguinal hernia that is easily reducible) - Rectal Rectal: Other (Fecal impaction) - Back Back: No CVA TTP, No spinal TTP - Derm Derm: Normal color, Warm and dry - Neuro Eye Opening: Spontaneous Motor: Obeys Commands Verbal: Confused GCS Score: 14 Results - Vitals Vitals: Vital Signs - 24 hr 10/11/22 10/11/22 15:59 16:02 Temperature 36.5 C 36.5 C Heart Rate 85 60 Respiratory 15 16 Rate Blood Pressure 130/96 H 92/58 L O2 Saturation 97 98 Oxygen O2 Source Room air - Labs Labs: Laboratory Tests 10/11/22 10/11/22 16:11 16:11 WBC 6.0 RBC 3.11 L Hgb 9.8 L Hct 31.0 L MCV 99.7 H MCH 31.5 H MCHC 31.6 L RDW 16.4 H Plt Count 100 L MPV 10.8 Neut # (Auto) 3.9 Lymph # (Auto) 1.2 L Cannon # (Auto) 0.7 Eos # (Auto) 0.2 Baso # (Auto) 0.0 Absolute Nucleated RBC 0.00 Nucleated RBC % 0.0 Sodium 138 Potassium 4.2 Chloride 101 Carbon Dioxide 28 Anion Gap 9.0 BUN 25 H Creatinine 1.1 Estimated GFR (MDRD) 63 L Glucose 101 H Calcium 9.0 Total Bilirubin 0.7 AST 27 ALT 15 Alkaline Phosphatase 74 Total Protein 6.1 L Albumin 3.4 Globulin 2.7 Albumin/Globulin Ratio 1.3 Lipase 27 PD Medical Decision Making - ED course ED course: 87-year-old gentleman presents with severe abdominal pain, I suspect is a fecal impaction, that said given his advanced age and the dementia we must entertain a broader differential diagnosis and therefore we will do a CT as we are treating the impaction. After a first enema he did not move his bowels, he was very uncomfortable and agitated. He was given 1 mg of Ativan. After which he was more comfortable, and he was reexamined, starting to loosen up and I was able to digitally disimpact him a bit and place a second fleets enema. This was repeated a couple of more times, he did not tolerate it very well but we were able to disimpact him. Care to Dr. Sal at shift change pending CT imaging. Departure - Departure Clinical Impression: Fecal impaction Abdominal pain Qualifiers: Abdominal location: generalized Qualified Code(s): R10.84 - Generalized abdominal pain
[2022-10-11 16:16] LABS: BASOPHILS % (AUTO) 0.5 %; EOSINOPHILS # (AUTO) 0.2 10^3/uL (0.0-0.7); EOSINOPHILS % (AUTO) 2.5 %; HGB - HEMOGLOBIN 9.8 g/dL (14.0-18.0); LYMPHOCYTES # (AUTO) 1.2 10^3/uL (1.5-3.5); LYMPHOCYTES % (AUTO) 19.9 %; MEAN CORPUSCULAR HEMOGLOBIN 31.5 pg (27.0-31.0); MEAN CORPUSCULAR HGB CONC 31.6 g/dL (32.0-36.0); MEAN CORPUSCULAR VOLUME 99.7 fL (80.0-94.0); MEAN PLATELET VOLUME 10.8 fL (7.4-11.4); MONOCYTES # (AUTO) 0.7 10^3/uL (0.0-1.0); MONOCYTES % (AUTO) 11.9 %; NEUTROPHILS # (AUTO) 3.9 10^3/uL (1.5-6.6); PLT - PLATELET COUNT 100 10^3/uL (130-450); RED BLOOD COUNT 3.11 10^6/uL (4.70-6.10); RED CELL DISTRIBUTION WIDTH 16.4 % (12.0-15.0)
[2022-10-11 16:33] LABS: ALBUMIN 3.4 g/dL (3.2-5.5); ALBUMIN/GLOBULIN RATIO 1.3 (1.0-2.2); BILIRUBIN,TOTAL 0.7 mg/dL (0.2-1.0); CREATININE 1.1 mg/dL (0.6-1.2); POTASSIUM 4.2 mmol/L (3.5-5.0); TOTAL PROTEIN 6.1 g/dL (6.7-8.2)
[2022-10-11] MEDS ORDERED: LORazepam 2 MG/ML VIAL IVP STA (17:06)
[2022-10-11] MEDS ORDERED: iohexoL-300 100 ML VIAL ONE (17:14)
--- NOTE | 2022-10-11 19:11 | CT Report ---
PROCEDURE: ABDOMEN/PELVIS W INDICATIONS: IV only, L abd pain CONTRAST: 100mL Omni 300 TECHNIQUE: After the administration of intravenous contrast, 5 mm thick sections acquired from the diaphragms to the symphysis. 5 mm thick coronal and sagittal reformats were acquired. For radiation dose reducti on, the following was used: automated exposure control, adjustment of mA and/or kV according to beverley ent size. COMPARISON: CT abdomen/pelvis 08/29/2022. FINDINGS: Image quality: Excellent. ABDOMEN: Lung bases: Trace bilateral pleural effusions with atelectasis of the adjacent lung bases. Small jj cardial effusion, which has mildly increased in size when compared to the prior CT. Heart is mildly e nlarged. Solid organs: Liver and spleen are normal in size and enhancement. Status post cholecystect makayla. Mild pneumobilia is most likely related to prior surgery. No biliary duct dilatation. Biliary sy stem is non dilated. Pancreas enhances normally. No adrenal nodules. Kidneys demonstrate normal si ze and enhancement, without hydronephrosis. Peritoneum and bowel: Prominent stool is seen in the rectum with mild rectal wall thickening and per irectal edema, which can indicate impaction or stercoral colitis. Moderate stool is seen throughout t he remainder of the colon. No signs of small bowel obstruction. Bowel loops demonstrate normal wall t hickness and caliber. No free fluid or air. Nodes and vessels: No retroperitoneal or mesenteric adenopathy by size criteria. Aorta and inferior vena cava are normal in size. Moderate to severe aortic atherosclerotic calcifications. Miscellaneous: No ventral hernias. Mild diffuse soft tissue anasarca. PELVIS: Genitourinary: Bladder wall thickness is normal. Miscellaneous: No inguinal hernias or adenopathy. Bones: No suspicious bony lesions. Is osteopenia. Multilevel compression fractures are seen througho ut the visualized spine that do not appear significantly changed when compared to the CT from 022. IMPRESSION: 1.Prominent stool within the rectum with mild rectal wall thickening and perirectal edema that is jo picious for possible impaction or stercoral colitis. 2.Mild cardiomegaly. Small pericardial effusion has mildly increased in size. 3.Trace bilateral pleural effusions with atelectasis lung bases. Mild diffuse soft tissue anasarca. 4.Multiple spinal compression fractures do not appear significantly changed. Reviewed by: Jarrod Sepulveda MD on 10/11/2022 7:09 PM PST Approved by: Jarrod Sepulveda MD on 10/11/2022 7:09 PM PST Station ID: [id number]
--- NOTE | 2022-10-11 20:17 | ED Physician Documentation ---
ED Addendum - Addendum Addendum: 10/11/22 20:15 Patient is an 87-year-old male signed out to me by Dr. Berger. The patient is awaiting a CT scan. The CT scan did show fecal impaction. On when the patient returned from CT he had a very large bowel movement and symptoms resolved. Patient is currently asymptomatic. Abdomen is soft, nontender nondistended. Patient will be discharged back home. This document was made in part using voice recognition software. While efforts are made to proofread this document, sound alike and grammatical errors may occur. Departure - Departure Disposition: Home, Self Care Clinical Impression: Fecal impaction Abdominal pain Qualifiers: Abdominal location: generalized Qualified Code(s): R10.84 - Generalized abdominal pain Condition: Good Instructions: ED Impaction Fecal Treated, ED Constipation Follow-Up: your,doctor within 1 week [Other] Comments: You had a large bowel movement tonight. You are also manually disimpacted for your fecal impaction. Please follow-up with your doctor for further care. Return if you worsen. ABDOMEN: Lung bases: Trace bilateral pleural effusions with atelectasis of the adjacent lung bases. Small pericardial effusion, which has mildly increased in size when compared to the prior CT. Heart is mildly enlarged. Solid organs: Liver and spleen are normal in size and enhancement. Status post cholecystectomy. Mild pneumobilia is most likely related to prior surgery. No biliary duct dilatation. Biliary system is non dilated. Pancreas enhances normally. No adrenal nodules. Kidneys demonstrate normal size and enhancement, without hydronephrosis. Peritoneum and bowel: Prominent stool is seen in the rectum with mild rectal wall thickening and perirectal edema, which can indicate impaction or stercoral colitis. Moderate stool is seen throughout the remainder of the colon. No signs of small bowel obstruction. Bowel loops demonstrate normal wall thickness and caliber. No free fluid or air. Nodes and vessels: No retroperitoneal or mesenteric adenopathy by size criteria. Aorta and inferior vena cava are normal in size. Moderate to severe aortic atherosclerotic calcifications. Miscellaneous: No ventral hernias. Mild diffuse soft tissue anasarca. PELVIS: Genitourinary: Bladder wall thickness is normal. Miscellaneous: No inguinal hernias or adenopathy. Bones: No suspicious bony lesions. Is osteopenia. Multilevel compression fractures are seen throughout the visualized spine that do not appear significantly changed when compared to the CT from 08/29/2022. IMPRESSION: 1.Prominent stool within the rectum with mild rectal wall thickening and perirectal edema that is suspicious for possible impaction or stercoral colitis. 2.Mild cardiomegaly. Small pericardial effusion has mildly increased in size. 3.Trace bilateral pleural effusions with atelectasis lung bases. Mild diffuse soft tissue anasarca. 4.Multiple spinal compression fractures do not appear significantly changed.
[2022-10-11 20:22] VITALS: BP 110/60
[2022-10-11] MEDS ORDERED: iohexoL-300 100 ML VIAL IVP ONE (20:44)
== END 2022-10-11 20:51 | disposition home or self-care (01) ==
LOC: EDUNIT# → ED 15:53
DX: K56.41 Fecal impaction (principal)
CPT/HCPCS: 36415; 74177; 80053; 83690; 85025; 96374; 99284; J2060; Q9967

== ENCOUNTER 2022-10-11 20:57 | Outpatient (CLI) | payer MEDICARE, OTHER | END 2022-10-11 20:58 | disposition home or self-care (01) | LOC: EMS 20:57 | PROVIDERS: ATTEND Emergency Medicine | DX: F03.90 Unspecified dementia, unspecified severity, without behavioral disturbance, psychotic disturbance, mood disturbance, and anxiety (principal) | CPT/HCPCS: A0425; A0428 ==

== ENCOUNTER 2023-01-04 08:45 | Outpatient (CLI) | payer MEDICARE, OTHER | END 2023-01-04 23:59 | disposition critical access hospital (66) | LOC: EMS 08:45 | DX: R41.82 Altered mental status, unspecified (principal); R10.84 Generalized abdominal pain; R10.817 Generalized abdominal tenderness | CPT/HCPCS: A0425; A0429 ==

== ENCOUNTER 2023-01-04 09:01 | Emergency (ER) | payer MEDICARE, OTHER ==
[2023-01-04 09:29] LABS: BASOPHILS % (AUTO) 0.3 %; EOSINOPHILS # (AUTO) 0.1 10^3/uL (0.0-0.7); EOSINOPHILS % (AUTO) 1.7 %; HCT - HEMATOCRIT 33.7 % (42.0-52.0); HGB - HEMOGLOBIN 10.7 g/dL (14.0-18.0); LYMPHOCYTES # (AUTO) 1.5 10^3/uL (1.5-3.5); LYMPHOCYTES % (AUTO) 22.5 %; MEAN CORPUSCULAR HEMOGLOBIN 31.5 pg (27.0-31.0); MEAN CORPUSCULAR HGB CONC 31.8 g/dL (32.0-36.0); MEAN CORPUSCULAR VOLUME 99.1 fL (80.0-94.0); MEAN PLATELET VOLUME 11.5 fL (7.4-11.4); MONOCYTES # (AUTO) 0.8 10^3/uL (0.0-1.0); MONOCYTES % (AUTO) 12.4 %; NEUTROPHILS # (AUTO) 4.2 10^3/uL (1.5-6.6); NEUTROPHILS % (AUTO) 63.1 %; PLT - PLATELET COUNT 68 10^3/uL (130-450); RED CELL DISTRIBUTION WIDTH 15.1 % (12.0-15.0); WHITE BLOOD COUNT 6.6 x10^3/uL (4.8-10.8)
[2023-01-04] MEDS: SODIUM CHLORIDE 0.9% 1,000 ML IV STA (09:33)
--- NOTE | 2023-01-04 09:35 | XRAY Report ---
PROCEDURE: Chest 1 View X-Ray INDICATIONS: chest pain TECHNIQUE: One view of the chest was acquired. COMPARISON: 08/31/2022. FINDINGS: Surgical changes and devices: None. Lungs and pleura: There is mild pulmonary vascular congestion. Bibasilar small infiltrates versus at electasis are seen. No significant pleural effusion or gross pneumothorax. Mediastinum: Mediastinal contours appear normal. Heart size is enlarged. Bones and chest wall: No suspicious bony lesions. Overlying soft tissues appear unremarkable. IMPRESSION: Finding is concerning for CHF. Underlying small bibasilar infiltrate versus atelectasis cannot be Reviewed by: Viktor Euceda MD on 01/04/2023 8:34 AM DEAN Approved by: Viktor Euceda MD on 01/04/2023 8:34 AM AKDT Station ID: [id number]
[2023-01-04 09:39] LABS: ALBUMIN 3.7 g/dL (3.2-5.5); ALBUMIN/GLOBULIN RATIO 1.4 (1.0-2.2); BILIRUBIN,TOTAL 1.1 mg/dL (0.2-1.0); CALCIUM 8.8 mg/dL (8.5-10.3); TOTAL PROTEIN 6.4 g/dL (6.7-8.2)
[2023-01-04] MEDS ORDERED: iohexoL-300 100 ML VIAL ONE (10:21)
--- NOTE | 2023-01-04 12:25 | CT Report ---
PROCEDURE: ABDOMEN/PELVIS W INDICATIONS: LLQ abd pn, inguinal mass, hernia CONTRAST: 100ml Omnipaque 300 TECHNIQUE: After the administration of IV contrast, 5 mm thick sections acquired from the diaphragms to the symp hysis. 5 mm thick coronal and sagittal reformats were acquired. For radiation dose reduction, the f ollowing was used: automated exposure control, adjustment of mA and/or kV according to patient size. COMPARISON: 10/11/2022 FINDINGS: Image quality: Good Lower chest: Small pericardial effusion. Borderline cardiomegaly. Coronary calcifications. No hiatal hernia. Small pleural effusions. Suspected basal mild airspace disease versus atelectasis. Solid organs: The liver is unremarkable. Pneumobilia and cholecystectomy, as before. No pathologic pa ncreatic ductal dilation. Thickening of the pancreatic parenchyma is present. No splenomegaly. No adr enal nodules. There are left parapelvic cysts. No hydronephrosis. Vessels and lymph nodes: The main portal vein is patent. No abdominal aortic aneurysm. Mild to modera te atherosclerotic calcifications of the aorta and its branches. No pathologic adenopathy by size cri teria. Bowel and peritoneum: No evidence of small bowel obstruction. Mild mesenteric, nonspecific fat strand ing, without drainable abscess or ascites. Moderate colorectal stool burden, including a moderate-siz ed rectal stool ball. There is focal wall thickening at the cecum, increased in conspicuity compared to prior. Body wall: Left inguinal hernia containing bowel. No upstream obstruction. The bowel within the herni a is mildly prominent. The mesentery is also mildly congested. Pelvis: Bladder is unremarkable. Suspected TURP. Bones: No suspicious osseous finding. Multiple vertebral body height loss and degenerative changes, M ost notably L3, and L4. Kyphoplasty of T12 also seen. IMPRESSION: Bowel and mesentery containing left inguinal hernia, with mild internal congestion and bowel dilation . No evidence of upstream obstruction. Focal wall thickening of the cecum seems more prominent than prior, possibly infectious or inflammato ry. Please also consider surveillance imaging and correlation with any age-appropriate colonoscopy re sults. Multiple other nonacute findings above. Reviewed by: Justus Gonzales MD on 01/04/2023 12:24 PM PDT Approved by: Justus Gonzales MD on 01/04/2023 12:24 PM PDT Station ID: [id number]
[2023-01-04] MEDS: HYDROmorphone 1 MG/ML CARPUJECT IVP STA (13:37)
[2023-01-04 13:45] LABS: BILIRUBIN,URINE NEGATIVE (NEGATIVE); GLUCOSE, URINE (UA) NEGATIVE (NEGATIVE); KETONES,URINE (UA) NEGATIVE (NEGATIVE); LEUKOCYTE ESTERASE, URINE NEGATIVE (NEGATIVE); NITRITE,URINE NEGATIVE (NEGATIVE); OCCULT BLOOD,URINE NEGATIVE (NEGATIVE); PH,URINE 5.5 PH (5.0-7.5); PROTEIN,URINE NEGATIVE (NEGATIVE); UROBILINOGEN,URINE 0.2 (NORMAL) E.U./dL (NORMAL)
[2023-01-04 13:46] LABS: CLARITY,URINE CLEAR (CLEAR)
--- NOTE | 2023-01-04 13:58 | ED Physician Documentation ---
PD HPI ABD PAIN - Stated complaint Stated Complaint: ABD PX - Chief complaint Chief Complaint: Abd Pain - History obtained from History obtained from: Patient, EMS - Additional information Additional information: The patient is brought to the emergency department chief complaint of abdominal pain. He states is in the left lower quadrant and does not hurt unless he tries to move. No fevers or chills. No nausea or vomiting. No dysuria. No back pain. Patient states he feels perfectly fine if he just holds still. He feels the pain going down into his scrotum when it does occur. PD PAST MEDICAL HISTORY - Past Medical History Cardiovascular: High cholesterol, Atrial fibrillation, Valve disorder Respiratory: COPD Neuro: Dementia Endocrine/Autoimmune: None GI: GERD : None HEENT: Chronic hearing loss Psych: None Musculoskeletal: Osteoarthritis, Other Derm: None - Past Surgical History Past Surgical History: Yes General: Cholecystectomy, Appendectomy - Present Medications Home Medications: Ambulatory Orders Medication Instructions Recorded Confirmed Apixaban [Eliquis] 5 mg PO BID 30 Days #60 tablet 05/14/21 08/31/22 Furosemide [Lasix] 20 mg PO DAILY 05/14/21 08/31/22 Mometasone/Formoterol [Dulera 200 2 puffs INH BID 05/14/21 08/31/22 Mcg-5 Mcg Inhaler] Lidocaine Patch 5% [Lidoderm Patch] 1 patch TOP DAILY PRN #10 patch 05/27/22 08/31/22 Atorvastatin [Lipitor] 10 mg PO QPM #0 06/05/22 08/31/22 Calcitonin [Fortical] 1 sprays TIFFANIE DAILY #1 ahfu 06/05/22 08/31/22 Metoprolol Succinate [Toprol Xl] 25 mg PO DAILY 30 Days #30 tablet 06/05/22 08/31/22 Tamsulosin [Flomax] 0.4 mg PO DAILY 06/05/22 08/31/22 Acetaminophen [Tylenol] 1 tab PO Q6H PRN 08/31/22 08/31/22 Albuterol 1 vial PO Q4H PRN 08/31/22 08/31/22 Docusate Sodium 250Mg Capsule 1 cap PO DAILY PRN 08/31/22 08/31/22 [Colace 250Mg Capsule] Magnesium Hydroxide [Milk of 400 mg PO PRN PRN 08/31/22 08/31/22 Magnesia] Senna [Senokot] 1 tab PO DAILY PRN 08/31/22 08/31/22 oxyCODONE [Roxicodone] 5 mg PO Q8H PRN 08/31/22 08/31/22 Amox/Clav 875/125 [Augmentin 1 tab PO BID #4 tab 09/03/22 875/125 Tab] - Allergies Allergies/Adverse Reactions: Allergies Allergy/AdvReac Type Severity Reaction Status Date / Time No Known Drug Allergies Allergy Verified 01/04/23 09:13 - Social History Does the pt smoke?: No Smoking Status: Never smoker Does the pt drink ETOH?: No Does the pt have substance abuse?: No - Immunizations Immunizations are current?: No - POLST Patient has POLST: No POLST Status: Full Code PD ED PE NORMAL - Vitals Vital signs reviewed: Yes - General General: No acute distress, Well developed/nourished, Other (Alert, pleasant, conversant) - HEENT HEENT: Atraumatic, PERRL, EOMI, Moist mucous membranes - Neck Neck: Supple, no meningeal sign - Cardiac Cardiac: RRR, No murmur, Strong equal pulses - Respiratory Respiratory: No respiratory distress, Clear bilaterally - Abdomen Abdomen: Soft, Non tender, Non distended - Male Male : [employer] present, Other (Normal male genitalia. Patient has a large soft inguinal hernia in the left inguinal area which is not immediately reducible.It is not discolored, but it is tender.) - Derm Derm: Normal color, Warm and dry, No rash - Extremities Extremities: No deformity - Neuro Neuro: Alert and oriented X 3 - Psych Psych: Normal mood, Normal affect Results - Vitals Vitals: Vital Signs - 24 hr 01/04/23 01/04/23 01/04/23 09:10 09:36 11:24 Temperature 36.6 C Heart Rate 49 L 46 L 46 L Respiratory 20 20 16 Rate Blood Pressure 112/70 122/66 105/58 L O2 Saturation 100 99 97 01/04/23 13:00 Temperature Heart Rate 60 Respiratory 16 Rate Blood Pressure 102/61 O2 Saturation 99 Oxygen O2 Source Room air - Labs Labs: Laboratory Tests 01/04/23 01/04/23 01/04/23 09:15 09:15 09:15 WBC 6.6 RBC 3.40 L Hgb 10.7 L Hct 33.7 L MCV 99.1 H MCH 31.5 H MCHC 31.8 L RDW 15.1 H Plt Count 68 L MPV 11.5 H Neut # (Auto) 4.2 Lymph # (Auto) 1.5 [place]aines # (Auto) 0.8 Eos # (Auto) 0.1 Baso # (Auto) 0.0 Absolute Nucleated RBC 0.00 Nucleated RBC % 0.0 Sodium 140 Potassium 4.0 Chloride 108 Carbon Dioxide 26 Anion Gap 6.0 BUN 23 H Creatinine 1.0 Estimated GFR (MDRD) 71 L Glucose 101 H Lactic Acid 1.0 Calcium 8.8 Total Bilirubin 1.1 H AST 13 ALT 14 Alkaline Phosphatase 72 Total Protein 6.4 L Albumin 3.7 Globulin 2.7 Albumin/Globulin Ratio 1.4 Lipase 30 Urine Color Urine Clarity Urine pH Ur Specific [place] Urine Protein Urine Glucose (UA) Urine Ketones Urine Occult Blood Urine Nitrite Urine Bilirubin Urine Urobilinogen Ur Leukocyte Esterase Ur Microscopic Review Urine Culture Comments 01/04/23 13:43 WBC RBC Hgb Hct MCV MCH MCHC RDW Plt Count MPV Neut # (Auto) Lymph # (Auto) [place] # (Auto) Eos # (Auto) Baso # (Auto) Absolute Nucleated RBC Nucleated RBC % Sodium Potassium Chloride Carbon Dioxide Anion Gap BUN Creatinine Estimated GFR (MDRD) Glucose Lactic Acid Calcium Total Bilirubin AST ALT Alkaline Phosphatase Total Protein Albumin Globulin Albumin/Globulin Ratio Lipase Urine Color YELLOW Urine Clarity CLEAR Urine pH 5.5 Ur Specific [place] 1.020 Urine Protein NEGATIVE Urine Glucose (UA) NEGATIVE Urine Ketones NEGATIVE Urine Occult Blood NEGATIVE Urine Nitrite NEGATIVE Urine Bilirubin NEGATIVE Urine Urobilinogen 0.2 (NORMAL) Ur Leukocyte Esterase NEGATIVE Ur Microscopic Review NOT INDICATED Urine Culture Comments NOT INDICATED - Rads (name of study) CT abdomen and pelvis Relevant Findings:: Final report received, See rad report (Bowel and mesentery containing left inguinal hernia with mild internal congestion and bowel dilation. No evidence of upstream obstruction. Focal wall thickening of the cecum) PD Medical Decision Making - ED course Complexity details: reviewed results, re-evaluated patient, considered differential, d/w patient ED course: The patient was worked up with laboratory studies, including CBC and ER abdominal panel, both of which were reviewed by me and found to be unremarkable. He was sent for CT of the abdomen and pelvis and this did show a left inguinal hernia as suspected, but no evidence of strangulation. I did give the patient a milligram of Dilaudid in preparation for reduction, since he was quite uncomfortable when I examined his hernia before this was given and the patient did relax somewhat. On reexamination, his hernia had largely reduced on its own and I was able to easily reduce the rest of it without difficulty. The patient is stable for discharge home. We will give instructions to go with him for the patient's follow-up options, Should his POA wish to pursue this further. Departure - Departure Disposition: 01 Home, Self Care Clinical Impression: Inguinal hernia Qualifiers: Obstruction and gangrene presence: without obstruction or gangrene Laterality: unilateral Recurrence: not specified as recurrent Qualified Code(s): K40.90 - Unilateral inguinal hernia, without obstruction or gangrene, not specified as recurrent Condition: Stable Instructions: ED Hernia Inguinal Follow-Up: Ravi Ramirez MD [Provider Admit Priv/Credential] - Comments: The physical exam and CT demonstrated a hernia in the groin area. This is easy to push back in and there is no evidence of any complication of this on the CT scan, nor is there any evidence of any other concerning problem. You may live with the hernia if it is not bothering you too much, or if it begins to bother you more and more, you may follow-up with surgery to discuss having it fixed.
[2023-01-04] MEDS: iohexoL-300 100 ML VIAL IVP ONE (14:31)
[2023-01-04 16:34] VITALS: BP 107/52
== END 2023-01-04 14:15 | disposition home or self-care (01) ==
LOC: EDUNIT# → ED 09:01
DX: K40.90 Unilateral inguinal hernia, without obstruction or gangrene, not specified as recurrent (principal); I48.91 Unspecified atrial fibrillation; E78.00 Pure hypercholesterolemia, unspecified; J44.9 Chronic obstructive pulmonary disease, unspecified; F03.90 Unspecified dementia, unspecified severity, without behavioral disturbance, psychotic disturbance, mood disturbance, and anxiety; Z79.01 Long term (current) use of anticoagulants; Z79.899 Other long term (current) drug therapy; Z79.51 Long term (current) use of inhaled steroids
CPT/HCPCS: 36415; 80053; 81001; 81003; 83605; 83690; 85025; 87086; 96374; 99284

== ENCOUNTER 2023-01-04 16:30 | Outpatient (CLI) | payer MEDICARE, OTHER | END 2023-01-04 23:59 | disposition home or self-care (01) | LOC: EMS 16:30 | PROVIDERS: ATTEND Emergency Medicine | DX: R41.0 Disorientation, unspecified (principal); R10.30 Lower abdominal pain, unspecified | CPT/HCPCS: A0425; A0428 ==

== ENCOUNTER 2023-02-25 10:13 | Outpatient (CLI) | payer MEDICARE, OTHER | END 2023-02-25 10:14 | disposition critical access hospital (66) | LOC: EMS 10:13 | DX: U07.1 COVID-19 (principal); R09.89 Other specified symptoms and signs involving the circulatory and respiratory systems; Z99.81 Dependence on supplemental oxygen; R10.30 Lower abdominal pain, unspecified | CPT/HCPCS: A0425; A0429 ==

== ENCOUNTER 2023-02-25 12:52 | Outpatient (CLI) | payer MEDICARE, OTHER | END 2023-02-25 12:53 | disposition home or self-care (01) | LOC: EMS 12:52 | PROVIDERS: ATTEND Emergency Medicine | DX: U07.1 COVID-19 (principal); R41.0 Disorientation, unspecified; R09.89 Other specified symptoms and signs involving the circulatory and respiratory systems | CPT/HCPCS: A0425; A0428 ==

== ENCOUNTER 2023-05-09 11:39 | Outpatient (CLI) | payer MEDICARE, OTHER | END 2023-05-09 11:40 | disposition critical access hospital (66) | LOC: EMS 11:39 | DX: R10.32 Left lower quadrant pain (principal); K40.90 Unilateral inguinal hernia, without obstruction or gangrene, not specified as recurrent | CPT/HCPCS: A0425; A0427 ==

== ENCOUNTER 2023-05-09 11:55 | Emergency (ER) | payer MEDICARE, OTHER ==
--- NOTE | 2023-05-09 12:11 | ED Physician Documentation ---
PD HPI ABD PAIN - Stated complaint Stated Complaint: ABD PX - Chief complaint Chief Complaint: Abd Pain - History obtained from History obtained from: Patient, EMS - Additional information Additional information: 87-year-old gentleman with dementia, COPD, A-fib on DOAC presents with sudden onset severe abdominal pain starting at 8 AM this morning. No report of vomiting. He has a fentanyl patch on and received 2 doses of oxycodone at [facility] prior to transfer and 1 dose of 50 mcg of fentanyl on the way here. He was seen in December of this year by my partner for abdominal pain and noted to have a left inguinal hernia that subsequently was reduced. PD PAST MEDICAL HISTORY - Past Medical History Cardiovascular: High cholesterol, Atrial fibrillation, Valve disorder Respiratory: COPD Neuro: Dementia Endocrine/Autoimmune: None GI: GERD : None HEENT: Chronic hearing loss Psych: None Musculoskeletal: Osteoarthritis, Other Derm: None - Past Surgical History Past Surgical History: Yes General: Cholecystectomy, Appendectomy - Present Medications Home Medications: Ambulatory Orders Medication Instructions Recorded Confirmed Apixaban [Eliquis] 5 mg PO BID 30 Days #60 tablet 05/14/21 08/31/22 Furosemide [Lasix] 20 mg PO DAILY 05/14/21 08/31/22 Mometasone/Formoterol [Dulera 200 2 puffs INH BID 05/14/21 08/31/22 Mcg-5 Mcg Inhaler] Lidocaine Patch 5% [Lidoderm Patch] 1 patch TOP DAILY PRN #10 patch 05/27/22 08/31/22 Atorvastatin [Lipitor] 10 mg PO QPM #0 06/05/22 08/31/22 Calcitonin [Fortical] 1 sprays TIFFANIE DAILY #1 ahfu 06/05/22 08/31/22 Metoprolol Succinate [Toprol Xl] 25 mg PO DAILY 30 Days #30 tablet 06/05/22 08/31/22 Tamsulosin [Flomax] 0.4 mg PO DAILY 06/05/22 08/31/22 Acetaminophen [Tylenol] 1 tab PO Q6H PRN 08/31/22 08/31/22 Albuterol 1 vial PO Q4H PRN 08/31/22 08/31/22 Docusate Sodium 250Mg Capsule 1 cap PO DAILY PRN 08/31/22 08/31/22 [Colace 250Mg Capsule] Magnesium Hydroxide [Milk of 400 mg PO PRN PRN 08/31/22 08/31/22 Magnesia] Senna [Senokot] 1 tab PO DAILY PRN 08/31/22 08/31/22 oxyCODONE [Roxicodone] 5 mg PO Q8H PRN 08/31/22 08/31/22 Amox/Clav 875/125 [Augmentin 1 tab PO BID #4 tab 09/03/22 875/125 Tab] - Allergies Allergies/Adverse Reactions: Allergies Allergy/AdvReac Type Severity Reaction Status Date / Time No Known Drug Allergies Allergy Verified 05/09/23 12:10 - Social History Does the pt smoke?: No Smoking Status: Never smoker Does the pt drink ETOH?: No Does the pt have substance abuse?: No - Immunizations Immunizations are current?: No - POLST Patient has POLST: No POLST Status: Full Code PD ED PE NORMAL - Vitals Vital signs reviewed: Yes - General General: Other (He appears to be in severe pain. Mild dementia. Overall a decent historian.) - Abdomen Abdomen: Other (Severe diffuse abdominal tenderness with guarding. There is a small right inguinal hernia that is easily reduced. There is a very large left inguinal hernia that is quite tender and unable to be reduced on initial evaluation.) Results - Vitals Vitals: Vital Signs - 24 hr 05/09/23 05/09/23 05/09/23 12:08 12:23 12:32 Temperature 37.3 C Heart Rate 65 99 55 L Respiratory 22 16 14 Rate Blood Pressure 115/79 115/73 115/73 O2 Saturation 100 99 98 If not protocol : Oxygen Flow, liters/minute 05/09/23 05/09/23 05/09/23 12:38 12:42 12:44 Temperature Heart Rate 67 55 L 80 Respiratory 8 L 16 12 Rate Blood Pressure 99/50 L 97/57 L 103/61 O2 Saturation 100 99 2 L If not protocol 2 2 : Oxygen Flow, liters/minute 05/09/23 12:52 Temperature Heart Rate 55 L Respiratory 14 Rate Blood Pressure 100/59 L O2 Saturation 99 If not protocol 2 : Oxygen Flow, liters/minute Oxygen O2 Source Nasal cannula - Labs Labs: Laboratory Tests 05/09/23 05/09/23 12:21 12:21 WBC 8.6 RBC 3.31 L Hgb 10.4 L Hct 32.3 L MCV 97.6 H MCH 31.4 H MCHC 32.2 RDW 15.8 H Plt Count 69 L MPV 12.1 H Neut # (Auto) 6.3 Lymph # (Auto) 1.3 L Hickman # (Auto) 1.0 Eos # (Auto) 0.1 Baso # (Auto) 0.0 Absolute Nucleated RBC 0.00 Nucleated RBC % 0.0 Sodium 140 Potassium 3.8 Chloride 106 Carbon Dioxide 28 Anion Gap 6.0 BUN 24 H Creatinine 0.9 Estimated GFR (MDRD) 80 L Glucose 95 Calcium 9.4 Total Bilirubin 1.1 H AST 10 ALT 9 L Alkaline Phosphatase 54 Total Protein 6.2 L Albumin 3.8 Globulin 2.4 Albumin/Globulin Ratio 1.6 Lipase 29 Procedures - Procedural sedation Sedation prep: Informed consent (from son- verbal by phone, he is in [place]), ASA 2 - mild disease Sedation Medications: propofol (40mg IVP x1, total 40mg) Mallampati classification: I Patient status during sedation: Unresponsive Sedation recovery: Recovered uneventfully Time in sedation (Minutes): 10 PD Medical Decision Making - ED course Complexity details: reviewed results (CBC shows chronic macrocytic anemia and CMP showing mild elevation of BUN, otherwise unremarkable.) ED course: 87-year-old gentleman with multiple comorbidities and modest dementia presents with severe abdominal pain apparently from an incarcerated left inguinal hernia that I was unable to reduce on initial evaluation. I called and spoke with his son who is his POA who verbally consented to sedation for reduction and I will call him back with the results. He was sedated 40 mg of propofol with excellent effect and at that point I repeated the attempt at reducing his incarcerated left inguinal hernia which was successful. He was observed for a while after that without recurrence of his pain and he was nontender on reevaluation. Departure - Departure Disposition: 01 Home, Self Care Clinical Impression: Incarcerated left inguinal hernia Condition: Good Record reviewed to determine appropriate education?: Yes Instructions: ED Hernia Inguinal Comments: Mr. Valles was seen today for severe pain related to an incarcerated left inguinal hernia. We were able to reduce this with sedation here with resolution of his pain. I spoke with his son and also contacted Mrs. Shields. Consideration should be given to a surgical consult as an outpatient for consideration of definitive surgical repair but noting that he is at high surgical risk due to age and comorbidities. Return if worse.
[2023-05-09] MEDS: HYDROmorphone 1 MG/ML CARPUJECT IVP STA (12:16)
[2023-05-09 12:30] LABS: BASOPHILS % (AUTO) 0.5 %; EOSINOPHILS # (AUTO) 0.1 10^3/uL (0.0-0.7); HCT - HEMATOCRIT 32.3 % (42.0-52.0); HGB - HEMOGLOBIN 10.4 g/dL (14.0-18.0); LYMPHOCYTES # (AUTO) 1.3 10^3/uL (1.5-3.5); LYMPHOCYTES % (AUTO) 14.5 %; MEAN CORPUSCULAR HEMOGLOBIN 31.4 pg (27.0-31.0); MEAN CORPUSCULAR HGB CONC 32.2 g/dL (32.0-36.0); MEAN CORPUSCULAR VOLUME 97.6 fL (80.0-94.0); MEAN PLATELET VOLUME 12.1 fL (7.4-11.4); MONOCYTES % (AUTO) 11.1 %; NEUTROPHILS # (AUTO) 6.3 10^3/uL (1.5-6.6); NEUTROPHILS % (AUTO) 72.8 %; PLT - PLATELET COUNT 69 10^3/uL (130-450); RED BLOOD COUNT 3.31 10^6/uL (4.70-6.10); RED CELL DISTRIBUTION WIDTH 15.8 % (12.0-15.0); WHITE BLOOD COUNT 8.6 x10^3/uL (4.8-10.8)
[2023-05-09] MEDS: PROPOFOL 200 MG/20 ML VIAL IVP STA (12:34)
[2023-05-09 12:49] LABS: ALBUMIN 3.8 g/dL (3.2-5.5); ALBUMIN/GLOBULIN RATIO 1.6 (1.0-2.2); BILIRUBIN,TOTAL 1.1 mg/dL (0.2-1.0); CALCIUM 9.4 mg/dL (8.5-10.3); CREATININE 0.9 mg/dL (0.6-1.3); POTASSIUM 3.8 mmol/L (3.5-4.5); TOTAL PROTEIN 6.2 g/dL (6.4-8.9)
[2023-05-09 13:15] VITALS: BP 107/58
== END 2023-05-09 14:51 | disposition home or self-care (01) ==
LOC: EDUNIT# → ED 11:55
DX: K40.30 Unilateral inguinal hernia, with obstruction, without gangrene, not specified as recurrent (principal); F03.90 Unspecified dementia, unspecified severity, without behavioral disturbance, psychotic disturbance, mood disturbance, and anxiety; E78.00 Pure hypercholesterolemia, unspecified; I48.91 Unspecified atrial fibrillation; J44.9 Chronic obstructive pulmonary disease, unspecified; K21.9 Gastro-esophageal reflux disease without esophagitis; Z79.01 Long term (current) use of anticoagulants; Z79.899 Other long term (current) drug therapy
CPT/HCPCS: 36415; 80053; 83690; 85025; 94770; 99152; 99284

== ENCOUNTER 2023-05-09 14:44 | Outpatient (CLI) | payer MEDICARE, OTHER | END 2023-05-09 23:59 | disposition home or self-care (01) | LOC: EMS 14:44 | PROVIDERS: ATTEND Emergency Medicine | DX: R41.0 Disorientation, unspecified (principal); F03.90 Unspecified dementia, unspecified severity, without behavioral disturbance, psychotic disturbance, mood disturbance, and anxiety; K40.91 Unilateral inguinal hernia, without obstruction or gangrene, recurrent | CPT/HCPCS: A0425; A0429 ==

== ENCOUNTER 2023-06-06 11:03 | Outpatient (CLI) | payer MEDICARE, OTHER | END 2023-06-06 23:59 | disposition critical access hospital (66) | LOC: EMS 11:03 | DX: K40.90 Unilateral inguinal hernia, without obstruction or gangrene, not specified as recurrent (principal) | CPT/HCPCS: A0425; A0427 ==

== ENCOUNTER 2023-06-06 11:21 | Emergency (ER) | payer MEDICARE, OTHER ==
[2023-06-06] MEDS ORDERED: HYDROmorphone 1 MG/ML CARPUJECT IVP STA (11:33)
[2023-06-06] MEDS ORDERED: PROPOFOL 200 MG/20 ML VIAL IVP STA (11:33)
--- NOTE | 2023-06-06 11:34 | ED Physician Documentation ---
History of Present Illness - Stated complaint Stated Complaint: ABD PX - History obtained from History obtained from: Patient (88-year-old gentleman with recurrence inguinal hernia. Presents with severe pain since 830 this morning and his hernia is incarcerated again.) PD PAST MEDICAL HISTORY - Present Medications Home Medications: Ambulatory Orders Medication Instructions Recorded Confirmed Apixaban [Eliquis] 5 mg PO BID 30 Days #60 tablet 05/14/21 06/06/23 Furosemide [Lasix] 20 mg PO DAILY 05/14/21 06/06/23 Mometasone/Formoterol [Dulera 200 2 puffs INH BID 05/14/21 06/06/23 Mcg-5 Mcg Inhaler] Lidocaine Patch 5% [Lidoderm Patch] 1 patch TOP DAILY PRN #10 patch 05/27/22 06/06/23 Atorvastatin [Lipitor] 10 mg PO QPM #0 06/05/22 06/06/23 Calcitonin [Fortical] 1 sprays TIFFANIE DAILY #1 ahfu 06/05/22 06/06/23 Metoprolol Succinate [Toprol Xl] 25 mg PO DAILY 30 Days #30 tablet 06/05/22 06/06/23 Tamsulosin [Flomax] 0.4 mg PO DAILY 06/05/22 06/06/23 Acetaminophen [Tylenol] 1 tab PO Q6H PRN 08/31/22 06/06/23 Albuterol 1 vial PO Q4H PRN 08/31/22 06/06/23 Docusate Sodium 250Mg Capsule 1 cap PO DAILY PRN 08/31/22 06/06/23 [Colace 250Mg Capsule] Magnesium Hydroxide [Milk of 400 mg PO PRN PRN 08/31/22 06/06/23 Magnesia] Senna [Senokot] 1 tab PO DAILY PRN 08/31/22 06/06/23 oxyCODONE [Roxicodone] 5 mg PO Q8H PRN 08/31/22 06/06/23 - Allergies Allergies/Adverse Reactions: Allergies Allergy/AdvReac Type Severity Reaction Status Date / Time No Known Drug Allergies Allergy Verified 06/06/23 11:48 PD ED PE NORMAL - Vitals Vital signs reviewed: Yes - General General: Well developed/nourished, Other (He is in distress due to pain.) - Abdomen Abdomen: Other (Large quite tender left inguinal hernia that I am unable to reduce on initial evaluation) - Psych Psych: Normal mood Results - Vitals Vitals: Vital Signs - 24 hr 06/06/23 06/06/23 06/06/23 11:27 11:47 11:50 Temperature 36.9 C Heart Rate 56 L 67 67 Respiratory 16 30 H 19 Rate Blood Pressure 113/61 116/68 116/68 O2 Saturation 99 98 91 L If not protocol : Oxygen Flow, liters/minute 06/06/23 06/06/23 06/06/23 11:57 12:04 12:09 Temperature Heart Rate 67 57 L 53 L Respiratory 13 20 18 Rate Blood Pressure 116/68 120/76 120/107 H O2 Saturation 90 L 100 100 If not protocol 2 4 4 : Oxygen Flow, liters/minute 06/06/23 06/06/23 12:19 12:32 Temperature Heart Rate 54 L 56 L Respiratory 12 20 Rate Blood Pressure 121/95 H 101/63 O2 Saturation 100 100 If not protocol 4 : Oxygen Flow, liters/minute Oxygen O2 Source Room air Procedures - Procedural sedation Sedation prep: Time out completed, PE performed, ASA 2 - mild disease Sedation Medications: propofol (40 then 20mg IVP = total 60mg) Mallampati classification: II Patient status during sedation: Responds to tactile Sedation recovery: Recovered uneventfully Time in sedation (Minutes): 12 PD Medical Decision Making - ED course ED course: 88-year-old gentleman with recurrent incarcerated left inguinal hernia. I was unable to reduce it on initial evaluation and he has required sedation for this in the past. He was sedated and the hernia was reduced with resolution of his symptoms. His son is in [place] and we spoke by phone. It sounds like he has not yet seen an surgeon for this recurrent hernia. The son is a proponent of surgery given that this is happening quite frequently. He was referred back in January to Dr. Ramirez per prior notes so I will touch base with him. Dr. Ramirez was in the department and graciously saw the patient as well. Departure - Departure Disposition: 01 Home, Self Care Clinical Impression: Incarcerated left inguinal hernia Condition: Good Record reviewed to determine appropriate education?: Yes Instructions: ED Hernia Inguinal Follow-Up: Ravi Ramirez MD [Provider Admit Priv/Credential] - Comments: Per my previous conversation with Alisha Padron he was referred to Dr. Ramirez back in January. He really does need to get to the office to see him for preoperative planning.
[2023-06-06 12:23] VITALS: O2SAT 100
[2023-06-06 12:33] VITALS: BP 101/63
== END 2023-06-06 13:46 | disposition home or self-care (01) ==
LOC: MERGE 11:21 → ED 11:21
DX: K40.30 Unilateral inguinal hernia, with obstruction, without gangrene, not specified as recurrent (principal); Z79.01 Long term (current) use of anticoagulants; Z79.899 Other long term (current) drug therapy; Z79.51 Long term (current) use of inhaled steroids
CPT/HCPCS: 96374; 99152; 99283; 99285; J1170

== ENCOUNTER 2023-06-06 13:42 | Outpatient (CLI) | payer MEDICARE, OTHER | END 2023-06-06 23:59 | LOC: EMS 13:42 | PROVIDERS: ATTEND Emergency Medicine | DX: R10.9 Unspecified abdominal pain (principal); F03.90 Unspecified dementia, unspecified severity, without behavioral disturbance, psychotic disturbance, mood disturbance, and anxiety; R41.0 Disorientation, unspecified | CPT/HCPCS: A0425; A0428 ==

== ENCOUNTER 2023-07-18 09:34 | Day surgery (SDC) | payer MEDICARE, OTHER ==
[~2023-07-18 09:34] MED LIST: ceFAZolin 2 GM VIAL ONE
[2023-07-18] MEDS ORDERED: LACTATED RINGERS 1,000 ML IV ONE ×2 (09:40→14:35)
[2023-07-18] MEDS ORDERED: BUPIVACAINE 0.5%-EPI 1:200000 PF 30 ML VIAL ONE (10:43)
[2023-07-18] MEDS ORDERED: fentaNYL 100 MCG/2 ML VIAL ONE (11:30)
[2023-07-18] MEDS ORDERED: PROPOFOL 200 MG/20 ML VIAL IVP ONE (11:30)
[2023-07-18] MEDS ORDERED: MIDAZOLAM 2 MG/2 ML VIAL ONE (11:30)
[2023-07-18] MEDS ORDERED: LIDOCAINE-PF 2% 10 ML AMP SUBQ ONE (11:30)
--- NOTE | 2023-07-18 11:34 | ANESTHESIA ---
Pre-Anesthesia VS, & Labs - Diagnosis B inguinal hernias - Procedure B open inguinal hernia repair Vital Signs: Temp Pulse Resp BP Pulse Ox O2 Flow Rate 36.7 C 99 9 L 107/43 L 99 07/18/23 09:40 07/18/23 09:40 07/18/23 09:40 07/18/23 09:40 07/18/23 09:40 Height: 6 ft 2 in Weight (kg): 69 kg Body Mass Index: 19.5 BMI Classification: Normal - NPO >8 hours - Lab Results Lab results reviewed: Yes Home Medications and Allergies Home Medications: Ambulatory Orders Bisacodyl Supp [Dulcolax Supp] 10 mg MA BID PRN 07/13/23 Citalopram [CeleXA] 10 mg PO DAILY 07/13/23 fentaNYL [Fentanyl 37.5mcg patch] 1 patch TOP ONCE 07/13/23 Furosemide [Lasix] 20 mg PO DAILY 05/14/21 Mometasone/Formoterol [Dulera 200 Mcg-5 Mcg Inhaler] 2 puffs INH BID 05/14/21 Acetaminophen [Tylenol] 650 mg PO Q6H PRN 08/31/22 Albuterol 1 vial PO Q4H PRN 08/31/22 Docusate Sodium 250Mg Capsule [Colace 250Mg Capsule] 1 cap PO DAILY PRN 08/31/22 Magnesium Hydroxide [Milk of Magnesia] 400 mg PO PRN PRN 08/31/22 Senna [Senokot] 1 tab PO BID 08/31/22 oxyCODONE [Roxicodone] 5 mg PO Q8H PRN 08/31/22 Bisacodyl Supp [Dulcolax Supp] 10 mg MA BID PRN 07/13/23 Citalopram [CeleXA] 10 mg PO DAILY 07/13/23 fentaNYL [Fentanyl 37.5mcg patch] 1 patch TOP ONCE 07/13/23 Allergies/Adverse Reactions: Allergies Allergy/AdvReac Type Severity Reaction Status Date / Time No Known Drug Allergies Allergy Verified 06/06/23 11:48 Anes History & Medical History - Anesthetic History Anesthesia Complications: reports: No previous complications Family history of Anesthesia Complications: Denies Family history of Malignant Hyperthermia: Denies - Medical History Cardiovascular: reports: Congestive heart failure, High cholesterol, Atrial fibrillation, Valve disorder Pulmonary: reports: COPD, Pneumonia Gastrointestinal: reports: GERD Urinary: reports: Benign prostate hypertrophy Neuro: reports: Dementia Musculoskeletal: reports: Osteoarthritis, Chronic back pain, Other Endocrine/Autoimmune: reports: None Blood Disorders: reports: None Skin: reports: None Smoking Status: Never smoker - Surgical History General: reports: Cholecystectomy, Appendectomy, Bowel surgery, Colonoscopy Cardiothoracic: reports: Coronary stent Exam General: Alert, Oriented x3, Cooperative Dental: WNL, Poor dentition Mouth Openin Fingerbreadth Neck Mobility: Normal Mallampati classification: II Thyromental Distance: 4-6 cm Respiratory: Lungs clear, Normal breath sounds, No respiratory distress, Decreased breath sounds Cardiovascular: Regular rate Neurological: Normal speech Mental/Cognitive Status: Alert/Oriented X3, Normal for patient Cognitive Status: Within normal limits Plan Anesthesia Type: General Consent for Procedure(s) Verified and Reviewed: Yes Code Status: Attempt Resuscitation ASA classification: 3-Severe systemic disease Is this case an emergency?: No
[2023-07-18] MEDS ORDERED: fentaNYL 100 MCG/2 ML VIAL IVP PRN (11:40)
[2023-07-18] MEDS ORDERED: ATROPINE ABBOJECT 1 MG/10 ML SYRINGE IVP PRN (11:40)
[2023-07-18] MEDS ORDERED: ONDANSETRON 4 MG/2 ML VIAL IVP PRN ×2 (11:40→14:32)
[2023-07-18] MEDS ORDERED: MORPHINE 2 MG/ML CARPUJECT IVP PRN (11:40)
[2023-07-18] MEDS ORDERED: METOCLOPRAMIDE 10 MG/2 ML VIAL IVP PRN (11:40)
[2023-07-18] MEDS ORDERED: HYDROmorphone 0.5 MG/0.5 ML SYRINGE IVP PRN ×2 (11:40→14:32)
[2023-07-18] MEDS ORDERED: NALOXONE 0.4 MG/ML VIAL IVP PRN (11:40)
[2023-07-18] MEDS ORDERED: ePHEDrine 50 MG/ML VIAL IVP PRN (11:40)
[2023-07-18] MEDS ORDERED: LACTATED RINGERS 1,000 ML IV SCH (12:00)
[2023-07-18] MEDS ORDERED: ACETAMINOPHEN 1,000 MG/100 ML 1,000 MG/100 ML BAG IV ONE (12:30)
[2023-07-18] MEDS ORDERED: ePHEDrine 50 MG/ML VIAL IVP ONE (12:39)
[2023-07-18] MEDS ORDERED: BUPIVACAINE 0.5%-EPI 1:200000 PF 30 ML VIAL SUBQ ONE (12:57)
[2023-07-18] MEDS ORDERED: HYDROcod/ACETAM 5/325 MG TABLET PO PRN (14:32)
--- NOTE | 2023-07-18 14:45 | OPERATIVE REPORT ---
Operative Report - General Planned Procedure: BILATERAL inguinal herniorrhaphy Pre-Op Diagnosis: Increasingly symptomatic BILATERAL inguinal hernias Procedure Performed: RIGHT indirect sliding Amyands inguinal herniorrhaphy with mesh Appendectomy LEFT indirect inguinal herniorrhaphy with mesh Post Op Diagnosis: RIGHT indirect sliding Amyands inguinal hernia with adherent appendix and L - Procedure Note Primary Surgeon: Ravi Ramirez MD Anesthesia Provider: Peña Peters CRNA Anesthesia Technique: General LMA, Local (60 mL of half percent Marcaine with epinephrine) IV Fluids (mL): 1,000 Estimated Blood Loss (mL): 30 Drain/Tube Type: Other (None.) Indications: Increasingly symptomatic bilateral inguinal hernias requiring visitation to the emergency department Findings: As above. Complications: None. - Other Other Information/Narrative: After verbal and written informed consent was obtained detailing the operation, the alternatives the operation including no operation, risks of infection, bleeding requiring transfusion with its risks, nerve injury, and and after I met with the patient confirming the surgery and the site of surgery, the pat ient was brought to the operative suite and placed supine on the operating table. Great care was taken to avoid pressure points to prevent pressure necrosis or nerve injury. Monitoring devices were applied along with TEDs and pneumatic compression stockings (to prevent DVT). The patient received preoperative antibiotics for surgical prophylaxis. Peña Peters CRNA sedated and anesthetized the patient for the entire procedure. The patient was prepped and draped in the usual sterile manner. With the patient draped my initials were clearly visible. A "time in" then confirmed that the patient was identified with 3 identifiers (name, date, and medical record number), the history and physical was updated and in the chart, the signed consent confirming the procedure was in the chart, the patient was in the correct position, the aforementioned prophylactic measures were in place or given, we had the correct personnel and equipment to complete the procedure and that anesthesia and the surgical team were given an opportunity to express any concerns. With the agreement of everyone in the room we proceeded with the operation. The patient's RIGHT side was addressed first. A standard inguinal incision was made and dissection was carried down to the external oblique aponeurosis using a combination of Metzenbaum scissors and Bovie electrocautery. The external oblique aponeurosis was cleared of overlying adherent tissue, and the external ring was delineated. The external oblique as well as the external ring were grossly much larger than normal due to the chronic nature and the size of the hernia. The external oblique was incised with a scalpel and this incision was carried down to the external ring using Metzenbaum scissors. Care was taken not to injure the ilioinguinal nerve. Having expose the inguinal canal, the cord structures were from the canal using blunt dissection and a [place] drain was placed around the cord structures at the level of the pubic tubercle. This [place] drain was then used to retract the cord structures as needed. Adherent cremasteric muscle was dissected free from the cord using Bovie electrocautery. The cord was then explored using a combination of sharp and blunt dissection, and an indirect sac was found. It was clear that this sac was a sliding inguinal hernia and within the sac there was the appendix that was adherent to numerous places making a pursestring ligation of the sac impossible without removal of the appendix. The sac was then dissected back to the internal ring and Opened. The appendix was then dissected free from the sidewalls taking great care not to perforate the appendix and this was dissected all the way back to the base of the cecum. At the base the cecum the appendix was ligated using a 2-0 PDS ligature and transected. The stump was then cauterized using Bovie electrocautery. The appendix was sent for pathologic evaluation. Great care was taken not to spill any of the appendiceal contents. Attention was then directed towards closure of the sac. This was closed using a 2-0 PDS in a pursestring fashion taking great care to remain distal to the cecum which was still adherent to the sac. The pursestring suture was tied tight thus closing the sac and the excess sac was excised using Metzenbaum scissors. The stump was cauterized using Bovie electrocautery. This transected the stump cauterized and allowed to retract back into the abdomen. An extra large PerFix plug (Ref#[id number], Lot#[id number], use by date 2027-10-12) was then inserted into the internal ring and secured to the edge of the internal ring using a [id number] PDS. The PerFix onlay patch was then secured to the pubic tubercle with a 2 0-PDS U stitch. The mesh was then secured to the conjoined tendon superiorly using interrupted 2-0 PDS sutures and secured to the shelving edge of Poupart's ligament inferiorly using interrupted 2-0 PDS sutures. The mesh was secured around the cord structures loosely with a 2-0 PDS suture thus creating a new internal ring. The [place] drain was then removed. Meticulous hemostasis was obtained using Bovie electrocautery. The wound was then injected superficially and deep using 30 mL of half percent Marcaine with epinephrine. The incision the external oblique was approximated using 3-0 Vicryl in a running fashion thus reforming the external ring. The skin incision was approximated with 4-0 Monocryl in a subcuticular fashion. The LEFT side was then addressed. A standard inguinal incision was made and dissection was carried down to the external oblique aponeurosis using a combination of Metzenbaum scissors and Bovie electrocautery. The external oblique aponeurosis was cleared of overlying adherent tissue, and the external ring was delineated. The external oblique as well as the external ring were grossly much larger than normal due to the chronic nature and the size of the hernia. The external oblique was incised with a scalpel and this incision was carried down to the external ring using Metzenbaum scissors. Care was taken not to injure the ilioinguinal nerve. Having expose the inguinal canal, the cord structures were from the canal using blunt dissection and a Alex drain was placed around the cord structures at the level of the pubic tubercle. This [place] drain was then used to retract the cord structures as needed. Adherent cremasteric muscle was dissected free from the cord using Bovie electrocautery. The cord was then explored using a combination of sharp and blunt dissection, and a very large indirect sac was found. The sac was then dissected back to the internal ring and high ligated with a 3-0 Vicryl suture. This was then transected the stump cauterized and allowed to retract back into the abdomen. An extra large PerFix plug (Ref#[id number], Lot#[id number], use by date 2027-10-12) was then inserted into the internal ring and secured to the edge of the internal ring using a 2-0 PDS. The PerFix onlay patch was then secured to the pubic tubercle with a 2 0-PDS U stitch. The mesh was then secured to the conjoined tendon superiorly using interrupted 2-0 PDS sutures and secured to the shelving edge of Poupart's ligament inferiorly using interrupted 2-0 PDS sutures. The mesh was secured around the cord structures loosely with a 2-0 PDS suture thus creating a new internal ring. The [place] drain was then removed. Meticulous hemostasis was obtained using Bovie electrocautery. The wound was then injected superficially and deep using 30 mL of half percent Marcaine. The incision the external oblique was approximated using 3-0 Vicryl in a running fashion thus reforming the external ring. The skin incision was approximated with 4-0 Monocryl in a subcuticular fashion. Both skin incisions were was cleaned of prep and Dermabond was applied. At this point a timeout was performed that confirmed that all counts were correct x2, the procedure that was performed, the blood loss, the IV fluids administered, the patient's condition, and any concerns of the operating team had. Having tolerated the procedure well, the patient was taken recovery room in good and stable condition. Gentle downward traction ensured the testes were well seated in the scrotum. The plan is for outpatient discharge when the patient is adequately recovered. CPT RIGHT sliding indirect inguinal hernia 63174 CPT LEFT indirect inguinal hernia 08275 CPT appendectomy 54907 This document was created in part using voice recognition technology. Because of the inherent limitations of the system, occasional same sounding word substitutions and grammatical errors do occur and persist despite proofreading. Please read this document for content.
[2023-07-18] MEDS: fentaNYL 100 MCG/2 ML VIAL ONE ×2 (14:51→15:24)
--- NOTE | 2023-07-18 14:55 | ANESTHESIA POST OP EVALUATION ---
Anesthesia Post Eval - Post Anesthesia Eval Vitals: Last Vital Signs Temp 36.7 C 07/18/23 09:40 Pulse 113 H 07/18/23 14:45 Resp 22 07/18/23 14:45 BP 141/67 H 07/18/23 14:40 Pulse Ox 99 07/18/23 14:45 O2 Flow Rate CV Function Including HR & BP: Stable Pain Control: Satisfactory Nausea & Vomiting: Negative Mental Status: Baseline Respiratory Status: Airway Patent Hydration Status: Satisfactory Anesthesia Complications: None
[2023-07-18] MEDS ORDERED: HYDROmorphone 0.5 MG/0.5 ML SYRINGE ONE (15:33)
[2023-07-18] MEDS ORDERED: oxyCODONE 5 MG TABLET ONE (15:50)
[2023-07-18 16:12] VITALS: BP 104/48; O2SAT 97
[2023-07-18] MEDS ORDERED: oxyCODONE 5 MG TABLET PO SCH (16:30)
== END 2023-07-18 09:35 | disposition home or self-care (01) ==
LOC: SDS 09:34
PROVIDERS: ATTEND Surgery
DX: K40.20 Bilateral inguinal hernia, without obstruction or gangrene, not specified as recurrent (principal); J44.9 Chronic obstructive pulmonary disease, unspecified
CPT/HCPCS: 49505; 49525; A9270; C1781; J0131; J1170; J7120